=== PATIENT | male | born 1950 | race Caucasian/White ===

== ENCOUNTER → 2018-02-18 | Outpatient (CLI) | payer MEDICARE, OTHER | END | disposition home or self-care (01) | LOC: KCIC MRI 09:49 | DX: S83.242A Other tear of medial meniscus, current injury, left knee, initial encounter (principal); M22.42 Chondromalacia patellae, left knee; X58.XXXA Exposure to other specified factors, initial encounter; Y93.89 Activity, other specified; Y92.89 Other specified places as the place of occurrence of the external cause; Y99.8 Other external cause status | CPT/HCPCS: 73721 ==

== ENCOUNTER → 2018-03-22 | Day surgery (SDC) | payer MEDICARE, OTHER ==
[~2018-03-22] MED LIST: DEXAMETHASONE SOD PHOS 20 MG/5 ML VIAL.; ESMOLOL 100 MG/10 ML VIAL. IV; HYDROcodone/APAP 7.5/325MG 1 TAB TABLET PO; LIDOCAINE 1% PF 2 ML VIAL. ID; LIDOCAINE 1% PF 5 ML VIAL.; MIDAZOLAM HCL/PF 2 MG/2 ML VIAL.; MIDAZOLAM HCL/PF 2 MG/2 ML VIAL. IV; ONDANSETRON PF 4 MG/2 ML VIAL.; PROPOFOL 20 ML IV; SCOPOLAMINE 1.5MG PATCH. TD; SEVOFLURANE 31 TO 60 MINUTES. IH; fentaNYL PF VIAL 100 MCG/2 ML VIAL IV; fentaNYL PF VIAL 250 MCG/5 ML VIAL
[2018-03-22] MEDS: IV RINGERS,LACTATED 1000ML 1,000 ML IV (07:57)
[2018-03-22 08:02] LABS: POC GLUCOSE 145 mg/dL (70-99)
[2018-03-22] MEDS: BUPIVACAINE-EPI 0.25%-1:200000 50 ML VIAL. (09:22)
[2018-03-22 09:56] LABS: POC GLUCOSE 137 mg/dL (70-99)
[2018-03-22] MEDS: fentaNYL PF VIAL 100 MCG/2 ML VIAL IV (10:23)
[2018-03-22] MEDS: HYDROcodone/APAP 7.5/325MG 1 TAB TABLET PO (11:01)
== END | disposition home or self-care (01) ==
LOC: SURG 06:53
DX: S83.242A Other tear of medial meniscus, current injury, left knee, initial encounter (principal); M22.42 Chondromalacia patellae, left knee; I10 Essential (primary) hypertension; E11.9 Type 2 diabetes mellitus without complications; E03.9 Hypothyroidism, unspecified; Z98.890 Other specified postprocedural states; Z87.442 Personal history of urinary calculi; Z81.8 Family history of other mental and behavioral disorders; Z82.3 Family history of stroke; Z83.6 Family history of other diseases of the respiratory system; F17.210 Nicotine dependence, cigarettes, uncomplicated; M19.90 Unspecified osteoarthritis, unspecified site; Z79.84 Long term (current) use of oral hypoglycemic drugs; Z79.899 Other long term (current) drug therapy; W31.89XA Contact with other specified machinery, initial encounter; Y93.89 Activity, other specified; Y92.89 Other specified places as the place of occurrence of the external cause; Y99.8 Other external cause status
CPT/HCPCS: 29881; 82962; A7015; J0690; J1100; J2250; J2405; J2704; J3010; J3490; J7120

== ENCOUNTER → 2018-06-29 | Outpatient (CLI) | payer MEDICARE ==
[2018-03-22 11:01] VITALS: BP 157/68
[~2018-06-29] MED LIST changes: +ASCO100T4 PO; +BENA20TA4 PO; -DEXAMETHASONE SOD PHOS 20 MG/5 ML VIAL.; -ESMOLOL 100 MG/10 ML VIAL. IV; +GLIM2TAB2 PO; +GLUC100018 PO; +HYDR-965 PO; +HYDR12.53 PO; -HYDROcodone/APAP 7.5/325MG 1 TAB TABLET PO; +LEVO100T5 PO; -LIDOCAINE 1% PF 2 ML VIAL. ID; -LIDOCAINE 1% PF 5 ML VIAL.; +MELO15TA23 PO; +METF10003 PO; -MIDAZOLAM HCL/PF 2 MG/2 ML VIAL.; -MIDAZOLAM HCL/PF 2 MG/2 ML VIAL. IV; +MULT1TAB52 PO; -ONDANSETRON PF 4 MG/2 ML VIAL.; -PROPOFOL 20 ML IV; -SCOPOLAMINE 1.5MG PATCH. TD; -SEVOFLURANE 31 TO 60 MINUTES. IH; +TRAM50TA PO; -fentaNYL PF VIAL 100 MCG/2 ML VIAL IV; -fentaNYL PF VIAL 250 MCG/5 ML VIAL
--- NOTE | 2018-06-29 12:03 | KCIC ---
MRI of the lumbar spine without contrast 06/29/2018 CLINICAL HISTORY: Low back pain which radiates down the right leg. TECHNIQUE: Unenhanced T1-weighted and T2-weighted sagittal and axial and inversion recovery sagittal images of the lumbar spine were obtained. FINDINGS: No previous imaging studies are available for comparison. Very mild S-shaped curvature of the thoracolumbar spine is seen. Degenerative signal changes are seen involving all of the disks of the lumbar spine. Degenerative signal changes are seen within the marrow surrounding these discs. An old compression fracture of the L1 vertebral body is seen. This vertebral body has lost approximately 15 percent of its normal height. No retropulsion of bone fragments into the central spinal canal is seen. There is no MRI evidence of an acute compression fracture involving the lumbar vertebrae. The conus medullaris is normal morphology, position, and signal characteristics. A 1.6 cm rounded high signal intensity lesion is seen involving the superior/midpole of the right kidney on the T2-weighted images. A 8 mm rounded high signal intensity lesion is seen involving the lower pole of the right kidney on the T2-weighted images. These likely represent cysts. At the T12-L1 disc space there is a minimal generalized disc bulge. Degenerative changes are seen involving the facet joints bilaterally.These findings do not result in significant central spinal canal or neural foraminal stenosis. At the L1-2 disc space is a mild generalized disc bulge. Degenerative changes are seen involving the facet joints bilaterally. There is mild ligament flavum hypertrophy bilaterally. These findings do not result in significant central spinal canal or neural foraminal stenosis. At the L2-3 disc space there is a mild to moderate generalized disc bulge. Degenerative changes are seen involving the facet joints bilaterally. There is moderate ligamentum flavum hypertrophy bilaterally. These findings when combined result in mild to moderate central spinal canal stenosis. No neural foraminal stenosis is seen. At the L3-4 disc space there is a mild to moderate generalized disc bulge. Degenerative changes are seen involving the facet joints bilaterally. There is mild ligament flavum hypertrophy bilaterally. These findings when combined result in mild central spinal canal stenosis. No neural foraminal stenosis is seen. At the L4-5 disc space there is a moderate generalized disc bulge. Degenerative changes are seen involving the facet joints bilaterally. There is moderate to severe ligamentum flavum hypertrophy bilaterally. These findings when combined result in moderate to severe central spinal canal stenosis. Mild bilateral neural foraminal stenosis is seen. At the L5-S1 disc space there is a mild generalized disc bulge. Superimposed on this disc bulge is a focal central disc protrusion. This measures 2 mm in AP diameter. Degenerative changes are seen involving the facet joints bilaterally. A 4 mm synovial cyst seen projecting laterally from the right facet joint. These findings do not result in significant central spinal canal or neural foraminal stenosis. IMPRESSION: The changes of degenerative disc disease are seen throughout the lumbar spine. These findings result in mild to moderate central spinal canal stenosis at L2-3, mild central spinal canal stenosis at L3-4 and moderate to severe central spinal canal stenosis at L4-5. Mild bilateral neural foraminal stenosis is seen at L4-5. Electronically signed by: Laron Alonso MD (06/29/2018 12:00 PM) [facility]
--- NOTE | 2018-06-29 13:54 | KCIC ---
MR of the right hip Indication: Right hip pain. Low back pain extending into the right hip. Technique: Standard multiplanar sequences are obtained. Findings: Artifact: Mild motion degradation Bones: No acute fracture. No aggressive bone destruction. No definite specific evidence of osteonecrosis. Effusion: Small Cartilage: Primary osteoarthritis with severe chondral loss. Subchondral marrow edema at the left femoral head and neck is likely degenerative. Labrum: Mild degenerative signal. No clear-cut detachment. Gluteus minimus tendon: Intact Gluteus medius tendon: Intact Hamstring tendon: Intact Iliopsoas tendon: Tendinosis. Moderate iliopsoas bursal fluid.. Rectus femoris tendon attachment:Intact Coronal survey STIR sequence demonstrates severe degenerative changes at the left hip with a small effusion. Impression: 1. Severe primary osteoarthritis. 2. Bilateral small effusions. 3. Iliopsoas tendinosis. Moderate iliopsoas bursal fluid accumulation. Electronically signed by: Tony Regalado MD (06/29/2018 1:50 PM) [facility]
== END | disposition home or self-care (01) ==
LOC: KCIC MRI 08:16
PROVIDERS: ATTEND Anesthesiology Pain Medicine
DX: M51.36 Other intervertebral disc degeneration, lumbar region (principal); M48.061 Spinal stenosis, lumbar region without neurogenic claudication; M51.27 Other intervertebral disc displacement, lumbosacral region; M16.11 Unilateral primary osteoarthritis, right hip; M25.452 Effusion, left hip; M25.451 Effusion, right hip; M71.38 Other bursal cyst, other site; I10 Essential (primary) hypertension; E11.9 Type 2 diabetes mellitus without complications; E03.9 Hypothyroidism, unspecified; Z87.891 Personal history of nicotine dependence
CPT/HCPCS: 72148; 73721

== ENCOUNTER → 2018-08-29 | Outpatient (CLI) | payer MEDICARE ==
[2018-03-22 11:01] VITALS: BP 157/68
[~2018-08-29] MED LIST changes: +APIX2.5T PO; +APIX5TAB PO; +CYCL10TA2 PO; +FERR325T72 PO; +INSU100I13 SQ; -METF10003 PO; +METF10007 PO; +NAPR220T70 PO; +SENN-22 PO
[2018-08-29 09:35] LABS: BASO % 0 % (0-3); EOS # 0.1 x10^3/uL (0.0-0.7); EOS % 2 % (0-3); HEMATOCRIT 42.7 % (39.0-53.0); HEMOGLOBIN 14.9 g/dL (13.0-17.5); LYMPH # 1.9 x10^3/uL (1.0-4.8); LYMPH % 29 % (24-48); MEAN CORPUSCULAR HEMOGLOBIN 34 pg (25-35); MEAN CORPUSCULAR HGB CONC 35 g/dL (31-37); MEAN CORPUSCULAR VOLUME 98 fL (79-100); MONO # 0.5 x10^3/uL (0.0-1.1); MONO % 8 % (0-9); NEUT % 61 % (31-73); PLATELET COUNT 216 x10^3/uL (140-400); RED BLOOD COUNT 4.35 x10^6/uL (4.30-5.70); RED CELL DISTRIBUTION WIDTH 13.3 % (11.5-14.5); WHITE BLOOD COUNT 6.5 x10^3/uL (4.0-11.0)
[2018-08-29 09:37] LABS: BILIRUBIN,URINE NEGATIVE (NEG); CLARITY,URINE CLEAR; COLOR,URINE YELLOW; NITRITE,URINE NEGATIVE (NEG); PH,URINE 5.5; PROTEIN,URINE NEGATIVE (NEG-TRACE)
[2018-08-29 09:43] LABS: ALBUMIN 3.6 g/dL (3.4-5.0); CALCIUM 9.4 mg/dL (8.5-10.1); CREATININE 1.3 mg/dL (0.7-1.3); GFR 54.9; POTASSIUM 4.8 mmol/L (3.5-5.1); PROTHROMBIN TIME PATIENT 12.7 SEC (11.7-14.0)
[2018-08-29 09:59] LABS: BACTERIA,URINE 0 /HPF (0-FEW); RBC,URINE 0 /HPF (0-2); SQUAMOUS EPITHELIAL CELL,UR FEW /LPF; WBC,URINE OCC /HPF (0-4)
--- NOTE | 2018-08-29 13:20 | EKG ---
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
--- NOTE | 2018-08-29 14:52 | RAD ---
EXAM: Chest, 2 views. HISTORY: Hip arthroplasty. Pain. COMPARISON: None. FINDINGS: 2 views of the chest are obtained. There is no infiltrate, pleural effusion or pneumothorax. The heart is normal in size. IMPRESSION: No acute pulmonary finding. Electronically signed by: Layal Malik MD (08/29/2018 2:49 PM) [facility]-H[facility]
[2018-08-30 00:10] LABS: HEMOGLOBIN A1C 8.3 % (4.8-5.6)
== END | disposition home or self-care (01) ==
LOC: SURGPAT 13:08
PROVIDERS: ATTEND Orthopaedic Surgery
DX: Z01.818 Encounter for other preprocedural examination (principal); M16.11 Unilateral primary osteoarthritis, right hip; I10 Essential (primary) hypertension; E11.9 Type 2 diabetes mellitus without complications; E03.9 Hypothyroidism, unspecified; F17.200 Nicotine dependence, unspecified, uncomplicated; Z79.899 Other long term (current) drug therapy; Z79.84 Long term (current) use of oral hypoglycemic drugs
CPT/HCPCS: 36415; 71046; 80048; 81001; 82040; 83036; 85025; 85610; 85730; 87641; 93005

== ENCOUNTER 2018-09-06 08:45 | Inpatient (IN) | payer MEDICARE ==
[~2018-09-06] VITALS: Ht 177.8 cm; Wt 80.3 kg
[~2018-09-06 08:45] MED LIST changes: -APIX2.5T PO; -APIX5TAB PO; -CYCL10TA2 PO; -FERR325T72 PO; +HYDROcodone/APAP 7.5/325MG 1 TAB TABLET PO PRN; +HYDROmorphone 2 MG/ML VIAL IV PRN; -INSU100I13 SQ; +IV RINGERS,LACTATED 1000ML 1,000 ML IV SCH; +LIDOCAINE 1% PF 2 ML VIAL. ID PRN; +MORPHINE SULFATE 2 MG/ML VIAL. IV PRN; +MORPHINE SULFATE 5 MG, KETOROLAC 30MG VIAL 30 MG, ROPIVacaine 0.5% PF 60 ML, EPINEPHrin... INT ART ONE; +ONDANSETRON PF 4 MG/2 ML VIAL. IV PRN; +PROCHLORPERAZINE 10 MG/2 ML VIAL. IV PRN; -SENN-22 PO; +TRANEXAMIC ACID 1,000 MG in IV NS 50ML -- 1ST BAG INJ ONE; +TRANEXAMIC ACID 1,000 MG in IV NS 50ML -- 2ND BAG INJ ONE; +fentaNYL PF VIAL 100 MCG/2 ML VIAL IV PRN
[2018-09-06 10:36] LABS: PROTHROMBIN TIME PATIENT 13.5 SEC (11.7-14.0)
[2018-09-06] MEDS ORDERED: DEXAMETHASONE SOD PHOS 20 MG/5 ML VIAL. ONE (13:17)
[2018-09-06] MEDS ORDERED: ROCURONIUM 50 MG/5 ML VIAL. ONE (13:17)
[2018-09-06] MEDS ORDERED: FAMOTIDINE 20 MG/2 ML VIAL ONE (13:17)
[2018-09-06] MEDS ORDERED: LIDOCAINE 2% PF Vial for OR 5 ML VIAL. ONE (13:17)
[2018-09-06] MEDS ORDERED: MIDAZOLAM HCL/PF 2 MG/2 ML VIAL. ONE (13:17)
[2018-09-06] MEDS ORDERED: fentaNYL PF VIAL 100 MCG/2 ML VIAL ONE ×2 (13:17→17:58)
[2018-09-06] MEDS ORDERED: ONDANSETRON PF 4 MG/2 ML VIAL. ONE (13:17)
[2018-09-06] MEDS ORDERED: PROPOFOL 20 ML IV ONE (13:17)
[2018-09-06] MEDS ORDERED: MORPHINE SULFATE INT ART ONE ×5 (14:15)
[2018-09-06] MEDS ORDERED: [UNRECOGNIZED DRUG - OTHER] INT ART ONE ×5 (14:15)
[2018-09-06] MEDS ORDERED: KETOROLAC INT ART ONE ×5 (14:15)
[2018-09-06] MEDS ORDERED: ROPIVACAINE 0.5% INT ART ONE ×5 (14:15)
[2018-09-06] MEDS ORDERED: oxyCODONE/APAP 5/325 1 TAB TABLET PO PRN (15:00)
[2018-09-06] MEDS ORDERED: DEXTROSE 50% 25 GM / 50ML DISP.SYRIN. IV PRN (15:00)
[2018-09-06] MEDS ORDERED: traMADol 50 MG TABLET PO PRN ×2 (15:00)
[2018-09-06] MEDS ORDERED: ACETAMINOPHEN 325 MG TABLET. PO PRN (15:00)
[2018-09-06] MEDS ORDERED: PROCHLORPERAZINE 10 MG/2 ML VIAL. IV PRN (15:00)
[2018-09-06] MEDS ORDERED: 0.9 % SODIUM CHLORIDE 10 ML DISP.SYRIN. IV PRN (15:00)
[2018-09-06] MEDS ORDERED: fentaNYL PF VIAL 100 MCG/2 ML VIAL IV PRN (15:00)
[2018-09-06] MEDS ORDERED: WARFARIN 7.5 MG TABLET. PO ONE (16:00)
--- NOTE | 2018-09-06 16:15 | PREOP HP ---
DATE OF SERVICE: 09/06/2018 CHIEF COMPLAINT: Right hip pain and degenerative joint disease. HISTORY OF PRESENT ILLNESS: The patient is known to me from left knee arthroscopy that continues to do very well. He has been unfortunately developing right hip pain, more severe in onset since May of this year, more tolerable prior to that point, but now very limiting to his activities of daily living. He states that it is radiating down toward the right knee and he has little compensatory pain even in the left knee area. PAST MEDICAL HISTORY: Significant for well controlled diabetes mellitus, hypertension, hypothyroidism. PAST SURGICAL HISTORY: Elbow, finger and abdominal surgery, left knee scope and some facial cosmetic surgery as well as kidney stones. FAMILY HISTORY: Stroke in his mom, emphysema in his dad and dementia in a brother. SOCIAL HISTORY: Smokes cigars. Denies alcohol or drug use. MEDICATIONS: Include metformin, glimepiride, levothyroxine, benazepril, hydrochlorothiazide, Mobic, tramadol. ALLERGIES: He has no known drug allergies. REVIEW OF SYSTEMS: Denies any chest pain, shortness of breath, radiating pain in the extremities, focal weakness, numbness, tingling or other constitutional symptoms. PHYSICAL EXAMINATION: VITAL SIGNS: Per admission sheet. HEENT: Atraumatic, normocephalic. HEART: Regular rate and rhythm. LUNGS: Clear to auscultation bilaterally. ABDOMEN: Benign. EXTREMITIES: Examination of the right hip reveals decreased range of motion in all planes with pain on extremes of range, reproducing his groin pain and radiating down toward, but not be on the right knee, well-healed arthroscopic portals in the left knee. He has normal alignment and stability of bilateral knees and ankles. Normal examination of the contralateral left hip with intact motor function, distal pulses, sensation, reflexes and skin in both lower extremities throughout. IMAGING: X-rays reveal severe degenerative change in the right hip. IMPRESSION: Right hip osteoarthritis. TREATMENT PLAN: I had previously discussed with him the possibility of ongoing nonoperative treatment, use of a cane. He has previously undergone injection and chiropractic treatment, which were ineffective. We talked about operative treatment including hip arthroplasty, possibility of infection, nerve or blood vessel damage, medical or other anesthetic complications, leg length inequality, premature wear loosening, instability, among others. All his questions were answered. He wishes to proceed with total hip arthroplasty, which will include [facility] admission to follow today. HERMINIO RICH MD DR: LILIA/macyol JOB#: [id number] / [id number]
[2018-09-06] MEDS ORDERED: ePHEDrine PF IN SALINE 50 MG/5 ML DISP.SYRIN IV ONE (16:46)
[2018-09-06] MEDS ORDERED: DESFLURANE > 120 MINUTES IH ONE (16:46)
[2018-09-06] MEDS ORDERED: NEOSTIGMINE METHYLSULFATE 5 MG/5 ML SYRINGE. ONE (16:47)
[2018-09-06] MEDS ORDERED: GLYCOPYRROLATE 1 MG/5 ML VIAL. ONE (16:47)
--- NOTE | 2018-09-06 17:42 | PDOC4 ---
Operative Note Operative Note Surgery: 09/06/2018 Preoperative diagnosis: Right hip degenerative joint disease Postoperative diagnosis: Same Operative procedure: Right total hip arthroplasty, anterior approach Surgeon: Shelton Assist: Bess Anesthesia: Gen. Estimated blood loss: 200 mL Complications: None Specimens: Femoral head to pathology Operative indications: Patient is known to me from previous knee arthroscopy on the left which had done well he has had ongoing worsening right hip pain unresponsive to injection activity modification. Details are in my clinic notes and preoperative history and physical. We had gone over risks benefits postoperative course of total hip arthroplasty including the possibility of infection nerve or blood vessel damage leg length inequality instability a mature wear or loosening medical or other anesthetic consultations among others all his questions were answered consent was obtained and he agrees to proceed with operative evaluation and treatment Operative text: Patient was identified procedure verified patient placed in the supine position on the [place] fracture table. After adequate amounts of general anesthesia were administered both feet were placed in traction boots and supported gently all bony prominences well-padded. The right hip was then prepped and draped in standard sterile fashion and after timeout was performed patient procedure identified and verified and incision was made just distal and lateral to the anterior superior iliac spine across the tensor fascia ellis muscle belly. Tensor fascia ellis was taken laterally rectus femoris medially circumflex vessels were coagulated the anterior hip capsule was exposed and split in a T fashion. Femoral cut was made under fluoroscopic guidance a napkin ring of bone was removed along with the femoral head which was sized at a size 48 reaming of the acetabulum carried out through 48 50 52 and 54 finely the rim was touched with a 55 and a size 56 mm coated hemispherical 3-hole shell was placed with a single superiorly directed screw and a 40 mm 0 acetabular liner was likewise placed. Femur was then prepared by bringing it into full external rotation extension and adduction and broaching was carried out lateralizing components as much as possible. Broaching was carried out through a size 4 component area trialing carried out with standard and high offset stem high offset better reproduced the offset of the contralateral side and resulted in excellent stability reproduction of leg length with a +4 mm femoral head trial. Trial components were removed and a size 4 high offset SMF stem was impacted into place with a 40 mm Oxinium femoral head with a +4 taper sleeve. This was tapped into place to engage the Dickson taper and reduced and found to have excellent reproduction of leg length offset and stability. Thorough irrigation carried out normal saline solution. Pain catheter mixture was injected throughout the joint capsule and subcutaneous areas of pain catheter and Hemovac drain were placed fascia was closed with #1 PDS strata fix suture subcutaneous closure with buried Vicryl suture skin closure with 3-0 Monocryl strata fix je drain was placed patient was returned recovery room in stable condition having tolerated procedure well. Bess hernandez was present for the procedure assisted in prepping draping retraction and skin closure HERMINIO RICH MD Sep 06, 2018 17:42
[2018-09-06] MEDS: fentaNYL PF VIAL 100 MCG/2 ML VIAL IV PRN ×5 (18:02→19:52)
[2018-09-06 19:15] VITALS: BP 129/77
[2018-09-06] MEDS: KETOROLAC 30MG VIAL 30 MG, BUPIVACAINE MPF 0.25% 20 ML, EPINEPHrine 0.5 MG in TOTAL VOL... INT ART SCH (19:38)
[2018-09-06] MEDS: IV DEXTROSE 5 %-0.45 % NACL 1,000 ML IV SCH (19:42)
[2018-09-06 19:45] VITALS: BP 135/92
[2018-09-06] MEDS: SENNOSIDES/DOCUSATE 8.6/50MG TABLET. PO SCH (20:01)
[2018-09-06] MEDS: MULTIVITAMIN with MINERAL TABLET. PO SCH (20:02)
[2018-09-06] MEDS: FERROUS SULFATE 325 MG TABLET. PO SCH (20:02)
[2018-09-06 20:15] VITALS: BP 155/89
[2018-09-06 20:45] VITALS: BP 132/89
[2018-09-06] MEDS: CELECOXIB 100 MG CAPSULE. PO SCH (21:16)
[2018-09-06 21:45] VITALS: BP 135/88
[2018-09-06 22:45] VITALS: BP_SYST 126; BP_DIAS 78; BP_DIAS 83
[2018-09-07] MEDS: IV DEXTROSE 5 %-0.45 % NACL 1,000 ML IV SCH ×2 (00:50→10:46)
[2018-09-07] MEDS: HYDROcodone/APAP 7.5/325MG 1 TAB TABLET PO PRN ×3 (02:22→12:44)
[2018-09-07 03:02] VITALS: BP 107/65
[2018-09-07 04:46] LABS: HEMATOCRIT 42.1 % (39.0-53.0); HEMOGLOBIN 14.6 g/dL (13.0-17.5)
[2018-09-07 04:51] LABS: PROTHROMBIN TIME PATIENT 15.6 SEC (11.7-14.0)
[2018-09-07] MEDS: LEVOTHYROXINE 100 MCG TABLET PO SCH (05:52)
[2018-09-07] MEDS ORDERED: MAGNESIUM HYDROXIDE 2,400 MG/30 ML ORAL.SUSP. PO PRN (06:00)
[2018-09-07 06:05] VITALS: BP 123/62
--- NOTE | 2018-09-07 07:14 | PDOC ---
ORTHO PROGRESS NOTES Subjective Patient states no pain this morning. Post-op Day: 1 Procedure Right Total Hip Arthroplasty Anterior Approach. Vitals Vital Signs Date Time Temp Pulse Resp B/P (MAP) Pulse Ox O2 Delivery O2 Flow Rate FiO2 09/07/18 06:05 97.6 88 20 123/62 (82) 94 Room Air 97.6 09/06/18 19:02 2.0 Labs Laboratory Tests Test 09/06/18 09:20 09/06/18 09:33 09/06/18 18:37 09/06/18 20:48 Erythrocyte Sedimentation Rate 4 (0-15) Prothrombin Time 13.5 SEC (11.7-14.0) Prothromb Time International Ratio 1.1 (0.8-1.1) Activated Partial Thromboplast Time 28 SEC (24-38) Glucose (Fingerstick) 143 mg/dL (70-99) 212 mg/dL (70-99) 295 mg/dL (70-99) Test 09/07/18 03:40 09/07/18 06:27 09/07/18 06:28 Hemoglobin 14.6 g/dL (13.0-17.5) Hematocrit 42.1 % (39.0-53.0) Mean Corpuscular Hemoglobin Concent 35 g/dL (31-37) Prothrombin Time 15.6 SEC (11.7-14.0) Prothromb Time International Ratio 1.3 (0.8-1.1) Glucose (Fingerstick) 387 mg/dL (70-99) 398 mg/dL (70-99) Laboratory Tests Test 09/06/18 09:20 09/06/18 09:33 09/06/18 18:37 09/06/18 20:48 Erythrocyte Sedimentation Rate 4 (0-15) Prothrombin Time 13.5 SEC (11.7-14.0) Prothromb Time International Ratio 1.1 (0.8-1.1) Activated Partial Thromboplast Time 28 SEC (24-38) Glucose (Fingerstick) 143 mg/dL (70-99) 212 mg/dL (70-99) 295 mg/dL (70-99) Test 09/07/18 03:40 09/07/18 06:27 09/07/18 06:28 Hemoglobin 14.6 g/dL (13.0-17.5) Hematocrit 42.1 % (39.0-53.0) Mean Corpuscular Hemoglobin Concent 35 g/dL (31-37) Prothrombin Time 15.6 SEC (11.7-14.0) Prothromb Time International Ratio 1.3 (0.8-1.1) Glucose (Fingerstick) 387 mg/dL (70-99) 398 mg/dL (70-99) Assessment and Plan POD#1 PT per protocol dressing dry and intact Drain to b d/cd today. N/V intact distally calf soft and non tender. BENIGNO DALEY APRN Sep 07, 2018 07:14
--- NOTE | 2018-09-07 07:48 | RAD ---
Pelvis, single view, 09/06/2018: HISTORY: Postop evaluation A right total hip prosthesis has been inserted in satisfactory position. There is moderate osteoarthritis at the left hip joint. Heterogeneous radiopacities overlying the right hip are probably related to an overlying artifact such as a pillow. There is an electronic device overlying the right hip laterally. No retained surgical instrument, needle or radiopaque sponge is evident on this single view. Electronically signed by: Santino Stark MD (09/07/2018 7:45 AM) [facility]
[2018-09-07] MEDS ORDERED: INSULIN LISPRO 300 UNITS/3 ML INSULN.PEN. SQ SCH (08:00)
[2018-09-07] MEDS: hydroCHLOROthiazide 12.5 MG CAPSULE PO SCH (08:02)
[2018-09-07] MEDS: MULTIVITAMIN with MINERAL TABLET. PO SCH (08:04)
[2018-09-07] MEDS: CELECOXIB 100 MG CAPSULE. PO SCH ×2 (08:04→20:43)
[2018-09-07] MEDS: GLIMEPIRIDE 2 MG TABLET. PO SCH (08:04)
[2018-09-07] MEDS: metFORMIN 500 MG TABLET PO SCH ×2 (08:06→17:11)
[2018-09-07] MEDS: LISINOPRIL 20 MG TABLET PO SCH (08:06)
[2018-09-07] MEDS: FERROUS SULFATE 325 MG TABLET. PO SCH ×2 (08:06→17:11)
[2018-09-07] MEDS: SENNOSIDES/DOCUSATE 8.6/50MG TABLET. PO SCH (08:07)
[2018-09-07] MEDS: ASCORBIC ACID 500 MG TABLET PO SCH (08:07)
[2018-09-07] MEDS: KETOROLAC 30MG VIAL 30 MG, BUPIVACAINE MPF 0.25% 20 ML, EPINEPHrine 0.5 MG in TOTAL VOL... INT ART SCH (11:59)
[2018-09-07] MEDS ORDERED: DEXTROSE 50% 25 GM / 50ML DISP.SYRIN. IV PRN ×2 (12:00→18:00)
[2018-09-07] MEDS: INSULIN LISPRO 300 UNITS/3 ML INSULN.PEN. SQ SCH ×2 (12:12→17:17)
[2018-09-07] MEDS ORDERED: BISACODYL 10 MG SUPP.RECT. PR PRN (16:00)
[2018-09-07] MEDS ORDERED: WARFARIN 5 MG TABLET. PO ONE (16:00)
[2018-09-07 18:42] VITALS: BP 134/82
--- NOTE | 2018-09-07 18:42 | PDOC2 ---
CONSULT Date of Consult Date of Consult DATE: 09/07/18 TIME: 18:36 Reason for Consult Reason for Consult: DM management Referring Physician Referring Physician: Paul Identification/Chief Complaint Chief Complaint high bS Source Source: Caregiver, Chart review, Patient History of Present Illness Reason for Visit: Very pleasant 68-year-old male who was admitted under orthopedic service for scheduled right hip sx from [facility]. He is a known diabetic for 10 years , no neuropathy or retinopathy or kidney problems from it. Did lose weight from over 260 pounds to 180 and now has further reduced weight. Never on insulin. Hemoglobin A1c December 2017 was 7.4. He did get hydrocortisone and was getting dextrose IVF perioperatively. Called by RN because of a blood sugar 399. Patient is asymptomatic but is concerned about the high blood sugar. His he is taking metformin and glipizide at home. He was told to hold that since nothing by mouth. His blood sugar on admission was 140. 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 I plan on Giving him a low dose long- acting insulin tonight. Okay to continue metformin and glipizide. Unlikely that he will be needing the Levemir when he gets out of the hospital. He's plan for home with home health on Wednesday which is 2 days from now. Past Medical History Cardiovascular: HTN Musculoskeletal: Other ([facility]) Endocrine: Diabetes Past Surgical History Past Surgical History: Total hip replacement Family History Family History: Hypertension Social History No ALCOHOL: none Lives: with Family Domestic Violence: Neg Current Medications Current Medications Current Medications Morphine Sulfate 5 mg/Ketorolac Tromethamine 30 mg/Ropivacaine 60 ml/ Epinephrine HCl 0.5 mg/Sodium Chloride 100 ml @ 100 mls/hr 1X ONCE INT ART ; Start 09/06/18 at 06:00; Stop 09/06/18 at 07:00; Status DC Ondansetron HCl (Zofran) 4 mg PRN Q6HRS PRN IV NAUSEA/VOMITING; Start at 07:00; Stop 09/06/18 at 21:00; Status DC Fentanyl Citrate (Fentanyl 2ml Vial) 25 mcg PRN Q5MIN PRN IV MILD PAIN; Start 09/06/18 at 07:00; Stop 09/06/18 at 21:00; Status DC Fentanyl Citrate (Fentanyl 2ml Vial) 50 mcg PRN Q5MIN PRN IV MODERATE TO SEVERE PAIN Last administered on 09/06/18at 19:02; Start 09/06/18 at 07:00; Stop 09/06/18 at 21:00; Status DC Morphine Sulfate (Morphine Sulfate) 1 mg PRN Q10MIN PRN IV SEVERE PAIN; Start 09/06/18 at 07:00; Stop 09/06/18 at 21:00; Status DC Ringer's Solution 1,000 ml @ 30 mls/hr Q24H IV Last administered on at 09:45; Start 09/06/18 at 07:00; Stop 09/06/18 at 18:59; Status DC Lidocaine HCl (Xylocaine-Mpf 1% 2ml Vial) 2 ml PRN 1X PRN ID PRIOR TO IV START ; Start 09/06/18 at 07:00; Stop 09/06/18 at 21:00; Status DC Hydromorphone HCl (Dilaudid) 0.5 mg PRN Q10MIN PRN IV SEV PAIN, Second choice; Start 09/06/18 at 07:00; Stop 09/06/18 at 21:00; Status DC Prochlorperazine Edisylate (Compazine) 5 mg PACU PRN PRN IV NAUSEA, MRX1; Start 09/06/18 at 07:00; Stop 09/06/18 at 21:00; Status DC Acetaminophen/ Hydrocodone Bitart (Lortab 7.5/325) 2 tab 1X PREOP PRN PO PRIOR TO PROCEDURE Last administered on 09/06/18at 09:48; Start 09/06/18 at 06:00; Stop 09/06/18 at 18:00; Status DC Cefazolin Sodium/ Dextrose 50 ml @ 100 mls/hr 1X PREOP PRN IV PRIOR TO PROCEDURE Last administered on 09/06/18at 14:43; Start 09/06/18 at 06:00; Stop 09/06/18 at 18:00; Status DC Tranexamic Acid 1000 mg/Sodium Chloride 60 ml @ 60 mls/hr 1X PERIOP ONCE INJ Last administered on 09/06/18at 15:00; Start 09/06/18 at 06:00; Stop 09/06/18 at 07:00; Status DC Tranexamic Acid 1000 mg/Sodium Chloride 60 ml @ 60 mls/hr 1X PERIOP ONCE INJ Last administered on 09/06/18at 17:10; Start 09/06/18 at 08:00; Stop 09/06/18 at 08:59; Status DC Propofol 20 ml @ As Directed STK-MED ONCE IV ; Start 09/06/18 at 13:17; Stop 09/06/18 at 13:18; Status DC Dexamethasone Sodium Phosphate (Decadron) 20 mg STK-MED ONCE .ROUTE ; Start at 13:17; Stop 09/06/18 at 13:18; Status DC Famotidine (Pepcid Vial) 20 mg STK-MED ONCE .ROUTE ; Start 09/06/18 at 13:17; Stop 09/06/18 at 13:18; Status DC Lidocaine HCl (Lidocaine Pf 2% Vial) 5 ml STK-MED ONCE .ROUTE ; Start 09/06/18 at 13:17; Stop 09/06/18 at 13:18; Status DC Ondansetron HCl (Zofran) 4 mg STK-MED ONCE .ROUTE ; Start 09/06/18 at 13:17; Stop 09/06/18 at 13:18; Status DC Rocuronium [place] (Zemuron) 50 mg STK-MED ONCE .ROUTE ; Start 09/06/18 at 13: 17; Stop 09/06/18 at 13:18; Status DC Fentanyl Citrate (Fentanyl 2ml Vial) 100 mcg STK-MED ONCE .ROUTE ; Start at 13:17; Stop 09/06/18 at 13:18; Status DC Midazolam HCl (Versed) 2 mg STK-MED ONCE .ROUTE ; Start 09/06/18 at 13:17; Stop 09/06/18 at 13:18; Status DC Morphine Sulfate 5 mg/Ketorolac Tromethamine 30 mg/Ropivacaine 32 ml/ Epinephrine HCl 0.5 mg/Sodium Chloride 100 ml @ 100 mls/hr 1X ONCE INT ART Last administered on 09/06/18at 15:21; Start 09/06/18 at 14:15; Stop 09/06/18 at 15:14; Status DC Acetaminophen/ Hydrocodone Bitart (Lortab 7.5/325) 1 tab PRN Q3HRS PRN PO MODERATE PAIN, 1st CHOICE Last administered on 09/07/18at 12:44; Start at 15:00 Acetaminophen/ Hydrocodone Bitart (Lortab 10/325) 1 tab PRN Q3HRS PRN PO MODERATE PAIN, 2nd CHOICE; Start 09/06/18 at 15:00 Tramadol HCl (Ultram) 50 mg PRN QID PRN PO MODERATE PAIN, 3rd CHOICE; Start at 15:00 Oxycodone/ Acetaminophen (Percocet 5/325) 1 tab PRN Q3HRS PRN PO SEVERE PAIN, 1st CHOICE; Start 09/06/18 at 15:00 Oxycodone/ Acetaminophen (Percocet 7.5/ 325) 1 tab PRN Q3HRS PRN PO SEVERE PAIN , 2nd CHOICE; Start 09/06/18 at 15:00 Tramadol HCl (Ultram) 100 mg PRN Q3HRS PRN PO SEVERE PAIN, 3rd CHOICE; Start 09/06/18 at 15:00 Morphine Sulfate (Morphine Sulfate) 2 mg PRN Q1HR PRN IV PAIN; Start 09/06/18 at 15:00 Fentanyl Citrate (Fentanyl 2ml Vial) 25 mcg PRN Q1HR PRN IV PAIN, 2nd CHOICE; Start 09/06/18 at 15:00 Warfarin Sodium (Coumadin) 7.5 mg 1X ONCE PO Last administered on 09/06/18at 20:01; Start 09/06/18 at 16:00; Stop 09/06/18 at 16:01; Status DC Warfarin Sodium (Coumadin Per Pharmacy) 1 each PRN DAILY PRN MC SEE COMMENTS Last administered on 09/07/18at 14:08; Start 09/06/18 at 15:00 Multivitamins (Thera M Plus) 1 tab DAILY PO Last administered on 09/07/18at 08: 04; Start 09/06/18 at 17:00 Senna/Docusate Sodium (Senna Plus) 1 tab DAILY PO Last administered on at 08:07; Start 09/06/18 at 16:00 Ferrous Sulfate (Feosol) 325 mg BIDWMEALS PO Last administered on 09/07/18at 17 :11; Start 09/06/18 at 17:00 Celecoxib (CeleBREX) 200 mg BID PO Last administered on 09/07/18at 08:04; Start 09/06/18 at 21:00 Dextrose/Sodium Chloride 1,000 ml @ 100 mls/hr Q10H IV Last administered on at 19:42; Start 09/06/18 at 14:50; Stop 09/07/18 at 17:57; Status DC Magnesium Hydroxide (Milk Of Magnesia) 2,400 mg 1X PRN PRN PO CONSTIPATION; Start 09/07/18 at 06:00; Stop 09/08/18 at 05:59 Bisacodyl (Dulcolax Supp) 10 mg 1X PRN PRN NC CONSTIPATION; Start 09/07/18 at 16:00; Stop 09/08/18 at 15:59 Acetaminophen (Tylenol) 650 mg PRN Q4HRS PRN PO MILD PAIN / TEMP; Start at 15:00 Zolpidem Tartrate (Ambien) 5 mg PRN QHS PRN PO INSOMNIA, MAY REPEAT IN 1HR; Start 09/06/18 at 15:00 Calcium Carbonate/ Glycine (Tums) 500 mg PRN QID PRN PO INDIGESTION; Start at 15:00 Morphine Sulfate (Morphine Sulfate) 4 mg PRN Q1HR PRN IV PAIN; Start 09/06/18 at 15:00 Ketorolac Tromethamine 30 mg/Bupivacaine HCl 20 ml/ Epinephrine HCl 0.5 mg/ Miscellaneous 43 ml @ 258 mls/hr Q12H INT ART Last administered on 09/07/18at 11:59; Start 09/06/18 at 20:00; Stop 09/07/18 at 08:09; Status DC Sodium Chloride (Normal Saline Flush) 10 ml QSHIFT PRN IV AFTER MEDS AND BLOOD DRAWS; Start 09/06/18 at 15:00 Fentanyl Citrate (Fentanyl 2ml Vial) 50 mcg PRN Q1HR PRN IV PAIN, 2nd CHOICE Last administered on 09/06/18at 19:52; Start 09/06/18 at 15:00 Prochlorperazine Edisylate (Compazine) 10 mg PRN Q4HRS PRN IV NAUSEA/VOMITING; Start 09/06/18 at 15:00 Dextrose (Dextrose 50%-Water Syringe) 12.5 gm PRN Q15MIN PRN IV SEE COMMENTS; Start 09/06/18 at 15:00 Cefazolin Sodium/ Dextrose 50 ml @ 100 mls/hr Q6H IV Last administered on at 08:17; Start 09/06/18 at 21:00; Stop 09/07/18 at 09:29; Status DC Ephedrine Sulfate (ePHEDrine PF IN SALINE SYRINGE) 50 mg STK-MED ONCE IV ; Start 09/06/18 at 16:46; Stop 09/06/18 at 16:47; Status DC Desflurane (Suprane) 90 ml STK-MED ONCE IH ; Start 09/06/18 at 16:46; Stop at 16:47; Status DC Neostigmine Methylsulfate (Neostigmine Methylsulfate) 5 mg STK-MED ONCE .ROUTE ; Start 09/06/18 at 16:47; Stop 09/06/18 at 16:48; Status DC Glycopyrrolate (Robinul) 1 mg STK-MED ONCE .ROUTE ; Start 09/06/18 at 16:47; Stop 09/06/18 at 16:48; Status DC Fentanyl Citrate (Fentanyl 2ml Vial) 100 mcg STK-MED ONCE .ROUTE ; Start at 17:58; Stop 09/06/18 at 17:59; Status DC Insulin Human Lispro (HumaLOG) 0-5 UNITS TIDWMEALS SQ Last administered on at 08:16; Start 09/07/18 at 08:00; Stop 09/07/18 at 11:52; Status DC Glimepiride (Amaryl) 2 mg DAILY PO Last administered on 09/07/18at 08:04; Start 09/07/18 at 09:00 Levothyroxine Sodium (Synthroid) 100 mcg DAILY06 PO Last administered on at 05:52; Start 09/07/18 at 06:00 Ascorbic Acid (Vitamin C) 1,000 mg DAILY PO Last administered on 09/07/18at 08: 07; Start 09/07/18 at 09:00 Lisinopril (Prinivil) 20 mg DAILY PO Last administered on 09/07/18at 08:06; Start 09/07/18 at 09:00 Hydrochlorothiazide (Microzide) 12.5 mg DAILY PO Last administered on at 08:02; Start 09/07/18 at 09:00 Metformin HCl (Glucophage) 1,000 mg BIDWMEALS PO Last administered on at 17:11; Start 09/07/18 at 08:00 Influenza Virus Vaccine (Afluria Trivalent 8700-6304 Syringe) 0.5 ml ONCE ONCE VAX IM ; Start 09/07/18 at 09:00; Stop 09/07/18 at 09:01; Status DC Insulin Human Lispro (HumaLOG) 0-7 UNITS TIDWMEALS SQ Last administered on at 17:17; Start 09/07/18 at 12:00; Stop 09/07/18 at 17:57; Status DC Dextrose (Dextrose 50%-Water Syringe) 12.5 gm PRN Q15MIN PRN IV SEE COMMENTS; Start 09/07/18 at 12:00; Status UNV Warfarin Sodium (Coumadin) 5 mg 1X WARF ONCE PO Last administered on at 17:11; Start 09/07/18 at 16:00; Stop 09/07/18 at 16:01; Status DC Insulin Human Lispro (HumaLOG) 0-9 UNITS TIDWMEALS SQ ; Start 09/08/18 at 08:00 Dextrose (Dextrose 50%-Water Syringe) 12.5 gm PRN Q15MIN PRN IV SEE COMMENTS; Start 09/07/18 at 18:00 Insulin Glargine (Lantus) 12 units QHS SQ ; Start 09/07/18 at 21:00 Active Scripts Active [place] 7.5-325 Tablet (Acetaminophen/Hydrocodone Bitart) 1 Each Tablet 1 Tab PO PRN Q6HRS PRN Reported Aleve (Naproxen Sodium) 220 Mg Tablet 220 Mg PO BID Tramadol Hcl 50 Mg Tablet 50 Mg PO Q6HRS PRN Glucosamine (Glucosamine Sulfate 2KCL) 1,000 Mg Tablet 1,000 Mg PO DAILY Multivitamins (Multivitamin) 1 Each Tablet 1 Tab PO DAILY Vitamin C (Ascorbic Acid) 100 Mg Tablet 1,000 Mg PO DAILY Hydrochlorothiazide Capsule (Hydrochlorothiazide) 12.5 Mg Capsule 1 Cap PO DAILY Benazepril Hcl 20 Mg Tablet 1 Tab PO DAILY Glimepiride 2 Mg Tablet 1 Tab PO DAILY Metformin Hcl 1,000 Mg Tablet 1,000 Mg PO BID Levothyroxine Sodium 100 Mcg Tablet 1 Tab PO DAILY Allergies Allergies: Coded Allergies: No Known Drug Allergies (Unverified , 09/06/18) ROS Review of System A 14 point ROS was completed with the following noted as positive: Other systems reviewed and negative. \CONSTITUTIONAL: No fever or chills EYES: No recent changes SKIN: No rash or itching CARDIOVASCULAR: No chest pain, syncope, palpitations, or edema RESPIRATORY: No SOB or cough GASTROINTESTINAL: No nausea, vomiting or abdominal pain NEUROLOGICAL: No headaches or weakness ENDOCRINE: No cold or heat intolerance GENITOURINARY: No urgency or frequency of urination MUSCULOSKELETAL: No back pain or joint pain LYMPHATICS: No enlarged lymph nodes PSYCHIATRIC: No anxiety or depression Physical Exam General: Alert, Oriented X3, Cooperative, No acute distress HEENT: Atraumatic, PERRLA, EOMI, Mucous membr. moist/pink Lungs: Clear to auscultation, Normal air movement Heart: Regular rate, Normal S1, Normal S2, No murmurs Abdomen: Normal bowel sounds, Soft, No tenderness, No hepatosplenomegaly, No masses Extremities: No cyanosis, No edema, Normal pulses, Other (right hip dressing, dry) Skin: No rashes, No breakdown Neuro: Normal gait, Normal speech, Normal tone, Sensation intact, Reflexes 2+ Psych/Mental Status: Mental status NL MUSCULOSKELETAL: No joint tenderness, No deformity, No swelling Vitals VITALS Vital Signs Date Time Temp Pulse Resp B/P (MAP) Pulse Ox O2 Delivery O2 Flow Rate FiO2 09/07/18 12:44 Room Air 09/07/18 08:06 85 124/88 09/07/18 06:05 97.6 20 94 97.6 09/06/18 19:02 2.0 Labs Labs Laboratory Tests Test 09/06/18 09:20 09/06/18 09:33 09/06/18 18:37 09/06/18 20:48 Erythrocyte Sedimentation Rate 4 (0-15) Prothrombin Time 13.5 SEC (11.7-14.0) Prothromb Time International Ratio 1.1 (0.8-1.1) Activated Partial Thromboplast Time 28 SEC (24-38) Glucose (Fingerstick) 143 mg/dL (70-99) 212 mg/dL (70-99) 295 mg/dL (70-99) Test 09/07/18 03:40 09/07/18 06:27 09/07/18 06:28 09/07/18 11:46 Hemoglobin 14.6 g/dL (13.0-17.5) Hematocrit 42.1 % (39.0-53.0) Mean Corpuscular Hemoglobin Concent 35 g/dL (31-37) Prothrombin Time 15.6 SEC (11.7-14.0) Prothromb Time International Ratio 1.3 (0.8-1.1) Glucose (Fingerstick) 387 mg/dL (70-99) 398 mg/dL (70-99) 385 mg/dL (70-99) Test 09/07/18 16:25 Glucose (Fingerstick) 399 mg/dL (70-99) Laboratory Tests Test 09/06/18 18:37 09/06/18 20:48 09/07/18 03:40 09/07/18 06:27 Glucose (Fingerstick) 212 mg/dL (70-99) 295 mg/dL (70-99) 387 mg/dL (70-99) Hemoglobin 14.6 g/dL (13.0-17.5) Hematocrit 42.1 % (39.0-53.0) Mean Corpuscular Hemoglobin Concent 35 g/dL (31-37) Prothrombin Time 15.6 SEC (11.7-14.0) Prothromb Time International Ratio 1.3 (0.8-1.1) Test 09/07/18 06:28 09/07/18 11:46 09/07/18 16:25 Glucose (Fingerstick) 398 mg/dL (70-99) 385 mg/dL (70-99) 399 mg/dL (70-99) Assessment/Plan Assessment/Plan Postop day #1 right hip surgery for DJD Diabetes type 2 with hemoglobin A1c 7.4 in December 2017-uncontrolled currently- did receive steroids Intra-Op and also dextrose IV fluid Hypertension controlled Plan: Low-dose Levemir tonight 12 units daily at bedtime Agree with rechecking [id number] (has been over 3 mos now) Switch to sliding scale insulin high-dose Okay to continue metformin twice a day and glimepiride once a day Further recommendations pending course of the blood sugar with the above adjustments Thank you for consulting , we'll follow-up with CRISTOFER Keys MD Sep 07, 2018 18:41
[2018-09-07] MEDS: INSULIN GLARGINE 300 UNITS/3 ML INSULN.PEN. SQ SCH (20:46)
--- NOTE | 2018-09-07 21:34 | PDOC ---
PROGRESS NOTES Subjective Subjective Problems overnight: Less pain in hip with weightbearing but weakness in hip flexion Objective Vital Signs Vital Signs Date Time Temp Pulse Resp B/P (MAP) Pulse Ox O2 Delivery O2 Flow Rate FiO2 09/07/18 19:40 Room Air 09/07/18 18:42 98.3 82 18 134/82 (99) 99 98.3 09/06/18 19:02 2.0 Physical Exam On exam he has some thigh swelling but compartments are soft distal neurovascular status intact leg lengths equal Labs Laboratory Tests Test 09/06/18 09:20 09/06/18 09:33 09/06/18 18:37 09/06/18 20:48 Erythrocyte Sedimentation Rate 4 (0-15) Prothrombin Time 13.5 SEC (11.7-14.0) Prothromb Time International Ratio 1.1 (0.8-1.1) Activated Partial Thromboplast Time 28 SEC (24-38) Glucose (Fingerstick) 143 mg/dL (70-99) 212 mg/dL (70-99) 295 mg/dL (70-99) Test 09/07/18 03:40 09/07/18 06:27 09/07/18 06:28 09/07/18 11:46 Hemoglobin 14.6 g/dL (13.0-17.5) Hematocrit 42.1 % (39.0-53.0) Mean Corpuscular Hemoglobin Concent 35 g/dL (31-37) Prothrombin Time 15.6 SEC (11.7-14.0) Prothromb Time International Ratio 1.3 (0.8-1.1) Glucose (Fingerstick) 387 mg/dL (70-99) 398 mg/dL (70-99) 385 mg/dL (70-99) Test 09/07/18 16:25 09/07/18 20:30 Glucose (Fingerstick) 399 mg/dL (70-99) 316 mg/dL (70-99) Laboratory Tests Test 09/07/18 03:40 09/07/18 06:27 09/07/18 06:28 09/07/18 11:46 Hemoglobin 14.6 g/dL (13.0-17.5) Hematocrit 42.1 % (39.0-53.0) Mean Corpuscular Hemoglobin Concent 35 g/dL (31-37) Prothrombin Time 15.6 SEC (11.7-14.0) Prothromb Time International Ratio 1.3 (0.8-1.1) Glucose (Fingerstick) 387 mg/dL (70-99) 398 mg/dL (70-99) 385 mg/dL (70-99) Test 09/07/18 16:25 09/07/18 20:30 Glucose (Fingerstick) 399 mg/dL (70-99) 316 mg/dL (70-99) Imaging Intraoperative views show excellent placement of a total hip prosthesis maintaining leg length and offset Assessment Assessment POD# [1], S/P [total hip arthroplasty] Plan Plan of Care Continue mobilize with physical therapy weightbearing as tolerated no hip precautions secondary to anterior approach HERMINIO RICH MD Sep 07, 2018 21:34
[2018-09-08] MEDS: CALCIUM CARBONATE 500 MG TAB.CHEW PO PRN ×2 (01:16→14:40)
[2018-09-08 05:05] LABS: HEMOGLOBIN 13.4 g/dL (13.0-17.5)
[2018-09-08 05:14] LABS: PROTHROMBIN TIME PATIENT 24.3 SEC (11.7-14.0)
[2018-09-08] MEDS: LEVOTHYROXINE 100 MCG TABLET PO SCH (06:06)
[2018-09-08 06:07] VITALS: BP 105/65
[2018-09-08] MEDS: CELECOXIB 100 MG CAPSULE. PO SCH ×2 (08:28→20:31)
[2018-09-08] MEDS: GLIMEPIRIDE 2 MG TABLET. PO SCH (08:28)
[2018-09-08] MEDS: SENNOSIDES/DOCUSATE 8.6/50MG TABLET. PO SCH (08:28)
[2018-09-08] MEDS: MULTIVITAMIN with MINERAL TABLET. PO SCH (08:28)
[2018-09-08] MEDS: FERROUS SULFATE 325 MG TABLET. PO SCH ×2 (08:28→17:00)
[2018-09-08] MEDS: metFORMIN 500 MG TABLET PO SCH ×2 (08:29→17:19)
[2018-09-08] MEDS: ASCORBIC ACID 500 MG TABLET PO SCH (08:29)
[2018-09-08] MEDS: INSULIN LISPRO 300 UNITS/3 ML INSULN.PEN. SQ SCH ×3 (08:39→17:27)
[2018-09-08] MEDS: hydroCHLOROthiazide 12.5 MG CAPSULE PO SCH (09:00)
[2018-09-08] MEDS: LISINOPRIL 20 MG TABLET PO SCH (09:00)
--- NOTE | 2018-09-08 11:00 | PDOC ---
PROGRESS NOTES History of Present Illness History of Present Illness Assessment/Plan Postop day #2 right hip surgery for DJD Diabetes type 2 with hemoglobin A1c 7.4 in December 2017-uncontrolled currently- did receive steroids Intra-Op and also dextrose IV fluid Hypertension controlled Plan: Low-dose Levemir 12 units bedtime hgba1c (has been over 3 mos now) sliding scale insulin high-dose continue metformin twice a day and glimepiride once a day Further recommendations pending course of the blood sugar with the above adjustments Thank you for consulting , we'll follow Vitals Vitals Vital Signs Date Time Temp Pulse Resp B/P (MAP) Pulse Ox O2 Delivery O2 Flow Rate FiO2 09/08/18 08:45 Room Air 09/08/18 06:07 97.4 70 16 105/65 (78) 94 97.4 Physical Exam General: Alert, Oriented X3, Cooperative, No acute distress, mild distress Heart: Regular rate, Normal S1, Normal S2, No murmurs Lungs: Clear Abdomen: Normal bowel sounds, Soft, No tenderness, No hepatosplenomegaly, No masses Extremities: No clubbing, No cyanosis, No edema, Normal pulses, Other (right hip dressing, dry) Skin: No rashes, No breakdown Labs LABS Laboratory Tests Test 09/07/18 11:46 09/07/18 16:25 09/07/18 20:30 09/08/18 04:30 Glucose (Fingerstick) 385 mg/dL (70-99) 399 mg/dL (70-99) 316 mg/dL (70-99) Hemoglobin 13.4 g/dL (13.0-17.5) Hematocrit 38.0 % (39.0-53.0) Mean Corpuscular Hemoglobin Concent 35 g/dL (31-37) Prothrombin Time 24.3 SEC (11.7-14.0) Prothromb Time International Ratio 2.3 (0.8-1.1) Test 09/08/18 06:42 Glucose (Fingerstick) 183 mg/dL (70-99) Comment Review of Relevant I have reviewed the following items digna (where applicable) has been applied. Labs Laboratory Tests Test 09/06/18 18:37 09/06/18 20:48 09/07/18 03:40 09/07/18 06:27 Glucose (Fingerstick) 212 mg/dL (70-99) 295 mg/dL (70-99) 387 mg/dL (70-99) Hemoglobin 14.6 g/dL (13.0-17.5) Hematocrit 42.1 % (39.0-53.0) Mean Corpuscular Hemoglobin Concent 35 g/dL (31-37) Prothrombin Time 15.6 SEC (11.7-14.0) Prothromb Time International Ratio 1.3 (0.8-1.1) Test 09/07/18 06:28 09/07/18 11:46 09/07/18 16:25 09/07/18 20:30 Glucose (Fingerstick) 398 mg/dL (70-99) 385 mg/dL (70-99) 399 mg/dL (70-99) 316 mg/dL (70-99) Test 09/08/18 04:30 09/08/18 06:42 Hemoglobin 13.4 g/dL (13.0-17.5) Hematocrit 38.0 % (39.0-53.0) Mean Corpuscular Hemoglobin Concent 35 g/dL (31-37) Prothrombin Time 24.3 SEC (11.7-14.0) Prothromb Time International Ratio 2.3 (0.8-1.1) Glucose (Fingerstick) 183 mg/dL (70-99) Laboratory Tests Test 09/07/18 11:46 09/07/18 16:25 09/07/18 20:30 09/08/18 04:30 Glucose (Fingerstick) 385 mg/dL (70-99) 399 mg/dL (70-99) 316 mg/dL (70-99) Hemoglobin 13.4 g/dL (13.0-17.5) Hematocrit 38.0 % (39.0-53.0) Mean Corpuscular Hemoglobin Concent 35 g/dL (31-37) Prothrombin Time 24.3 SEC (11.7-14.0) Prothromb Time International Ratio 2.3 (0.8-1.1) Test 09/08/18 06:42 Glucose (Fingerstick) 183 mg/dL (70-99) Medications Current Medications Morphine Sulfate 5 mg/Ketorolac Tromethamine 30 mg/Ropivacaine 60 ml/ Epinephrine HCl 0.5 mg/Sodium Chloride 100 ml @ 100 mls/hr 1X ONCE INT ART ; Start 09/06/18 at 06:00; Stop 09/06/18 at 07:00; Status DC Ondansetron HCl (Zofran) 4 mg PRN Q6HRS PRN IV NAUSEA/VOMITING; Start at 07:00; Stop 09/06/18 at 21:00; Status DC Fentanyl Citrate (Fentanyl 2ml Vial) 25 mcg PRN Q5MIN PRN IV MILD PAIN; Start 09/06/18 at 07:00; Stop 09/06/18 at 21:00; Status DC Fentanyl Citrate (Fentanyl 2ml Vial) 50 mcg PRN Q5MIN PRN IV MODERATE TO SEVERE PAIN Last administered on 09/06/18at 19:02; Start 09/06/18 at 07:00; Stop 09/06/18 at 21:00; Status DC Morphine Sulfate (Morphine Sulfate) 1 mg PRN Q10MIN PRN IV SEVERE PAIN; Start 09/06/18 at 07:00; Stop 09/06/18 at 21:00; Status DC Ringer's Solution 1,000 ml @ 30 mls/hr Q24H IV Last administered on at 09:45; Start 09/06/18 at 07:00; Stop 09/06/18 at 18:59; Status DC Lidocaine HCl (Xylocaine-Mpf 1% 2ml Vial) 2 ml PRN 1X PRN ID PRIOR TO IV START ; Start 09/06/18 at 07:00; Stop 09/06/18 at 21:00; Status DC Hydromorphone HCl (Dilaudid) 0.5 mg PRN Q10MIN PRN IV SEV PAIN, Second choice; Start 09/06/18 at 07:00; Stop 09/06/18 at 21:00; Status DC Prochlorperazine Edisylate (Compazine) 5 mg PACU PRN PRN IV NAUSEA, MRX1; Start 09/06/18 at 07:00; Stop 09/06/18 at 21:00; Status DC Acetaminophen/ Hydrocodone Bitart (Lortab 7.5/325) 2 tab 1X PREOP PRN PO PRIOR TO PROCEDURE Last administered on 09/06/18at 09:48; Start 09/06/18 at 06:00; Stop 09/06/18 at 18:00; Status DC Cefazolin Sodium/ Dextrose 50 ml @ 100 mls/hr 1X PREOP PRN IV PRIOR TO PROCEDURE Last administered on 09/06/18at 14:43; Start 09/06/18 at 06:00; Stop 09/06/18 at 18:00; Status DC Tranexamic Acid 1000 mg/Sodium Chloride 60 ml @ 60 mls/hr 1X PERIOP ONCE INJ Last administered on 09/06/18at 15:00; Start 09/06/18 at 06:00; Stop 09/06/18 at 07:00; Status DC Tranexamic Acid 1000 mg/Sodium Chloride 60 ml @ 60 mls/hr 1X PERIOP ONCE INJ Last administered on 09/06/18at 17:10; Start 09/06/18 at 08:00; Stop 09/06/18 at 08:59; Status DC Propofol 20 ml @ As Directed STK-MED ONCE IV ; Start 09/06/18 at 13:17; Stop 09/06/18 at 13:18; Status DC Dexamethasone Sodium Phosphate (Decadron) 20 mg STK-MED ONCE .ROUTE ; Start at 13:17; Stop 09/06/18 at 13:18; Status DC Famotidine (Pepcid Vial) 20 mg STK-MED ONCE .ROUTE ; Start 09/06/18 at 13:17; Stop 09/06/18 at 13:18; Status DC Lidocaine HCl (Lidocaine Pf 2% Vial) 5 ml STK-MED ONCE .ROUTE ; Start 09/06/18 at 13:17; Stop 09/06/18 at 13:18; Status DC Ondansetron HCl (Zofran) 4 mg STK-MED ONCE .ROUTE ; Start 09/06/18 at 13:17; Stop 09/06/18 at 13:18; Status DC Rocuronium [place] (Zemuron) 50 mg STK-MED ONCE .ROUTE ; Start 09/06/18 at 13: 17; Stop 09/06/18 at 13:18; Status DC Fentanyl Citrate (Fentanyl 2ml Vial) 100 mcg STK-MED ONCE .ROUTE ; Start at 13:17; Stop 09/06/18 at 13:18; Status DC Midazolam HCl (Versed) 2 mg STK-MED ONCE .ROUTE ; Start 09/06/18 at 13:17; Stop 09/06/18 at 13:18; Status DC Morphine Sulfate 5 mg/Ketorolac Tromethamine 30 mg/Ropivacaine 32 ml/ Epinephrine HCl 0.5 mg/Sodium Chloride 100 ml @ 100 mls/hr 1X ONCE INT ART Last administered on 09/06/18at 15:21; Start 09/06/18 at 14:15; Stop 09/06/18 at 15:14; Status DC Acetaminophen/ Hydrocodone Bitart (Lortab 7.5/325) 1 tab PRN Q3HRS PRN PO MODERATE PAIN, 1st CHOICE Last administered on 09/07/18at 12:44; Start at 15:00 Acetaminophen/ Hydrocodone Bitart (Lortab 10/325) 1 tab PRN Q3HRS PRN PO MODERATE PAIN, 2nd CHOICE; Start 09/06/18 at 15:00 Tramadol HCl (Ultram) 50 mg PRN QID PRN PO MODERATE PAIN, 3rd CHOICE; Start at 15:00 Oxycodone/ Acetaminophen (Percocet 5/325) 1 tab PRN Q3HRS PRN PO SEVERE PAIN, 1st CHOICE; Start 09/06/18 at 15:00 Oxycodone/ Acetaminophen (Percocet 7.5/ 325) 1 tab PRN Q3HRS PRN PO SEVERE PAIN , 2nd CHOICE; Start 09/06/18 at 15:00 Tramadol HCl (Ultram) 100 mg PRN Q3HRS PRN PO SEVERE PAIN, 3rd CHOICE; Start 09/06/18 at 15:00 Morphine Sulfate (Morphine Sulfate) 2 mg PRN Q1HR PRN IV PAIN; Start 09/06/18 at 15:00 Fentanyl Citrate (Fentanyl 2ml Vial) 25 mcg PRN Q1HR PRN IV PAIN, 2nd CHOICE; Start 09/06/18 at 15:00 Warfarin Sodium (Coumadin) 7.5 mg 1X ONCE PO Last administered on 09/06/18at 20:01; Start 09/06/18 at 16:00; Stop 09/06/18 at 16:01; Status DC Warfarin Sodium (Coumadin Per Pharmacy) 1 each PRN DAILY PRN MC SEE COMMENTS Last administered on 09/07/18at 14:08; Start 09/06/18 at 15:00 Multivitamins (Thera M Plus) 1 tab DAILY PO Last administered on 09/08/18at 08: 28; Start 09/06/18 at 17:00 Senna/Docusate Sodium (Senna Plus) 1 tab DAILY PO Last administered on at 08:28; Start 09/06/18 at 16:00 Ferrous Sulfate (Feosol) 325 mg BIDWMEALS PO Last administered on 09/08/18at 08 :28; Start 09/06/18 at 17:00 Celecoxib (CeleBREX) 200 mg BID PO Last administered on 09/08/18at 08:28; Start 09/06/18 at 21:00 Dextrose/Sodium Chloride 1,000 ml @ 100 mls/hr Q10H IV Last administered on at 19:42; Start 09/06/18 at 14:50; Stop 09/07/18 at 17:57; Status DC Magnesium Hydroxide (Milk Of Magnesia) 2,400 mg 1X PRN PRN PO CONSTIPATION; Start 09/07/18 at 06:00; Stop 09/08/18 at 05:59; Status DC Bisacodyl (Dulcolax Supp) 10 mg 1X PRN PRN MS CONSTIPATION; Start 09/07/18 at 16:00; Stop 09/08/18 at 15:59 Acetaminophen (Tylenol) 650 mg PRN Q4HRS PRN PO MILD PAIN / TEMP; Start at 15:00 Zolpidem Tartrate (Ambien) 5 mg PRN QHS PRN PO INSOMNIA, MAY REPEAT IN 1HR; Start 09/06/18 at 15:00 Calcium Carbonate/ Glycine (Tums) 500 mg PRN QID PRN PO INDIGESTION Last administered on 09/08/18at 01:16; Start 09/06/18 at 15:00 Morphine Sulfate (Morphine Sulfate) 4 mg PRN Q1HR PRN IV PAIN; Start 09/06/18 at 15:00 Ketorolac Tromethamine 30 mg/Bupivacaine HCl 20 ml/ Epinephrine HCl 0.5 mg/ Miscellaneous 43 ml @ 258 mls/hr Q12H INT ART Last administered on 09/07/18at 11:59; Start 09/06/18 at 20:00; Stop 09/07/18 at 08:09; Status DC Sodium Chloride (Normal Saline Flush) 10 ml QSHIFT PRN IV AFTER MEDS AND BLOOD DRAWS; Start 09/06/18 at 15:00 Fentanyl Citrate (Fentanyl 2ml Vial) 50 mcg PRN Q1HR PRN IV PAIN, 2nd CHOICE Last administered on 09/06/18at 19:52; Start 09/06/18 at 15:00 Prochlorperazine Edisylate (Compazine) 10 mg PRN Q4HRS PRN IV NAUSEA/VOMITING; Start 09/06/18 at 15:00 Dextrose (Dextrose 50%-Water Syringe) 12.5 gm PRN Q15MIN PRN IV SEE COMMENTS; Start 09/06/18 at 15:00 Cefazolin Sodium/ Dextrose 50 ml @ 100 mls/hr Q6H IV Last administered on at 08:17; Start 09/06/18 at 21:00; Stop 09/07/18 at 09:29; Status DC Ephedrine Sulfate (ePHEDrine PF IN SALINE SYRINGE) 50 mg STK-MED ONCE IV ; Start 09/06/18 at 16:46; Stop 09/06/18 at 16:47; Status DC Desflurane (Suprane) 90 ml STK-MED ONCE IH ; Start 09/06/18 at 16:46; Stop at 16:47; Status DC Neostigmine Methylsulfate (Neostigmine Methylsulfate) 5 mg STK-MED ONCE .ROUTE ; Start 09/06/18 at 16:47; Stop 09/06/18 at 16:48; Status DC Glycopyrrolate (Robinul) 1 mg STK-MED ONCE .ROUTE ; Start 09/06/18 at 16:47; Stop 09/06/18 at 16:48; Status DC Fentanyl Citrate (Fentanyl 2ml Vial) 100 mcg STK-MED ONCE .ROUTE ; Start at 17:58; Stop 09/06/18 at 17:59; Status DC Insulin Human Lispro (HumaLOG) 0-5 UNITS TIDWMEALS SQ Last administered on at 08:16; Start 09/07/18 at 08:00; Stop 09/07/18 at 11:52; Status DC Glimepiride (Amaryl) 2 mg DAILY PO Last administered on 09/08/18at 08:28; Start 09/07/18 at 09:00 Levothyroxine Sodium (Synthroid) 100 mcg DAILY06 PO Last administered on 06:06; Start 09/07/18 at 06:00 Ascorbic Acid (Vitamin C) 1,000 mg DAILY PO Last administered on 09/08/18at 08: 29; Start 09/07/18 at 09:00 Lisinopril (Prinivil) 20 mg DAILY PO Last administered on 09/07/18at 08:06; Start 09/07/18 at 09:00 Hydrochlorothiazide (Microzide) 12.5 mg DAILY PO Last administered on at 08:02; Start 09/07/18 at 09:00 Metformin HCl (Glucophage) 1,000 mg BIDWMEALS PO Last administered on at 08:29; Start 09/07/18 at 08:00 Influenza Virus Vaccine (Afluria Trivalent [id number] Syringe) 0.5 ml ONCE ONCE VAX IM ; Start 09/07/18 at 09:00; Stop 09/07/18 at 09:01; Status DC Insulin Human Lispro (HumaLOG) 0-7 UNITS TIDWMEALS SQ Last administered on at 17:17; Start 09/07/18 at 12:00; Stop 09/07/18 at 17:57; Status DC Dextrose (Dextrose 50%-Water Syringe) 12.5 gm PRN Q15MIN PRN IV SEE COMMENTS; Start 09/07/18 at 12:00; Status UNV Warfarin Sodium (Coumadin) 5 mg 1X WARF ONCE PO Last administered on at 17:11; Start 09/07/18 at 16:00; Stop 09/07/18 at 16:01; Status DC Insulin Human Lispro (HumaLOG) 0-9 UNITS TIDWMEALS SQ Last administered on at 08:39; Start 09/08/18 at 08:00 Dextrose (Dextrose 50%-Water Syringe) 12.5 gm PRN Q15MIN PRN IV SEE COMMENTS; Start 09/07/18 at 18:00 Insulin Glargine (Lantus) 12 units QHS SQ Last administered on 09/07/18at 20:46 ; Start 09/07/18 at 21:00 Active Scripts Active [place] 7.5-325 Tablet (Acetaminophen/Hydrocodone Bitart) 1 Each Tablet 1 Tab PO PRN Q6HRS PRN Reported Aleve (Naproxen Sodium) 220 Mg Tablet 220 Mg PO BID Tramadol Hcl 50 Mg Tablet 50 Mg PO Q6HRS PRN Glucosamine (Glucosamine Sulfate 2KCL) 1,000 Mg Tablet 1,000 Mg PO DAILY Multivitamins (Multivitamin) 1 Each Tablet 1 Tab PO DAILY Vitamin C (Ascorbic Acid) 100 Mg Tablet 1,000 Mg PO DAILY Hydrochlorothiazide Capsule (Hydrochlorothiazide) 12.5 Mg Capsule 1 Cap PO DAILY Benazepril Hcl 20 Mg Tablet 1 Tab PO DAILY Glimepiride 2 Mg Tablet 1 Tab PO DAILY Metformin Hcl 1,000 Mg Tablet 1,000 Mg PO BID Levothyroxine Sodium 100 Mcg Tablet 1 Tab PO DAILY Vitals/I & O Vital Sign - Last 24 Hours 09/07/18 09/07/18 09/07/18 09/08/18 12:44 18:42 19:40 06:07 Temp 98.3 97.4 98.3 97.4 Pulse 82 70 Resp 18 16 B/P (MAP) 134/82 (99) 105/65 (78) Pulse Ox 99 94 O2 Delivery Room Air Room Air Room Air Room Air 09/08/18 08:45 O2 Delivery Room Air Intake and Output 09/07/18 09/07/18 09/08/18 15:00 23:00 07:00 Intake Total 280 ml 550 ml 400 ml Output Total 150 ml 200 ml Balance 280 ml 400 ml 200 ml JORDI NGUYỄN MD Sep 08, 2018 11:00
[2018-09-08 11:15] VITALS: BP 114/59
--- NOTE | 2018-09-08 11:48 | PDOC ---
PROGRESS NOTES Subjective Subjective Problems overnight: Right leg swelling continues, also weak in hip flexors Objective Vital Signs Vital Signs Date Time Temp Pulse Resp B/P (MAP) Pulse Ox O2 Delivery O2 Flow Rate FiO2 09/08/18 11:15 97.9 76 18 114/59 (77) 97 Room Air 97.9 09/06/18 19:02 2.0 Physical Exam On exam compartments are soft but he does have significant swelling in the thigh to a lesser extent in the calf and foot but he does have calf tenderness. Distal pulses are dopplerable neurovascular status intact Labs Laboratory Tests Test 09/06/18 18:37 09/06/18 20:48 09/07/18 03:40 09/07/18 06:27 Glucose (Fingerstick) 212 mg/dL (70-99) 295 mg/dL (70-99) 387 mg/dL (70-99) Hemoglobin 14.6 g/dL (13.0-17.5) Hematocrit 42.1 % (39.0-53.0) Mean Corpuscular Hemoglobin Concent 35 g/dL (31-37) Prothrombin Time 15.6 SEC (11.7-14.0) Prothromb Time International Ratio 1.3 (0.8-1.1) Test 09/07/18 06:28 09/07/18 11:46 09/07/18 16:25 09/07/18 20:30 Glucose (Fingerstick) 398 mg/dL (70-99) 385 mg/dL (70-99) 399 mg/dL (70-99) 316 mg/dL (70-99) Test 09/08/18 04:30 09/08/18 06:42 Hemoglobin 13.4 g/dL (13.0-17.5) Hematocrit 38.0 % (39.0-53.0) Mean Corpuscular Hemoglobin Concent 35 g/dL (31-37) Prothrombin Time 24.3 SEC (11.7-14.0) Prothromb Time International Ratio 2.3 (0.8-1.1) Glucose (Fingerstick) 183 mg/dL (70-99) Laboratory Tests Test 09/07/18 16:25 09/07/18 20:30 09/08/18 04:30 09/08/18 06:42 Glucose (Fingerstick) 399 mg/dL (70-99) 316 mg/dL (70-99) 183 mg/dL (70-99) Hemoglobin 13.4 g/dL (13.0-17.5) Hematocrit 38.0 % (39.0-53.0) Mean Corpuscular Hemoglobin Concent 35 g/dL (31-37) Prothrombin Time 24.3 SEC (11.7-14.0) Prothromb Time International Ratio 2.3 (0.8-1.1) Assessment Assessment POD# [2], S/P [total hip arthroplasty] Plan Plan of Care Appreciate hospitalist consult for elevated blood sugars, now better Duplex ultrasound to evaluate right lower extremity swelling and calf pain Continue weightbearing as tolerated no hip precautions due to anterior approach HERMINIO RICH MD Sep 08, 2018 11:48
--- NOTE | 2018-09-08 13:58 | RAD ---
Right lower extremity venous duplex study 09/08/2018 Clinical History: Right leg swelling. Recent right hip replacement. Technique: Using a combination of real time ultrasound imaging and color-flow and pulse Doppler imaging techniques along with graded compression and augmentation, duplex evaluation of the deep venous system of the right lower extremity was performed. Multiple images were obtained. Findings: Echogenic thrombus consistent with largely occlusive DVT is extending from the peroneal veins and one of the posterior tibial veins within the right calf to involve the right popliteal, superficial femoral and right common femoral veins. IMPRESSION: Extensive DVT is seen involving the right leg as outlined above. Electronically signed by: Laron Alonso MD (09/08/2018 1:55 PM) [id number]
[2018-09-08] MEDS ORDERED: WARFARIN 2 MG TABLET. PO ONE (16:00)
--- NOTE | 2018-09-08 17:46 | PDOC2 ---
CONSULT Date of Consult Date of Consult DATE: 09/08/18 TIME: 17:43 Past Medical History Cardiovascular: HTN Musculoskeletal: Other (DJD) Endocrine: Diabetes Past Surgical History Past Surgical History: Total hip replacement Family History Family History: Hypertension Social History No ALCOHOL: none Lives: with Family Domestic Violence: Neg Current Medications Current Medications Current Medications Morphine Sulfate 5 mg/Ketorolac Tromethamine 30 mg/Ropivacaine 60 ml/ Epinephrine HCl 0.5 mg/Sodium Chloride 100 ml @ 100 mls/hr 1X ONCE INT ART ; Start 09/06/18 at 06:00; Stop 09/06/18 at 07:00; Status DC Ondansetron HCl (Zofran) 4 mg PRN Q6HRS PRN IV NAUSEA/VOMITING; Start at 07:00; Stop 09/06/18 at 21:00; Status DC Fentanyl Citrate (Fentanyl 2ml Vial) 25 mcg PRN Q5MIN PRN IV MILD PAIN; Start 09/06/18 at 07:00; Stop 09/06/18 at 21:00; Status DC Fentanyl Citrate (Fentanyl 2ml Vial) 50 mcg PRN Q5MIN PRN IV MODERATE TO SEVERE PAIN Last administered on 09/06/18at 19:02; Start 09/06/18 at 07:00; Stop 09/06/18 at 21:00; Status DC Morphine Sulfate (Morphine Sulfate) 1 mg PRN Q10MIN PRN IV SEVERE PAIN; Start 09/06/18 at 07:00; Stop 09/06/18 at 21:00; Status DC Ringer's Solution 1,000 ml @ 30 mls/hr Q24H IV Last administered on at 09:45; Start 09/06/18 at 07:00; Stop 09/06/18 at 18:59; Status DC Lidocaine HCl (Xylocaine-Mpf 1% 2ml Vial) 2 ml PRN 1X PRN ID PRIOR TO IV START ; Start 09/06/18 at 07:00; Stop 09/06/18 at 21:00; Status DC Hydromorphone HCl (Dilaudid) 0.5 mg PRN Q10MIN PRN IV SEV PAIN, Second choice; Start 09/06/18 at 07:00; Stop 09/06/18 at 21:00; Status DC Prochlorperazine Edisylate (Compazine) 5 mg PACU PRN PRN IV NAUSEA, MRX1; Start 09/06/18 at 07:00; Stop 09/06/18 at 21:00; Status DC Acetaminophen/ Hydrocodone Bitart (Lortab 7.5/325) 2 tab 1X PREOP PRN PO PRIOR TO PROCEDURE Last administered on 09/06/18at 09:48; Start 09/06/18 at 06:00; Stop 09/06/18 at 18:00; Status DC Cefazolin Sodium/ Dextrose 50 ml @ 100 mls/hr 1X PREOP PRN IV PRIOR TO PROCEDURE Last administered on 09/06/18at 14:43; Start 09/06/18 at 06:00; Stop 09/06/18 at 18:00; Status DC Tranexamic Acid 1000 mg/Sodium Chloride 60 ml @ 60 mls/hr 1X PERIOP ONCE INJ Last administered on 09/06/18at 15:00; Start 09/06/18 at 06:00; Stop 09/06/18 at 07:00; Status DC Tranexamic Acid 1000 mg/Sodium Chloride 60 ml @ 60 mls/hr 1X PERIOP ONCE INJ Last administered on 09/06/18at 17:10; Start 09/06/18 at 08:00; Stop 09/06/18 at 08:59; Status DC Propofol 20 ml @ As Directed STK-MED ONCE IV ; Start 09/06/18 at 13:17; Stop 09/06/18 at 13:18; Status DC Dexamethasone Sodium Phosphate (Decadron) 20 mg STK-MED ONCE .ROUTE ; Start at 13:17; Stop 09/06/18 at 13:18; Status DC Famotidine (Pepcid Vial) 20 mg STK-MED ONCE .ROUTE ; Start 09/06/18 at 13:17; Stop 09/06/18 at 13:18; Status DC Lidocaine HCl (Lidocaine Pf 2% Vial) 5 ml STK-MED ONCE .ROUTE ; Start 09/06/18 at 13:17; Stop 09/06/18 at 13:18; Status DC Ondansetron HCl (Zofran) 4 mg STK-MED ONCE .ROUTE ; Start 09/06/18 at 13:17; Stop 09/06/18 at 13:18; Status DC Rocuronium [place] (Zemuron) 50 mg STK-MED ONCE .ROUTE ; Start 09/06/18 at 13: 17; Stop 09/06/18 at 13:18; Status DC Fentanyl Citrate (Fentanyl 2ml Vial) 100 mcg STK-MED ONCE .ROUTE ; Start at 13:17; Stop 09/06/18 at 13:18; Status DC Midazolam HCl (Versed) 2 mg STK-MED ONCE .ROUTE ; Start 09/06/18 at 13:17; Stop 09/06/18 at 13:18; Status DC Morphine Sulfate 5 mg/Ketorolac Tromethamine 30 mg/Ropivacaine 32 ml/ Epinephrine HCl 0.5 mg/Sodium Chloride 100 ml @ 100 mls/hr 1X ONCE INT ART Last administered on 09/06/18at 15:21; Start 09/06/18 at 14:15; Stop 09/06/18 at 15:14; Status DC Acetaminophen/ Hydrocodone Bitart (Lortab 7.5/325) 1 tab PRN Q3HRS PRN PO MODERATE PAIN, 1st CHOICE Last administered on 09/07/18at 12:44; Start at 15:00 Acetaminophen/ Hydrocodone Bitart (Lortab 10/325) 1 tab PRN Q3HRS PRN PO MODERATE PAIN, 2nd CHOICE; Start 09/06/18 at 15:00 Tramadol HCl (Ultram) 50 mg PRN QID PRN PO MODERATE PAIN, 3rd CHOICE; Start at 15:00 Oxycodone/ Acetaminophen (Percocet 5/325) 1 tab PRN Q3HRS PRN PO SEVERE PAIN, 1st CHOICE; Start 09/06/18 at 15:00 Oxycodone/ Acetaminophen (Percocet 7.5/ 325) 1 tab PRN Q3HRS PRN PO SEVERE PAIN , 2nd CHOICE; Start 09/06/18 at 15:00 Tramadol HCl (Ultram) 100 mg PRN Q3HRS PRN PO SEVERE PAIN, 3rd CHOICE; Start 09/06/18 at 15:00 Morphine Sulfate (Morphine Sulfate) 2 mg PRN Q1HR PRN IV PAIN; Start 09/06/18 at 15:00 Fentanyl Citrate (Fentanyl 2ml Vial) 25 mcg PRN Q1HR PRN IV PAIN, 2nd CHOICE; Start 09/06/18 at 15:00 Warfarin Sodium (Coumadin) 7.5 mg 1X ONCE PO Last administered on 09/06/18at 20:01; Start 09/06/18 at 16:00; Stop 09/06/18 at 16:01; Status DC Warfarin Sodium (Coumadin Per Pharmacy) 1 each PRN DAILY PRN MC SEE COMMENTS Last administered on 09/08/18at 11:35; Start 09/06/18 at 15:00 Multivitamins (Thera M Plus) 1 tab DAILY PO Last administered on 09/08/18 08: 28; Start 09/06/18 at 17:00 Senna/Docusate Sodium (Senna Plus) 1 tab DAILY PO Last administered on 08:28; Start 09/06/18 at 16:00 Ferrous Sulfate (Feosol) 325 mg BIDWMEALS PO Last administered on 09/08/18 08 :28; Start 09/06/18 at 17:00 Celecoxib (CeleBREX) 200 mg BID PO Last administered on 09/08/18 08:28; Start 09/06/18 at 21:00 Dextrose/Sodium Chloride 1,000 ml @ 100 mls/hr Q10H IV Last administered on at 19:42; Start 09/06/18 at 14:50; Stop 09/07/18 at 17:57; Status DC Magnesium Hydroxide (Milk Of Magnesia) 2,400 mg 1X PRN PRN PO CONSTIPATION; Start 09/07/18 at 06:00; Stop 09/08/18 at 05:59; Status DC Bisacodyl (Dulcolax Supp) 10 mg 1X PRN PRN NM CONSTIPATION; Start 09/07/18 at 16:00; Stop 09/08/18 at 15:59; Status DC Acetaminophen (Tylenol) 650 mg PRN Q4HRS PRN PO MILD PAIN / TEMP; Start at 15:00 Zolpidem Tartrate (Ambien) 5 mg PRN QHS PRN PO INSOMNIA, MAY REPEAT IN 1HR; Start 09/06/18 at 15:00 Calcium Carbonate/ Glycine (Tums) 500 mg PRN QID PRN PO INDIGESTION Last administered on 09/08/18at 14:40; Start 09/06/18 at 15:00 Morphine Sulfate (Morphine Sulfate) 4 mg PRN Q1HR PRN IV PAIN; Start 09/06/18 at 15:00 Ketorolac Tromethamine 30 mg/Bupivacaine HCl 20 ml/ Epinephrine HCl 0.5 mg/ Miscellaneous 43 ml @ 258 mls/hr Q12H INT ART Last administered on 09/07/18at 11:59; Start 09/06/18 at 20:00; Stop 09/07/18 at 08:09; Status DC Sodium Chloride (Normal Saline Flush) 10 ml QSHIFT PRN IV AFTER MEDS AND BLOOD DRAWS; Start 09/06/18 at 15:00 Fentanyl Citrate (Fentanyl 2ml Vial) 50 mcg PRN Q1HR PRN IV PAIN, 2nd CHOICE Last administered on 09/06/18at 19:52; Start 09/06/18 at 15:00 Prochlorperazine Edisylate (Compazine) 10 mg PRN Q4HRS PRN IV NAUSEA/VOMITING; Start 09/06/18 at 15:00 Dextrose (Dextrose 50%-Water Syringe) 12.5 gm PRN Q15MIN PRN IV SEE COMMENTS; Start 09/06/18 at 15:00 Cefazolin Sodium/ Dextrose 50 ml @ 100 mls/hr Q6H IV Last administered on at 08:17; Start 09/06/18 at 21:00; Stop 09/07/18 at 09:29; Status DC Ephedrine Sulfate (ePHEDrine PF IN SALINE SYRINGE) 50 mg STK-MED ONCE IV ; Start 09/06/18 at 16:46; Stop 09/06/18 at 16:47; Status DC Desflurane (Suprane) 90 ml STK-MED ONCE IH ; Start 09/06/18 at 16:46; Stop at 16:47; Status DC Neostigmine Methylsulfate (Neostigmine Methylsulfate) 5 mg STK-MED ONCE .ROUTE ; Start 09/06/18 at 16:47; Stop 09/06/18 at 16:48; Status DC Glycopyrrolate (Robinul) 1 mg STK-MED ONCE .ROUTE ; Start 09/06/18 at 16:47; Stop 09/06/18 at 16:48; Status DC Fentanyl Citrate (Fentanyl 2ml Vial) 100 mcg STK-MED ONCE .ROUTE ; Start at 17:58; Stop 09/06/18 at 17:59; Status DC Insulin Human Lispro (HumaLOG) 0-5 UNITS TIDWMEALS SQ Last administered on at 08:16; Start 09/07/18 at 08:00; Stop 09/07/18 at 11:52; Status DC Glimepiride (Amaryl) 2 mg DAILY PO Last administered on 09/08/18at 08:28; Start 09/07/18 at 09:00 Levothyroxine Sodium (Synthroid) 100 mcg DAILY06 PO Last administered on at 06:06; Start 09/07/18 at 06:00 Ascorbic Acid (Vitamin C) 1,000 mg DAILY PO Last administered on 09/08/18at 08: 29; Start 09/07/18 at 09:00 Lisinopril (Prinivil) 20 mg DAILY PO Last administered on 09/07/18at 08:06; Start 09/07/18 at 09:00 Hydrochlorothiazide (Microzide) 12.5 mg DAILY PO Last administered on at 08:02; Start 09/07/18 at 09:00 Metformin HCl (Glucophage) 1,000 mg BIDWMEALS PO Last administered on 17:19; Start 09/07/18 at 08:00 Influenza Virus Vaccine (Afluria Trivalent [id number] Syringe) 0.5 ml ONCE ONCE VAX IM ; Start 09/07/18 at 09:00; Stop 09/07/18 at 09:01; Status DC Insulin Human Lispro (HumaLOG) 0-7 UNITS TIDWMEALS SQ Last administered on at 17:17; Start 09/07/18 at 12:00; Stop 09/07/18 at 17:57; Status DC Dextrose (Dextrose 50%-Water Syringe) 12.5 gm PRN Q15MIN PRN IV SEE COMMENTS; Start 09/07/18 at 12:00; Status UNV Warfarin Sodium (Coumadin) 5 mg 1X WARF ONCE PO Last administered on at 17:11; Start 09/07/18 at 16:00; Stop 09/07/18 at 16:01; Status DC Insulin Human Lispro (HumaLOG) 0-9 UNITS TIDWMEALS SQ Last administered on at 17:27; Start 09/08/18 at 08:00 Dextrose (Dextrose 50%-Water Syringe) 12.5 gm PRN Q15MIN PRN IV SEE COMMENTS; Start 09/07/18 at 18:00 Insulin Glargine (Lantus) 12 units QHS SQ Last administered on 09/07/18at 20:46 ; Start 09/07/18 at 21:00 Warfarin Sodium (Coumadin) 2 mg 1X WARF ONCE PO Last administered on at 16:00; Start 09/08/18 at 16:00; Stop 09/08/18 at 16:01; Status DC Enoxaparin Sodium (Lovenox 80mg Syringe) 80 mg 1X ONCE SQ Last administered on 09/08/18at 16:01; Start 09/08/18 at 16:00; Stop 09/08/18 at 16:01; Status DC Enoxaparin Sodium (Lovenox 80mg Syringe) 80 mg Q12HR SQ ; Start 09/09/18 at 06: 00 Active Scripts Active [place] 7.5-325 Tablet (Acetaminophen/Hydrocodone Bitart) 1 Each Tablet 1 Tab PO PRN Q6HRS PRN Reported Aleve (Naproxen Sodium) 220 Mg Tablet 220 Mg PO BID Tramadol Hcl 50 Mg Tablet 50 Mg PO Q6HRS PRN Glucosamine (Glucosamine Sulfate 2KCL) 1,000 Mg Tablet 1,000 Mg PO DAILY Multivitamins (Multivitamin) 1 Each Tablet 1 Tab PO DAILY Vitamin C (Ascorbic Acid) 100 Mg Tablet 1,000 Mg PO DAILY Hydrochlorothiazide Capsule (Hydrochlorothiazide) 12.5 Mg Capsule 1 Cap PO DAILY Benazepril Hcl 20 Mg Tablet 1 Tab PO DAILY Glimepiride 2 Mg Tablet 1 Tab PO DAILY Metformin Hcl 1,000 Mg Tablet 1,000 Mg PO BID Levothyroxine Sodium 100 Mcg Tablet 1 Tab PO DAILY Allergies Allergies: Coded Allergies: No Known Drug Allergies (Unverified , 09/06/18) Vitals VITALS Vital Signs Date Time Temp Pulse Resp B/P (MAP) Pulse Ox O2 Delivery O2 Flow Rate FiO2 09/08/18 11:15 97.9 76 18 114/59 (77) 97 Room Air 97.9 Labs Labs Laboratory Tests Test 09/06/18 18:37 09/06/18 20:48 09/07/18 03:40 09/07/18 06:27 Glucose (Fingerstick) 212 mg/dL (70-99) 295 mg/dL (70-99) 387 mg/dL (70-99) Hemoglobin 14.6 g/dL (13.0-17.5) Hematocrit 42.1 % (39.0-53.0) Mean Corpuscular Hemoglobin Concent 35 g/dL (31-37) Prothrombin Time 15.6 SEC (11.7-14.0) Prothromb Time International Ratio 1.3 (0.8-1.1) Test 09/07/18 06:28 09/07/18 11:46 09/07/18 16:25 09/07/18 20:30 Glucose (Fingerstick) 398 mg/dL (70-99) 385 mg/dL (70-99) 399 mg/dL (70-99) 316 mg/dL (70-99) Test 09/08/18 04:30 09/08/18 06:42 09/08/18 11:29 09/08/18 16:52 Hemoglobin 13.4 g/dL (13.0-17.5) Hematocrit 38.0 % (39.0-53.0) Mean Corpuscular Hemoglobin Concent 35 g/dL (31-37) Prothrombin Time 24.3 SEC (11.7-14.0) Prothromb Time International Ratio 2.3 (0.8-1.1) Glucose (Fingerstick) 183 mg/dL (70-99) 222 mg/dL (70-99) 160 mg/dL (70-99) Laboratory Tests Test 09/07/18 20:30 09/08/18 04:30 09/08/18 06:42 09/08/18 11:29 Glucose (Fingerstick) 316 mg/dL (70-99) 183 mg/dL (70-99) 222 mg/dL (70-99) Hemoglobin 13.4 g/dL (13.0-17.5) Hematocrit 38.0 % (39.0-53.0) Mean Corpuscular Hemoglobin Concent 35 g/dL (31-37) Prothrombin Time 24.3 SEC (11.7-14.0) Prothromb Time International Ratio 2.3 (0.8-1.1) Test 09/08/18 16:52 Glucose (Fingerstick) 160 mg/dL (70-99) Assessment/Plan Assessment/Plan Vascular consult dictated Imp: 1. post surgical DVT right lower extremitiy despite prophylaxis with warfarin. No evidence of phlegmasia cerulea dolens. 2. status post right hip surgery Rec: 1. extreme elevation of the extremity, compression stocking 2. add lovenox to anticoagulation regimen, cont. warfarin 3. monitor patient for now 4. defer rehab for now MARIZA ALEJANDRO II, MD Sep 08, 2018 17:45
[2018-09-08 17:58] VITALS: BP 143/62
[2018-09-08] MEDS: INSULIN GLARGINE 300 UNITS/3 ML INSULN.PEN. SQ SCH (20:36)
[2018-09-08] MEDS: ZOLPIDEM 5 MG TABLET. PO PRN (23:47)
[2018-09-09] MEDS: CALCIUM CARBONATE 500 MG TAB.CHEW PO PRN (01:29)
[2018-09-09 04:33] LABS: BASO % 0 % (0-3); EOS # 0.1 x10^3/uL (0.0-0.7); EOS % 1 % (0-3); HEMATOCRIT 37.8 % (39.0-53.0); HEMOGLOBIN 13.4 g/dL (13.0-17.5); LYMPH # 2.2 x10^3/uL (1.0-4.8); LYMPH % 15 % (24-48); MEAN CORPUSCULAR HEMOGLOBIN 34 pg (25-35); MEAN CORPUSCULAR HGB CONC 36 g/dL (31-37); MEAN CORPUSCULAR VOLUME 97 fL (79-100); MONO % 7 % (0-9); NEUT # 11.4 x10^3uL (1.8-7.7); NEUT % 78 % (31-73); PLATELET COUNT 216 x10^3/uL (140-400); RED BLOOD COUNT 3.91 x10^6/uL (4.30-5.70); RED CELL DISTRIBUTION WIDTH 13.4 % (11.5-14.5); WHITE BLOOD COUNT 14.7 x10^3/uL (4.0-11.0)
[2018-09-09 04:56] LABS: PROTHROMBIN TIME PATIENT 22.8 SEC (11.7-14.0)
[2018-09-09 05:02] LABS: ALBUMIN 2.7 g/dL (3.4-5.0); ALBUMIN/GLOBULIN RATIO 0.8 (1.0-1.7); CALCIUM 9.8 mg/dL (8.5-10.1); CREATININE 1.5 mg/dL (0.7-1.3); GFR 46.5; POTASSIUM 4.2 mmol/L (3.5-5.1); TOTAL BILIRUBIN 0.7 mg/dL (0.2-1.0); TOTAL PROTEIN 6.1 g/dL (6.4-8.2)
[2018-09-09 05:21] VITALS: BP 168/74
[2018-09-09] MEDS: LEVOTHYROXINE 100 MCG TABLET PO SCH (06:01)
[2018-09-09] MEDS: INSULIN LISPRO 300 UNITS/3 ML INSULN.PEN. SQ SCH ×3 (08:00→16:56)
[2018-09-09] MEDS: metFORMIN 500 MG TABLET PO SCH ×2 (08:00→16:42)
[2018-09-09] MEDS: FERROUS SULFATE 325 MG TABLET. PO SCH ×2 (08:00→16:42)
[2018-09-09] MEDS: SENNOSIDES/DOCUSATE 8.6/50MG TABLET. PO SCH (09:00)
[2018-09-09] MEDS: LISINOPRIL 20 MG TABLET PO SCH (09:00)
[2018-09-09] MEDS: ASCORBIC ACID 500 MG TABLET PO SCH (09:00)
[2018-09-09] MEDS: GLIMEPIRIDE 2 MG TABLET. PO SCH (09:00)
[2018-09-09] MEDS: MULTIVITAMIN with MINERAL TABLET. PO SCH (09:00)
[2018-09-09] MEDS: CELECOXIB 100 MG CAPSULE. PO SCH ×2 (09:00→21:34)
[2018-09-09] MEDS: hydroCHLOROthiazide 12.5 MG CAPSULE PO SCH (09:00)
--- NOTE | 2018-09-09 10:03 | PDOC ---
PROGRESS NOTES Subjective Subjective Pt with extensive DVT involving right leg s/p total right hip arthroplasty on regardless of coumadin treatement post op. Currently treated with Lovenox in addition to coumadin. His only complaint today is mild dull pain to right upper thigh/hip area. This pain comes and goes. Denies SOB, chest pain. Denies any abdominal/GI complaints. Objective Objective Vital Signs Date Time Temp Pulse Resp B/P (MAP) Pulse Ox O2 Delivery O2 Flow Rate FiO2 09/09/18 09:00 46 129/53 09/09/18 07:50 Room Air 09/09/18 05:21 98.4 18 95 98.4 09/06/18 19:02 2.0 Intake and Output 09/09/18 07:00 Intake Total 600 ml Output Total 1150 ml Balance -550 ml Intake Oral 600 ml Output Urine Total 1150 ml # Voids 1 Physical Exam Abdomen: Soft, No tenderness Heart: Regular rate Extremities: Other (Mild tenderness to right upper thigh, no calf tenderness. Mild swelling to right leg compared to left. Measurements to be done by nursing. Pt with knee high compressions on. Palpable right DP and PT pulses. Good cap refill. Bilateral feet cool to touch. ) General: Alert, Oriented X3, No acute distress HEENT: Atraumatic Lungs: Normal air movement MUSCULOSKELETAL: Other (Good motor function to right foot/toes. ) Neck: Supple Neuro: Normal speech, Normal tone Psych/Mental Status: Mental status NL, Mood NL Skin: Other (Mild erythema to right upper thigh anterolaterally. No evidence of phlegmasia cerulea dolens) Plan Plan of Care Extensive DVT involving right leg s/p total right hip arthroplasty on 09/06/18 - Condition improved since yesterday - Continue Lovenox in addition to coumadin until INR closer to 3. - Pt needs thigh high compression and extensive elevation of right leg at all times, may sit while eating for brief periods of time - Monitor thigh and calf measurements, see nursing notes - If condition fails to improve or worsens pt may need venous thrombectomy - Continue to hold PT, potentially resume tomorrow? depending on improvement Comment Review of Relevant I have reviewed the following items digna (where applicable) has been applied. Labs Laboratory Tests Test 09/07/18 11:46 09/07/18 16:25 09/07/18 20:30 09/08/18 04:30 Glucose (Fingerstick) 385 mg/dL (70-99) 399 mg/dL (70-99) 316 mg/dL (70-99) Hemoglobin 13.4 g/dL (13.0-17.5) Hematocrit 38.0 % (39.0-53.0) Mean Corpuscular Hemoglobin Concent 35 g/dL (31-37) Prothrombin Time 24.3 SEC (11.7-14.0) Prothromb Time International Ratio 2.3 (0.8-1.1) Test 09/08/18 06:42 09/08/18 11:29 09/08/18 16:52 09/08/18 20:31 Glucose (Fingerstick) 183 mg/dL (70-99) 222 mg/dL (70-99) 160 mg/dL (70-99) 197 mg/dL (70-99) Test 09/09/18 03:50 09/09/18 08:02 White Blood Count 14.7 x10^3/uL (4.0-11.0) Red Blood Count 3.91 x10^6/uL (4.30-5.70) Hemoglobin 13.4 g/dL (13.0-17.5) Hematocrit 37.8 % (39.0-53.0) Mean Corpuscular Volume 97 fL (79-100) Mean Corpuscular Hemoglobin 34 pg (25-35) Mean Corpuscular Hemoglobin Concent 36 g/dL (31-37) Red Cell Distribution Width 13.4 % (11.5-14.5) Platelet Count 216 x10^3/uL (140-400) Neutrophils (%) (Auto) 78 % (31-73) Lymphocytes (%) (Auto) 15 % (24-48) Monocytes (%) (Auto) 7 % (0-9) Eosinophils (%) (Auto) 1 % (0-3) Basophils (%) (Auto) 0 % (0-3) Neutrophils # (Auto) 11.4 x10^3uL (1.8-7.7) Lymphocytes # (Auto) 2.2 x10^3/uL (1.0-4.8) Monocytes # (Auto) 1.0 x10^3/uL (0.0-1.1) Eosinophils # (Auto) 0.1 x10^3/uL (0.0-0.7) Basophils # (Auto) 0.0 x10^3/uL (0.0-0.2) Prothrombin Time 22.8 SEC (11.7-14.0) Prothromb Time International Ratio 2.1 (0.8-1.1) Sodium Level 130 mmol/L (136-145) Potassium Level 4.2 mmol/L (3.5-5.1) Chloride Level 94 mmol/L (98-107) Carbon Dioxide Level 24 mmol/L (21-32) Anion Gap 12 (6-14) Blood Urea Nitrogen 53 mg/dL (8-26) Creatinine 1.5 mg/dL (0.7-1.3) Estimated GFR (Cockcroft-Gault) 46.5 BUN/Creatinine Ratio 35 (6-20) Glucose Level 179 mg/dL (70-99) Calcium Level 9.8 mg/dL (8.5-10.1) Total Bilirubin 0.7 mg/dL (0.2-1.0) Aspartate Amino Transf (AST/SGOT) 82 U/L (15-37) Alanine Aminotransferase (ALT/SGPT) 30 U/L (16-63) Alkaline Phosphatase 68 U/L (46-116) Total Protein 6.1 g/dL (6.4-8.2) Albumin 2.7 g/dL (3.4-5.0) Albumin/Globulin Ratio 0.8 (1.0-1.7) Glucose (Fingerstick) 174 mg/dL (70-99) Laboratory Tests Test 09/08/18 11:29 09/08/18 16:52 09/08/18 20:31 09/09/18 03:50 Glucose (Fingerstick) 222 mg/dL (70-99) 160 mg/dL (70-99) 197 mg/dL (70-99) White Blood Count 14.7 x10^3/uL (4.0-11.0) Red Blood Count 3.91 x10^6/uL (4.30-5.70) Hemoglobin 13.4 g/dL (13.0-17.5) Hematocrit 37.8 % (39.0-53.0) Mean Corpuscular Volume 97 fL (79-100) Mean Corpuscular Hemoglobin 34 pg (25-35) Mean Corpuscular Hemoglobin Concent 36 g/dL (31-37) Red Cell Distribution Width 13.4 % (11.5-14.5) Platelet Count 216 x10^3/uL (140-400) Neutrophils (%) (Auto) 78 % (31-73) Lymphocytes (%) (Auto) 15 % (24-48) Monocytes (%) (Auto) 7 % (0-9) Eosinophils (%) (Auto) 1 % (0-3) Basophils (%) (Auto) 0 % (0-3) Neutrophils # (Auto) 11.4 x10^3uL (1.8-7.7) Lymphocytes # (Auto) 2.2 x10^3/uL (1.0-4.8) Monocytes # (Auto) 1.0 x10^3/uL (0.0-1.1) Eosinophils # (Auto) 0.1 x10^3/uL (0.0-0.7) Basophils # (Auto) 0.0 x10^3/uL (0.0-0.2) Prothrombin Time 22.8 SEC (11.7-14.0) Prothromb Time International Ratio 2.1 (0.8-1.1) Sodium Level 130 mmol/L (136-145) Potassium Level 4.2 mmol/L (3.5-5.1) Chloride Level 94 mmol/L (98-107) Carbon Dioxide Level 24 mmol/L (21-32) Anion Gap 12 (6-14) Blood Urea Nitrogen 53 mg/dL (8-26) Creatinine 1.5 mg/dL (0.7-1.3) Estimated GFR (Cockcroft-Gault) 46.5 BUN/Creatinine Ratio 35 (6-20) Glucose Level 179 mg/dL (70-99) Calcium Level 9.8 mg/dL (8.5-10.1) Total Bilirubin 0.7 mg/dL (0.2-1.0) Aspartate Amino Transf (AST/SGOT) 82 U/L (15-37) Alanine Aminotransferase (ALT/SGPT) 30 U/L (16-63) Alkaline Phosphatase 68 U/L (46-116) Total Protein 6.1 g/dL (6.4-8.2) Albumin 2.7 g/dL (3.4-5.0) Albumin/Globulin Ratio 0.8 (1.0-1.7) Test 09/09/18 08:02 Glucose (Fingerstick) 174 mg/dL (70-99) Medications Current Medications Morphine Sulfate 5 mg/Ketorolac Tromethamine 30 mg/Ropivacaine 60 ml/ Epinephrine HCl 0.5 mg/Sodium Chloride 100 ml @ 100 mls/hr 1X ONCE INT ART ; Start 09/06/18 at 06:00; Stop 09/06/18 at 07:00; Status DC Ondansetron HCl (Zofran) 4 mg PRN Q6HRS PRN IV NAUSEA/VOMITING; Start at 07:00; Stop 09/06/18 at 21:00; Status DC Fentanyl Citrate (Fentanyl 2ml Vial) 25 mcg PRN Q5MIN PRN IV MILD PAIN; Start 09/06/18 at 07:00; Stop 09/06/18 at 21:00; Status DC Fentanyl Citrate (Fentanyl 2ml Vial) 50 mcg PRN Q5MIN PRN IV MODERATE TO SEVERE PAIN Last administered on 09/06/18at 19:02; Start 09/06/18 at 07:00; Stop 09/06/18 at 21:00; Status DC Morphine Sulfate (Morphine Sulfate) 1 mg PRN Q10MIN PRN IV SEVERE PAIN; Start 09/06/18 at 07:00; Stop 09/06/18 at 21:00; Status DC Ringer's Solution 1,000 ml @ 30 mls/hr Q24H IV Last administered on at 09:45; Start 09/06/18 at 07:00; Stop 09/06/18 at 18:59; Status DC Lidocaine HCl (Xylocaine-Mpf 1% 2ml Vial) 2 ml PRN 1X PRN ID PRIOR TO IV START ; Start 09/06/18 at 07:00; Stop 09/06/18 at 21:00; Status DC Hydromorphone HCl (Dilaudid) 0.5 mg PRN Q10MIN PRN IV SEV PAIN, Second choice; Start 09/06/18 at 07:00; Stop 09/06/18 at 21:00; Status DC Prochlorperazine Edisylate (Compazine) 5 mg PACU PRN PRN IV NAUSEA, MRX1; Start 09/06/18 at 07:00; Stop 09/06/18 at 21:00; Status DC Acetaminophen/ Hydrocodone Bitart (Lortab 7.5/325) 2 tab 1X PREOP PRN PO PRIOR TO PROCEDURE Last administered on 09/06/18at 09:48; Start 09/06/18 at 06:00; Stop 09/06/18 at 18:00; Status DC Cefazolin Sodium/ Dextrose 50 ml @ 100 mls/hr 1X PREOP PRN IV PRIOR TO PROCEDURE Last administered on 09/06/18at 14:43; Start 09/06/18 at 06:00; Stop 09/06/18 at 18:00; Status DC Tranexamic Acid 1000 mg/Sodium Chloride 60 ml @ 60 mls/hr 1X PERIOP ONCE INJ Last administered on 09/06/18at 15:00; Start 09/06/18 at 06:00; Stop 09/06/18 at 07:00; Status DC Tranexamic Acid 1000 mg/Sodium Chloride 60 ml @ 60 mls/hr 1X PERIOP ONCE INJ Last administered on 09/06/18at 17:10; Start 09/06/18 at 08:00; Stop 09/06/18 at 08:59; Status DC Propofol 20 ml @ As Directed STK-MED ONCE IV ; Start 09/06/18 at 13:17; Stop 09/06/18 at 13:18; Status DC Dexamethasone Sodium Phosphate (Decadron) 20 mg STK-MED ONCE .ROUTE ; Start at 13:17; Stop 09/06/18 at 13:18; Status DC Famotidine (Pepcid Vial) 20 mg STK-MED ONCE .ROUTE ; Start 09/06/18 at 13:17; Stop 09/06/18 at 13:18; Status DC Lidocaine HCl (Lidocaine Pf 2% Vial) 5 ml STK-MED ONCE .ROUTE ; Start 09/06/18 at 13:17; Stop 09/06/18 at 13:18; Status DC Ondansetron HCl (Zofran) 4 mg STK-MED ONCE .ROUTE ; Start 09/06/18 at 13:17; Stop 09/06/18 at 13:18; Status DC Rocuronium [place] (Zemuron) 50 mg STK-MED ONCE .ROUTE ; Start 09/06/18 at 13: 17; Stop 09/06/18 at 13:18; Status DC Fentanyl Citrate (Fentanyl 2ml Vial) 100 mcg STK-MED ONCE .ROUTE ; Start at 13:17; Stop 09/06/18 at 13:18; Status DC Midazolam HCl (Versed) 2 mg STK-MED ONCE .ROUTE ; Start 09/06/18 at 13:17; Stop 09/06/18 at 13:18; Status DC Morphine Sulfate 5 mg/Ketorolac Tromethamine 30 mg/Ropivacaine 32 ml/ Epinephrine HCl 0.5 mg/Sodium Chloride 100 ml @ 100 mls/hr 1X ONCE INT ART Last administered on 09/06/18at 15:21; Start 09/06/18 at 14:15; Stop 09/06/18 at 15:14; Status DC Acetaminophen/ Hydrocodone Bitart (Lortab 7.5/325) 1 tab PRN Q3HRS PRN PO MODERATE PAIN, 1st CHOICE Last administered on 09/07/18at 12:44; Start at 15:00 Acetaminophen/ Hydrocodone Bitart (Lortab 10/325) 1 tab PRN Q3HRS PRN PO MODERATE PAIN, 2nd CHOICE; Start 09/06/18 at 15:00 Tramadol HCl (Ultram) 50 mg PRN QID PRN PO MODERATE PAIN, 3rd CHOICE; Start at 15:00 Oxycodone/ Acetaminophen (Percocet 5/325) 1 tab PRN Q3HRS PRN PO SEVERE PAIN, 1st CHOICE; Start 09/06/18 at 15:00 Oxycodone/ Acetaminophen (Percocet 7.5/ 325) 1 tab PRN Q3HRS PRN PO SEVERE PAIN , 2nd CHOICE; Start 09/06/18 at 15:00 Tramadol HCl (Ultram) 100 mg PRN Q3HRS PRN PO SEVERE PAIN, 3rd CHOICE; Start 09/06/18 at 15:00 Morphine Sulfate (Morphine Sulfate) 2 mg PRN Q1HR PRN IV PAIN; Start 09/06/18 at 15:00 Fentanyl Citrate (Fentanyl 2ml Vial) 25 mcg PRN Q1HR PRN IV PAIN, 2nd CHOICE; Start 09/06/18 at 15:00 Warfarin Sodium (Coumadin) 7.5 mg 1X ONCE PO Last administered on 09/06/18at 20:01; Start 09/06/18 at 16:00; Stop 09/06/18 at 16:01; Status DC Warfarin Sodium (Coumadin Per Pharmacy) 1 each PRN DAILY PRN MC SEE COMMENTS Last administered on 09/08/18at 11:35; Start 09/06/18 at 15:00 Multivitamins (Thera M Plus) 1 tab DAILY PO Last administered on 09/08/18at 08: 28; Start 09/06/18 at 17:00 Senna/Docusate Sodium (Senna Plus) 1 tab DAILY PO Last administered on 08:28; Start 09/06/18 at 16:00 Ferrous Sulfate (Feosol) 325 mg BIDWMEALS PO Last administered on 09/08/18 08 :28; Start 09/06/18 at 17:00 Celecoxib (CeleBREX) 200 mg BID PO Last administered on 09/08/18at 20:31; Start 09/06/18 at 21:00 Dextrose/Sodium Chloride 1,000 ml @ 100 mls/hr Q10H IV Last administered on at 19:42; Start 09/06/18 at 14:50; Stop 09/07/18 at 17:57; Status DC Magnesium Hydroxide (Milk Of Magnesia) 2,400 mg 1X PRN PRN PO CONSTIPATION; Start 09/07/18 at 06:00; Stop 09/08/18 at 05:59; Status DC Bisacodyl (Dulcolax Supp) 10 mg 1X PRN PRN AL CONSTIPATION; Start 09/07/18 at 16:00; Stop 09/08/18 at 15:59; Status DC Acetaminophen (Tylenol) 650 mg PRN Q4HRS PRN PO MILD PAIN / TEMP; Start at 15:00 Zolpidem Tartrate (Ambien) 5 mg PRN QHS PRN PO INSOMNIA, MAY REPEAT IN 1HR Last administered on 09/08/18at 23:47; Start 09/06/18 at 15:00 Calcium Carbonate/ Glycine (Tums) 500 mg PRN QID PRN PO INDIGESTION Last administered on 09/09/18at 01:29; Start 09/06/18 at 15:00 Morphine Sulfate (Morphine Sulfate) 4 mg PRN Q1HR PRN IV PAIN; Start 09/06/18 at 15:00 Ketorolac Tromethamine 30 mg/Bupivacaine HCl 20 ml/ Epinephrine HCl 0.5 mg/ Miscellaneous 43 ml @ 258 mls/hr Q12H INT ART Last administered on 09/07/18at 11:59; Start 09/06/18 at 20:00; Stop 09/07/18 at 08:09; Status DC Sodium Chloride (Normal Saline Flush) 10 ml QSHIFT PRN IV AFTER MEDS AND BLOOD DRAWS; Start 09/06/18 at 15:00 Fentanyl Citrate (Fentanyl 2ml Vial) 50 mcg PRN Q1HR PRN IV PAIN, 2nd CHOICE Last administered on 09/06/18at 19:52; Start 09/06/18 at 15:00 Prochlorperazine Edisylate (Compazine) 10 mg PRN Q4HRS PRN IV NAUSEA/VOMITING Last administered on 09/09/18at 05:19; Start 09/06/18 at 15:00 Dextrose (Dextrose 50%-Water Syringe) 12.5 gm PRN Q15MIN PRN IV SEE COMMENTS; Start 09/06/18 at 15:00 Cefazolin Sodium/ Dextrose 50 ml @ 100 mls/hr Q6H IV Last administered on at 08:17; Start 09/06/18 at 21:00; Stop 09/07/18 at 09:29; Status DC Ephedrine Sulfate (ePHEDrine PF IN SALINE SYRINGE) 50 mg STK-MED ONCE IV ; Start 09/06/18 at 16:46; Stop 09/06/18 at 16:47; Status DC Desflurane (Suprane) 90 ml STK-MED ONCE IH ; Start 09/06/18 at 16:46; Stop at 16:47; Status DC Neostigmine Methylsulfate (Neostigmine Methylsulfate) 5 mg STK-MED ONCE .ROUTE ; Start 09/06/18 at 16:47; Stop 09/06/18 at 16:48; Status DC Glycopyrrolate (Robinul) 1 mg STK-MED ONCE .ROUTE ; Start 09/06/18 at 16:47; Stop 09/06/18 at 16:48; Status DC Fentanyl Citrate (Fentanyl 2ml Vial) 100 mcg STK-MED ONCE .ROUTE ; Start at 17:58; Stop 09/06/18 at 17:59; Status DC Insulin Human Lispro (HumaLOG) 0-5 UNITS TIDWMEALS SQ Last administered on at 08:16; Start 09/07/18 at 08:00; Stop 09/07/18 at 11:52; Status DC Glimepiride (Amaryl) 2 mg DAILY PO Last administered on 09/08/18at 08:28; Start 09/07/18 at 09:00 Levothyroxine Sodium (Synthroid) 100 mcg DAILY06 PO Last administered on at 06:01; Start 09/07/18 at 06:00 Ascorbic Acid (Vitamin C) 1,000 mg DAILY PO Last administered on 09/08/18at 08: 29; Start 09/07/18 at 09:00 Lisinopril (Prinivil) 20 mg DAILY PO Last administered on 09/07/18at 08:06; Start 09/07/18 at 09:00 Hydrochlorothiazide (Microzide) 12.5 mg DAILY PO Last administered on at 08:02; Start 09/07/18 at 09:00 Metformin HCl (Glucophage) 1,000 mg BIDWMEALS PO Last administered on at 17:19; Start 09/07/18 at 08:00 Influenza Virus Vaccine (Afluria Trivalent [id number] Syringe) 0.5 ml ONCE ONCE VAX IM ; Start 09/07/18 at 09:00; Stop 09/07/18 at 09:01; Status DC Insulin Human Lispro (HumaLOG) 0-7 UNITS TIDWMEALS SQ Last administered on at 17:17; Start 09/07/18 at 12:00; Stop 09/07/18 at 17:57; Status DC Dextrose (Dextrose 50%-Water Syringe) 12.5 gm PRN Q15MIN PRN IV SEE COMMENTS; Start 09/07/18 at 12:00; Status UNV Warfarin Sodium (Coumadin) 5 mg 1X WARF ONCE PO Last administered on at 17:11; Start 09/07/18 at 16:00; Stop 09/07/18 at 16:01; Status DC Insulin Human Lispro (HumaLOG) 0-9 UNITS TIDWMEALS SQ Last administered on at 17:27; Start 09/08/18 at 08:00 Dextrose (Dextrose 50%-Water Syringe) 12.5 gm PRN Q15MIN PRN IV SEE COMMENTS; Start 09/07/18 at 18:00 Insulin Glargine (Lantus) 12 units QHS SQ Last administered on 09/08/18at 20:36 ; Start 09/07/18 at 21:00 Warfarin Sodium (Coumadin) 2 mg 1X WARF ONCE PO Last administered on at 16:00; Start 09/08/18 at 16:00; Stop 09/08/18 at 16:01; Status DC Enoxaparin Sodium (Lovenox 80mg Syringe) 80 mg 1X ONCE SQ Last administered on 09/08/18at 16:01; Start 09/08/18 at 16:00; Stop 09/08/18 at 16:01; Status DC Enoxaparin Sodium (Lovenox 80mg Syringe) 80 mg Q12HR SQ Last administered on at 06:01; Start 09/09/18 at 06:00 Active Scripts Active [place] 7.5-325 Tablet (Acetaminophen/Hydrocodone Bitart) 1 Each Tablet 1 Tab PO PRN Q6HRS PRN Reported Aleve (Naproxen Sodium) 220 Mg Tablet 220 Mg PO BID Tramadol Hcl 50 Mg Tablet 50 Mg PO Q6HRS PRN Glucosamine (Glucosamine Sulfate 2KCL) 1,000 Mg Tablet 1,000 Mg PO DAILY Multivitamins (Multivitamin) 1 Each Tablet 1 Tab PO DAILY Vitamin C (Ascorbic Acid) 100 Mg Tablet 1,000 Mg PO DAILY Hydrochlorothiazide Capsule (Hydrochlorothiazide) 12.5 Mg Capsule 1 Cap PO DAILY Benazepril Hcl 20 Mg Tablet 1 Tab PO DAILY Glimepiride 2 Mg Tablet 1 Tab PO DAILY Metformin Hcl 1,000 Mg Tablet 1,000 Mg PO BID Levothyroxine Sodium 100 Mcg Tablet 1 Tab PO DAILY Vitals/I & O Vital Sign - Last 24 Hours 09/08/18 09/08/18 09/08/18 09/09/18 11:15 17:58 20:15 05:21 Temp 97.9 97.6 98.4 97.9 97.6 98.4 Pulse 76 61 61 Resp 18 20 18 B/P (MAP) 114/59 (77) 143/62 (89) 168/74 (105) Pulse Ox 97 95 95 O2 Delivery Room Air Room Air Room Air Room Air 09/09/18 09/09/18 07:50 09:00 Pulse 46 B/P (MAP) 129/53 O2 Delivery Room Air Intake and Output 09/08/18 09/08/18 09/09/18 15:00 23:00 07:00 Intake Total 200 ml 400 ml Output Total 300 ml 600 ml 250 ml Balance -300 ml -400 ml 150 ml ENRICO CHANDRA Sep 09, 2018 10:02
[2018-09-09 10:29] LABS: HEMOGLOBIN A1C 7.9
--- NOTE | 2018-09-09 11:43 | CONS ---
DATE OF CONSULTATION: 09/08/2018 VASCULAR SURGERY CONSULTATION CLINICAL HISTORY: This is a 68-year-old gentleman who had a right hip procedure done 2 days ago. He has developed swelling of the leg, associated with some discomfort. Venous imaging demonstrates occlusive thrombus in the tibial, popliteal and femoral veins, extending up to the common femoral vein. There is no evidence of iliac involvement. He was treated appropriately with warfarin prior to the procedure and his INR now is 2.2. He is not complaining of chest pain, shortness of breath or pleuritic-type pain. No hemoptysis. PAST MEDICAL HISTORY: Significant for well-controlled diabetes, hypertension and hypothyroidism. PAST SURGICAL HISTORY: Includes elbow, finger and abdominal surgery. He has no prior history for deep vein thrombosis. FAMILY HISTORY: Unremarkable. SOCIAL HISTORY: The patient smokes cigars. MEDICATIONS: Reviewed. ALLERGIES: None known. REVIEW OF SYSTEMS: A 12-point review of systems is negative, other than this pain and discomfort in his right lower extremity. PHYSICAL EXAMINATION: VITAL SIGNS: Reviewed. ABDOMEN: Soft. CHEST: Clear. EXTREMITIES: He has asymmetric swelling of the right lower extremity, but no evidence of phlegmasia. He has palpable pedal pulses. Of note, the leg has not been elevated. IMAGING STUDIES: As above. IMPRESSION: Status post surgical procedure right hip with deep vein thrombosis, right leg. This is fairly extensive, but no evidence of phlegmasia. RECOMMENDATIONS: Extreme elevation of the extremity. We will add Lovenox to his anticoagulation regimen and monitor the wound for bleeding problems. He is not a candidate for thrombolysis because of his recent operation. Surgical thrombectomy could be considered if phlegmasia develops. We will continue to follow closely. Thank you for allowing us to evaluate him. MARIZA ALEJANDRO MD DR: WILLOW/maycol JOB#: [id number] / [id number]
--- NOTE | 2018-09-09 13:50 | PDOC ---
PROGRESS NOTES Chief Complaint Chief Complaint he states that his right leg is sitill sore he is trying to elevate it, no fever or chills, no other concerns, no sig chest pain or soa History of Present Illness History of Present Illness Assessment/Plan Postop day #2 right hip surgery for DJD Diabetes type 2 with hemoglobin A1c 7.4 in December 2017-uncontrolled currently- did receive steroids Intra-Op and also dextrose IV fluid Hypertension controlled extensive right leg DVT Plan: lovenox warfarin bridge encourage ambulation as tolerated Low-dose Levemir 12 units bedtime Vitals Vitals Vital Signs Date Time Temp Pulse Resp B/P (MAP) Pulse Ox O2 Delivery O2 Flow Rate FiO2 09/09/18 09:00 46 129/53 09/09/18 07:50 Room Air 09/09/18 05:21 98.4 18 95 98.4 Physical Exam General: Alert, Oriented X3, No acute distress Heart: Regular rate Lungs: Clear Abdomen: Soft, No tenderness Extremities: Other (Mild tenderness to right upper thigh, no calf tenderness. Mild swelling to right leg compared to left. Measurements to be done by nursing. Pt with knee high compressions on. Palpable right DP and PT pulses. Good cap refill. Bilateral feet cool to touch. ) Skin: Other Labs LABS Laboratory Tests Test 09/08/18 16:52 09/08/18 20:31 09/09/18 03:50 09/09/18 08:02 Glucose (Fingerstick) 160 mg/dL (70-99) 197 mg/dL (70-99) 174 mg/dL (70-99) White Blood Count 14.7 x10^3/uL (4.0-11.0) Red Blood Count 3.91 x10^6/uL (4.30-5.70) Hemoglobin 13.4 g/dL (13.0-17.5) Hematocrit 37.8 % (39.0-53.0) Mean Corpuscular Volume 97 fL (79-100) Mean Corpuscular Hemoglobin 34 pg (25-35) Mean Corpuscular Hemoglobin Concent 36 g/dL (31-37) Red Cell Distribution Width 13.4 % (11.5-14.5) Platelet Count 216 x10^3/uL (140-400) Neutrophils (%) (Auto) 78 % (31-73) Lymphocytes (%) (Auto) 15 % (24-48) Monocytes (%) (Auto) 7 % (0-9) Eosinophils (%) (Auto) 1 % (0-3) Basophils (%) (Auto) 0 % (0-3) Neutrophils # (Auto) 11.4 x10^3uL (1.8-7.7) Lymphocytes # (Auto) 2.2 x10^3/uL (1.0-4.8) Monocytes # (Auto) 1.0 x10^3/uL (0.0-1.1) Eosinophils # (Auto) 0.1 x10^3/uL (0.0-0.7) Basophils # (Auto) 0.0 x10^3/uL (0.0-0.2) Prothrombin Time 22.8 SEC (11.7-14.0) Prothromb Time International Ratio 2.1 (0.8-1.1) Sodium Level 130 mmol/L (136-145) Potassium Level 4.2 mmol/L (3.5-5.1) Chloride Level 94 mmol/L (98-107) Carbon Dioxide Level 24 mmol/L (21-32) Anion Gap 12 (6-14) Blood Urea Nitrogen 53 mg/dL (8-26) Creatinine 1.5 mg/dL (0.7-1.3) Estimated GFR (Cockcroft-Gault) 46.5 BUN/Creatinine Ratio 35 (6-20) Glucose Level 179 mg/dL (70-99) Calcium Level 9.8 mg/dL (8.5-10.1) Total Bilirubin 0.7 mg/dL (0.2-1.0) Aspartate Amino Transf (AST/SGOT) 82 U/L (15-37) Alanine Aminotransferase (ALT/SGPT) 30 U/L (16-63) Alkaline Phosphatase 68 U/L (46-116) Total Protein 6.1 g/dL (6.4-8.2) Albumin 2.7 g/dL (3.4-5.0) Albumin/Globulin Ratio 0.8 (1.0-1.7) Test 09/09/18 11:21 Glucose (Fingerstick) 267 mg/dL (70-99) Comment Review of Relevant I have reviewed the following items digna (where applicable) has been applied. Labs Laboratory Tests Test 09/07/18 16:25 10/24/18 20:30 09/08/18 04:30 09/08/18 06:42 Glucose (Fingerstick) 399 mg/dL (70-99) 316 mg/dL (70-99) 183 mg/dL (70-99) Hemoglobin 13.4 g/dL (13.0-17.5) Hematocrit 38.0 % (39.0-53.0) Mean Corpuscular Hemoglobin Concent 35 g/dL (31-37) Prothrombin Time 24.3 SEC (11.7-14.0) Prothromb Time International Ratio 2.3 (0.8-1.1) Test 09/08/18 11:29 09/08/18 16:52 09/08/18 20:31 09/09/18 03:50 Glucose (Fingerstick) 222 mg/dL (70-99) 160 mg/dL (70-99) 197 mg/dL (70-99) White Blood Count 14.7 x10^3/uL (4.0-11.0) Red Blood Count 3.91 x10^6/uL (4.30-5.70) Hemoglobin 13.4 g/dL (13.0-17.5) Hematocrit 37.8 % (39.0-53.0) Mean Corpuscular Volume 97 fL (79-100) Mean Corpuscular Hemoglobin 34 pg (25-35) Mean Corpuscular Hemoglobin Concent 36 g/dL (31-37) Red Cell Distribution Width 13.4 % (11.5-14.5) Platelet Count 216 x10^3/uL (140-400) Neutrophils (%) (Auto) 78 % (31-73) Lymphocytes (%) (Auto) 15 % (24-48) Monocytes (%) (Auto) 7 % (0-9) Eosinophils (%) (Auto) 1 % (0-3) Basophils (%) (Auto) 0 % (0-3) Neutrophils # (Auto) 11.4 x10^3uL (1.8-7.7) Lymphocytes # (Auto) 2.2 x10^3/uL (1.0-4.8) Monocytes # (Auto) 1.0 x10^3/uL (0.0-1.1) Eosinophils # (Auto) 0.1 x10^3/uL (0.0-0.7) Basophils # (Auto) 0.0 x10^3/uL (0.0-0.2) Prothrombin Time 22.8 SEC (11.7-14.0) Prothromb Time International Ratio 2.1 (0.8-1.1) Sodium Level 130 mmol/L (136-145) Potassium Level 4.2 mmol/L (3.5-5.1) Chloride Level 94 mmol/L (98-107) Carbon Dioxide Level 24 mmol/L (21-32) Anion Gap 12 (6-14) Blood Urea Nitrogen 53 mg/dL (8-26) Creatinine 1.5 mg/dL (0.7-1.3) Estimated GFR (Cockcroft-Gault) 46.5 BUN/Creatinine Ratio 35 (6-20) Glucose Level 179 mg/dL (70-99) Calcium Level 9.8 mg/dL (8.5-10.1) Total Bilirubin 0.7 mg/dL (0.2-1.0) Aspartate Amino Transf (AST/SGOT) 82 U/L (15-37) Alanine Aminotransferase (ALT/SGPT) 30 U/L (16-63) Alkaline Phosphatase 68 U/L (46-116) Total Protein 6.1 g/dL (6.4-8.2) Albumin 2.7 g/dL (3.4-5.0) Albumin/Globulin Ratio 0.8 (1.0-1.7) Test 09/09/18 08:02 09/09/18 11:21 Glucose (Fingerstick) 174 mg/dL (70-99) 267 mg/dL (70-99) Laboratory Tests Test 09/08/18 16:52 09/08/18 20:31 09/09/18 03:50 09/09/18 08:02 Glucose (Fingerstick) 160 mg/dL (70-99) 197 mg/dL (70-99) 174 mg/dL (70-99) White Blood Count 14.7 x10^3/uL (4.0-11.0) Red Blood Count 3.91 x10^6/uL (4.30-5.70) Hemoglobin 13.4 g/dL (13.0-17.5) Hematocrit 37.8 % (39.0-53.0) Mean Corpuscular Volume 97 fL (79-100) Mean Corpuscular Hemoglobin 34 pg (25-35) Mean Corpuscular Hemoglobin Concent 36 g/dL (31-37) Red Cell Distribution Width 13.4 % (11.5-14.5) Platelet Count 216 x10^3/uL (140-400) Neutrophils (%) (Auto) 78 % (31-73) Lymphocytes (%) (Auto) 15 % (24-48) Monocytes (%) (Auto) 7 % (0-9) Eosinophils (%) (Auto) 1 % (0-3) Basophils (%) (Auto) 0 % (0-3) Neutrophils # (Auto) 11.4 x10^3uL (1.8-7.7) Lymphocytes # (Auto) 2.2 x10^3/uL (1.0-4.8) Monocytes # (Auto) 1.0 x10^3/uL (0.0-1.1) Eosinophils # (Auto) 0.1 x10^3/uL (0.0-0.7) Basophils # (Auto) 0.0 x10^3/uL (0.0-0.2) Prothrombin Time 22.8 SEC (11.7-14.0) Prothromb Time International Ratio 2.1 (0.8-1.1) Sodium Level 130 mmol/L (136-145) Potassium Level 4.2 mmol/L (3.5-5.1) Chloride Level 94 mmol/L (98-107) Carbon Dioxide Level 24 mmol/L (21-32) Anion Gap 12 (6-14) Blood Urea Nitrogen 53 mg/dL (8-26) Creatinine 1.5 mg/dL (0.7-1.3) Estimated GFR (Cockcroft-Gault) 46.5 BUN/Creatinine Ratio 35 (6-20) Glucose Level 179 mg/dL (70-99) Calcium Level 9.8 mg/dL (8.5-10.1) Total Bilirubin 0.7 mg/dL (0.2-1.0) Aspartate Amino Transf (AST/SGOT) 82 U/L (15-37) Alanine Aminotransferase (ALT/SGPT) 30 U/L (16-63) Alkaline Phosphatase 68 U/L (46-116) Total Protein 6.1 g/dL (6.4-8.2) Albumin 2.7 g/dL (3.4-5.0) Albumin/Globulin Ratio 0.8 (1.0-1.7) Test 09/09/18 11:21 Glucose (Fingerstick) 267 mg/dL (70-99) Medications Current Medications Morphine Sulfate 5 mg/Ketorolac Tromethamine 30 mg/Ropivacaine 60 ml/ Epinephrine HCl 0.5 mg/Sodium Chloride 100 ml @ 100 mls/hr 1X ONCE INT ART ; Start 09/06/18 at 06:00; Stop 09/06/18 at 07:00; Status DC Ondansetron HCl (Zofran) 4 mg PRN Q6HRS PRN IV NAUSEA/VOMITING; Start at 07:00; Stop 09/06/18 at 21:00; Status DC Fentanyl Citrate (Fentanyl 2ml Vial) 25 mcg PRN Q5MIN PRN IV MILD PAIN; Start 09/06/18 at 07:00; Stop 09/06/18 at 21:00; Status DC Fentanyl Citrate (Fentanyl 2ml Vial) 50 mcg PRN Q5MIN PRN IV MODERATE TO SEVERE PAIN Last administered on 09/06/18at 19:02; Start 09/06/18 at 07:00; Stop 09/06/18 at 21:00; Status DC Morphine Sulfate (Morphine Sulfate) 1 mg PRN Q10MIN PRN IV SEVERE PAIN; Start 09/06/18 at 07:00; Stop 09/06/18 at 21:00; Status DC Ringer's Solution 1,000 ml @ 30 mls/hr Q24H IV Last administered on at 09:45; Start 09/06/18 at 07:00; Stop 09/06/18 at 18:59; Status DC Lidocaine HCl (Xylocaine-Mpf 1% 2ml Vial) 2 ml PRN 1X PRN ID PRIOR TO IV START ; Start 09/06/18 at 07:00; Stop 09/06/18 at 21:00; Status DC Hydromorphone HCl (Dilaudid) 0.5 mg PRN Q10MIN PRN IV SEV PAIN, Second choice; Start 09/06/18 at 07:00; Stop 09/06/18 at 21:00; Status DC Prochlorperazine Edisylate (Compazine) 5 mg PACU PRN PRN IV NAUSEA, MRX1; Start 09/06/18 at 07:00; Stop 09/06/18 at 21:00; Status DC Acetaminophen/ Hydrocodone Bitart (Lortab 7.5/325) 2 tab 1X PREOP PRN PO PRIOR TO PROCEDURE Last administered on 09/06/18at 09:48; Start 09/06/18 at 06:00; Stop 09/06/18 at 18:00; Status DC Cefazolin Sodium/ Dextrose 50 ml @ 100 mls/hr 1X PREOP PRN IV PRIOR TO PROCEDURE Last administered on 09/06/18at 14:43; Start 09/06/18 at 06:00; Stop 09/06/18 at 18:00; Status DC Tranexamic Acid 1000 mg/Sodium Chloride 60 ml @ 60 mls/hr 1X PERIOP ONCE INJ Last administered on 09/06/18at 15:00; Start 09/06/18 at 06:00; Stop 09/06/18 at 07:00; Status DC Tranexamic Acid 1000 mg/Sodium Chloride 60 ml @ 60 mls/hr 1X PERIOP ONCE INJ Last administered on 09/06/18at 17:10; Start 09/06/18 at 08:00; Stop 09/06/18 at 08:59; Status DC Propofol 20 ml @ As Directed STK-MED ONCE IV ; Start 09/06/18 at 13:17; Stop 09/06/18 at 13:18; Status DC Dexamethasone Sodium Phosphate (Decadron) 20 mg STK-MED ONCE .ROUTE ; Start at 13:17; Stop 09/06/18 at 13:18; Status DC Famotidine (Pepcid Vial) 20 mg STK-MED ONCE .ROUTE ; Start 09/06/18 at 13:17; Stop 09/06/18 at 13:18; Status DC Lidocaine HCl (Lidocaine Pf 2% Vial) 5 ml STK-MED ONCE .ROUTE ; Start 09/06/18 at 13:17; Stop 09/06/18 at 13:18; Status DC Ondansetron HCl (Zofran) 4 mg STK-MED ONCE .ROUTE ; Start 09/06/18 at 13:17; Stop 09/06/18 at 13:18; Status DC Rocuronium [place] (Zemuron) 50 mg STK-MED ONCE .ROUTE ; Start 09/06/18 at 13: 17; Stop 09/06/18 at 13:18; Status DC Fentanyl Citrate (Fentanyl 2ml Vial) 100 mcg STK-MED ONCE .ROUTE ; Start at 13:17; Stop 09/06/18 at 13:18; Status DC Midazolam HCl (Versed) 2 mg STK-MED ONCE .ROUTE ; Start 09/06/18 at 13:17; Stop 09/06/18 at 13:18; Status DC Morphine Sulfate 5 mg/Ketorolac Tromethamine 30 mg/Ropivacaine 32 ml/ Epinephrine HCl 0.5 mg/Sodium Chloride 100 ml @ 100 mls/hr 1X ONCE INT ART Last administered on 09/06/18at 15:21; Start 09/06/18 at 14:15; Stop 09/06/18 at 15:14; Status DC Acetaminophen/ Hydrocodone Bitart (Lortab 7.5/325) 1 tab PRN Q3HRS PRN PO MODERATE PAIN, 1st CHOICE Last administered on 09/07/18at 12:44; Start at 15:00 Acetaminophen/ Hydrocodone Bitart (Lortab 10/325) 1 tab PRN Q3HRS PRN PO MODERATE PAIN, 2nd CHOICE; Start 09/06/18 at 15:00 Tramadol HCl (Ultram) 50 mg PRN QID PRN PO MODERATE PAIN, 3rd CHOICE; Start at 15:00 Oxycodone/ Acetaminophen (Percocet 5/325) 1 tab PRN Q3HRS PRN PO SEVERE PAIN, 1st CHOICE; Start 09/06/18 at 15:00 Oxycodone/ Acetaminophen (Percocet 7.5/ 325) 1 tab PRN Q3HRS PRN PO SEVERE PAIN , 2nd CHOICE; Start 09/06/18 at 15:00 Tramadol HCl (Ultram) 100 mg PRN Q3HRS PRN PO SEVERE PAIN, 3rd CHOICE; Start 09/06/18 at 15:00 Morphine Sulfate (Morphine Sulfate) 2 mg PRN Q1HR PRN IV PAIN; Start 09/06/18 at 15:00 Fentanyl Citrate (Fentanyl 2ml Vial) 25 mcg PRN Q1HR PRN IV PAIN, 2nd CHOICE; Start 09/06/18 at 15:00 Warfarin Sodium (Coumadin) 7.5 mg 1X ONCE PO Last administered on 09/06/18 20:01; Start 09/06/18 at 16:00; Stop 09/06/18 at 16:01; Status DC Warfarin Sodium (Coumadin Per Pharmacy) 1 each PRN DAILY PRN MC SEE COMMENTS Last administered on 09/09/18at 13:23; Start 09/06/18 at 15:00 Multivitamins (Thera M Plus) 1 tab DAILY PO Last administered on 09/08/18 08: 28; Start 09/06/18 at 17:00 Senna/Docusate Sodium (Senna Plus) 1 tab DAILY PO Last administered on 08:28; Start 09/06/18 at 16:00 Ferrous Sulfate (Feosol) 325 mg BIDWMEALS PO Last administered on 09/08/18 08 :28; Start 09/06/18 at 17:00 Celecoxib (CeleBREX) 200 mg BID PO Last administered on 09/08/18 20:31; Start 09/06/18 at 21:00 Dextrose/Sodium Chloride 1,000 ml @ 100 mls/hr Q10H IV Last administered on at 19:42; Start 09/06/18 at 14:50; Stop 09/07/18 at 17:57; Status DC Magnesium Hydroxide (Milk Of Magnesia) 2,400 mg 1X PRN PRN PO CONSTIPATION; Start 09/07/18 at 06:00; Stop 09/08/18 at 05:59; Status DC Bisacodyl (Dulcolax Supp) 10 mg 1X PRN PRN DC CONSTIPATION; Start 09/07/18 at 16:00; Stop 09/08/18 at 15:59; Status DC Acetaminophen (Tylenol) 650 mg PRN Q4HRS PRN PO MILD PAIN / TEMP; Start at 15:00 Zolpidem Tartrate (Ambien) 5 mg PRN QHS PRN PO INSOMNIA, MAY REPEAT IN 1HR Last administered on 09/08/18at 23:47; Start 09/06/18 at 15:00 Calcium Carbonate/ Glycine (Tums) 500 mg PRN QID PRN PO INDIGESTION Last administered on 09/09/18at 01:29; Start 09/06/18 at 15:00 Morphine Sulfate (Morphine Sulfate) 4 mg PRN Q1HR PRN IV PAIN; Start 09/06/18 at 15:00 Ketorolac Tromethamine 30 mg/Bupivacaine HCl 20 ml/ Epinephrine HCl 0.5 mg/ Miscellaneous 43 ml @ 258 mls/hr Q12H INT ART Last administered on 09/07/18at 11:59; Start 09/06/18 at 20:00; Stop 09/07/18 at 08:09; Status DC Sodium Chloride (Normal Saline Flush) 10 ml QSHIFT PRN IV AFTER MEDS AND BLOOD DRAWS; Start 09/06/18 at 15:00 Fentanyl Citrate (Fentanyl 2ml Vial) 50 mcg PRN Q1HR PRN IV PAIN, 2nd CHOICE Last administered on 09/06/18at 19:52; Start 09/06/18 at 15:00 Prochlorperazine Edisylate (Compazine) 10 mg PRN Q4HRS PRN IV NAUSEA/VOMITING Last administered on 09/09/18at 05:19; Start 09/06/18 at 15:00 Dextrose (Dextrose 50%-Water Syringe) 12.5 gm PRN Q15MIN PRN IV SEE COMMENTS; Start 09/06/18 at 15:00 Cefazolin Sodium/ Dextrose 50 ml @ 100 mls/hr Q6H IV Last administered on at 08:17; Start 09/06/18 at 21:00; Stop 09/07/18 at 09:29; Status DC Ephedrine Sulfate (ePHEDrine PF IN SALINE SYRINGE) 50 mg STK-MED ONCE IV ; Start 09/06/18 at 16:46; Stop 09/06/18 at 16:47; Status DC Desflurane (Suprane) 90 ml STK-MED ONCE IH ; Start 09/06/18 at 16:46; Stop at 16:47; Status DC Neostigmine Methylsulfate (Neostigmine Methylsulfate) 5 mg STK-MED ONCE .ROUTE ; Start 09/06/18 at 16:47; Stop 09/06/18 at 16:48; Status DC Glycopyrrolate (Robinul) 1 mg STK-MED ONCE .ROUTE ; Start 09/06/18 at 16:47; Stop 09/06/18 at 16:48; Status DC Fentanyl Citrate (Fentanyl 2ml Vial) 100 mcg STK-MED ONCE .ROUTE ; Start at 17:58; Stop 09/06/18 at 17:59; Status DC Insulin Human Lispro (HumaLOG) 0-5 UNITS TIDWMEALS SQ Last administered on at 08:16; Start 09/07/18 at 08:00; Stop 09/07/18 at 11:52; Status DC Glimepiride (Amaryl) 2 mg DAILY PO Last administered on 09/08/18at 08:28; Start 09/07/18 at 09:00 Levothyroxine Sodium (Synthroid) 100 mcg DAILY06 PO Last administered on at 06:01; Start 09/07/18 at 06:00 Ascorbic Acid (Vitamin C) 1,000 mg DAILY PO Last administered on 09/08/18at 08: 29; Start 09/07/18 at 09:00 Lisinopril (Prinivil) 20 mg DAILY PO Last administered on 09/07/18at 08:06; Start 09/07/18 at 09:00 Hydrochlorothiazide (Microzide) 12.5 mg DAILY PO Last administered on at 08:02; Start 09/07/18 at 09:00 Metformin HCl (Glucophage) 1,000 mg BIDWMEALS PO Last administered on at 17:19; Start 09/07/18 at 08:00 Influenza Virus Vaccine (Afluria Trivalent [id number] Syringe) 0.5 ml ONCE ONCE VAX IM ; Start 09/07/18 at 09:00; Stop 09/07/18 at 09:01; Status DC Insulin Human Lispro (HumaLOG) 0-7 UNITS TIDWMEALS SQ Last administered on at 17:17; Start 09/07/18 at 12:00; Stop 09/07/18 at 17:57; Status DC Dextrose (Dextrose 50%-Water Syringe) 12.5 gm PRN Q15MIN PRN IV SEE COMMENTS; Start 09/07/18 at 12:00; Status UNV Warfarin Sodium (Coumadin) 5 mg 1X WARF ONCE PO Last administered on at 17:11; Start 09/07/18 at 16:00; Stop 09/07/18 at 16:01; Status DC Insulin Human Lispro (HumaLOG) 0-9 UNITS TIDWMEALS SQ Last administered on at 11:43; Start 09/08/18 at 08:00 Dextrose (Dextrose 50%-Water Syringe) 12.5 gm PRN Q15MIN PRN IV SEE COMMENTS; Start 09/07/18 at 18:00 Insulin Glargine (Lantus) 12 units QHS SQ Last administered on 09/08/18at 20:36 ; Start 09/07/18 at 21:00 Warfarin Sodium (Coumadin) 2 mg 1X WARF ONCE PO Last administered on at 16:00; Start 09/08/18 at 16:00; Stop 09/08/18 at 16:01; Status DC Enoxaparin Sodium (Lovenox 80mg Syringe) 80 mg 1X ONCE SQ Last administered on 09/08/18at 16:01; Start 09/08/18 at 16:00; Stop 09/08/18 at 16:01; Status DC Enoxaparin Sodium (Lovenox 80mg Syringe) 80 mg Q12HR SQ Last administered on at 06:01; Start 09/09/18 at 06:00 Warfarin Sodium (Coumadin) 2 mg 1X WARF ONCE PO ; Start 09/09/18 at 16:00; Stop 09/09/18 at 16:01 Active Scripts Active [place] 7.5-325 Tablet (Acetaminophen/Hydrocodone Bitart) 1 Each Tablet 1 Tab PO PRN Q6HRS PRN Reported Aleve (Naproxen Sodium) 220 Mg Tablet 220 Mg PO BID Tramadol Hcl 50 Mg Tablet 50 Mg PO Q6HRS PRN Glucosamine (Glucosamine Sulfate 2KCL) 1,000 Mg Tablet 1,000 Mg PO DAILY Multivitamins (Multivitamin) 1 Each Tablet 1 Tab PO DAILY Vitamin C (Ascorbic Acid) 100 Mg Tablet 1,000 Mg PO DAILY Hydrochlorothiazide Capsule (Hydrochlorothiazide) 12.5 Mg Capsule 1 Cap PO DAILY Benazepril Hcl 20 Mg Tablet 1 Tab PO DAILY Glimepiride 2 Mg Tablet 1 Tab PO DAILY Metformin Hcl 1,000 Mg Tablet 1,000 Mg PO BID Levothyroxine Sodium 100 Mcg Tablet 1 Tab PO DAILY Vitals/I & O Vital Sign - Last 24 Hours 09/08/18 09/08/18 09/09/1809/09/18 17:58 20:15 05:21 07:50 Temp 97.6 98.4 97.6 98.4 Pulse 61 61 Resp 20 18 B/P (MAP) 143/62 (89) 168/74 (105) Pulse Ox 95 95 O2 Delivery Room Air Room Air Room Air Room Air 09/09/18 09:00 Pulse 46 B/P (MAP) 129/53 Intake and Output 09/08/18 09/08/18 09/09/18 15:00 23:00 07:00 Intake Total 200 ml 400 ml Output Total 300 ml 600 ml 250 ml Balance -300 ml -400 ml 150 ml MICAELA NICHOLSON MD Sep 09, 2018 13:50
--- NOTE | 2018-09-09 14:37 | PDOC ---
PROGRESS NOTES Subjective Subjective Problems overnight: Right leg is a bit less swollen and painful today. He has not been up and around with physical therapy due to restrictions per vascular surgery Objective Vital Signs Vital Signs Date Time Temp Pulse Resp B/P (MAP) Pulse Ox O2 Delivery O2 Flow Rate FiO2 09/09/18 09:00 46 129/53 09/09/18 07:50 Room Air 09/09/18 05:21 98.4 18 95 98.4 09/06/18 19:02 2.0 Physical Exam On examination compartments are soft distal neurovascular status intact his dressing clean dry intact he still has some swelling but not as severe in the right leg Labs Laboratory Tests Test 09/07/18 16:25 09/07/18 20:30 09/08/18 04:30 09/08/18 06:42 Glucose (Fingerstick) 399 mg/dL (70-99) 316 mg/dL (70-99) 183 mg/dL (70-99) Hemoglobin 13.4 g/dL (13.0-17.5) Hematocrit 38.0 % (39.0-53.0) Mean Corpuscular Hemoglobin Concent 35 g/dL (31-37) Prothrombin Time 24.3 SEC (11.7-14.0) Prothromb Time International Ratio 2.3 (0.8-1.1) Test 09/08/18 11:29 09/08/18 16:52 09/08/18 20:31 09/09/18 03:50 Glucose (Fingerstick) 222 mg/dL (70-99) 160 mg/dL (70-99) 197 mg/dL (70-99) White Blood Count 14.7 x10^3/uL (4.0-11.0) Red Blood Count 3.91 x10^6/uL (4.30-5.70) Hemoglobin 13.4 g/dL (13.0-17.5) Hematocrit 37.8 % (39.0-53.0) Mean Corpuscular Volume 97 fL (79-100) Mean Corpuscular Hemoglobin 34 pg (25-35) Mean Corpuscular Hemoglobin Concent 36 g/dL (31-37) Red Cell Distribution Width 13.4 % (11.5-14.5) Platelet Count 216 x10^3/uL (140-400) Neutrophils (%) (Auto) 78 % (31-73) Lymphocytes (%) (Auto) 15 % (24-48) Monocytes (%) (Auto) 7 % (0-9) Eosinophils (%) (Auto) 1 % (0-3) Basophils (%) (Auto) 0 % (0-3) Neutrophils # (Auto) 11.4 x10^3uL (1.8-7.7) Lymphocytes # (Auto) 2.2 x10^3/uL (1.0-4.8) Monocytes # (Auto) 1.0 x10^3/uL (0.0-1.1) Eosinophils # (Auto) 0.1 x10^3/uL (0.0-0.7) Basophils # (Auto) 0.0 x10^3/uL (0.0-0.2) Prothrombin Time 22.8 SEC (11.7-14.0) Prothromb Time International Ratio 2.1 (0.8-1.1) Sodium Level 130 mmol/L (136-145) Potassium Level 4.2 mmol/L (3.5-5.1) Chloride Level 94 mmol/L (98-107) Carbon Dioxide Level 24 mmol/L (21-32) Anion Gap 12 (6-14) Blood Urea Nitrogen 53 mg/dL (8-26) Creatinine 1.5 mg/dL (0.7-1.3) Estimated GFR (Cockcroft-Gault) 46.5 BUN/Creatinine Ratio 35 (6-20) Glucose Level 179 mg/dL (70-99) Calcium Level 9.8 mg/dL (8.5-10.1) Total Bilirubin 0.7 mg/dL (0.2-1.0) Aspartate Amino Transf (AST/SGOT) 82 U/L (15-37) Alanine Aminotransferase (ALT/SGPT) 30 U/L (16-63) Alkaline Phosphatase 68 U/L (46-116) Total Protein 6.1 g/dL (6.4-8.2) Albumin 2.7 g/dL (3.4-5.0) Albumin/Globulin Ratio 0.8 (1.0-1.7) Test 09/09/18 08:02 09/09/18 11:21 Glucose (Fingerstick) 174 mg/dL (70-99) 267 mg/dL (70-99) Laboratory Tests Test 09/08/18 16:52 09/08/18 20:31 09/09/18 03:50 09/09/18 08:02 Glucose (Fingerstick) 160 mg/dL (70-99) 197 mg/dL (70-99) 174 mg/dL (70-99) White Blood Count 14.7 x10^3/uL (4.0-11.0) Red Blood Count 3.91 x10^6/uL (4.30-5.70) Hemoglobin 13.4 g/dL (13.0-17.5) Hematocrit 37.8 % (39.0-53.0) Mean Corpuscular Volume 97 fL (79-100) Mean Corpuscular Hemoglobin 34 pg (25-35) Mean Corpuscular Hemoglobin Concent 36 g/dL (31-37) Red Cell Distribution Width 13.4 % (11.5-14.5) Platelet Count 216 x10^3/uL (140-400) Neutrophils (%) (Auto) 78 % (31-73) Lymphocytes (%) (Auto) 15 % (24-48) Monocytes (%) (Auto) 7 % (0-9) Eosinophils (%) (Auto) 1 % (0-3) Basophils (%) (Auto) 0 % (0-3) Neutrophils # (Auto) 11.4 x10^3uL (1.8-7.7) Lymphocytes # (Auto) 2.2 x10^3/uL (1.0-4.8) Monocytes # (Auto) 1.0 x10^3/uL (0.0-1.1) Eosinophils # (Auto) 0.1 x10^3/uL (0.0-0.7) Basophils # (Auto) 0.0 x10^3/uL (0.0-0.2) Prothrombin Time 22.8 SEC (11.7-14.0) Prothromb Time International Ratio 2.1 (0.8-1.1) Sodium Level 130 mmol/L (136-145) Potassium Level 4.2 mmol/L (3.5-5.1) Chloride Level 94 mmol/L (98-107) Carbon Dioxide Level 24 mmol/L (21-32) Anion Gap 12 (6-14) Blood Urea Nitrogen 53 mg/dL (8-26) Creatinine 1.5 mg/dL (0.7-1.3) Estimated GFR (Cockcroft-Gault) 46.5 BUN/Creatinine Ratio 35 (6-20) Glucose Level 179 mg/dL (70-99) Calcium Level 9.8 mg/dL (8.5-10.1) Total Bilirubin 0.7 mg/dL (0.2-1.0) Aspartate Amino Transf (AST/SGOT) 82 U/L (15-37) Alanine Aminotransferase (ALT/SGPT) 30 U/L (16-63) Alkaline Phosphatase 68 U/L (46-116) Total Protein 6.1 g/dL (6.4-8.2) Albumin 2.7 g/dL (3.4-5.0) Albumin/Globulin Ratio 0.8 (1.0-1.7) Test 09/09/18 11:21 Glucose (Fingerstick) 267 mg/dL (70-99) Assessment Assessment POD# [3], S/P [right total hip arthroplasty] Plan Plan of Care I appreciate the vascular consultation. Plan at this point since he is somewhat improved is probably to defer any action on a thrombectomy. He is going to continue on heparin as well as Coumadin. I have also asked Dr. Morales from hematology to see him in terms of a coagulopathy workup as he developed swelling and apparently the DVT very quickly postoperatively really on first postoperative day. This is quite unusual and I think it may bear on recommendations in terms of his length of anticoagulation or other possible treatments for it. Continue medical supportive care Mobilize as tolerated again restricted due to vascular restrictions due to the large DVT in his right leg HERMINIO RICH MD Sep 09, 2018 14:37
[2018-09-09 15:02] VITALS: BP 128/61
[2018-09-09] MEDS ORDERED: WARFARIN 2 MG TABLET. PO ONE (16:00)
--- NOTE | 2018-09-09 17:08 | PDOC2 ---
CONSULT Date of Consult Date of Consult DATE: 09/09/18 TIME: 16:59 Reason for consultation: DVT Consult: Hematology oncology, Dr. Marci Quan History of present illness: The patient is a 68-year-old male with recent right hip replacement on 06 September, he developed pain from the ankle extending up to the knee, moderate (6/10 now) associated with swelling, no redness, and worsened acutely after surgery, with right lower extremity ultrasound on 08 September showing extensive DVT. Since then his pain and swelling have improved on anticoagulation. He's currently on Lovenox bridge with Coumadin. INR was 2.1 today. He has no history of clotting in the past nor a family history of clotting, though there was a concern with the rapid onset of clot to consider hypercoagulable workup. Past medical history: Kidney stone Osteoarthritis Diabetes mellitus 2 Hypertension Hypothyroidism Past surgical history: Elbow surgery Finger surgery Abdominal surgery Right total hip replacement 06 September Left knee scope Kidney stone surgery Facial cosmetic surgery Allergies: No known drug allergies Medications: See attached list Social history: Smokes cigars since he was 12 years old, currently a couple a day, lives with family, no alcohol Family history: No known cancers or blood clots, there is stroke dementia and emphysema in the family and he has 2 children relatively healthy Review of systems: Trouble sleeping in the hospital, right lower extremity pain and swelling, nausea and vomiting, otherwise 10 point review of systems is negative, to include no pulmonary symptoms Physical exam: Vitals reviewed Gen.: Well-nourished and well-developed in no acute distress HEENT: mucous membranes moist, head normocephalic atraumatic Neck: Supple, no lymphadenopathy Lymph nodes: No palpable lymphadenopathy neck or axilla Lungs: Breathing comfortably, no evidence of respiratory distress Heart: Regular rate and rhythm Abdomen: Soft, nontender, nondistended Extremities: No cyanosis, lower extremity edema right lower extremity, with compression stockings on Skin: No obvious rashes or skin breakdown Neuro: Alert and oriented 3 Psych: Normal mood and affect Lab reviewed: White count 14.7, hemoglobin 13.4, platelets 216 INR 2.1, down from 2.3 Creatinine 1.5 GFR 46 Rads reviewed: Right lower extremity ultrasound 08 September 2018 shows extensive DVT, largely occlusive peroneal veins and one of the posterior tibial veins within the right calf to involve the right popliteal, superficial femoral vein and right common femoral veins Case discussed with: Patient, and his nursing staff, and records reviewed in [facility] included labs and radiology, please see note for summary details. Assessment and Plan: He is a 68-year-old male with right hip replacement and symptoms of right lower extremity DVT noted on postop day 1, improving on anticoagulation. RLE DVT: He has stockings, and anticoagulation, with Lovenox bridge with Coumadin, after 5 days of Coumadin he should be fine to stop Lovenox as long as INR is greater than 2, I believe tomorrow will be his fifth dose of Coumadin, and he can follow up in our Coumadin clinic or with primary care as needed, and also could consider novel anticoagulant such as apixaban but will defer to ortho at this point in time, I would be okay with either, pain is controlled with pain medications as needed, we'll defer hypercoagulable workup till after anticoagulation for approximately 3 months depending on how well he does, as Coumadin and acute thrombosis can interfere with hyper-coag workup and some tests are not available as inpatient. Lisa arthritis: Recovering after right hip replacement, ortho is following Other comorbidities: Deferred to primary for diabetes and others including mild renal insufficiency Disposition: He tells me he will likely be here a few more days, we will be happy to see him Wednesday morning, and if he is discharged prior can arrange follow-up in our clinic Thank you kindly for this consultation, and please do not hesitate to call with any further questions. Past Medical History Cardiovascular: HTN Musculoskeletal: Other (DJD) Endocrine: Diabetes Past Surgical History Past Surgical History: Total hip replacement Family History Family History: Hypertension Social History No ALCOHOL: none Lives: with Family Domestic Violence: Neg Current Medications Current Medications Current Medications Morphine Sulfate 5 mg/Ketorolac Tromethamine 30 mg/Ropivacaine 60 ml/ Epinephrine HCl 0.5 mg/Sodium Chloride 100 ml @ 100 mls/hr 1X ONCE INT ART ; Start 09/06/18 at 06:00; Stop 09/06/18 at 07:00; Status DC Ondansetron HCl (Zofran) 4 mg PRN Q6HRS PRN IV NAUSEA/VOMITING; Start at 07:00; Stop 09/06/18 at 21:00; Status DC Fentanyl Citrate (Fentanyl 2ml Vial) 25 mcg PRN Q5MIN PRN IV MILD PAIN; Start 09/06/18 at 07:00; Stop 09/06/18 at 21:00; Status DC Fentanyl Citrate (Fentanyl 2ml Vial) 50 mcg PRN Q5MIN PRN IV MODERATE TO SEVERE PAIN Last administered on 09/06/18at 19:02; Start 09/06/18 at 07:00; Stop 09/06/18 at 21:00; Status DC Morphine Sulfate (Morphine Sulfate) 1 mg PRN Q10MIN PRN IV SEVERE PAIN; Start 09/06/18 at 07:00; Stop 09/06/18 at 21:00; Status DC Ringer's Solution 1,000 ml @ 30 mls/hr Q24H IV Last administered on at 09:45; Start 09/06/18 at 07:00; Stop 09/06/18 at 18:59; Status DC Lidocaine HCl (Xylocaine-Mpf 1% 2ml Vial) 2 ml PRN 1X PRN ID PRIOR TO IV START ; Start 09/06/18 at 07:00; Stop 09/06/18 at 21:00; Status DC Hydromorphone HCl (Dilaudid) 0.5 mg PRN Q10MIN PRN IV SEV PAIN, Second choice; Start 09/06/18 at 07:00; Stop 09/06/18 at 21:00; Status DC Prochlorperazine Edisylate (Compazine) 5 mg PACU PRN PRN IV NAUSEA, MRX1; Start 09/06/18 at 07:00; Stop 09/06/18 at 21:00; Status DC Acetaminophen/ Hydrocodone Bitart (Lortab 7.5/325) 2 tab 1X PREOP PRN PO PRIOR TO PROCEDURE Last administered on 09/06/18at 09:48; Start 09/06/18 at 06:00; Stop 09/06/18 at 18:00; Status DC Cefazolin Sodium/ Dextrose 50 ml @ 100 mls/hr 1X PREOP PRN IV PRIOR TO PROCEDURE Last administered on 09/06/18at 14:43; Start 09/06/18 at 06:00; Stop 09/06/18 at 18:00; Status DC Tranexamic Acid 1000 mg/Sodium Chloride 60 ml @ 60 mls/hr 1X PERIOP ONCE INJ Last administered on 09/06/18at 15:00; Start 09/06/18 at 06:00; Stop 09/06/18 at 07:00; Status DC Tranexamic Acid 1000 mg/Sodium Chloride 60 ml @ 60 mls/hr 1X PERIOP ONCE INJ Last administered on 09/06/18at 17:10; Start 09/06/18 at 08:00; Stop 09/06/18 at 08:59; Status DC Propofol 20 ml @ As Directed STK-MED ONCE IV ; Start 09/06/18 at 13:17; Stop 09/06/18 at 13:18; Status DC Dexamethasone Sodium Phosphate (Decadron) 20 mg STK-MED ONCE .ROUTE ; Start at 13:17; Stop 09/06/18 at 13:18; Status DC Famotidine (Pepcid Vial) 20 mg STK-MED ONCE .ROUTE ; Start 09/06/18 at 13:17; Stop 09/06/18 at 13:18; Status DC Lidocaine HCl (Lidocaine Pf 2% Vial) 5 ml STK-MED ONCE .ROUTE ; Start 09/06/18 at 13:17; Stop 09/06/18 at 13:18; Status DC Ondansetron HCl (Zofran) 4 mg STK-MED ONCE .ROUTE ; Start 09/06/18 at 13:17; Stop 09/06/18 at 13:18; Status DC Rocuronium [place] (Zemuron) 50 mg STK-MED ONCE .ROUTE ; Start 09/06/18 at 13: 17; Stop 09/06/18 at 13:18; Status DC Fentanyl Citrate (Fentanyl 2ml Vial) 100 mcg STK-MED ONCE .ROUTE ; Start at 13:17; Stop 09/06/18 at 13:18; Status DC Midazolam HCl (Versed) 2 mg STK-MED ONCE .ROUTE ; Start 09/06/18 at 13:17; Stop 09/06/18 at 13:18; Status DC Morphine Sulfate 5 mg/Ketorolac Tromethamine 30 mg/Ropivacaine 32 ml/ Epinephrine HCl 0.5 mg/Sodium Chloride 100 ml @ 100 mls/hr 1X ONCE INT ART Last administered on 09/06/18at 15:21; Start 09/06/18 at 14:15; Stop 09/06/18 at 15:14; Status DC Acetaminophen/ Hydrocodone Bitart (Lortab 7.5/325) 1 tab PRN Q3HRS PRN PO MODERATE PAIN, 1st CHOICE Last administered on 09/07/18at 12:44; Start at 15:00 Acetaminophen/ Hydrocodone Bitart (Lortab 10/325) 1 tab PRN Q3HRS PRN PO MODERATE PAIN, 2nd CHOICE; Start 09/06/18 at 15:00 Tramadol HCl (Ultram) 50 mg PRN QID PRN PO MODERATE PAIN, 3rd CHOICE; Start at 15:00 Oxycodone/ Acetaminophen (Percocet 5/325) 1 tab PRN Q3HRS PRN PO SEVERE PAIN, 1st CHOICE; Start 09/06/18 at 15:00 Oxycodone/ Acetaminophen (Percocet 7.5/ 325) 1 tab PRN Q3HRS PRN PO SEVERE PAIN , 2nd CHOICE; Start 09/06/18 at 15:00 Tramadol HCl (Ultram) 100 mg PRN Q3HRS PRN PO SEVERE PAIN, 3rd CHOICE; Start 09/06/18 at 15:00 Morphine Sulfate (Morphine Sulfate) 2 mg PRN Q1HR PRN IV PAIN; Start 09/06/18 at 15:00 Fentanyl Citrate (Fentanyl 2ml Vial) 25 mcg PRN Q1HR PRN IV PAIN, 2nd CHOICE; Start 09/06/18 at 15:00 Warfarin Sodium (Coumadin) 7.5 mg 1X ONCE PO Last administered on 09/06/18at 20:01; Start 09/06/18 at 16:00; Stop 09/06/18 at 16:01; Status DC Warfarin Sodium (Coumadin Per Pharmacy) 1 each PRN DAILY PRN MC SEE COMMENTS Last administered on 09/09/18at 13:23; Start 09/06/18 at 15:00 Multivitamins (Thera M Plus) 1 tab DAILY PO Last administered on 09/08/18at 08: 28; Start 09/06/18 at 17:00 Senna/Docusate Sodium (Senna Plus) 1 tab DAILY PO Last administered on at 08:28; Start 09/06/18 at 16:00 Ferrous Sulfate (Feosol) 325 mg BIDWMEALS PO Last administered on 09/09/18at 16 :42; Start 09/06/18 at 17:00 Celecoxib (CeleBREX) 200 mg BID PO Last administered on 09/08/18at 20:31; Start 09/06/18 at 21:00 Dextrose/Sodium Chloride 1,000 ml @ 100 mls/hr Q10H IV Last administered on at 19:42; Start 09/06/18 at 14:50; Stop 09/07/18 at 17:57; Status DC Magnesium Hydroxide (Milk Of Magnesia) 2,400 mg 1X PRN PRN PO CONSTIPATION; Start 09/07/18 at 06:00; Stop 09/08/18 at 05:59; Status DC Bisacodyl (Dulcolax Supp) 10 mg 1X PRN PRN DE CONSTIPATION; Start 09/07/18 at 16:00; Stop 09/08/18 at 15:59; Status DC Acetaminophen (Tylenol) 650 mg PRN Q4HRS PRN PO MILD PAIN / TEMP; Start at 15:00 Zolpidem Tartrate (Ambien) 5 mg PRN QHS PRN PO INSOMNIA, MAY REPEAT IN 1HR Last administered on 09/08/18at 23:47; Start 09/06/18 at 15:00 Calcium Carbonate/ Glycine (Tums) 500 mg PRN QID PRN PO INDIGESTION Last administered on 09/09/18at 01:29; Start 09/06/18 at 15:00 Morphine Sulfate (Morphine Sulfate) 4 mg PRN Q1HR PRN IV PAIN; Start 09/06/18 at 15:00 Ketorolac Tromethamine 30 mg/Bupivacaine HCl 20 ml/ Epinephrine HCl 0.5 mg/ Miscellaneous 43 ml @ 258 mls/hr Q12H INT ART Last administered on 09/07/18at 11:59; Start 09/06/18 at 20:00; Stop 09/07/18 at 08:09; Status DC Sodium Chloride (Normal Saline Flush) 10 ml QSHIFT PRN IV AFTER MEDS AND BLOOD DRAWS; Start 09/06/18 at 15:00 Fentanyl Citrate (Fentanyl 2ml Vial) 50 mcg PRN Q1HR PRN IV PAIN, 2nd CHOICE Last administered on 09/06/18at 19:52; Start 09/06/18 at 15:00 Prochlorperazine Edisylate (Compazine) 10 mg PRN Q4HRS PRN IV NAUSEA/VOMITING Last administered on 09/09/18at 05:19; Start 09/06/18 at 15:00 Dextrose (Dextrose 50%-Water Syringe) 12.5 gm PRN Q15MIN PRN IV SEE COMMENTS; Start 09/06/18 at 15:00 Cefazolin Sodium/ Dextrose 50 ml @ 100 mls/hr Q6H IV Last administered on at 08:17; Start 09/06/18 at 21:00; Stop 09/07/18 at 09:29; Status DC Ephedrine Sulfate (ePHEDrine PF IN SALINE SYRINGE) 50 mg STK-MED ONCE IV ; Start 09/06/18 at 16:46; Stop 09/06/18 at 16:47; Status DC Desflurane (Suprane) 90 ml STK-MED ONCE IH ; Start 09/06/18 at 16:46; Stop at 16:47; Status DC Neostigmine Methylsulfate (Neostigmine Methylsulfate) 5 mg STK-MED ONCE .ROUTE ; Start 09/06/18 at 16:47; Stop 09/06/18 at 16:48; Status DC Glycopyrrolate (Robinul) 1 mg STK-MED ONCE .ROUTE ; Start 09/06/18 at 16:47; Stop 09/06/18 at 16:48; Status DC Fentanyl Citrate (Fentanyl 2ml Vial) 100 mcg STK-MED ONCE .ROUTE ; Start at 17:58; Stop 09/06/18 at 17:59; Status DC Insulin Human Lispro (HumaLOG) 0-5 UNITS TIDWMEALS SQ Last administered on at 08:16; Start 09/07/18 at 08:00; Stop 09/07/18 at 11:52; Status DC Glimepiride (Amaryl) 2 mg DAILY PO Last administered on 09/08/18at 08:28; Start 09/07/18 at 09:00 Levothyroxine Sodium (Synthroid) 100 mcg DAILY06 PO Last administered on at 06:01; Start 09/07/18 at 06:00 Ascorbic Acid (Vitamin C) 1,000 mg DAILY PO Last administered on 09/08/18at 08: 29; Start 09/07/18 at 09:00 Lisinopril (Prinivil) 20 mg DAILY PO Last administered on 09/07/18at 08:06; Start 09/07/18 at 09:00 Hydrochlorothiazide (Microzide) 12.5 mg DAILY PO Last administered on at 08:02; Start 09/07/18 at 09:00 Metformin HCl (Glucophage) 1,000 mg BIDWMEALS PO Last administered on at 16:42; Start 09/07/18 at 08:00 Influenza Virus Vaccine (Afluria Trivalent [id number] Syringe) 0.5 ml ONCE ONCE VAX IM ; Start 09/07/18 at 09:00; Stop 09/07/18 at 09:01; Status DC Insulin Human Lispro (HumaLOG) 0-7 UNITS TIDWMEALS SQ Last administered on at 17:17; Start 09/07/18 at 12:00; Stop 09/07/18 at 17:57; Status DC Dextrose (Dextrose 50%-Water Syringe) 12.5 gm PRN Q15MIN PRN IV SEE COMMENTS; Start 09/07/18 at 12:00; Status UNV Warfarin Sodium (Coumadin) 5 mg 1X WARF ONCE PO Last administered on at 17:11; Start 09/07/18 at 16:00; Stop 09/07/18 at 16:01; Status DC Insulin Human Lispro (HumaLOG) 0-9 UNITS TIDWMEALS SQ Last administered on at 16:56; Start 09/08/18 at 08:00 Dextrose (Dextrose 50%-Water Syringe) 12.5 gm PRN Q15MIN PRN IV SEE COMMENTS; Start 09/07/18 at 18:00 Insulin Glargine (Lantus) 12 units QHS SQ Last administered on 09/08/18at 20:36 ; Start 09/07/18 at 21:00 Warfarin Sodium (Coumadin) 2 mg 1X WARF ONCE PO Last administered on at 16:00; Start 09/08/18 at 16:00; Stop 09/08/18 at 16:01; Status DC Enoxaparin Sodium (Lovenox 80mg Syringe) 80 mg 1X ONCE SQ Last administered on 09/08/18at 16:01; Start 09/08/18 at 16:00; Stop 09/08/18 at 16:01; Status DC Enoxaparin Sodium (Lovenox 80mg Syringe) 80 mg Q12HR SQ Last administered on at 06:01; Start 09/09/18 at 06:00 Warfarin Sodium (Coumadin) 2 mg 1X WARF ONCE PO Last administered on at 16:42; Start 09/09/18 at 16:00; Stop 09/09/18 at 16:01; Status DC Ondansetron HCl (Zofran) 4 mg PRN Q6HRS PRN IV NAUSEA/VOMITING; Start at 07:00; Stop 09/12/18 at 18:00 Fentanyl Citrate (Fentanyl 2ml Vial) 25 mcg PRN Q5MIN PRN IV MILD PAIN; Start 09/12/18 at 07:00; Stop 09/12/18 at 18:00 Fentanyl Citrate (Fentanyl 2ml Vial) 50 mcg PRN Q5MIN PRN IV MODERATE TO SEVERE PAIN; Start 09/12/18 at 07:00; Stop 09/12/18 at 18:00 Morphine Sulfate (Morphine Sulfate) 1 mg PRN Q10MIN PRN IV SEVERE PAIN; Start 09/12/18 at 07:00; Stop 09/12/18 at 18:00 Ringer's Solution 1,000 ml @ 30 mls/hr Q24H IV ; Start 09/12/18 at 07:00; Stop 09/12/18 at 18:59 Lidocaine HCl (Xylocaine-Mpf 1% 2ml Vial) 2 ml PRN 1X PRN ID PRIOR TO IV START ; Start 09/12/18 at 07:00; Stop 09/12/18 at 18:00 Hydromorphone HCl (Dilaudid) 0.5 mg PRN Q10MIN PRN IV SEV PAIN, Second choice; Start 09/12/18 at 07:00; Stop 09/12/18 at 18:00 Prochlorperazine Edisylate (Compazine) 5 mg PACU PRN PRN IV NAUSEA, MRX1; Start 09/12/18 at 07:00; Stop 09/12/18 at 18:00 Active Scripts Active [place] 7.5-325 Tablet (Acetaminophen/Hydrocodone Bitart) 1 Each Tablet 1 Tab PO PRN Q6HRS PRN Reported Aleve (Naproxen Sodium) 220 Mg Tablet 220 Mg PO BID Tramadol Hcl 50 Mg Tablet 50 Mg PO Q6HRS PRN Glucosamine (Glucosamine Sulfate 2KCL) 1,000 Mg Tablet 1,000 Mg PO DAILY Multivitamins (Multivitamin) 1 Each Tablet 1 Tab PO DAILY Vitamin C (Ascorbic Acid) 100 Mg Tablet 1,000 Mg PO DAILY Hydrochlorothiazide Capsule (Hydrochlorothiazide) 12.5 Mg Capsule 1 Cap PO DAILY Benazepril Hcl 20 Mg Tablet 1 Tab PO DAILY Glimepiride 2 Mg Tablet 1 Tab PO DAILY Metformin Hcl 1,000 Mg Tablet 1,000 Mg PO BID Levothyroxine Sodium 100 Mcg Tablet 1 Tab PO DAILY Allergies Allergies: Coded Allergies: No Known Drug Allergies (Unverified , 09/06/18) Vitals VITALS Vital Signs Date Time Temp Pulse Resp B/P (MAP) Pulse Ox O2 Delivery O2 Flow Rate FiO2 09/09/18 15:02 98.2 83 18 128/61 (83) 96 Room Air 98.2 Labs Labs Laboratory Tests Test 09/07/18 20:30 09/08/18 04:30 09/08/18 06:42 09/08/18 11:29 Glucose (Fingerstick) 316 mg/dL (70-99) 183 mg/dL (70-99) 222 mg/dL (70-99) Hemoglobin 13.4 g/dL (13.0-17.5) Hematocrit 38.0 % (39.0-53.0) Mean Corpuscular Hemoglobin Concent 35 g/dL (31-37) Prothrombin Time 24.3 SEC (11.7-14.0) Prothromb Time International Ratio 2.3 (0.8-1.1) Test 09/08/18 16:52 09/08/18 20:31 09/09/18 03:50 09/09/18 08:02 Glucose (Fingerstick) 160 mg/dL (70-99) 197 mg/dL (70-99) 174 mg/dL (70-99) White Blood Count 14.7 x10^3/uL (4.0-11.0) Red Blood Count 3.91 x10^6/uL (4.30-5.70) Hemoglobin 13.4 g/dL (13.0-17.5) Hematocrit 37.8 % (39.0-53.0) Mean Corpuscular Volume 97 fL (79-100) Mean Corpuscular Hemoglobin 34 pg (25-35) Mean Corpuscular Hemoglobin Concent 36 g/dL (31-37) Red Cell Distribution Width 13.4 % (11.5-14.5) Platelet Count 216 x10^3/uL (140-400) Neutrophils (%) (Auto) 78 % (31-73) Lymphocytes (%) (Auto) 15 % (24-48) Monocytes (%) (Auto) 7 % (0-9) Eosinophils (%) (Auto) 1 % (0-3) Basophils (%) (Auto) 0 % (0-3) Neutrophils # (Auto) 11.4 x10^3uL (1.8-7.7) Lymphocytes # (Auto) 2.2 x10^3/uL (1.0-4.8) Monocytes # (Auto) 1.0 x10^3/uL (0.0-1.1) Eosinophils # (Auto) 0.1 x10^3/uL (0.0-0.7) Basophils # (Auto) 0.0 x10^3/uL (0.0-0.2) Prothrombin Time 22.8 SEC (11.7-14.0) Prothromb Time International Ratio 2.1 (0.8-1.1) Sodium Level 130 mmol/L (136-145) Potassium Level 4.2 mmol/L (3.5-5.1) Chloride Level 94 mmol/L (98-107) Carbon Dioxide Level 24 mmol/L (21-32) Anion Gap 12 (6-14) Blood Urea Nitrogen 53 mg/dL (8-26) Creatinine 1.5 mg/dL (0.7-1.3) Estimated GFR (Cockcroft-Gault) 46.5 BUN/Creatinine Ratio 35 (6-20) Glucose Level 179 mg/dL (70-99) Calcium Level 9.8 mg/dL (8.5-10.1) Total Bilirubin 0.7 mg/dL (0.2-1.0) Aspartate Amino Transf (AST/SGOT) 82 U/L (15-37) Alanine Aminotransferase (ALT/SGPT) 30 U/L (16-63) Alkaline Phosphatase 68 U/L (46-116) Total Protein 6.1 g/dL (6.4-8.2) Albumin 2.7 g/dL (3.4-5.0) Albumin/Globulin Ratio 0.8 (1.0-1.7) Test 09/09/18 11:21 Glucose (Fingerstick) 267 mg/dL (70-99) Laboratory Tests Test 09/08/18 20:31 09/09/18 03:50 09/09/18 08:02 09/09/18 11:21 Glucose (Fingerstick) 197 mg/dL (70-99) 174 mg/dL (70-99) 267 mg/dL (70-99) White Blood Count 14.7 x10^3/uL (4.0-11.0) Red Blood Count 3.91 x10^6/uL (4.30-5.70) Hemoglobin 13.4 g/dL (13.0-17.5) Hematocrit 37.8 % (39.0-53.0) Mean Corpuscular Volume 97 fL (79-100) Mean Corpuscular Hemoglobin 34 pg (25-35) Mean Corpuscular Hemoglobin Concent 36 g/dL (31-37) Red Cell Distribution Width 13.4 % (11.5-14.5) Platelet Count 216 x10^3/uL (140-400) Neutrophils (%) (Auto) 78 % (31-73) Lymphocytes (%) (Auto) 15 % (24-48) Monocytes (%) (Auto) 7 % (0-9) Eosinophils (%) (Auto) 1 % (0-3) Basophils (%) (Auto) 0 % (0-3) Neutrophils # (Auto) 11.4 x10^3uL (1.8-7.7) Lymphocytes # (Auto) 2.2 x10^3/uL (1.0-4.8) Monocytes # (Auto) 1.0 x10^3/uL (0.0-1.1) Eosinophils # (Auto) 0.1 x10^3/uL (0.0-0.7) Basophils # (Auto) 0.0 x10^3/uL (0.0-0.2) Prothrombin Time 22.8 SEC (11.7-14.0) Prothromb Time International Ratio 2.1 (0.8-1.1) Sodium Level 130 mmol/L (136-145) Potassium Level 4.2 mmol/L (3.5-5.1) Chloride Level 94 mmol/L (98-107) Carbon Dioxide Level 24 mmol/L (21-32) Anion Gap 12 (6-14) Blood Urea Nitrogen 53 mg/dL (8-26) Creatinine 1.5 mg/dL (0.7-1.3) Estimated GFR (Cockcroft-Gault) 46.5 BUN/Creatinine Ratio 35 (6-20) Glucose Level 179 mg/dL (70-99) Calcium Level 9.8 mg/dL (8.5-10.1) Total Bilirubin 0.7 mg/dL (0.2-1.0) Aspartate Amino Transf (AST/SGOT) 82 U/L (15-37) Alanine Aminotransferase (ALT/SGPT) 30 U/L (16-63) Alkaline Phosphatase 68 U/L (46-116) Total Protein 6.1 g/dL (6.4-8.2) Albumin 2.7 g/dL (3.4-5.0) Albumin/Globulin Ratio 0.8 (1.0-1.7) MARCI QUAN MD Sep 09, 2018 17:08
[2018-09-09 19:00] VITALS: BP 134/58
[2018-09-09] MEDS: INSULIN GLARGINE 300 UNITS/3 ML INSULN.PEN. SQ SCH (21:39)
[2018-09-09 23:00] VITALS: BP 126/62
[2018-09-10] MEDS: HYDROcodone/APAP 7.5/325MG 1 TAB TABLET PO PRN (02:40)
[2018-09-10 03:00] VITALS: BP 162/57
[2018-09-10 05:09] LABS: PROTHROMBIN TIME PATIENT 21.1 SEC (11.7-14.0)
[2018-09-10] MEDS: LEVOTHYROXINE 100 MCG TABLET PO SCH (06:10)
[2018-09-10 07:22] VITALS: BP 106/60
[2018-09-10] MEDS: INSULIN LISPRO 300 UNITS/3 ML INSULN.PEN. SQ SCH ×3 (08:00→18:20)
[2018-09-10] MEDS: metFORMIN 500 MG TABLET PO SCH ×2 (08:00→18:12)
[2018-09-10] MEDS: oxyCODONE/APAP 7.5/325 1 TAB TABLET PO PRN ×3 (08:11→21:21)
[2018-09-10] MEDS: ASCORBIC ACID 500 MG TABLET PO SCH (08:12)
[2018-09-10] MEDS: SENNOSIDES/DOCUSATE 8.6/50MG TABLET. PO SCH (08:12)
[2018-09-10] MEDS: hydroCHLOROthiazide 12.5 MG CAPSULE PO SCH (08:13)
[2018-09-10] MEDS: MULTIVITAMIN with MINERAL TABLET. PO SCH (08:13)
[2018-09-10] MEDS: LISINOPRIL 20 MG TABLET PO SCH (08:13)
[2018-09-10] MEDS: FERROUS SULFATE 325 MG TABLET. PO SCH ×2 (08:13→18:13)
[2018-09-10] MEDS: CELECOXIB 100 MG CAPSULE. PO SCH ×2 (08:13→21:11)
[2018-09-10] MEDS: GLIMEPIRIDE 2 MG TABLET. PO SCH (08:15)
[2018-09-10 11:18] VITALS: BP 109/53
--- NOTE | 2018-09-10 12:34 | PDOC ---
PROGRESS NOTES Chief Complaint Chief Complaint Postop day #3 right hip surgery Extensive right leg DVT confirmed 09/08 Leukocytosis likely 2/2 to intra-op steroids Hyponatremia H/o DM H/o HTN H/o hypothyroid History of Present Illness History of Present Illness Pt seen and examined while laying in bed Discussed w/RN Vitals Vitals Vital Signs Date Time Temp Pulse Resp B/P (MAP) Pulse Ox O2 Delivery O2 Flow Rate FiO2 09/10/18 11: 97.7 75 18 109/53 (71) 94 Room Air 97.7 09/09/18 20:30 2.0 Physical Exam Physical Exam Neck: Supple, no JVD General: Alert, Oriented X3, Cooperative, No acute distress Heart: Regular rate, No murmurs Lungs: Clear Abdomen: Normal bowel sounds, Soft, No tenderness Extremities: Other (Pt with knee high compressions on. Dressings clean, dry and intact) Skin: Other Labs LABS Laboratory Tests Test 09/09/18 16:53 09/09/18 21:09 09/10/18 04:40 09/10/18 07:25 Glucose (Fingerstick) 151 mg/dL (70-99) 206 mg/dL (70-99) 108 mg/dL (70-99) Prothrombin Time 21.1 SEC (11.7-14.0) Prothromb Time International Ratio 1.9 (0.8-1.1) Test 09/10/18 11:23 Glucose (Fingerstick) 246 mg/dL (70-99) Review of Systems Review of Systems C/o right leg pain w/movement Denies fever, chest pain, SOB Assessment and Plan Assessmemt and Plan Assessment: Postop day #3 right hip surgery Extensive right leg DVT confirmed 09/08 Leukocytosis likely 2/2 to intra-op steroids Hyponatremia H/o DM H/o HTN H/o hypothyroid Plan: Monitor WBC count, abx if no decline Wound care IVF PT/OT Encourage ambulation PRN pain meds Comment Review of Relevant I have reviewed the following items digna (where applicable) has been applied. Labs Laboratory Tests Test 09/08/18 16:52 09/08/18 20:31 09/09/18 03:50 09/09/18 08:02 Glucose (Fingerstick) 160 mg/dL (70-99) 197 mg/dL (70-99) 174 mg/dL (70-99) White Blood Count 14.7 x10^3/uL (4.0-11.0) Red Blood Count 3.91 x10^6/uL (4.30-5.70) Hemoglobin 13.4 g/dL (13.0-17.5) Hematocrit 37.8 % (39.0-53.0) Mean Corpuscular Volume 97 fL (79-100) Mean Corpuscular Hemoglobin 34 pg (25-35) Mean Corpuscular Hemoglobin Concent 36 g/dL (31-37) Red Cell Distribution Width 13.4 % (11.5-14.5) Platelet Count 216 x10^3/uL (140-400) Neutrophils (%) (Auto) 78 % (31-73) Lymphocytes (%) (Auto) 15 % (24-48) Monocytes (%) (Auto) 7 % (0-9) Eosinophils (%) (Auto) 1 % (0-3) Basophils (%) (Auto) 0 % (0-3) Neutrophils # (Auto) 11.4 x10^3uL (1.8-7.7) Lymphocytes # (Auto) 2.2 x10^3/uL (1.0-4.8) Monocytes # (Auto) 1.0 x10^3/uL (0.0-1.1) Eosinophils # (Auto) 0.1 x10^3/uL (0.0-0.7) Basophils # (Auto) 0.0 x10^3/uL (0.0-0.2) Prothrombin Time 22.8 SEC (11.7-14.0) Prothromb Time International Ratio 2.1 (0.8-1.1) Sodium Level 130 mmol/L (136-145) Potassium Level 4.2 mmol/L (3.5-5.1) Chloride Level 94 mmol/L (98-107) Carbon Dioxide Level 24 mmol/L (21-32) Anion Gap 12 (6-14) Blood Urea Nitrogen 53 mg/dL (8-26) Creatinine 1.5 mg/dL (0.7-1.3) Estimated GFR (Cockcroft-Gault) 46.5 BUN/Creatinine Ratio 35 (6-20) Glucose Level 179 mg/dL (70-99) Calcium Level 9.8 mg/dL (8.5-10.1) Total Bilirubin 0.7 mg/dL (0.2-1.0) Aspartate Amino Transf (AST/SGOT) 82 U/L (15-37) Alanine Aminotransferase (ALT/SGPT) 30 U/L (16-63) Alkaline Phosphatase 68 U/L (46-116) Total Protein 6.1 g/dL (6.4-8.2) Albumin 2.7 g/dL (3.4-5.0) Albumin/Globulin Ratio 0.8 (1.0-1.7) Test 09/09/18 11:21 09/09/18 16:53 09/09/18 21:09 09/10/18 04:40 Glucose (Fingerstick) 267 mg/dL (70-99) 151 mg/dL (70-99) 206 mg/dL (70-99) Prothrombin Time 21.1 SEC (11.7-14.0) Prothromb Time International Ratio 1.9 (0.8-1.1) Test 09/10/18 07:25 09/10/18 11:23 Glucose (Fingerstick) 108 mg/dL (70-99) 246 mg/dL (70-99) Laboratory Tests Test 09/09/18 16:53 09/09/18 21:09 09/10/18 04:40 09/10/18 07:25 Glucose (Fingerstick) 151 mg/dL (70-99) 206 mg/dL (70-99) 108 mg/dL (70-99) Prothrombin Time 21.1 SEC (11.7-14.0) Prothromb Time International Ratio 1.9 (0.8-1.1) Test 09/10/18 11:23 Glucose (Fingerstick) 246 mg/dL (70-99) Medications Current Medications Morphine Sulfate 5 mg/Ketorolac Tromethamine 30 mg/Ropivacaine 60 ml/ Epinephrine HCl 0.5 mg/Sodium Chloride 100 ml @ 100 mls/hr 1X ONCE INT ART ; Start 09/06/18 at 06:00; Stop 09/06/18 at 07:00; Status DC Ondansetron HCl (Zofran) 4 mg PRN Q6HRS PRN IV NAUSEA/VOMITING; Start at 07:00; Stop 09/06/18 at 21:00; Status DC Fentanyl Citrate (Fentanyl 2ml Vial) 25 mcg PRN Q5MIN PRN IV MILD PAIN; Start 09/06/18 at 07:00; Stop 09/06/18 at 21:00; Status DC Fentanyl Citrate (Fentanyl 2ml Vial) 50 mcg PRN Q5MIN PRN IV MODERATE TO SEVERE PAIN Last administered on 09/06/18at 19:02; Start 09/06/18 at 07:00; Stop 09/06/18 at 21:00; Status DC Morphine Sulfate (Morphine Sulfate) 1 mg PRN Q10MIN PRN IV SEVERE PAIN; Start 09/06/18 at 07:00; Stop 09/06/18 at 21:00; Status DC Ringer's Solution 1,000 ml @ 30 mls/hr Q24H IV Last administered on at 09:45; Start 09/06/18 at 07:00; Stop 09/06/18 at 18:59; Status DC Lidocaine HCl (Xylocaine-Mpf 1% 2ml Vial) 2 ml PRN 1X PRN ID PRIOR TO IV START ; Start 09/06/18 at 07:00; Stop 09/06/18 at 21:00; Status DC Hydromorphone HCl (Dilaudid) 0.5 mg PRN Q10MIN PRN IV SEV PAIN, Second choice; Start 09/06/18 at 07:00; Stop 09/06/18 at 21:00; Status DC Prochlorperazine Edisylate (Compazine) 5 mg PACU PRN PRN IV NAUSEA, MRX1; Start 09/06/18 at 07:00; Stop 09/06/18 at 21:00; Status DC Acetaminophen/ Hydrocodone Bitart (Lortab 7.5/325) 2 tab 1X PREOP PRN PO PRIOR TO PROCEDURE Last administered on 09/06/18at 09:48; Start 09/06/18 at 06:00; Stop 09/06/18 at 18:00; Status DC Cefazolin Sodium/ Dextrose 50 ml @ 100 mls/hr 1X PREOP PRN IV PRIOR TO PROCEDURE Last administered on 09/06/18at 14:43; Start 09/06/18 at 06:00; Stop 09/06/18 at 18:00; Status DC Tranexamic Acid 1000 mg/Sodium Chloride 60 ml @ 60 mls/hr 1X PERIOP ONCE INJ Last administered on 09/06/18at 15:00; Start 09/06/18 at 06:00; Stop 09/06/18 at 07:00; Status DC Tranexamic Acid 1000 mg/Sodium Chloride 60 ml @ 60 mls/hr 1X PERIOP ONCE INJ Last administered on 09/06/18at 17:10; Start 09/06/18 at 08:00; Stop 09/06/18 at 08:59; Status DC Propofol 20 ml @ As Directed STK-MED ONCE IV ; Start 09/06/18 at 13:17; Stop 09/06/18 at 13:18; Status DC Dexamethasone Sodium Phosphate (Decadron) 20 mg STK-MED ONCE .ROUTE ; Start at 13:17; Stop 09/06/18 at 13:18; Status DC Famotidine (Pepcid Vial) 20 mg STK-MED ONCE .ROUTE ; Start 09/06/18 at 13:17; Stop 09/06/18 at 13:18; Status DC Lidocaine HCl (Lidocaine Pf 2% Vial) 5 ml STK-MED ONCE .ROUTE ; Start 09/06/18 at 13:17; Stop 09/06/18 at 13:18; Status DC Ondansetron HCl (Zofran) 4 mg STK-MED ONCE .ROUTE ; Start 09/06/18 at 13:17; Stop 09/06/18 at 13:18; Status DC Rocuronium [place] (Zemuron) 50 mg STK-MED ONCE .ROUTE ; Start 09/06/18 at 13: 17; Stop 09/06/18 at 13:18; Status DC Fentanyl Citrate (Fentanyl 2ml Vial) 100 mcg STK-MED ONCE .ROUTE ; Start at 13:17; Stop 09/06/18 at 13:18; Status DC Midazolam HCl (Versed) 2 mg STK-MED ONCE .ROUTE ; Start 09/06/18 at 13:17; Stop 09/06/18 at 13:18; Status DC Morphine Sulfate 5 mg/Ketorolac Tromethamine 30 mg/Ropivacaine 32 ml/ Epinephrine HCl 0.5 mg/Sodium Chloride 100 ml @ 100 mls/hr 1X ONCE INT ART Last administered on 09/06/18at 15:21; Start 09/06/18 at 14:15; Stop 09/06/18 at 15:14; Status DC Acetaminophen/ Hydrocodone Bitart (Lortab 7.5/325) 1 tab PRN Q3HRS PRN PO MODERATE PAIN, 1st CHOICE Last administered on 09/10/18at 02:40; Start at 15:00 Acetaminophen/ Hydrocodone Bitart (Lortab 10/325) 1 tab PRN Q3HRS PRN PO MODERATE PAIN, 2nd CHOICE; Start 09/06/18 at 15:00 Tramadol HCl (Ultram) 50 mg PRN QID PRN PO MODERATE PAIN, 3rd CHOICE; Start at 15:00 Oxycodone/ Acetaminophen (Percocet 5/325) 1 tab PRN Q3HRS PRN PO SEVERE PAIN, 1st CHOICE; Start 09/06/18 at 15:00 Oxycodone/ Acetaminophen (Percocet 7.5/ 325) 1 tab PRN Q3HRS PRN PO SEVERE PAIN , 2nd CHOICE Last administered on 09/10/18at 08:11; Start 09/06/18 at 15:00 Tramadol HCl (Ultram) 100 mg PRN Q3HRS PRN PO SEVERE PAIN, 3rd CHOICE; Start 09/06/18 at 15:00 Morphine Sulfate (Morphine Sulfate) 2 mg PRN Q1HR PRN IV PAIN; Start 09/06/18 at 15:00 Fentanyl Citrate (Fentanyl 2ml Vial) 25 mcg PRN Q1HR PRN IV PAIN, 2nd CHOICE; Start 09/06/18 at 15:00 Warfarin Sodium (Coumadin) 7.5 mg 1X ONCE PO Last administered on 09/06/18at 20:01; Start 09/06/18 at 16:00; Stop 09/06/18 at 16:01; Status DC Warfarin Sodium (Coumadin Per Pharmacy) 1 each PRN DAILY PRN MC SEE COMMENTS Last administered on 09/09/18at 13:23; Start 09/06/18 at 15:00 Multivitamins (Thera M Plus) 1 tab DAILY PO Last administered on 09/10/18at 08: 13; Start 09/06/18 at 17:00 Senna/Docusate Sodium (Senna Plus) 1 tab DAILY PO Last administered on at 08:12; Start 09/06/18 at 16:00 Ferrous Sulfate (Feosol) 325 mg BIDWMEALS PO Last administered on 09/10/18at 08 :13; Start 09/06/18 at 17:00 Celecoxib (CeleBREX) 200 mg BID PO Last administered on 09/10/18at 08:13; Start 09/06/18 at 21:00 Dextrose/Sodium Chloride 1,000 ml @ 100 mls/hr Q10H IV Last administered on at 19:42; Start 09/06/18 at 14:50; Stop 09/07/18 at 17:57; Status DC Magnesium Hydroxide (Milk Of Magnesia) 2,400 mg 1X PRN PRN PO CONSTIPATION; Start 09/07/18 at 06:00; Stop 09/08/18 at 05:59; Status DC Bisacodyl (Dulcolax Supp) 10 mg 1X PRN PRN ME CONSTIPATION; Start 09/07/18 at 16:00; Stop 09/08/18 at 15:59; Status DC Acetaminophen (Tylenol) 650 mg PRN Q4HRS PRN PO MILD PAIN / TEMP; Start at 15:00 Zolpidem Tartrate (Ambien) 5 mg PRN QHS PRN PO INSOMNIA, MAY REPEAT IN 1HR Last administered on 09/08/18at 23:47; Start 09/06/18 at 15:00 Calcium Carbonate/ Glycine (Tums) 500 mg PRN QID PRN PO INDIGESTION Last administered on 09/09/18at 01:29; Start 09/06/18 at 15:00 Morphine Sulfate (Morphine Sulfate) 4 mg PRN Q1HR PRN IV PAIN; Start 09/06/18 at 15:00 Ketorolac Tromethamine 30 mg/Bupivacaine HCl 20 ml/ Epinephrine HCl 0.5 mg/ Miscellaneous 43 ml @ 258 mls/hr Q12H INT ART Last administered on 09/07/18at 11:59; Start 09/06/18 at 20:00; Stop 09/07/18 at 08:09; Status DC Sodium Chloride (Normal Saline Flush) 10 ml QSHIFT PRN IV AFTER MEDS AND BLOOD DRAWS; Start 09/06/18 at 15:00 Fentanyl Citrate (Fentanyl 2ml Vial) 50 mcg PRN Q1HR PRN IV PAIN, 2nd CHOICE Last administered on 09/06/18at 19:52; Start 09/06/18 at 15:00 Prochlorperazine Edisylate (Compazine) 10 mg PRN Q4HRS PRN IV NAUSEA/VOMITING Last administered on 09/09/18at 05:19; Start 09/06/18 at 15:00 Dextrose (Dextrose 50%-Water Syringe) 12.5 gm PRN Q15MIN PRN IV SEE COMMENTS; Start 09/06/18 at 15:00; Stop 09/10/18 at 11:39; Status DC Cefazolin Sodium/ Dextrose 50 ml @ 100 mls/hr Q6H IV Last administered on at 08:17; Start 09/06/18 at 21:00; Stop 09/07/18 at 09:29; Status DC Ephedrine Sulfate (ePHEDrine PF IN SALINE SYRINGE) 50 mg STK-MED ONCE IV ; Start 09/06/18 at 16:46; Stop 09/06/18 at 16:47; Status DC Desflurane (Suprane) 90 ml STK-MED ONCE IH ; Start 09/06/18 at 16:46; Stop at 16:47; Status DC Neostigmine Methylsulfate (Neostigmine Methylsulfate) 5 mg STK-MED ONCE .ROUTE ; Start 09/06/18 at 16:47; Stop 09/06/18 at 16:48; Status DC Glycopyrrolate (Robinul) 1 mg STK-MED ONCE .ROUTE ; Start 09/06/18 at 16:47; Stop 09/06/18 at 16:48; Status DC Fentanyl Citrate (Fentanyl 2ml Vial) 100 mcg STK-MED ONCE .ROUTE ; Start at 17:58; Stop 09/06/18 at 17:59; Status DC Insulin Human Lispro (HumaLOG) 0-5 UNITS TIDWMEALS SQ Last administered on at 08:16; Start 09/07/18 at 08:00; Stop 09/07/18 at 11:52; Status DC Glimepiride (Amaryl) 2 mg DAILY PO Last administered on 09/08/18at 08:28; Start 09/07/18 at 09:00 Levothyroxine Sodium (Synthroid) 100 mcg DAILY06 PO Last administered on at 06:10; Start 09/07/18 at 06:00 Ascorbic Acid (Vitamin C) 1,000 mg DAILY PO Last administered on 09/10/18at 08: 12; Start 09/07/18 at 09:00 Lisinopril (Prinivil) 20 mg DAILY PO Last administered on 09/10/18at 08:13; Start 09/07/18 at 09:00 Hydrochlorothiazide (Microzide) 12.5 mg DAILY PO Last administered on at 08:13; Start 09/07/18 at 09:00 Metformin HCl (Glucophage) 1,000 mg BIDWMEALS PO Last administered on at 16:42; Start 09/07/18 at 08:00 Influenza Virus Vaccine (Afluria Trivalent [id number] Syringe) 0.5 ml ONCE ONCE VAX IM ; Start 09/07/18 at 09:00; Stop 09/07/18 at 09:01; Status DC Insulin Human Lispro (HumaLOG) 0-7 UNITS TIDWMEALS SQ Last administered on at 17:17; Start 09/07/18 at 12:00; Stop 09/07/18 at 17:57; Status DC Dextrose (Dextrose 50%-Water Syringe) 12.5 gm PRN Q15MIN PRN IV SEE COMMENTS; Start 09/07/18 at 12:00; Status UNV Warfarin Sodium (Coumadin) 5 mg 1X WARF ONCE PO Last administered on at 17:11; Start 09/07/18 at 16:00; Stop 09/07/18 at 16:01; Status DC Insulin Human Lispro (HumaLOG) 0-9 UNITS TIDWMEALS SQ Last administered on at 16:56; Start 09/08/18 at 08:00 Dextrose (Dextrose 50%-Water Syringe) 12.5 gm PRN Q15MIN PRN IV SEE COMMENTS; Start 09/07/18 at 18:00 Insulin Glargine (Lantus) 12 units QHS SQ Last administered on 09/09/18at 21:39 ; Start 09/07/18 at 21:00 Warfarin Sodium (Coumadin) 2 mg 1X WARF ONCE PO Last administered on at 16:00; Start 09/08/18 at 16:00; Stop 09/08/18 at 16:01; Status DC Enoxaparin Sodium (Lovenox 80mg Syringe) 80 mg 1X ONCE SQ Last administered on 09/08/18at 16:01; Start 09/08/18 at 16:00; Stop 09/08/18 at 16:01; Status DC Enoxaparin Sodium (Lovenox 80mg Syringe) 80 mg Q12HR SQ Last administered on at 08:14; Start 09/09/18 at 06:00 Warfarin Sodium (Coumadin) 2 mg 1X WARF ONCE PO Last administered on at 16:42; Start 09/09/18 at 16:00; Stop 09/09/18 at 16:01; Status DC Ondansetron HCl (Zofran) 4 mg PRN Q6HRS PRN IV NAUSEA/VOMITING; Start at 07:00; Stop 09/12/18 at 18:00 Fentanyl Citrate (Fentanyl 2ml Vial) 25 mcg PRN Q5MIN PRN IV MILD PAIN; Start 09/12/18 at 07:00; Stop 09/12/18 at 18:00 Fentanyl Citrate (Fentanyl 2ml Vial) 50 mcg PRN Q5MIN PRN IV MODERATE TO SEVERE PAIN; Start 09/12/18 at 07:00; Stop 09/12/18 at 18:00 Morphine Sulfate (Morphine Sulfate) 1 mg PRN Q10MIN PRN IV SEVERE PAIN; Start 09/12/18 at 07:00; Stop 09/12/18 at 18:00 Ringer's Solution 1,000 ml @ 30 mls/hr Q24H IV ; Start 09/12/18 at 07:00; Stop 09/12/18 at 18:59 Lidocaine HCl (Xylocaine-Mpf 1% 2ml Vial) 2 ml PRN 1X PRN ID PRIOR TO IV START ; Start 09/12/18 at 07:00; Stop 09/12/18 at 18:00 Hydromorphone HCl (Dilaudid) 0.5 mg PRN Q10MIN PRN IV SEV PAIN, Second choice; Start 09/12/18 at 07:00; Stop 09/12/18 at 18:00 Prochlorperazine Edisylate (Compazine) 5 mg PACU PRN PRN IV NAUSEA, MRX1; Start 09/12/18 at 07:00; Stop 09/12/18 at 18:00 Warfarin Sodium (Coumadin) 3 mg 1X WARF ONCE PO ; Start 09/10/18 at 16:00; Stop 09/10/18 at 16:01; Status Cancel Active Scripts Active Monarch 7.5-325 Tablet (Acetaminophen/Hydrocodone Bitart) 1 Each Tablet 1 Tab PO PRN Q6HRS PRN Reported Aleve (Naproxen Sodium) 220 Mg Tablet 220 Mg PO BID Tramadol Hcl 50 Mg Tablet 50 Mg PO Q6HRS PRN Glucosamine (Glucosamine Sulfate 2KCL) 1,000 Mg Tablet 1,000 Mg PO DAILY Multivitamins (Multivitamin) 1 Each Tablet 1 Tab PO DAILY Vitamin C (Ascorbic Acid) 100 Mg Tablet 1,000 Mg PO DAILY Hydrochlorothiazide Capsule (Hydrochlorothiazide) 12.5 Mg Capsule 1 Cap PO DAILY Benazepril Hcl 20 Mg Tablet 1 Tab PO DAILY Glimepiride 2 Mg Tablet 1 Tab PO DAILY Metformin Hcl 1,000 Mg Tablet 1,000 Mg PO BID Levothyroxine Sodium 100 Mcg Tablet 1 Tab PO DAILY Vitals/I & O Vital Sign - Last 24 Hours 09/09/18 09/09/18 09/09/18 09/09/18 15:02 19:00 20:30 23:00 Temp 98.2 98.3 98.0 98.2 98.3 98.0 Pulse 83 94 91 Resp 18 18 18 B/P (MAP) 128/61 (83) 134/58 (83) 126/62 (83) Pulse Ox 96 94 96 O2 Delivery Room Air Room Air Room Air Room Air O2 Flow Rate 2.0 09/10/18 09/10/18 09/10/18 09/10/18 02:40 03:00 03:45 07:22 Temp 98.1 98.1 98.1 98.1 Pulse 82 77 Resp 18 18 18 B/P (MAP) 162/57 (92) 106/60 (75) Pulse Ox 96 95 O2 Delivery Room Air Room Air Room Air Room Air 09/10/18 09/10/18 09/10/18 08:11 08:13 11:18 Temp 97.7 97.7 Pulse 82 75 Resp 20 18 B/P (MAP) 162/57 109/53 (71) Pulse Ox 94 O2 Delivery Room Air Room Air Intake and Output 09/09/18 09/09/18 09/10/18 15:00 23:00 07:00 Intake Total 240 ml Output Total 800 ml 950 ml Balance -800 ml -710 ml CHRISTI YODER III DO Sep 10, 2018 12:34
[2018-09-10 14:30] VITALS: BP 102/54
--- NOTE | 2018-09-10 15:58 | PDOC ---
SURGICAL PROGRESS NOTE Subjective He notes improvement in the right leg pain as well as right knee swelling. No chest pain or shortness of breath. Vital Signs Vital Signs Date Time Temp Pulse Resp B/P (MAP) Pulse Ox O2 Delivery O2 Flow Rate FiO2 09/10/18 14:30 97.9 82 18 102/54 (70) 94 Room Air 97.9 09/09/18 20:30 2.0 I&O Intake and Output 09/10/18 07:00 Intake Total 240 ml Output Total 1750 ml Balance -1510 ml Intake Oral 240 ml Output Urine Total 1750 ml # Voids 2 General: Alert, No acute distress Heart: Regular rate Abdomen: Soft, No tenderness Extremities: Other (mild swelling in the right leg, good distal pulses) Assessment/Plan Right leg DVT s/p Right hip replacement Continue with anticoagulation. May advance activity as tolerated per Ortho. Elevate right leg when not doing therapy or eating to minimize swelling. Continue to use compression stockings. Would not recommend any surgical thrombectomy at this time. TRAM ANDREWS MD Sep 10, 2018 15:58
[2018-09-10] MEDS ORDERED: WARFARIN 3 MG TABLET. PO ONE (16:00)
[2018-09-10] MEDS: IV NORMAL SALINE 1000ML BAG 1,000 ML IV SCH (18:15)
--- NOTE | 2018-09-10 18:41 | PDOC ---
PROGRESS NOTES Subjective Subjective Problems overnight: Right leg feels much better. He is looking forward to getting up and around. His only issue currently was some pain from pressure of laying on his pump from the je drain Objective Vital Signs Vital Signs Date Time Temp Pulse Resp B/P (MAP) Pulse Ox O2 Delivery O2 Flow Rate FiO2 09/10/18 18:13 20 Room Air 09/10/18 14:30 97.9 82 102/54 (70) 94 97.9 09/09/18 20:30 2.0 Physical Exam Dressing clean dry intact compartments soft swelling much decreased distal neurovascular status intact Labs Laboratory Tests Test 09/08/18 20:31 09/09/18 03:50 09/09/18 08:02 09/09/18 11:21 Glucose (Fingerstick) 197 mg/dL (70-99) 174 mg/dL (70-99) 267 mg/dL (70-99) White Blood Count 14.7 x10^3/uL (4.0-11.0) Red Blood Count 3.91 x10^6/uL (4.30-5.70) Hemoglobin 13.4 g/dL (13.0-17.5) Hematocrit 37.8 % (39.0-53.0) Mean Corpuscular Volume 97 fL (79-100) Mean Corpuscular Hemoglobin 34 pg (25-35) Mean Corpuscular Hemoglobin Concent 36 g/dL (31-37) Red Cell Distribution Width 13.4 % (11.5-14.5) Platelet Count 216 x10^3/uL (140-400) Neutrophils (%) (Auto) 78 % (31-73) Lymphocytes (%) (Auto) 15 % (24-48) Monocytes (%) (Auto) 7 % (0-9) Eosinophils (%) (Auto) 1 % (0-3) Basophils (%) (Auto) 0 % (0-3) Neutrophils # (Auto) 11.4 x10^3uL (1.8-7.7) Lymphocytes # (Auto) 2.2 x10^3/uL (1.0-4.8) Monocytes # (Auto) 1.0 x10^3/uL (0.0-1.1) Eosinophils # (Auto) 0.1 x10^3/uL (0.0-0.7) Basophils # (Auto) 0.0 x10^3/uL (0.0-0.2) Prothrombin Time 22.8 SEC (11.7-14.0) Prothromb Time International Ratio 2.1 (0.8-1.1) Sodium Level 130 mmol/L (136-145) Potassium Level 4.2 mmol/L (3.5-5.1) Chloride Level 94 mmol/L (98-107) Carbon Dioxide Level 24 mmol/L (21-32) Anion Gap 12 (6-14) Blood Urea Nitrogen 53 mg/dL (8-26) Creatinine 1.5 mg/dL (0.7-1.3) Estimated GFR (Cockcroft-Gault) 46.5 BUN/Creatinine Ratio 35 (6-20) Glucose Level 179 mg/dL (70-99) Calcium Level 9.8 mg/dL (8.5-10.1) Total Bilirubin 0.7 mg/dL (0.2-1.0) Aspartate Amino Transf (AST/SGOT) 82 U/L (15-37) Alanine Aminotransferase (ALT/SGPT) 30 U/L (16-63) Alkaline Phosphatase 68 U/L (46-116) Total Protein 6.1 g/dL (6.4-8.2) Albumin 2.7 g/dL (3.4-5.0) Albumin/Globulin Ratio 0.8 (1.0-1.7) Test 09/09/18 16:53 09/09/18 21:09 09/10/18 04:40 09/10/18 07:25 Glucose (Fingerstick) 151 mg/dL (70-99) 206 mg/dL (70-99) 108 mg/dL (70-99) Prothrombin Time 21.1 SEC (11.7-14.0) Prothromb Time International Ratio 1.9 (0.8-1.1) Test 09/10/18 11:23 09/10/18 16:16 Glucose (Fingerstick) 246 mg/dL (70-99) 166 mg/dL (70-99) Laboratory Tests Test 09/09/18 21:09 09/10/18 04:40 09/10/18 07:25 09/10/18 11:23 Glucose (Fingerstick) 206 mg/dL (70-99) 108 mg/dL (70-99) 246 mg/dL (70-99) Prothrombin Time 21.1 SEC (11.7-14.0) Prothromb Time International Ratio 1.9 (0.8-1.1) Test 09/10/18 16:16 Glucose (Fingerstick) 166 mg/dL (70-99) Assessment Assessment POD# [4], S/P [right total hip arthroplasty] Plan Plan of Care Appreciate vascular input and follow. Agree that he is progressing well with low molecular weight heparin and Coumadin Leukocytosis, no fever or wound problems Agree with mobilization with physical therapy as tolerated, weightbearing as tolerated no hip precautions secondary to anterior approach HERMINIO RICH MD Sep 10, 2018 18:41
[2018-09-10 19:30] VITALS: BP 125/67
[2018-09-10] MEDS: INSULIN GLARGINE 300 UNITS/3 ML INSULN.PEN. SQ SCH (21:19)
[2018-09-10] MEDS: ZOLPIDEM 5 MG TABLET. PO PRN (23:02)
[2018-09-10 23:09] VITALS: BP 117/62
[2018-09-11 02:54] VITALS: BP 122/56
[2018-09-11] MEDS: LEVOTHYROXINE 100 MCG TABLET PO SCH (06:03)
[2018-09-11] MEDS: IV NORMAL SALINE 1000ML BAG 1,000 ML IV SCH ×2 (06:04→19:20)
[2018-09-11 06:14] LABS: BASO % 0 % (0-3); EOS # 0.4 x10^3/uL (0.0-0.7); EOS % 3 % (0-3); HEMOGLOBIN 10.3 g/dL (13.0-17.5); LYMPH # 3.7 x10^3/uL (1.0-4.8); LYMPH % 34 % (24-48); MEAN CORPUSCULAR HEMOGLOBIN 35 pg (25-35); MEAN CORPUSCULAR HGB CONC 36 g/dL (31-37); MEAN CORPUSCULAR VOLUME 98 fL (79-100); MONO # 0.8 x10^3/uL (0.0-1.1); MONO % 7 % (0-9); NEUT % 55 % (31-73); PLATELET COUNT 237 x10^3/uL (140-400); RED BLOOD COUNT 2.97 x10^6/uL (4.30-5.70); RED CELL DISTRIBUTION WIDTH 13.1 % (11.5-14.5); WHITE BLOOD COUNT 10.9 x10^3/uL (4.0-11.0)
[2018-09-11 06:26] LABS: PROTHROMBIN TIME PATIENT 19.2 SEC (11.7-14.0)
[2018-09-11 06:31] LABS: CREATININE 1.3 mg/dL (0.7-1.3); GFR 54.9; POTASSIUM 3.8 mmol/L (3.5-5.1)
[2018-09-11 07:00] VITALS: BP 114/71
[2018-09-11] MEDS: GLIMEPIRIDE 2 MG TABLET. PO SCH (07:34)
[2018-09-11] MEDS: SENNOSIDES/DOCUSATE 8.6/50MG TABLET. PO SCH (07:34)
[2018-09-11] MEDS: CELECOXIB 100 MG CAPSULE. PO SCH ×2 (07:34→22:12)
[2018-09-11] MEDS: metFORMIN 500 MG TABLET PO SCH ×2 (07:34→17:43)
[2018-09-11] MEDS: FERROUS SULFATE 325 MG TABLET. PO SCH ×2 (07:34→17:42)
[2018-09-11] MEDS: MULTIVITAMIN with MINERAL TABLET. PO SCH (07:35)
[2018-09-11] MEDS: oxyCODONE/APAP 7.5/325 1 TAB TABLET PO PRN ×2 (07:35→17:42)
--- NOTE | 2018-09-11 07:47 | PDOC ---
PROGRESS NOTES Subjective Subjective Problems overnight:Up standing last pm, stiff and sore today Objective Vital Signs Vital Signs Date Time Temp Pulse Resp B/P (MAP) Pulse Ox O2 Delivery O2 Flow Rate FiO2 09/11/18 02:54 97.9 52 18 122/56 (78) 95 Room Air 97.9 09/09/18 20:30 2.0 Physical Exam minimal incisional drainage at je, serous drainage from previous hvac location distal neuro and pulses intact, compartments soft Labs Laboratory Tests Test 09/09/18 08:02 09/09/18 11:21 09/09/18 16:53 09/09/18 21:09 Glucose (Fingerstick) 174 mg/dL (70-99) 267 mg/dL (70-99) 151 mg/dL (70-99) 206 mg/dL (70-99) Test 09/10/18 04:40 09/10/18 07:25 09/10/18 11:23 09/10/18 16:16 Prothrombin Time 21.1 SEC (11.7-14.0) Prothromb Time International Ratio 1.9 (0.8-1.1) Glucose (Fingerstick) 108 mg/dL (70-99) 246 mg/dL (70-99) 166 mg/dL (70-99) Test 09/10/18 20:58 09/11/18 05:30 Glucose (Fingerstick) 165 mg/dL (70-99) White Blood Count 10.9 x10^3/uL (4.0-11.0) Red Blood Count 2.97 x10^6/uL (4.30-5.70) Hemoglobin 10.3 g/dL (13.0-17.5) Hematocrit 29.0 % (39.0-53.0) Mean Corpuscular Volume 98 fL (79-100) Mean Corpuscular Hemoglobin 35 pg (25-35) Mean Corpuscular Hemoglobin Concent 36 g/dL (31-37) Red Cell Distribution Width 13.1 % (11.5-14.5) Platelet Count 237 x10^3/uL (140-400) Neutrophils (%) (Auto) 55 % (31-73) Lymphocytes (%) (Auto) 34 % (24-48) Monocytes (%) (Auto) 7 % (0-9) Eosinophils (%) (Auto) 3 % (0-3) Basophils (%) (Auto) 0 % (0-3) Neutrophils # (Auto) 6.0 x10^3uL (1.8-7.7) Lymphocytes # (Auto) 3.7 x10^3/uL (1.0-4.8) Monocytes # (Auto) 0.8 x10^3/uL (0.0-1.1) Eosinophils # (Auto) 0.4 x10^3/uL (0.0-0.7) Basophils # (Auto) 0.0 x10^3/uL (0.0-0.2) Prothrombin Time 19.2 SEC (11.7-14.0) Prothromb Time International Ratio 1.7 (0.8-1.1) Sodium Level 138 mmol/L (136-145) Potassium Level 3.8 mmol/L (3.5-5.1) Chloride Level 102 mmol/L (98-107) Carbon Dioxide Level 29 mmol/L (21-32) Anion Gap 7 (6-14) Blood Urea Nitrogen 39 mg/dL (8-26) Creatinine 1.3 mg/dL (0.7-1.3) Estimated GFR (Cockcroft-Gault) 54.9 Glucose Level 74 mg/dL (70-99) Calcium Level 9.0 mg/dL (8.5-10.1) Laboratory Tests Test 09/10/18 11:23 09/10/18 16:16 09/10/18 20:58 09/11/18 05:30 Glucose (Fingerstick) 246 mg/dL (70-99) 166 mg/dL (70-99) 165 mg/dL (70-99) White Blood Count 10.9 x10^3/uL (4.0-11.0) Red Blood Count 2.97 x10^6/uL (4.30-5.70) Hemoglobin 10.3 g/dL (13.0-17.5) Hematocrit 29.0 % (39.0-53.0) Mean Corpuscular Volume 98 fL (79-100) Mean Corpuscular Hemoglobin 35 pg (25-35) Mean Corpuscular Hemoglobin Concent 36 g/dL (31-37) Red Cell Distribution Width 13.1 % (11.5-14.5) Platelet Count 237 x10^3/uL (140-400) Neutrophils (%) (Auto) 55 % (31-73) Lymphocytes (%) (Auto) 34 % (24-48) Monocytes (%) (Auto) 7 % (0-9) Eosinophils (%) (Auto) 3 % (0-3) Basophils (%) (Auto) 0 % (0-3) Neutrophils # (Auto) 6.0 x10^3uL (1.8-7.7) Lymphocytes # (Auto) 3.7 x10^3/uL (1.0-4.8) Monocytes # (Auto) 0.8 x10^3/uL (0.0-1.1) Eosinophils # (Auto) 0.4 x10^3/uL (0.0-0.7) Basophils # (Auto) 0.0 x10^3/uL (0.0-0.2) Prothrombin Time 19.2 SEC (11.7-14.0) Prothromb Time International Ratio 1.7 (0.8-1.1) Sodium Level 138 mmol/L (136-145) Potassium Level 3.8 mmol/L (3.5-5.1) Chloride Level 102 mmol/L (98-107) Carbon Dioxide Level 29 mmol/L (21-32) Anion Gap 7 (6-14) Blood Urea Nitrogen 39 mg/dL (8-26) Creatinine 1.3 mg/dL (0.7-1.3) Estimated GFR (Cockcroft-Gault) 54.9 Glucose Level 74 mg/dL (70-99) Calcium Level 9.0 mg/dL (8.5-10.1) Assessment Assessment POD# [], S/P [right total hip] Plan Plan of Care cont lovenox, coumadin mobilize today with pt HERMINIO RICH MD Sep 11, 2018 07:47
[2018-09-11] MEDS: LISINOPRIL 20 MG TABLET PO SCH (09:00)
[2018-09-11] MEDS: hydroCHLOROthiazide 12.5 MG CAPSULE PO SCH (09:00)
[2018-09-11] MEDS: ASCORBIC ACID 500 MG TABLET PO SCH (09:00)
[2018-09-11 11:00] VITALS: BP 123/70
[2018-09-11] MEDS: INSULIN LISPRO 300 UNITS/3 ML INSULN.PEN. SQ SCH ×3 (12:00→17:00)
--- NOTE | 2018-09-11 14:22 | PDOC ---
PROGRESS NOTES Chief Complaint Chief Complaint S/p right hip surgery Extensive right leg DVT - confirmed 09/08 Leukocytosis likely 2/2 to intra-op steroids - resolved Hyponatremia - resolved H/o DM H/o HTN H/o hypothyroid History of Present Illness History of Present Illness Pt seen and examined while asleep in bed Discussed w/RN Discussed w/PT Vitals Vitals Vital Signs Date Time Temp Pulse Resp B/P (MAP) Pulse Ox O2 Delivery O2 Flow Rate FiO2 09/11/18 11:00 98.2 91 18 123/70 (87) 96 Room Air 98.2 Physical Exam Physical Exam Neck: Supple, no JVD General: No acute distress, Other (Pt was asleep and appeared to be in NAD) Heart: Regular rate, No murmurs Lungs: Clear Abdomen: Soft, No tenderness Extremities: Other (mild swelling in the right leg, good distal pulses) Skin: No rashes Labs LABS Laboratory Tests Test 09/10/18 16:16 09/10/18 20:58 09/11/18 05:30 09/11/18 08:11 Glucose (Fingerstick) 166 mg/dL (70-99) 165 mg/dL (70-99) 83 mg/dL (70-99) White Blood Count 10.9 x10^3/uL (4.0-11.0) Red Blood Count 2.97 x10^6/uL (4.30-5.70) Hemoglobin 10.3 g/dL (13.0-17.5) Hematocrit 29.0 % (39.0-53.0) Mean Corpuscular Volume 98 fL (79-100) Mean Corpuscular Hemoglobin 35 pg (25-35) Mean Corpuscular Hemoglobin Concent 36 g/dL (31-37) Red Cell Distribution Width 13.1 % (11.5-14.5) Platelet Count 237 x10^3/uL (140-400) Neutrophils (%) (Auto) 55 % (31-73) Lymphocytes (%) (Auto) 34 % (24-48) Monocytes (%) (Auto) 7 % (0-9) Eosinophils (%) (Auto) 3 % (0-3) Basophils (%) (Auto) 0 % (0-3) Neutrophils # (Auto) 6.0 x10^3uL (1.8-7.7) Lymphocytes # (Auto) 3.7 x10^3/uL (1.0-4.8) Monocytes # (Auto) 0.8 x10^3/uL (0.0-1.1) Eosinophils # (Auto) 0.4 x10^3/uL (0.0-0.7) Basophils # (Auto) 0.0 x10^3/uL (0.0-0.2) Prothrombin Time 19.2 SEC (11.7-14.0) Prothromb Time International Ratio 1.7 (0.8-1.1) Sodium Level 138 mmol/L (136-145) Potassium Level 3.8 mmol/L (3.5-5.1) Chloride Level 102 mmol/L (98-107) Carbon Dioxide Level 29 mmol/L (21-32) Anion Gap 7 (6-14) Blood Urea Nitrogen 39 mg/dL (8-26) Creatinine 1.3 mg/dL (0.7-1.3) Estimated GFR (Cockcroft-Gault) 54.9 Glucose Level 74 mg/dL (70-99) Calcium Level 9.0 mg/dL (8.5-10.1) Test 09/11/18 11:52 Glucose (Fingerstick) 188 mg/dL (70-99) Review of Systems Review of Systems Pt was asleep in bed during visit and exam He appeared to be in NAD Assessment and Plan Assessmemt and Plan Assessment: S/p right hip surgery Extensive right leg DVT - confirmed 09/08 Leukocytosis likely 2/2 to intra-op steroids - resolved Hyponatremia - resolved H/o DM H/o HTN H/o hypothyroid Plan: Vascular thrombectomy possibly tomorrow Monitor WBC count - leukocytosis resolved (WBC 10.9 today), no abx needed Cont wound care PT/OT Encourage ambulation PRN pain meds DVT ppx Comment Review of Relevant I have reviewed the following items digna (where applicable) has been applied. Labs Laboratory Tests Test 09/09/18 16:53 09/09/18 21:09 09/10/18 04:40 09/10/18 07:25 Glucose (Fingerstick) 151 mg/dL (70-99) 206 mg/dL (70-99) 108 mg/dL (70-99) Prothrombin Time 21.1 SEC (11.7-14.0) Prothromb Time International Ratio 1.9 (0.8-1.1) Test 09/10/18 11:23 09/10/18 16:16 09/10/18 20:58 09/11/18 05:30 Glucose (Fingerstick) 246 mg/dL (70-99) 166 mg/dL (70-99) 165 mg/dL (70-99) White Blood Count 10.9 x10^3/uL (4.0-11.0) Red Blood Count 2.97 x10^6/uL (4.30-5.70) Hemoglobin 10.3 g/dL (13.0-17.5) Hematocrit 29.0 % (39.0-53.0) Mean Corpuscular Volume 98 fL (79-100) Mean Corpuscular Hemoglobin 35 pg (25-35) Mean Corpuscular Hemoglobin Concent 36 g/dL (31-37) Red Cell Distribution Width 13.1 % (11.5-14.5) Platelet Count 237 x10^3/uL (140-400) Neutrophils (%) (Auto) 55 % (31-73) Lymphocytes (%) (Auto) 34 % (24-48) Monocytes (%) (Auto) 7 % (0-9) Eosinophils (%) (Auto) 3 % (0-3) Basophils (%) (Auto) 0 % (0-3) Neutrophils # (Auto) 6.0 x10^3uL (1.8-7.7) Lymphocytes # (Auto) 3.7 x10^3/uL (1.0-4.8) Monocytes # (Auto) 0.8 x10^3/uL (0.0-1.1) Eosinophils # (Auto) 0.4 x10^3/uL (0.0-0.7) Basophils # (Auto) 0.0 x10^3/uL (0.0-0.2) Prothrombin Time 19.2 SEC (11.7-14.0) Prothromb Time International Ratio 1.7 (0.8-1.1) Sodium Level 138 mmol/L (136-145) Potassium Level 3.8 mmol/L (3.5-5.1) Chloride Level 102 mmol/L (98-107) Carbon Dioxide Level 29 mmol/L (21-32) Anion Gap 7 (6-14) Blood Urea Nitrogen 39 mg/dL (8-26) Creatinine 1.3 mg/dL (0.7-1.3) Estimated GFR (Cockcroft-Gault) 54.9 Glucose Level 74 mg/dL (70-99) Calcium Level 9.0 mg/dL (8.5-10.1) Test 09/11/18 08:11 09/11/18 11:52 Glucose (Fingerstick) 83 mg/dL (70-99) 188 mg/dL (70-99) Laboratory Tests Test 09/10/18 16:16 09/10/18 20:58 09/11/18 05:30 09/11/18 08:11 Glucose (Fingerstick) 166 mg/dL (70-99) 165 mg/dL (70-99) 83 mg/dL (70-99) White Blood Count 10.9 x10^3/uL (4.0-11.0) Red Blood Count 2.97 x10^6/uL (4.30-5.70) Hemoglobin 10.3 g/dL (13.0-17.5) Hematocrit 29.0 % (39.0-53.0) Mean Corpuscular Volume 98 fL (79-100) Mean Corpuscular Hemoglobin 35 pg (25-35) Mean Corpuscular Hemoglobin Concent 36 g/dL (31-37) Red Cell Distribution Width 13.1 % (11.5-14.5) Platelet Count 237 x10^3/uL (140-400) Neutrophils (%) (Auto) 55 % (31-73) Lymphocytes (%) (Auto) 34 % (24-48) Monocytes (%) (Auto) 7 % (0-9) Eosinophils (%) (Auto) 3 % (0-3) Basophils (%) (Auto) 0 % (0-3) Neutrophils # (Auto) 6.0 x10^3uL (1.8-7.7) Lymphocytes # (Auto) 3.7 x10^3/uL (1.0-4.8) Monocytes # (Auto) 0.8 x10^3/uL (0.0-1.1) Eosinophils # (Auto) 0.4 x10^3/uL (0.0-0.7) Basophils # (Auto) 0.0 x10^3/uL (0.0-0.2) Prothrombin Time 19.2 SEC (11.7-14.0) Prothromb Time International Ratio 1.7 (0.8-1.1) Sodium Level 138 mmol/L (136-145) Potassium Level 3.8 mmol/L (3.5-5.1) Chloride Level 102 mmol/L (98-107) Carbon Dioxide Level 29 mmol/L (21-32) Anion Gap 7 (6-14) Blood Urea Nitrogen 39 mg/dL (8-26) Creatinine 1.3 mg/dL (0.7-1.3) Estimated GFR (Cockcroft-Gault) 54.9 Glucose Level 74 mg/dL (70-99) Calcium Level 9.0 mg/dL (8.5-10.1) Test 09/11/18 11:52 Glucose (Fingerstick) 188 mg/dL (70-99) Medications Current Medications Morphine Sulfate 5 mg/Ketorolac Tromethamine 30 mg/Ropivacaine 60 ml/ Epinephrine HCl 0.5 mg/Sodium Chloride 100 ml @ 100 mls/hr 1X ONCE INT ART ; Start 09/06/18 at 06:00; Stop 09/06/18 at 07:00; Status DC Ondansetron HCl (Zofran) 4 mg PRN Q6HRS PRN IV NAUSEA/VOMITING; Start at 07:00; Stop 09/06/18 at 21:00; Status DC Fentanyl Citrate (Fentanyl 2ml Vial) 25 mcg PRN Q5MIN PRN IV MILD PAIN; Start 09/06/18 at 07:00; Stop 09/06/18 at 21:00; Status DC Fentanyl Citrate (Fentanyl 2ml Vial) 50 mcg PRN Q5MIN PRN IV MODERATE TO SEVERE PAIN Last administered on 09/06/18at 19:02; Start 09/06/18 at 07:00; Stop 09/06/18 at 21:00; Status DC Morphine Sulfate (Morphine Sulfate) 1 mg PRN Q10MIN PRN IV SEVERE PAIN; Start 09/06/18 at 07:00; Stop 09/06/18 at 21:00; Status DC Ringer's Solution 1,000 ml @ 30 mls/hr Q24H IV Last administered on at 09:45; Start 09/06/18 at 07:00; Stop 09/06/18 at 18:59; Status DC Lidocaine HCl (Xylocaine-Mpf 1% 2ml Vial) 2 ml PRN 1X PRN ID PRIOR TO IV START ; Start 09/06/18 at 07:00; Stop 09/06/18 at 21:00; Status DC Hydromorphone HCl (Dilaudid) 0.5 mg PRN Q10MIN PRN IV SEV PAIN, Second choice; Start 09/06/18 at 07:00; Stop 09/06/18 at 21:00; Status DC Prochlorperazine Edisylate (Compazine) 5 mg PACU PRN PRN IV NAUSEA, MRX1; Start 09/06/18 at 07:00; Stop 09/06/18 at 21:00; Status DC Acetaminophen/ Hydrocodone Bitart (Lortab 7.5/325) 2 tab 1X PREOP PRN PO PRIOR TO PROCEDURE Last administered on 09/06/18at 09:48; Start 09/06/18 at 06:00; Stop 09/06/18 at 18:00; Status DC Cefazolin Sodium/ Dextrose 50 ml @ 100 mls/hr 1X PREOP PRN IV PRIOR TO PROCEDURE Last administered on 09/06/18at 14:43; Start 09/06/18 at 06:00; Stop 09/06/18 at 18:00; Status DC Tranexamic Acid 1000 mg/Sodium Chloride 60 ml @ 60 mls/hr 1X PERIOP ONCE INJ Last administered on 09/06/18at 15:00; Start 09/06/18 at 06:00; Stop 09/06/18 at 07:00; Status DC Tranexamic Acid 1000 mg/Sodium Chloride 60 ml @ 60 mls/hr 1X PERIOP ONCE INJ Last administered on 09/06/18at 17:10; Start 09/06/18 at 08:00; Stop 09/06/18 at 08:59; Status DC Propofol 20 ml @ As Directed STK-MED ONCE IV ; Start 09/06/18 at 13:17; Stop 09/06/18 at 13:18; Status DC Dexamethasone Sodium Phosphate (Decadron) 20 mg STK-MED ONCE .ROUTE ; Start at 13:17; Stop 09/06/18 at 13:18; Status DC Famotidine (Pepcid Vial) 20 mg STK-MED ONCE .ROUTE ; Start 09/06/18 at 13:17; Stop 09/06/18 at 13:18; Status DC Lidocaine HCl (Lidocaine Pf 2% Vial) 5 ml STK-MED ONCE .ROUTE ; Start 09/06/18 at 13:17; Stop 09/06/18 at 13:18; Status DC Ondansetron HCl (Zofran) 4 mg STK-MED ONCE .ROUTE ; Start 09/06/18 at 13:17; Stop 09/06/18 at 13:18; Status DC Rocuronium [place] (Zemuron) 50 mg STK-MED ONCE .ROUTE ; Start 09/06/18 at 13: 17; Stop 09/06/18 at 13:18; Status DC Fentanyl Citrate (Fentanyl 2ml Vial) 100 mcg STK-MED ONCE .ROUTE ; Start at 13:17; Stop 09/06/18 at 13:18; Status DC Midazolam HCl (Versed) 2 mg STK-MED ONCE .ROUTE ; Start 09/06/18 at 13:17; Stop 09/06/18 at 13:18; Status DC Morphine Sulfate 5 mg/Ketorolac Tromethamine 30 mg/Ropivacaine 32 ml/ Epinephrine HCl 0.5 mg/Sodium Chloride 100 ml @ 100 mls/hr 1X ONCE INT ART Last administered on 09/06/18at 15:21; Start 09/06/18 at 14:15; Stop 09/06/18 at 15:14; Status DC Acetaminophen/ Hydrocodone Bitart (Lortab 7.5/325) 1 tab PRN Q3HRS PRN PO MODERATE PAIN, 1st CHOICE Last administered on 09/10/18at 02:40; Start at 15:00 Acetaminophen/ Hydrocodone Bitart (Lortab 10/325) 1 tab PRN Q3HRS PRN PO MODERATE PAIN, 2nd CHOICE; Start 09/06/18 at 15:00 Tramadol HCl (Ultram) 50 mg PRN QID PRN PO MODERATE PAIN, 3rd CHOICE; Start at 15:00 Oxycodone/ Acetaminophen (Percocet 5/325) 1 tab PRN Q3HRS PRN PO SEVERE PAIN, 1st CHOICE; Start 09/06/18 at 15:00 Oxycodone/ Acetaminophen (Percocet 7.5/ 325) 1 tab PRN Q3HRS PRN PO SEVERE PAIN , 2nd CHOICE Last administered on 09/11/18at 07:35; Start 09/06/18 at 15:00 Tramadol HCl (Ultram) 100 mg PRN Q3HRS PRN PO SEVERE PAIN, 3rd CHOICE; Start 09/06/18 at 15:00 Morphine Sulfate (Morphine Sulfate) 2 mg PRN Q1HR PRN IV PAIN; Start 09/06/18 at 15:00 Fentanyl Citrate (Fentanyl 2ml Vial) 25 mcg PRN Q1HR PRN IV PAIN, 2nd CHOICE; Start 09/06/18 at 15:00 Warfarin Sodium (Coumadin) 7.5 mg 1X ONCE PO Last administered on 09/06/18at 20:01; Start 09/06/18 at 16:00; Stop 09/06/18 at 16:01; Status DC Warfarin Sodium (Coumadin Per Pharmacy) 1 each PRN DAILY PRN MC SEE COMMENTS Last administered on 09/11/18at 11:19; Start 09/06/18 at 15:00 Multivitamins (Thera M Plus) 1 tab DAILY PO Last administered on 09/11/18at 07: 35; Start 09/06/18 at 17:00 Senna/Docusate Sodium (Senna Plus) 1 tab DAILY PO Last administered on at 07:34; Start 09/06/18 at 16:00 Ferrous Sulfate (Feosol) 325 mg BIDWMEALS PO Last administered on 09/11/18at 07 :34; Start 09/06/18 at 17:00 Celecoxib (CeleBREX) 200 mg BID PO Last administered on 09/11/18at 07:34; Start 09/06/18 at 21:00 Dextrose/Sodium Chloride 1,000 ml @ 100 mls/hr Q10H IV Last administered on at 19:42; Start 09/06/18 at 14:50; Stop 09/07/18 at 17:57; Status DC Magnesium Hydroxide (Milk Of Magnesia) 2,400 mg 1X PRN PRN PO CONSTIPATION; Start 09/07/18 at 06:00; Stop 09/08/18 at 05:59; Status DC Bisacodyl (Dulcolax Supp) 10 mg 1X PRN PRN MT CONSTIPATION; Start 09/07/18 at 16:00; Stop 09/08/18 at 15:59; Status DC Acetaminophen (Tylenol) 650 mg PRN Q4HRS PRN PO MILD PAIN / TEMP; Start at 15:00 Zolpidem Tartrate (Ambien) 5 mg PRN QHS PRN PO INSOMNIA, MAY REPEAT IN 1HR Last administered on 09/10/18at 23:02; Start 09/06/18 at 15:00 Calcium Carbonate/ Glycine (Tums) 500 mg PRN QID PRN PO INDIGESTION Last administered on 09/09/18at 01:29; Start 09/06/18 at 15:00 Morphine Sulfate (Morphine Sulfate) 4 mg PRN Q1HR PRN IV PAIN; Start 09/06/18 at 15:00 Ketorolac Tromethamine 30 mg/Bupivacaine HCl 20 ml/ Epinephrine HCl 0.5 mg/ Miscellaneous 43 ml @ 258 mls/hr Q12H INT ART Last administered on 09/07/18at 11:59; Start 09/06/18 at 20:00; Stop 09/07/18 at 08:09; Status DC Sodium Chloride (Normal Saline Flush) 10 ml QSHIFT PRN IV AFTER MEDS AND BLOOD DRAWS; Start 09/06/18 at 15:00 Fentanyl Citrate (Fentanyl 2ml Vial) 50 mcg PRN Q1HR PRN IV PAIN, 2nd CHOICE Last administered on 09/06/18at 19:52; Start 09/06/18 at 15:00 Prochlorperazine Edisylate (Compazine) 10 mg PRN Q4HRS PRN IV NAUSEA/VOMITING Last administered on 09/09/18at 05:19; Start 09/06/18 at 15:00 Dextrose (Dextrose 50%-Water Syringe) 12.5 gm PRN Q15MIN PRN IV SEE COMMENTS; Start 09/06/18 at 15:00; Stop 09/10/18 at 11:39; Status DC Cefazolin Sodium/ Dextrose 50 ml @ 100 mls/hr Q6H IV Last administered on at 08:17; Start 09/06/18 at 21:00; Stop 09/07/18 at 09:29; Status DC Ephedrine Sulfate (ePHEDrine PF IN SALINE SYRINGE) 50 mg STK-MED ONCE IV ; Start 09/06/18 at 16:46; Stop 09/06/18 at 16:47; Status DC Desflurane (Suprane) 90 ml STK-MED ONCE IH ; Start 09/06/18 at 16:46; Stop at 16:47; Status DC Neostigmine Methylsulfate (Neostigmine Methylsulfate) 5 mg STK-MED ONCE .ROUTE ; Start 09/06/18 at 16:47; Stop 09/06/18 at 16:48; Status DC Glycopyrrolate (Robinul) 1 mg STK-MED ONCE .ROUTE ; Start 09/06/18 at 16:47; Stop 09/06/18 at 16:48; Status DC Fentanyl Citrate (Fentanyl 2ml Vial) 100 mcg STK-MED ONCE .ROUTE ; Start at 17:58; Stop 09/06/18 at 17:59; Status DC Insulin Human Lispro (HumaLOG) 0-5 UNITS TIDWMEALS SQ Last administered on at 08:16; Start 09/07/18 at 08:00; Stop 09/07/18 at 11:52; Status DC Glimepiride (Amaryl) 2 mg DAILY PO Last administered on 09/11/18at 07:34; Start 09/07/18 at 09:00 Levothyroxine Sodium (Synthroid) 100 mcg DAILY06 PO Last administered on at 06:03; Start 09/07/18 at 06:00 Ascorbic Acid (Vitamin C) 1,000 mg DAILY PO Last administered on 09/11/18at 09: 00; Start 09/07/18 at 09:00 Lisinopril (Prinivil) 20 mg DAILY PO Last administered on 09/11/18at 09:00; Start 09/07/18 at 09:00 Hydrochlorothiazide (Microzide) 12.5 mg DAILY PO Last administered on at 09:00; Start 09/07/18 at 09:00 Metformin HCl (Glucophage) 1,000 mg BIDWMEALS PO Last administered on at 07:34; Start 09/07/18 at 08:00 Influenza Virus Vaccine (Afluria Trivalent [id number] Syringe) 0.5 ml ONCE ONCE VAX IM ; Start 09/07/18 at 09:00; Stop 09/07/18 at 09:01; Status DC Insulin Human Lispro (HumaLOG) 0-7 UNITS TIDWMEALS SQ Last administered on at 17:17; Start 09/07/18 at 12:00; Stop 09/07/18 at 17:57; Status DC Dextrose (Dextrose 50%-Water Syringe) 12.5 gm PRN Q15MIN PRN IV SEE COMMENTS; Start 09/07/18 at 12:00; Status UNV Warfarin Sodium (Coumadin) 5 mg 1X WARF ONCE PO Last administered on at 17:11; Start 09/07/18 at 16:00; Stop 09/07/18 at 16:01; Status DC Insulin Human Lispro (HumaLOG) 0-9 UNITS TIDWMEALS SQ Last administered on at 12:00; Start 09/08/18 at 08:00 Dextrose (Dextrose 50%-Water Syringe) 12.5 gm PRN Q15MIN PRN IV SEE COMMENTS; Start 09/07/18 at 18:00 Insulin Glargine (Lantus) 12 units QHS SQ Last administered on 09/10/18at 21:19 ; Start 09/07/18 at 21:00 Warfarin Sodium (Coumadin) 2 mg 1X WARF ONCE PO Last administered on at 16:00; Start 09/08/18 at 16:00; Stop 09/08/18 at 16:01; Status DC Enoxaparin Sodium (Lovenox 80mg Syringe) 80 mg 1X ONCE SQ Last administered on 09/08/18at 16:01; Start 09/08/18 at 16:00; Stop 09/08/18 at 16:01; Status DC Enoxaparin Sodium (Lovenox 80mg Syringe) 80 mg Q12HR SQ Last administered on at 07:34; Start 09/09/18 at 06:00 Warfarin Sodium (Coumadin) 2 mg 1X WARF ONCE PO Last administered on at 16:42; Start 09/09/18 at 16:00; Stop 09/09/18 at 16:01; Status DC Ondansetron HCl (Zofran) 4 mg PRN Q6HRS PRN IV NAUSEA/VOMITING; Start at 07:00; Stop 09/12/18 at 07:00; Status DC Fentanyl Citrate (Fentanyl 2ml Vial) 25 mcg PRN Q5MIN PRN IV MILD PAIN; Start 09/12/18 at 07:00; Stop 09/12/18 at 07:00; Status DC Fentanyl Citrate (Fentanyl 2ml Vial) 50 mcg PRN Q5MIN PRN IV MODERATE TO SEVERE PAIN; Start 09/12/18 at 07:00; Stop 09/12/18 at 07:00; Status DC Morphine Sulfate (Morphine Sulfate) 1 mg PRN Q10MIN PRN IV SEVERE PAIN; Start 09/12/18 at 07:00; Stop 09/12/18 at 07:00; Status DC Ringer's Solution 1,000 ml @ 30 mls/hr Q24H IV ; Start 09/12/18 at 07:00; Stop 09/12/18 at 18:59 Lidocaine HCl (Xylocaine-Mpf 1% 2ml Vial) 2 ml PRN 1X PRN ID PRIOR TO IV START ; Start 09/12/18 at 07:00; Stop 09/12/18 at 07:00; Status DC Hydromorphone HCl (Dilaudid) 0.5 mg PRN Q10MIN PRN IV SEV PAIN, Second choice; Start 09/12/18 at 07:00; Stop 09/12/18 at 07:00; Status DC Prochlorperazine Edisylate (Compazine) 5 mg PACU PRN PRN IV NAUSEA, MRX1; Start 09/12/18 at 07:00; Stop 09/12/18 at 07:00; Status DC Warfarin Sodium (Coumadin) 3 mg 1X WARF ONCE PO Last administered on at 18:14; Start 09/10/18 at 16:00; Stop 09/10/18 at 16:01; Status DC Sodium Chloride 1,000 ml @ 75 mls/hr [id number] IV Last administered on at 06:04; Start 09/10/18 at 12:45 Warfarin Sodium (Coumadin) 4 mg 1X WARF ONCE PO ; Start 09/11/18 at 16:00; Stop 09/11/18 at 16:01 Active Scripts Active [place] 7.5-325 Tablet (Acetaminophen/Hydrocodone Bitart) 1 Each Tablet 1 Tab PO PRN Q6HRS PRN Reported Aleve (Naproxen Sodium) 220 Mg Tablet 220 Mg PO BID Tramadol Hcl 50 Mg Tablet 50 Mg PO Q6HRS PRN Glucosamine (Glucosamine Sulfate 2KCL) 1,000 Mg Tablet 1,000 Mg PO DAILY Multivitamins (Multivitamin) 1 Each Tablet 1 Tab PO DAILY Vitamin C (Ascorbic Acid) 100 Mg Tablet 1,000 Mg PO DAILY Hydrochlorothiazide Capsule (Hydrochlorothiazide) 12.5 Mg Capsule 1 Cap PO DAILY Benazepril Hcl 20 Mg Tablet 1 Tab PO DAILY Glimepiride 2 Mg Tablet 1 Tab PO DAILY Metformin Hcl 1,000 Mg Tablet 1,000 Mg PO BID Levothyroxine Sodium 100 Mcg Tablet 1 Tab PO DAILY Vitals/I & O Vital Sign - Last 24 Hours 09/10/18 09/10/18 09/10/18 09/10/18 14:30 18:13 19:30 20:15 Temp 97.9 97.7 97.9 97.7 Pulse 82 77 Resp 18 20 18 B/P (MAP) 102/54 (70) 125/67 (86) Pulse Ox 94 96 O2 Delivery Room Air Room Air Room Air Room Air 09/10/18 09/10/18 09/10/18 09/11/18 21:21 22:25 23:09 02:54 Temp 98.4 97.9 98.4 97.9 Pulse 69 52 Resp 18 18 18 B/P (MAP) 117/62 (80) 122/56 (78) Pulse Ox 96 96 94 95 O2 Delivery Room Air Room Air Room Air 09/11/18 09/11/18 09/11/18 09/11/18 07:00 07:35 08:35 09:00 Temp 97.7 97.7 Pulse 87 52 Resp 18 22 20 B/P (MAP) 114/71 (85) 122/56 Pulse Ox 93 O2 Delivery Room Air Room Air Room Air 09/11/18 11:00 Temp 98.2 98.2 Pulse 91 Resp 18 B/P (MAP) 123/70 (87) Pulse Ox 96 O2 Delivery Room Air Intake and Output 09/10/18 09/10/18 09/11/18 15:00 23:00 07:00 Intake Total 360 ml Output Total 175 ml 650 ml 850 ml Balance -175 ml -650 ml -490 ml CASTLE,NIAL K III DO Sep 11, 2018 14:22
[2018-09-11 15:00] VITALS: BP 126/69
[2018-09-11] MEDS ORDERED: WARFARIN 4 MG TABLET. PO ONE (16:00)
[2018-09-11 19:25] VITALS: BP 108/64
[2018-09-11] MEDS: INSULIN GLARGINE 300 UNITS/3 ML INSULN.PEN. SQ SCH (22:16)
[2018-09-11 23:36] VITALS: BP 136/71
[2018-09-11] MEDS: ZOLPIDEM 5 MG TABLET. PO PRN (23:41)
[2018-09-12] MEDS: oxyCODONE/APAP 7.5/325 1 TAB TABLET PO PRN ×6 (00:17→20:37)
[2018-09-12] MEDS: LEVOTHYROXINE 100 MCG TABLET PO SCH (06:02)
[2018-09-12] MEDS: IV NORMAL SALINE 1000ML BAG 1,000 ML IV SCH (06:02)
[2018-09-12 07:00] VITALS: BP 144/65
[2018-09-12] MEDS ORDERED: MORPHINE SULFATE 2 MG/ML VIAL. IV PRN (07:00)
[2018-09-12] MEDS ORDERED: PROCHLORPERAZINE 10 MG/2 ML VIAL. IV PRN (07:00)
[2018-09-12] MEDS ORDERED: HYDROmorphone 2 MG/ML VIAL IV PRN (07:00)
[2018-09-12] MEDS ORDERED: IV RINGERS,LACTATED 1000ML 1,000 ML IV SCH (07:00)
[2018-09-12] MEDS ORDERED: LIDOCAINE 1% PF 2 ML VIAL. ID PRN (07:00)
[2018-09-12] MEDS ORDERED: ONDANSETRON PF 4 MG/2 ML VIAL. IV PRN (07:00)
[2018-09-12] MEDS ORDERED: fentaNYL PF VIAL 100 MCG/2 ML VIAL IV PRN ×2 (07:00)
[2018-09-12] MEDS: INSULIN LISPRO 300 UNITS/3 ML INSULN.PEN. SQ SCH ×3 (08:00→17:00)
[2018-09-12] MEDS: metFORMIN 500 MG TABLET PO SCH ×2 (09:30→17:44)
[2018-09-12] MEDS: GLIMEPIRIDE 2 MG TABLET. PO SCH (09:30)
[2018-09-12] MEDS: FERROUS SULFATE 325 MG TABLET. PO SCH ×2 (09:30→17:44)
[2018-09-12] MEDS: CELECOXIB 100 MG CAPSULE. PO SCH ×2 (09:30→20:37)
[2018-09-12] MEDS: MULTIVITAMIN with MINERAL TABLET. PO SCH (09:30)
[2018-09-12] MEDS: SENNOSIDES/DOCUSATE 8.6/50MG TABLET. PO SCH (09:30)
[2018-09-12] MEDS: hydroCHLOROthiazide 12.5 MG CAPSULE PO SCH (09:36)
[2018-09-12] MEDS: ASCORBIC ACID 500 MG TABLET PO SCH (09:36)
[2018-09-12] MEDS: LISINOPRIL 20 MG TABLET PO SCH (09:37)
[2018-09-12 09:39] LABS: BASO % 0 % (0-3); EOS # 0.3 x10^3/uL (0.0-0.7); EOS % 3 % (0-3); HEMATOCRIT 23.7 % (39.0-53.0); HEMOGLOBIN 8.4 g/dL (13.0-17.5); LYMPH # 2.6 x10^3/uL (1.0-4.8); LYMPH % 26 % (24-48); MEAN CORPUSCULAR HEMOGLOBIN 35 pg (25-35); MEAN CORPUSCULAR HGB CONC 36 g/dL (31-37); MEAN CORPUSCULAR VOLUME 98 fL (79-100); MONO # 0.7 x10^3/uL (0.0-1.1); MONO % 7 % (0-9); NEUT # 6.4 x10^3uL (1.8-7.7); NEUT % 64 % (31-73); PLATELET COUNT 237 x10^3/uL (140-400); RED BLOOD COUNT 2.42 x10^6/uL (4.30-5.70); RED CELL DISTRIBUTION WIDTH 13.3 % (11.5-14.5)
[2018-09-12 09:48] LABS: CALCIUM 8.4 mg/dL (8.5-10.1); CREATININE 1.2 mg/dL (0.7-1.3); GFR 60.2; POTASSIUM 4.6 mmol/L (3.5-5.1)
[2018-09-12 11:00] VITALS: BP 137/65
[2018-09-12 11:17] LABS: PROTHROMBIN TIME PATIENT 18.8 SEC (11.7-14.0)
--- NOTE | 2018-09-12 14:07 | PATHOLOGY ---
[facility] Accession Number: [id number] . 01 Material submitted: . BONE RIGHT HIP . 01 Clinical history: . Osteoarthritis right hip . 02 Diagnosis: Segments of bone, right anterior total hip arthroplasty: - Advanced degenerative arthritis. (JPM:[facility] 09/12/2018) P/09/12/2018 . 02 Electronically signed: . Jimmy Richard MD, Pathologist NPI- [id number] . 01 Gross description: . The specimen is received in formalin, labeled "Clive Padilla, bone right hip", consist of several segments of juarez-brown bone consisting of recognizable portion of femoral head and femoral neck. The femoral head measures 5.0 x 4.7 x 4.5 cm and the femoral neck 2.5 x 2.0 x 0.8 cm. Eburnation and osteophytes are present. Rec[employer]iting And Selection Consultant tissue is submitted in A1 after decalcification. (SWS; 09/07/2018) SHS/SHS . 02 Pathologist provided ICD-10: M16.11 . 02 CPT . 726094, 577336 Specimen Comment: A courtesy copy of this report has been sent to Specimen Comment: [phone], . Specimen Comment: Report sent to / DR HITCHCOCK Specimen Comment: A duplicate report has been generated due to demographic updates. Performed at: 01 [facility] [address] [facility] [address], [place] [id number] MD Rashawn Alejo MD Phone: [phone] Performed at: 02 [facility] [address] [place], [place] [id number] MD Jimmy Richard MD Phone: [phone]
--- NOTE | 2018-09-12 14:33 | PDOC ---
PROGRESS NOTES Chief Complaint Chief Complaint Rt hip DJD S/p right hip arthroplasty 09/06 Extensive right leg DVT - confirmed 09/08 Leukocytosis likely 2/2 to intra-op steroids - resolved Hyponatremia - resolved H/o DM H/o HTN H/o hypothyroid plan: fu with onco, ortho. vascular not sure if vascular will take him for thrombectomy currently on warfarin and lovenox bid for bridging, INR goal2-3 fu with sw need rehab for dc dc ivf pain control cont home meds for dm2, htn PTOT thanks for asking for consult History of Present Illness History of Present Illness Pt seen and examined Discussed w/RN Discussed w/PT rt thigh swelling slightly better rt thigh has a post op drain pt able to walk a little bit with PTOT, wants rehab Vitals Vitals Vital Signs Date Time Temp Pulse Resp B/P (MAP) Pulse Ox O2 Delivery O2 Flow Rate FiO2 09/12/18 13:57 16 Room Air 09/12/18 11:00 97.9 72 137/65 (89) 98 97.9 Physical Exam Physical Exam Neck: Supple, no JVD General: No acute distress, Other (Pt was asleep and appeared to be in NAD) Heart: Regular rate, No murmurs Lungs: Clear Abdomen: Soft, No tenderness Extremities: Other (rt thigh wound has a small drain, right thigh moderate swelling) Skin: No rashes Labs LABS Laboratory Tests Test 09/11/18 16:51 09/11/18 21:05 09/12/18 07:38 09/12/18 09:05 Glucose (Fingerstick) 81 mg/dL (70-99) 179 mg/dL (70-99) 98 mg/dL (70-99) White Blood Count 10.0 x10^3/uL (4.0-11.0) Red Blood Count 2.42 x10^6/uL (4.30-5.70) Hemoglobin 8.4 g/dL (13.0-17.5) Hematocrit 23.7 % (39.0-53.0) Mean Corpuscular Volume 98 fL (79-100) Mean Corpuscular Hemoglobin 35 pg (25-35) Mean Corpuscular Hemoglobin Concent 36 g/dL (31-37) Red Cell Distribution Width 13.3 % (11.5-14.5) Platelet Count 237 x10^3/uL (140-400) Neutrophils (%) (Auto) 64 % (31-73) Lymphocytes (%) (Auto) 26 % (24-48) Monocytes (%) (Auto) 7 % (0-9) Eosinophils (%) (Auto) 3 % (0-3) Basophils (%) (Auto) 0 % (0-3) Neutrophils # (Auto) 6.4 x10^3uL (1.8-7.7) Lymphocytes # (Auto) 2.6 x10^3/uL (1.0-4.8) Monocytes # (Auto) 0.7 x10^3/uL (0.0-1.1) Eosinophils # (Auto) 0.3 x10^3/uL (0.0-0.7) Basophils # (Auto) 0.0 x10^3/uL (0.0-0.2) Prothrombin Time 18.8 SEC (11.7-14.0) Prothromb Time International Ratio 1.6 (0.8-1.1) Sodium Level 137 mmol/L (136-145) Potassium Level 4.6 mmol/L (3.5-5.1) Chloride Level 103 mmol/L (98-107) Carbon Dioxide Level 28 mmol/L (21-32) Anion Gap 6 (6-14) Blood Urea Nitrogen 34 mg/dL (8-26) Creatinine 1.2 mg/dL (0.7-1.3) Estimated GFR (Cockcroft-Gault) 60.2 Glucose Level 161 mg/dL (70-99) Calcium Level 8.4 mg/dL (8.5-10.1) Test 09/12/18 11:32 Glucose (Fingerstick) 137 mg/dL (70-99) Comment Review of Relevant I have reviewed the following items digna (where applicable) has been applied. Labs Laboratory Tests Test 09/10/18 16:16 09/10/18 20:58 09/11/18 05:30 09/11/18 08:11 Glucose (Fingerstick) 166 mg/dL (70-99) 165 mg/dL (70-99) 83 mg/dL (70-99) White Blood Count 10.9 x10^3/uL (4.0-11.0) Red Blood Count 2.97 x10^6/uL (4.30-5.70) Hemoglobin 10.3 g/dL (13.0-17.5) Hematocrit 29.0 % (39.0-53.0) Mean Corpuscular Volume 98 fL (79-100) Mean Corpuscular Hemoglobin 35 pg (25-35) Mean Corpuscular Hemoglobin Concent 36 g/dL (31-37) Red Cell Distribution Width 13.1 % (11.5-14.5) Platelet Count 237 x10^3/uL (140-400) Neutrophils (%) (Auto) 55 % (31-73) Lymphocytes (%) (Auto) 34 % (24-48) Monocytes (%) (Auto) 7 % (0-9) Eosinophils (%) (Auto) 3 % (0-3) Basophils (%) (Auto) 0 % (0-3) Neutrophils # (Auto) 6.0 x10^3uL (1.8-7.7) Lymphocytes # (Auto) 3.7 x10^3/uL (1.0-4.8) Monocytes # (Auto) 0.8 x10^3/uL (0.0-1.1) Eosinophils # (Auto) 0.4 x10^3/uL (0.0-0.7) Basophils # (Auto) 0.0 x10^3/uL (0.0-0.2) Prothrombin Time 19.2 SEC (11.7-14.0) Prothromb Time International Ratio 1.7 (0.8-1.1) Sodium Level 138 mmol/L (136-145) Potassium Level 3.8 mmol/L (3.5-5.1) Chloride Level 102 mmol/L (98-107) Carbon Dioxide Level 29 mmol/L (21-32) Anion Gap 7 (6-14) Blood Urea Nitrogen 39 mg/dL (8-26) Creatinine 1.3 mg/dL (0.7-1.3) Estimated GFR (Cockcroft-Gault) 54.9 Glucose Level 74 mg/dL (70-99) Calcium Level 9.0 mg/dL (8.5-10.1) Test 09/11/18 11:52 09/11/18 16:51 09/11/18 21:05 09/12/18 07:38 Glucose (Fingerstick) 188 mg/dL (70-99) 81 mg/dL (70-99) 179 mg/dL (70-99) 98 mg/dL (70-99) Test 09/12/18 09:05 09/12/18 11:32 White Blood Count 10.0 x10^3/uL (4.0-11.0) Red Blood Count 2.42 x10^6/uL (4.30-5.70) Hemoglobin 8.4 g/dL (13.0-17.5) Hematocrit 23.7 % (39.0-53.0) Mean Corpuscular Volume 98 fL (79-100) Mean Corpuscular Hemoglobin 35 pg (25-35) Mean Corpuscular Hemoglobin Concent 36 g/dL (31-37) Red Cell Distribution Width 13.3 % (11.5-14.5) Platelet Count 237 x10^3/uL (140-400) Neutrophils (%) (Auto) 64 % (31-73) Lymphocytes (%) (Auto) 26 % (24-48) Monocytes (%) (Auto) 7 % (0-9) Eosinophils (%) (Auto) 3 % (0-3) Basophils (%) (Auto) 0 % (0-3) Neutrophils # (Auto) 6.4 x10^3uL (1.8-7.7) Lymphocytes # (Auto) 2.6 x10^3/uL (1.0-4.8) Monocytes # (Auto) 0.7 x10^3/uL (0.0-1.1) Eosinophils # (Auto) 0.3 x10^3/uL (0.0-0.7) Basophils # (Auto) 0.0 x10^3/uL (0.0-0.2) Prothrombin Time 18.8 SEC (11.7-14.0) Prothromb Time International Ratio 1.6 (0.8-1.1) Sodium Level 137 mmol/L (136-145) Potassium Level 4.6 mmol/L (3.5-5.1) Chloride Level 103 mmol/L (98-107) Carbon Dioxide Level 28 mmol/L (21-32) Anion Gap 6 (6-14) Blood Urea Nitrogen 34 mg/dL (8-26) Creatinine 1.2 mg/dL (0.7-1.3) Estimated GFR (Cockcroft-Gault) 60.2 Glucose Level 161 mg/dL (70-99) Calcium Level 8.4 mg/dL (8.5-10.1) Glucose (Fingerstick) 137 mg/dL (70-99) Laboratory Tests Test 09/11/18 16:51 09/11/18 21:05 09/12/18 07:38 09/12/18 09:05 Glucose (Fingerstick) 81 mg/dL (70-99) 179 mg/dL (70-99) 98 mg/dL (70-99) White Blood Count 10.0 x10^3/uL (4.0-11.0) Red Blood Count 2.42 x10^6/uL (4.30-5.70) Hemoglobin 8.4 g/dL (13.0-17.5) Hematocrit 23.7 % (39.0-53.0) Mean Corpuscular Volume 98 fL (79-100) Mean Corpuscular Hemoglobin 35 pg (25-35) Mean Corpuscular Hemoglobin Concent 36 g/dL (31-37) Red Cell Distribution Width 13.3 % (11.5-14.5) Platelet Count 237 x10^3/uL (140-400) Neutrophils (%) (Auto) 64 % (31-73) Lymphocytes (%) (Auto) 26 % (24-48) Monocytes (%) (Auto) 7 % (0-9) Eosinophils (%) (Auto) 3 % (0-3) Basophils (%) (Auto) 0 % (0-3) Neutrophils # (Auto) 6.4 x10^3uL (1.8-7.7) Lymphocytes # (Auto) 2.6 x10^3/uL (1.0-4.8) Monocytes # (Auto) 0.7 x10^3/uL (0.0-1.1) Eosinophils # (Auto) 0.3 x10^3/uL (0.0-0.7) Basophils # (Auto) 0.0 x10^3/uL (0.0-0.2) Prothrombin Time 18.8 SEC (11.7-14.0) Prothromb Time International Ratio 1.6 (0.8-1.1) Sodium Level 137 mmol/L (136-145) Potassium Level 4.6 mmol/L (3.5-5.1) Chloride Level 103 mmol/L (98-107) Carbon Dioxide Level 28 mmol/L (21-32) Anion Gap 6 (6-14) Blood Urea Nitrogen 34 mg/dL (8-26) Creatinine 1.2 mg/dL (0.7-1.3) Estimated GFR (Cockcroft-Gault) 60.2 Glucose Level 161 mg/dL (70-99) Calcium Level 8.4 mg/dL (8.5-10.1) Test 09/12/18 11:32 Glucose (Fingerstick) 137 mg/dL (70-99) Medications Current Medications Morphine Sulfate 5 mg/Ketorolac Tromethamine 30 mg/Ropivacaine 60 ml/ Epinephrine HCl 0.5 mg/Sodium Chloride 100 ml @ 100 mls/hr 1X ONCE INT ART ; Start 09/06/18 at 06:00; Stop 09/06/18 at 07:00; Status DC Ondansetron HCl (Zofran) 4 mg PRN Q6HRS PRN IV NAUSEA/VOMITING; Start at 07:00; Stop 09/06/18 at 21:00; Status DC Fentanyl Citrate (Fentanyl 2ml Vial) 25 mcg PRN Q5MIN PRN IV MILD PAIN; Start 09/06/18 at 07:00; Stop 09/06/18 at 21:00; Status DC Fentanyl Citrate (Fentanyl 2ml Vial) 50 mcg PRN Q5MIN PRN IV MODERATE TO SEVERE PAIN Last administered on 09/06/18at 19:02; Start 09/06/18 at 07:00; Stop 09/06/18 at 21:00; Status DC Morphine Sulfate (Morphine Sulfate) 1 mg PRN Q10MIN PRN IV SEVERE PAIN; Start 09/06/18 at 07:00; Stop 09/06/18 at 21:00; Status DC Ringer's Solution 1,000 ml @ 30 mls/hr Q24H IV Last administered on at 09:45; Start 09/06/18 at 07:00; Stop 09/06/18 at 18:59; Status DC Lidocaine HCl (Xylocaine-Mpf 1% 2ml Vial) 2 ml PRN 1X PRN ID PRIOR TO IV START ; Start 09/06/18 at 07:00; Stop 09/06/18 at 21:00; Status DC Hydromorphone HCl (Dilaudid) 0.5 mg PRN Q10MIN PRN IV SEV PAIN, Second choice; Start 09/06/18 at 07:00; Stop 09/06/18 at 21:00; Status DC Prochlorperazine Edisylate (Compazine) 5 mg PACU PRN PRN IV NAUSEA, MRX1; Start 09/06/18 at 07:00; Stop 09/06/18 at 21:00; Status DC Acetaminophen/ Hydrocodone Bitart (Lortab 7.5/325) 2 tab 1X PREOP PRN PO PRIOR TO PROCEDURE Last administered on 09/06/18at 09:48; Start 09/06/18 at 06:00; Stop 09/06/18 at 18:00; Status DC Cefazolin Sodium/ Dextrose 50 ml @ 100 mls/hr 1X PREOP PRN IV PRIOR TO PROCEDURE Last administered on 09/06/18at 14:43; Start 09/06/18 at 06:00; Stop 09/06/18 at 18:00; Status DC Tranexamic Acid 1000 mg/Sodium Chloride 60 ml @ 60 mls/hr 1X PERIOP ONCE INJ Last administered on 09/06/18at 15:00; Start 09/06/18 at 06:00; Stop 09/06/18 at 07:00; Status DC Tranexamic Acid 1000 mg/Sodium Chloride 60 ml @ 60 mls/hr 1X PERIOP ONCE INJ Last administered on 09/06/18at 17:10; Start 09/06/18 at 08:00; Stop 09/06/18 at 08:59; Status DC Propofol 20 ml @ As Directed STK-MED ONCE IV ; Start 09/06/18 at 13:17; Stop 09/06/18 at 13:18; Status DC Dexamethasone Sodium Phosphate (Decadron) 20 mg STK-MED ONCE .ROUTE ; Start at 13:17; Stop 09/06/18 at 13:18; Status DC Famotidine (Pepcid Vial) 20 mg STK-MED ONCE .ROUTE ; Start 09/06/18 at 13:17; Stop 09/06/18 at 13:18; Status DC Lidocaine HCl (Lidocaine Pf 2% Vial) 5 ml STK-MED ONCE .ROUTE ; Start 09/06/18 at 13:17; Stop 09/06/18 at 13:18; Status DC Ondansetron HCl (Zofran) 4 mg STK-MED ONCE .ROUTE ; Start 09/06/18 at 13:17; Stop 09/06/18 at 13:18; Status DC Rocuronium [place] (Zemuron) 50 mg STK-MED ONCE .ROUTE ; Start 09/06/18 at 13: 17; Stop 09/06/18 at 13:18; Status DC Fentanyl Citrate (Fentanyl 2ml Vial) 100 mcg STK-MED ONCE .ROUTE ; Start at 13:17; Stop 09/06/18 at 13:18; Status DC Midazolam HCl (Versed) 2 mg STK-MED ONCE .ROUTE ; Start 09/06/18 at 13:17; Stop 09/06/18 at 13:18; Status DC Morphine Sulfate 5 mg/Ketorolac Tromethamine 30 mg/Ropivacaine 32 ml/ Epinephrine HCl 0.5 mg/Sodium Chloride 100 ml @ 100 mls/hr 1X ONCE INT ART Last administered on 09/06/18at 15:21; Start 09/06/18 at 14:15; Stop 09/06/18 at 15:14; Status DC Acetaminophen/ Hydrocodone Bitart (Lortab 7.5/325) 1 tab PRN Q3HRS PRN PO MODERATE PAIN, 1st CHOICE Last administered on 09/10/18at 02:40; Start at 15:00 Acetaminophen/ Hydrocodone Bitart (Lortab 10/325) 1 tab PRN Q3HRS PRN PO MODERATE PAIN, 2nd CHOICE; Start 09/06/18 at 15:00 Tramadol HCl (Ultram) 50 mg PRN QID PRN PO MODERATE PAIN, 3rd CHOICE; Start at 15:00 Oxycodone/ Acetaminophen (Percocet 5/325) 1 tab PRN Q3HRS PRN PO SEVERE PAIN, 1st CHOICE; Start 09/06/18 at 15:00 Oxycodone/ Acetaminophen (Percocet 7.5/ 325) 1 tab PRN Q3HRS PRN PO SEVERE PAIN , 2nd CHOICE Last administered on 09/12/18at 13:57; Start 09/06/18 at 15:00 Tramadol HCl (Ultram) 100 mg PRN Q3HRS PRN PO SEVERE PAIN, 3rd CHOICE; Start 09/06/18 at 15:00 Morphine Sulfate (Morphine Sulfate) 2 mg PRN Q1HR PRN IV PAIN; Start 09/06/18 at 15:00 Fentanyl Citrate (Fentanyl 2ml Vial) 25 mcg PRN Q1HR PRN IV PAIN, 2nd CHOICE; Start 09/06/18 at 15:00 Warfarin Sodium (Coumadin) 7.5 mg 1X ONCE PO Last administered on 09/06/18at 20:01; Start 09/06/18 at 16:00; Stop 09/06/18 at 16:01; Status DC Warfarin Sodium (Coumadin Per Pharmacy) 1 each PRN DAILY PRN MC SEE COMMENTS Last administered on 09/12/18at 11:41; Start 09/06/18 at 15:00 Multivitamins (Thera M Plus) 1 tab DAILY PO Last administered on 09/12/18 09: 30; Start 09/06/18 at 17:00 Senna/Docusate Sodium (Senna Plus) 1 tab DAILY PO Last administered on at 09:30; Start 09/06/18 at 16:00 Ferrous Sulfate (Feosol) 325 mg BIDWMEALS PO Last administered on 09/12/18 09 :30; Start 09/06/18 at 17:00 Celecoxib (CeleBREX) 200 mg BID PO Last administered on 09/12/18 09:30; Start 09/06/18 at 21:00 Dextrose/Sodium Chloride 1,000 ml @ 100 mls/hr Q10H IV Last administered on at 19:42; Start 09/06/18 at 14:50; Stop 09/07/18 at 17:57; Status DC Magnesium Hydroxide (Milk Of Magnesia) 2,400 mg 1X PRN PRN PO CONSTIPATION; Start 09/07/18 at 06:00; Stop 09/08/18 at 05:59; Status DC Bisacodyl (Dulcolax Supp) 10 mg 1X PRN PRN [place] CONSTIPATION; Start 09/07/18 at 16:00; Stop 09/08/18 at 15:59; Status DC Acetaminophen (Tylenol) 650 mg PRN Q4HRS PRN PO MILD PAIN / TEMP; Start at 15:00 Zolpidem Tartrate (Ambien) 5 mg PRN QHS PRN PO INSOMNIA, MAY REPEAT IN 1HR Last administered on 09/11/18at 23:41; Start 09/06/18 at 15:00 Calcium Carbonate/ Glycine (Tums) 500 mg PRN QID PRN PO INDIGESTION Last administered on 09/09/18at 01:29; Start 09/06/18 at 15:00 Morphine Sulfate (Morphine Sulfate) 4 mg PRN Q1HR PRN IV PAIN; Start 09/06/18 at 15:00 Ketorolac Tromethamine 30 mg/Bupivacaine HCl 20 ml/ Epinephrine HCl 0.5 mg/ Miscellaneous 43 ml @ 258 mls/hr Q12H INT ART Last administered on 09/07/18at 11:59; Start 09/06/18 at 20:00; Stop 09/07/18 at 08:09; Status DC Sodium Chloride (Normal Saline Flush) 10 ml QSHIFT PRN IV AFTER MEDS AND BLOOD DRAWS; Start 09/06/18 at 15:00 Fentanyl Citrate (Fentanyl 2ml Vial) 50 mcg PRN Q1HR PRN IV PAIN, 2nd CHOICE Last administered on 09/06/18at 19:52; Start 09/06/18 at 15:00 Prochlorperazine Edisylate (Compazine) 10 mg PRN Q4HRS PRN IV NAUSEA/VOMITING Last administered on 09/09/18at 05:19; Start 09/06/18 at 15:00 Dextrose (Dextrose 50%-Water Syringe) 12.5 gm PRN Q15MIN PRN IV SEE COMMENTS; Start 09/06/18 at 15:00; Stop 09/10/18 at 11:39; Status DC Cefazolin Sodium/ Dextrose 50 ml @ 100 mls/hr Q6H IV Last administered on at 08:17; Start 09/06/18 at 21:00; Stop 09/07/18 at 09:29; Status DC Ephedrine Sulfate (ePHEDrine PF IN SALINE SYRINGE) 50 mg STK-MED ONCE IV ; Start 09/06/18 at 16:46; Stop 09/06/18 at 16:47; Status DC Desflurane (Suprane) 90 ml STK-MED ONCE IH ; Start 09/06/18 at 16:46; Stop at 16:47; Status DC Neostigmine Methylsulfate (Neostigmine Methylsulfate) 5 mg STK-MED ONCE .ROUTE ; Start 09/06/18 at 16:47; Stop 09/06/18 at 16:48; Status DC Glycopyrrolate (Robinul) 1 mg STK-MED ONCE .ROUTE ; Start 09/06/18 at 16:47; Stop 09/06/18 at 16:48; Status DC Fentanyl Citrate (Fentanyl 2ml Vial) 100 mcg STK-MED ONCE .ROUTE ; Start at 17:58; Stop 09/06/18 at 17:59; Status DC Insulin Human Lispro (HumaLOG) 0-5 UNITS TIDWMEALS SQ Last administered on at 08:16; Start 09/07/18 at 08:00; Stop 09/07/18 at 11:52; Status DC Glimepiride (Amaryl) 2 mg DAILY PO Last administered on 09/12/18 09:30; Start 09/07/18 at 09:00 Levothyroxine Sodium (Synthroid) 100 mcg DAILY06 PO Last administered on at 06:02; Start 09/07/18 at 06:00 Ascorbic Acid (Vitamin C) 1,000 mg DAILY PO Last administered on 09/12/18at 09: 36; Start 09/07/18 at 09:00 Lisinopril (Prinivil) 20 mg DAILY PO Last administered on 09/12/18at 09:37; Start 09/07/18 at 09:00 Hydrochlorothiazide (Microzide) 12.5 mg DAILY PO Last administered on 09:36; Start 09/07/18 at 09:00 Metformin HCl (Glucophage) 1,000 mg BIDWMEALS PO Last administered on 09:30; Start 09/07/18 at 08:00 Influenza Virus Vaccine (Afluria Trivalent [id number] Syringe) 0.5 ml ONCE ONCE VAX IM Last administered on 09/12/18at 13:59; Start 09/07/18 at 09:00; Stop 09/07/18 at 09:01; Status DC Insulin Human Lispro (HumaLOG) 0-7 UNITS TIDWMEALS SQ Last administered on at 17:17; Start 09/07/18 at 12:00; Stop 09/07/18 at 17:57; Status DC Dextrose (Dextrose 50%-Water Syringe) 12.5 gm PRN Q15MIN PRN IV SEE COMMENTS; Start 09/07/18 at 12:00; Status UNV Warfarin Sodium (Coumadin) 5 mg 1X WARF ONCE PO Last administered on at 17:11; Start 09/07/18 at 16:00; Stop 09/07/18 at 16:01; Status DC Insulin Human Lispro (HumaLOG) 0-9 UNITS TIDWMEALS SQ Last administered on at 12:00; Start 09/08/18 at 08:00 Dextrose (Dextrose 50%-Water Syringe) 12.5 gm PRN Q15MIN PRN IV SEE COMMENTS; Start 09/07/18 at 18:00 Insulin Glargine (Lantus) 12 units QHS SQ Last administered on 09/11/18at 22:16 ; Start 09/07/18 at 21:00 Warfarin Sodium (Coumadin) 2 mg 1X WARF ONCE PO Last administered on at 16:00; Start 09/08/18 at 16:00; Stop 09/08/18 at 16:01; Status DC Enoxaparin Sodium (Lovenox 80mg Syringe) 80 mg 1X ONCE SQ Last administered on 09/08/18at 16:01; Start 09/08/18 at 16:00; Stop 09/08/18 at 16:01; Status DC Enoxaparin Sodium (Lovenox 80mg Syringe) 80 mg Q12HR SQ Last administered on at 09:42; Start 09/09/18 at 06:00 Warfarin Sodium (Coumadin) 2 mg 1X WARF ONCE PO Last administered on at 16:42; Start 09/09/18 at 16:00; Stop 09/09/18 at 16:01; Status DC Ondansetron HCl (Zofran) 4 mg PRN Q6HRS PRN IV NAUSEA/VOMITING; Start at 07:00; Stop 09/12/18 at 07:00; Status DC Fentanyl Citrate (Fentanyl 2ml Vial) 25 mcg PRN Q5MIN PRN IV MILD PAIN; Start 09/12/18 at 07:00; Stop 09/12/18 at 07:00; Status DC Fentanyl Citrate (Fentanyl 2ml Vial) 50 mcg PRN Q5MIN PRN IV MODERATE TO SEVERE PAIN; Start 09/12/18 at 07:00; Stop 09/12/18 at 07:00; Status DC Morphine Sulfate (Morphine Sulfate) 1 mg PRN Q10MIN PRN IV SEVERE PAIN; Start 09/12/18 at 07:00; Stop 09/12/18 at 07:00; Status DC Ringer's Solution 1,000 ml @ 30 mls/hr Q24H IV ; Start 09/12/18 at 07:00; Stop 09/12/18 at 18:59 Lidocaine HCl (Xylocaine-Mpf 1% 2ml Vial) 2 ml PRN 1X PRN ID PRIOR TO IV START ; Start 09/12/18 at 07:00; Stop 09/12/18 at 07:00; Status DC Hydromorphone HCl (Dilaudid) 0.5 mg PRN Q10MIN PRN IV SEV PAIN, Second choice; Start 09/12/18 at 07:00; Stop 09/12/18 at 07:00; Status DC Prochlorperazine Edisylate (Compazine) 5 mg PACU PRN PRN IV NAUSEA, MRX1; Start 09/12/18 at 07:00; Stop 09/12/18 at 07:00; Status DC Warfarin Sodium (Coumadin) 3 mg 1X WARF ONCE PO Last administered on at 18:14; Start 09/10/18 at 16:00; Stop 09/10/18 at 16:01; Status DC Sodium Chloride 1,000 ml @ 75 mls/hr [id number] IV Last administered on at 06:02; Start 09/10/18 at 12:45; Stop 09/12/18 at 09:54; Status DC Warfarin Sodium (Coumadin) 4 mg 1X WARF ONCE PO Last administered on at 17:43; Start 09/11/18 at 16:00; Stop 09/11/18 at 16:01; Status DC Info (Anti-Coagulation Monitoring By Pharmacy) 1 each PRN DAILY PRN MC SEE COMMENTS; Start 09/12/18 at 11:00 Warfarin Sodium (Coumadin) 5 mg 1X WARF ONCE PO ; Start 09/12/18 at 16:00; Stop 09/12/18 at 16:01 Active Scripts Active [place] 7.5-325 Tablet (Acetaminophen/Hydrocodone Bitart) 1 Each Tablet 1 Tab PO PRN Q6HRS PRN Reported Aleve (Naproxen Sodium) 220 Mg Tablet 220 Mg PO BID Tramadol Hcl 50 Mg Tablet 50 Mg PO Q6HRS PRN Glucosamine (Glucosamine Sulfate 2KCL) 1,000 Mg Tablet 1,000 Mg PO DAILY Multivitamins (Multivitamin) 1 Each Tablet 1 Tab PO DAILY Vitamin C (Ascorbic Acid) 100 Mg Tablet 1,000 Mg PO DAILY Hydrochlorothiazide Capsule (Hydrochlorothiazide) 12.5 Mg Capsule 1 Cap PO DAILY Benazepril Hcl 20 Mg Tablet 1 Tab PO DAILY Glimepiride 2 Mg Tablet 1 Tab PO DAILY Metformin Hcl 1,000 Mg Tablet 1,000 Mg PO BID Levothyroxine Sodium 100 Mcg Tablet 1 Tab PO DAILY Vitals/I & O Vital Sign - Last 24 Hours 09/11/18 09/11/18 09/11/18 09/11/18 15:00 17:42 19:25 19:50 Temp 97.5 98.9 97.5 98.9 Pulse 76 92 Resp 18 3 18 B/P (MAP) 126/69 (88) 108/64 (79) Pulse Ox 96 96 O2 Delivery Room Air Room Air Room Air Room Air 09/11/18 09/12/18 09/12/18 09/12/18 23:36 00:17 01:20 06:02 Temp 97.7 97.7 Pulse 70 Resp 18 18 B/P (MAP) 136/71 (92) Pulse Ox 96 96 96 96 O2 Delivery Room Air Room Air Room Air 09/12/18 09/12/18 09/12/18 09/12/18 07:00 07:00 09:31 09:37 Temp 95.9 95.9 Pulse 67 67 Resp 16 18 16 B/P (MAP) 144/65 (91) 144/65 Pulse Ox 96 O2 Delivery Room Air Room Air Room Air 09/12/18 09/12/18 11:00 13:57 Temp 97.9 97.9 Pulse 72 Resp 18 16 B/P (MAP) 137/65 (89) Pulse Ox 98 O2 Delivery Room Air Room Air Intake and Output 09/11/18 09/11/18 09/12/18 15:00 23:00 07:00 Intake Total 1300 ml 1441 ml Output Total 650 ml Balance 1300 ml 791 ml FANY HERMOSILLO MD Sep 12, 2018 14:33
[2018-09-12 15:00] VITALS: BP 136/62
[2018-09-12] MEDS ORDERED: WARFARIN 5 MG TABLET. PO ONE (16:00)
--- NOTE | 2018-09-12 19:23 | PDOC ---
PROGRESS NOTES Subjective Subjective Problems overnight: Right leg more sore and stiff today, swelling continues to decrease and he is elevating it near constantly Objective Vital Signs Vital Signs Date Time Temp Pulse Resp B/P (MAP) Pulse Ox O2 Delivery O2 Flow Rate FiO2 09/12/18 17:45 Room Air 09/12/18 15:00 97.5 77 18 136/62 (86) 99 97.5 09/09/18 20:30 2.0 Physical Exam Aris dressing clean dry intact minimal bloody drainage no surrounding redness compartments are soft swelling continues to decrease both in the thigh and the calf distal neurovascular status intact Labs Laboratory Tests Test 09/10/18 20:58 09/11/18 05:30 09/11/18 08:11 09/11/18 11:52 Glucose (Fingerstick) 165 mg/dL (70-99) 83 mg/dL (70-99) 188 mg/dL (70-99) White Blood Count 10.9 x10^3/uL (4.0-11.0) Red Blood Count 2.97 x10^6/uL (4.30-5.70) Hemoglobin 10.3 g/dL (13.0-17.5) Hematocrit 29.0 % (39.0-53.0) Mean Corpuscular Volume 98 fL (79-100) Mean Corpuscular Hemoglobin 35 pg (25-35) Mean Corpuscular Hemoglobin Concent 36 g/dL (31-37) Red Cell Distribution Width 13.1 % (11.5-14.5) Platelet Count 237 x10^3/uL (140-400) Neutrophils (%) (Auto) 55 % (31-73) Lymphocytes (%) (Auto) 34 % (24-48) Monocytes (%) (Auto) 7 % (0-9) Eosinophils (%) (Auto) 3 % (0-3) Basophils (%) (Auto) 0 % (0-3) Neutrophils # (Auto) 6.0 x10^3uL (1.8-7.7) Lymphocytes # (Auto) 3.7 x10^3/uL (1.0-4.8) Monocytes # (Auto) 0.8 x10^3/uL (0.0-1.1) Eosinophils # (Auto) 0.4 x10^3/uL (0.0-0.7) Basophils # (Auto) 0.0 x10^3/uL (0.0-0.2) Prothrombin Time 19.2 SEC (11.7-14.0) Prothromb Time International Ratio 1.7 (0.8-1.1) Sodium Level 138 mmol/L (136-145) Potassium Level 3.8 mmol/L (3.5-5.1) Chloride Level 102 mmol/L (98-107) Carbon Dioxide Level 29 mmol/L (21-32) Anion Gap 7 (6-14) Blood Urea Nitrogen 39 mg/dL (8-26) Creatinine 1.3 mg/dL (0.7-1.3) Estimated GFR (Cockcroft-Gault) 54.9 Glucose Level 74 mg/dL (70-99) Calcium Level 9.0 mg/dL (8.5-10.1) Test 09/11/18 16:51 09/11/18 21:05 09/12/18 07:38 09/12/18 09:05 Glucose (Fingerstick) 81 mg/dL (70-99) 179 mg/dL (70-99) 98 mg/dL (70-99) White Blood Count 10.0 x10^3/uL (4.0-11.0) Red Blood Count 2.42 x10^6/uL (4.30-5.70) Hemoglobin 8.4 g/dL (13.0-17.5) Hematocrit 23.7 % (39.0-53.0) Mean Corpuscular Volume 98 fL (79-100) Mean Corpuscular Hemoglobin 35 pg (25-35) Mean Corpuscular Hemoglobin Concent 36 g/dL (31-37) Red Cell Distribution Width 13.3 % (11.5-14.5) Platelet Count 237 x10^3/uL (140-400) Neutrophils (%) (Auto) 64 % (31-73) Lymphocytes (%) (Auto) 26 % (24-48) Monocytes (%) (Auto) 7 % (0-9) Eosinophils (%) (Auto) 3 % (0-3) Basophils (%) (Auto) 0 % (0-3) Neutrophils # (Auto) 6.4 x10^3uL (1.8-7.7) Lymphocytes # (Auto) 2.6 x10^3/uL (1.0-4.8) Monocytes # (Auto) 0.7 x10^3/uL (0.0-1.1) Eosinophils # (Auto) 0.3 x10^3/uL (0.0-0.7) Basophils # (Auto) 0.0 x10^3/uL (0.0-0.2) Prothrombin Time 18.8 SEC (11.7-14.0) Prothromb Time International Ratio 1.6 (0.8-1.1) Sodium Level 137 mmol/L (136-145) Potassium Level 4.6 mmol/L (3.5-5.1) Chloride Level 103 mmol/L (98-107) Carbon Dioxide Level 28 mmol/L (21-32) Anion Gap 6 (6-14) Blood Urea Nitrogen 34 mg/dL (8-26) Creatinine 1.2 mg/dL (0.7-1.3) Estimated GFR (Cockcroft-Gault) 60.2 Glucose Level 161 mg/dL (70-99) Calcium Level 8.4 mg/dL (8.5-10.1) Test 09/12/18 11:32 09/12/18 16:47 Glucose (Fingerstick) 137 mg/dL (70-99) 132 mg/dL (70-99) Laboratory Tests Test 09/11/18 21:05 09/12/18 07:38 09/12/18 09:05 09/12/18 11:32 Glucose (Fingerstick) 179 mg/dL (70-99) 98 mg/dL (70-99) 137 mg/dL (70-99) White Blood Count 10.0 x10^3/uL (4.0-11.0) Red Blood Count 2.42 x10^6/uL (4.30-5.70) Hemoglobin 8.4 g/dL (13.0-17.5) Hematocrit 23.7 % (39.0-53.0) Mean Corpuscular Volume 98 fL (79-100) Mean Corpuscular Hemoglobin 35 pg (25-35) Mean Corpuscular Hemoglobin Concent 36 g/dL (31-37) Red Cell Distribution Width 13.3 % (11.5-14.5) Platelet Count 237 x10^3/uL (140-400) Neutrophils (%) (Auto) 64 % (31-73) Lymphocytes (%) (Auto) 26 % (24-48) Monocytes (%) (Auto) 7 % (0-9) Eosinophils (%) (Auto) 3 % (0-3) Basophils (%) (Auto) 0 % (0-3) Neutrophils # (Auto) 6.4 x10^3uL (1.8-7.7) Lymphocytes # (Auto) 2.6 x10^3/uL (1.0-4.8) Monocytes # (Auto) 0.7 x10^3/uL (0.0-1.1) Eosinophils # (Auto) 0.3 x10^3/uL (0.0-0.7) Basophils # (Auto) 0.0 x10^3/uL (0.0-0.2) Prothrombin Time 18.8 SEC (11.7-14.0) Prothromb Time International Ratio 1.6 (0.8-1.1) Sodium Level 137 mmol/L (136-145) Potassium Level 4.6 mmol/L (3.5-5.1) Chloride Level 103 mmol/L (98-107) Carbon Dioxide Level 28 mmol/L (21-32) Anion Gap 6 (6-14) Blood Urea Nitrogen 34 mg/dL (8-26) Creatinine 1.2 mg/dL (0.7-1.3) Estimated GFR (Cockcroft-Gault) 60.2 Glucose Level 161 mg/dL (70-99) Calcium Level 8.4 mg/dL (8.5-10.1) Test 09/12/18 16:47 Glucose (Fingerstick) 132 mg/dL (70-99) Assessment Assessment POD# [], S/P [right total hip arthroplasty] Plan Plan of Care Unfortunately he is not therapeutic on Coumadin due to the INR creeping down over time. He continues on Lovenox at present Continue mobilize with physical therapy elevation when not mobilizing, expected hip flexor weakness Plan on rehabilitation when INR is therapeutic and medically stable HERMINIO RICH MD Sep 12, 2018 19:23
[2018-09-12 19:30] VITALS: BP 121/60
[2018-09-12] MEDS: ZOLPIDEM 5 MG TABLET. PO PRN (20:36)
[2018-09-12] MEDS: INSULIN GLARGINE 300 UNITS/3 ML INSULN.PEN. SQ SCH (20:42)
[2018-09-12 23:35] VITALS: BP 151/76
[2018-09-13] MEDS: oxyCODONE/APAP 7.5/325 1 TAB TABLET PO PRN ×2 (01:12→04:12)
[2018-09-13] MEDS: MORPHINE SULFATE 4 MG/ML VIAL. IV PRN ×4 (02:20→22:59)
[2018-09-13 03:30] VITALS: BP 177/66
[2018-09-13 05:09] LABS: BASO % 0 % (0-3); EOS # 0.2 x10^3/uL (0.0-0.7); EOS % 1 % (0-3); HEMATOCRIT 24.9 % (39.0-53.0); HEMOGLOBIN 8.9 g/dL (13.0-17.5); LYMPH # 2.5 x10^3/uL (1.0-4.8); LYMPH % 16 % (24-48); MEAN CORPUSCULAR HEMOGLOBIN 35 pg (25-35); MEAN CORPUSCULAR HGB CONC 36 g/dL (31-37); MEAN CORPUSCULAR VOLUME 98 fL (79-100); MONO # 0.9 x10^3/uL (0.0-1.1); MONO % 6 % (0-9); NEUT # 11.6 x10^3uL (1.8-7.7); NEUT % 76 % (31-73); PLATELET COUNT 316 x10^3/uL (140-400); RED BLOOD COUNT 2.56 x10^6/uL (4.30-5.70); RED CELL DISTRIBUTION WIDTH 13.3 % (11.5-14.5); WHITE BLOOD COUNT 15.2 x10^3/uL (4.0-11.0)
[2018-09-13] MEDS: CALCIUM CARBONATE 500 MG TAB.CHEW PO PRN ×3 (05:15→13:40)
[2018-09-13 05:17] LABS: PROTHROMBIN TIME PATIENT 19.5 SEC (11.7-14.0)
[2018-09-13 05:59] LABS: CALCIUM 8.9 mg/dL (8.5-10.1); CREATININE 0.9 mg/dL (0.7-1.3); GFR 83.9; POTASSIUM 4.1 mmol/L (3.5-5.1)
[2018-09-13] MEDS: LEVOTHYROXINE 100 MCG TABLET PO SCH (06:14)
[2018-09-13 07:00] VITALS: BP 170/79
[2018-09-13] MEDS: FERROUS SULFATE 325 MG TABLET. PO SCH ×2 (07:55→16:21)
[2018-09-13] MEDS: SENNOSIDES/DOCUSATE 8.6/50MG TABLET. PO SCH (07:56)
[2018-09-13] MEDS: CELECOXIB 100 MG CAPSULE. PO SCH ×2 (07:56→21:20)
[2018-09-13] MEDS: MULTIVITAMIN with MINERAL TABLET. PO SCH (07:56)
[2018-09-13] MEDS: GLIMEPIRIDE 2 MG TABLET. PO SCH (07:56)
[2018-09-13] MEDS: INSULIN LISPRO 300 UNITS/3 ML INSULN.PEN. SQ SCH ×4 (08:00→17:00)
[2018-09-13] MEDS: metFORMIN 500 MG TABLET PO SCH ×2 (08:20→16:21)
[2018-09-13] MEDS: ASCORBIC ACID 500 MG TABLET PO SCH (08:20)
[2018-09-13] MEDS: LISINOPRIL 20 MG TABLET PO SCH (08:20)
[2018-09-13] MEDS: hydroCHLOROthiazide 12.5 MG CAPSULE PO SCH (08:20)
[2018-09-13 11:00] VITALS: BP 138/70
[2018-09-13] MEDS: ANTI-COAG MONITOR BY PHARMACY. MC PRN (11:08)
--- NOTE | 2018-09-13 11:09 | PDOC ---
PROGRESS NOTES Subjective Subjective "This is the worst experience I have ever had. I hurt so bad they had to give me Morphine." Objective Objective Vascular Surgery Follow Up: O: Lying in bed and has taken off clothing. Shirt is wadded up in bed and moist from sweat. Complaining of pain to right hip area. RLE: Thigh high compression stocking on. Mild swelling to right knee but improved via patient's comments. Remains elevated on pillows. + palpable DP pulse. Foot warm and pink. Assessment/Plan: 1. 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 - Continue Lovenox in addition to coumadin until INR closer to 3. INR drifted down again today 1.7. - Pt needs to wear thigh high compression and extensive elevation of right leg at all times, may sit while eating for brief periods of time, then back to elevation. - No surgical intervention planned at this time as patient appears to be responding and improving. - Pain control per Ortho/Hospitalist. - Activity progression as per Ortho. Vital Signs Date Time Temp Pulse Resp B/P (MAP) Pulse Ox O2 Delivery O2 Flow Rate FiO2 09/13/18 08:20 82 177/66 09/13/18 08:00 Room Air 09/13/18 07:00 97.8 18 100 97.8 09/09/18 20:30 2.0 Intake and Output 09/13/18 07:00 Intake Total 1200 ml Output Total 400 ml Balance 800 ml Intake Oral 1200 ml Output Urine Total 400 ml Comment Review of Relevant I have reviewed the following items digna (where applicable) has been applied. Labs Laboratory Tests Test 09/11/18 11:52 09/11/18 16:51 09/11/18 21:05 09/12/18 07:38 Glucose (Fingerstick) 188 mg/dL (70-99) 81 mg/dL (70-99) 179 mg/dL (70-99) 98 mg/dL (70-99) Test 09/12/18 09:05 09/12/18 11:32 09/12/18 16:47 09/12/18 20:27 White Blood Count 10.0 x10^3/uL (4.0-11.0) Red Blood Count 2.42 x10^6/uL (4.30-5.70) Hemoglobin 8.4 g/dL (13.0-17.5) Hematocrit 23.7 % (39.0-53.0) Mean Corpuscular Volume 98 fL (79-100) Mean Corpuscular Hemoglobin 35 pg (25-35) Mean Corpuscular Hemoglobin Concent 36 g/dL (31-37) Red Cell Distribution Width 13.3 % (11.5-14.5) Platelet Count 237 x10^3/uL (140-400) Neutrophils (%) (Auto) 64 % (31-73) Lymphocytes (%) (Auto) 26 % (24-48) Monocytes (%) (Auto) 7 % (0-9) Eosinophils (%) (Auto) 3 % (0-3) Basophils (%) (Auto) 0 % (0-3) Neutrophils # (Auto) 6.4 x10^3uL (1.8-7.7) Lymphocytes # (Auto) 2.6 x10^3/uL (1.0-4.8) Monocytes # (Auto) 0.7 x10^3/uL (0.0-1.1) Eosinophils # (Auto) 0.3 x10^3/uL (0.0-0.7) Basophils # (Auto) 0.0 x10^3/uL (0.0-0.2) Prothrombin Time 18.8 SEC (11.7-14.0) Prothromb Time International Ratio 1.6 (0.8-1.1) Sodium Level 137 mmol/L (136-145) Potassium Level 4.6 mmol/L (3.5-5.1) Chloride Level 103 mmol/L (98-107) Carbon Dioxide Level 28 mmol/L (21-32) Anion Gap 6 (6-14) Blood Urea Nitrogen 34 mg/dL (8-26) Creatinine 1.2 mg/dL (0.7-1.3) Estimated GFR (Cockcroft-Gault) 60.2 Glucose Level 161 mg/dL (70-99) Calcium Level 8.4 mg/dL (8.5-10.1) Glucose (Fingerstick) 137 mg/dL (70-99) 132 mg/dL (70-99) 188 mg/dL (70-99) Test 09/13/18 04:15 09/13/18 08:08 White Blood Count 15.2 x10^3/uL (4.0-11.0) Red Blood Count 2.56 x10^6/uL (4.30-5.70) Hemoglobin 8.9 g/dL (13.0-17.5) Hematocrit 24.9 % (39.0-53.0) Mean Corpuscular Volume 98 fL (79-100) Mean Corpuscular Hemoglobin 35 pg (25-35) Mean Corpuscular Hemoglobin Concent 36 g/dL (31-37) Red Cell Distribution Width 13.3 % (11.5-14.5) Platelet Count 316 x10^3/uL (140-400) Neutrophils (%) (Auto) 76 % (31-73) Lymphocytes (%) (Auto) 16 % (24-48) Monocytes (%) (Auto) 6 % (0-9) Eosinophils (%) (Auto) 1 % (0-3) Basophils (%) (Auto) 0 % (0-3) Neutrophils # (Auto) 11.6 x10^3uL (1.8-7.7) Lymphocytes # (Auto) 2.5 x10^3/uL (1.0-4.8) Monocytes # (Auto) 0.9 x10^3/uL (0.0-1.1) Eosinophils # (Auto) 0.2 x10^3/uL (0.0-0.7) Basophils # (Auto) 0.0 x10^3/uL (0.0-0.2) Prothrombin Time 19.5 SEC (11.7-14.0) Prothromb Time International Ratio 1.7 (0.8-1.1) Sodium Level 133 mmol/L (136-145) Potassium Level 4.1 mmol/L (3.5-5.1) Chloride Level 98 mmol/L (98-107) Carbon Dioxide Level 27 mmol/L (21-32) Anion Gap 8 (6-14) Blood Urea Nitrogen 28 mg/dL (8-26) Creatinine 0.9 mg/dL (0.7-1.3) Estimated GFR (Cockcroft-Gault) 83.9 Glucose Level 161 mg/dL (70-99) Calcium Level 8.9 mg/dL (8.5-10.1) Glucose (Fingerstick) 208 mg/dL (70-99) Laboratory Tests Test 09/12/18 11:32 09/12/18 16:47 09/12/18 20:27 09/13/18 04:15 Glucose (Fingerstick) 137 mg/dL (70-99) 132 mg/dL (70-99) 188 mg/dL (70-99) White Blood Count 15.2 x10^3/uL (4.0-11.0) Red Blood Count 2.56 x10^6/uL (4.30-5.70) Hemoglobin 8.9 g/dL (13.0-17.5) Hematocrit 24.9 % (39.0-53.0) Mean Corpuscular Volume 98 fL (79-100) Mean Corpuscular Hemoglobin 35 pg (25-35) Mean Corpuscular Hemoglobin Concent 36 g/dL (31-37) Red Cell Distribution Width 13.3 % (11.5-14.5) Platelet Count 316 x10^3/uL (140-400) Neutrophils (%) (Auto) 76 % (31-73) Lymphocytes (%) (Auto) 16 % (24-48) Monocytes (%) (Auto) 6 % (0-9) Eosinophils (%) (Auto) 1 % (0-3) Basophils (%) (Auto) 0 % (0-3) Neutrophils # (Auto) 11.6 x10^3uL (1.8-7.7) Lymphocytes # (Auto) 2.5 x10^3/uL (1.0-4.8) Monocytes # (Auto) 0.9 x10^3/uL (0.0-1.1) Eosinophils # (Auto) 0.2 x10^3/uL (0.0-0.7) Basophils # (Auto) 0.0 x10^3/uL (0.0-0.2) Prothrombin Time 19.5 SEC (11.7-14.0) Prothromb Time International Ratio 1.7 (0.8-1.1) Sodium Level 133 mmol/L (136-145) Potassium Level 4.1 mmol/L (3.5-5.1) Chloride Level 98 mmol/L (98-107) Carbon Dioxide Level 27 mmol/L (21-32) Anion Gap 8 (6-14) Blood Urea Nitrogen 28 mg/dL (8-26) Creatinine 0.9 mg/dL (0.7-1.3) Estimated GFR (Cockcroft-Gault) 83.9 Glucose Level 161 mg/dL (70-99) Calcium Level 8.9 mg/dL (8.5-10.1) Test 09/13/18 08:08 Glucose (Fingerstick) 208 mg/dL (70-99) Medications Current Medications Morphine Sulfate 5 mg/Ketorolac Tromethamine 30 mg/Ropivacaine 60 ml/ Epinephrine HCl 0.5 mg/Sodium Chloride 100 ml @ 100 mls/hr 1X ONCE INT ART ; Start 09/06/18 at 06:00; Stop 09/06/18 at 07:00; Status DC Ondansetron HCl (Zofran) 4 mg PRN Q6HRS PRN IV NAUSEA/VOMITING; Start at 07:00; Stop 09/06/18 at 21:00; Status DC Fentanyl Citrate (Fentanyl 2ml Vial) 25 mcg PRN Q5MIN PRN IV MILD PAIN; Start 09/06/18 at 07:00; Stop 09/06/18 at 21:00; Status DC Fentanyl Citrate (Fentanyl 2ml Vial) 50 mcg PRN Q5MIN PRN IV MODERATE TO SEVERE PAIN Last administered on 09/06/18at 19:02; Start 09/06/18 at 07:00; Stop 09/06/18 at 21:00; Status DC Morphine Sulfate (Morphine Sulfate) 1 mg PRN Q10MIN PRN IV SEVERE PAIN; Start 09/06/18 at 07:00; Stop 09/06/18 at 21:00; Status DC Ringer's Solution 1,000 ml @ 30 mls/hr Q24H IV Last administered on at 09:45; Start 09/06/18 at 07:00; Stop 09/06/18 at 18:59; Status DC Lidocaine HCl (Xylocaine-Mpf 1% 2ml Vial) 2 ml PRN 1X PRN ID PRIOR TO IV START ; Start 09/06/18 at 07:00; Stop 09/06/18 at 21:00; Status DC Hydromorphone HCl (Dilaudid) 0.5 mg PRN Q10MIN PRN IV SEV PAIN, Second choice; Start 09/06/18 at 07:00; Stop 09/06/18 at 21:00; Status DC Prochlorperazine Edisylate (Compazine) 5 mg PACU PRN PRN IV NAUSEA, MRX1; Start 09/06/18 at 07:00; Stop 09/06/18 at 21:00; Status DC Acetaminophen/ Hydrocodone Bitart (Lortab 7.5/325) 2 tab 1X PREOP PRN PO PRIOR TO PROCEDURE Last administered on 09/06/18at 09:48; Start 09/06/18 at 06:00; Stop 09/06/18 at 18:00; Status DC Cefazolin Sodium/ Dextrose 50 ml @ 100 mls/hr 1X PREOP PRN IV PRIOR TO PROCEDURE Last administered on 09/06/18at 14:43; Start 09/06/18 at 06:00; Stop 09/06/18 at 18:00; Status DC Tranexamic Acid 1000 mg/Sodium Chloride 60 ml @ 60 mls/hr 1X PERIOP ONCE INJ Last administered on 09/06/18at 15:00; Start 09/06/18 at 06:00; Stop 09/06/18 at 07:00; Status DC Tranexamic Acid 1000 mg/Sodium Chloride 60 ml @ 60 mls/hr 1X PERIOP ONCE INJ Last administered on 09/06/18at 17:10; Start 09/06/18 at 08:00; Stop 09/06/18 at 08:59; Status DC Propofol 20 ml @ As Directed STK-MED ONCE IV ; Start 09/06/18 at 13:17; Stop 09/06/18 at 13:18; Status DC Dexamethasone Sodium Phosphate (Decadron) 20 mg STK-MED ONCE .ROUTE ; Start at 13:17; Stop 09/06/18 at 13:18; Status DC Famotidine (Pepcid Vial) 20 mg STK-MED ONCE .ROUTE ; Start 09/06/18 at 13:17; Stop 09/06/18 at 13:18; Status DC Lidocaine HCl (Lidocaine Pf 2% Vial) 5 ml STK-MED ONCE .ROUTE ; Start 09/06/18 at 13:17; Stop 09/06/18 at 13:18; Status DC Ondansetron HCl (Zofran) 4 mg STK-MED ONCE .ROUTE ; Start 09/06/18 at 13:17; Stop 09/06/18 at 13:18; Status DC Rocuronium [place] (Zemuron) 50 mg STK-MED ONCE .ROUTE ; Start 09/06/18 at 13: 17; Stop 09/06/18 at 13:18; Status DC Fentanyl Citrate (Fentanyl 2ml Vial) 100 mcg STK-MED ONCE .ROUTE ; Start at 13:17; Stop 09/06/18 at 13:18; Status DC Midazolam HCl (Versed) 2 mg STK-MED ONCE .ROUTE ; Start 09/06/18 at 13:17; Stop 09/06/18 at 13:18; Status DC Morphine Sulfate 5 mg/Ketorolac Tromethamine 30 mg/Ropivacaine 32 ml/ Epinephrine HCl 0.5 mg/Sodium Chloride 100 ml @ 100 mls/hr 1X ONCE INT ART Last administered on 09/06/18at 15:21; Start 09/06/18 at 14:15; Stop 09/06/18 at 15:14; Status DC Acetaminophen/ Hydrocodone Bitart (Lortab 7.5/325) 1 tab PRN Q3HRS PRN PO MODERATE PAIN, 1st CHOICE Last administered on 09/10/18at 02:40; Start at 15:00 Acetaminophen/ Hydrocodone Bitart (Lortab 10/325) 1 tab PRN Q3HRS PRN PO MODERATE PAIN, 2nd CHOICE; Start 09/06/18 at 15:00 Tramadol HCl (Ultram) 50 mg PRN QID PRN PO MODERATE PAIN, 3rd CHOICE; Start at 15:00 Oxycodone/ Acetaminophen (Percocet 5/325) 1 tab PRN Q3HRS PRN PO SEVERE PAIN, 1st CHOICE; Start 09/06/18 at 15:00 Oxycodone/ Acetaminophen (Percocet 7.5/ 325) 1 tab PRN Q3HRS PRN PO SEVERE PAIN , 2nd CHOICE Last administered on 09/13/18at 04:12; Start 09/06/18 at 15:00 Tramadol HCl (Ultram) 100 mg PRN Q3HRS PRN PO SEVERE PAIN, 3rd CHOICE; Start 09/06/18 at 15:00 Morphine Sulfate (Morphine Sulfate) 2 mg PRN Q1HR PRN IV PAIN; Start 09/06/18 at 15:00 Fentanyl Citrate (Fentanyl 2ml Vial) 25 mcg PRN Q1HR PRN IV PAIN, 2nd CHOICE; Start 09/06/18 at 15:00 Warfarin Sodium (Coumadin) 7.5 mg 1X ONCE PO Last administered on 09/06/18at 20:01; Start 09/06/18 at 16:00; Stop 09/06/18 at 16:01; Status DC Warfarin Sodium (Coumadin Per Pharmacy) 1 each PRN DAILY PRN MC SEE COMMENTS Last administered on 09/12/18at 11:41; Start 09/06/18 at 15:00 Multivitamins (Thera M Plus) 1 tab DAILY PO Last administered on 09/13/18 07: 56; Start 09/06/18 at 17:00 Senna/Docusate Sodium (Senna Plus) 1 tab DAILY PO Last administered on 07:56; Start 09/06/18 at 16:00 Ferrous Sulfate (Feosol) 325 mg BIDWMEALS PO Last administered on 09/13/18 07 :55; Start 09/06/18 at 17:00 Celecoxib (CeleBREX) 200 mg BID PO Last administered on 09/13/18 07:56; Start 09/06/18 at 21:00 Dextrose/Sodium Chloride 1,000 ml @ 100 mls/hr Q10H IV Last administered on at 19:42; Start 09/06/18 at 14:50; Stop 09/07/18 at 17:57; Status DC Magnesium Hydroxide (Milk Of Magnesia) 2,400 mg 1X PRN PRN PO CONSTIPATION; Start 09/07/18 at 06:00; Stop 09/08/18 at 05:59; Status DC Bisacodyl (Dulcolax Supp) 10 mg 1X PRN PRN [place] CONSTIPATION; Start 09/07/18 at 16:00; Stop 09/08/18 at 15:59; Status DC Acetaminophen (Tylenol) 650 mg PRN Q4HRS PRN PO MILD PAIN / TEMP; Start at 15:00 Zolpidem Tartrate (Ambien) 5 mg PRN QHS PRN PO INSOMNIA, MAY REPEAT IN 1HR Last administered on 09/12/18at 20:36; Start 09/06/18 at 15:00 Calcium Carbonate/ Glycine (Tums) 500 mg PRN QID PRN PO INDIGESTION Last administered on 09/13/18at 10:52; Start 09/06/18 at 15:00 Morphine Sulfate (Morphine Sulfate) 4 mg PRN Q1HR PRN IV PAIN Last administered on 09/13/18at 10:53; Start 09/06/18 at 15:00 Ketorolac Tromethamine 30 mg/Bupivacaine HCl 20 ml/ Epinephrine HCl 0.5 mg/ Miscellaneous 43 ml @ 258 mls/hr Q12H INT ART Last administered on 09/07/18at 11:59; Start 09/06/18 at 20:00; Stop 09/07/18 at 08:09; Status DC Sodium Chloride (Normal Saline Flush) 10 ml QSHIFT PRN IV AFTER MEDS AND BLOOD DRAWS; Start 09/06/18 at 15:00 Fentanyl Citrate (Fentanyl 2ml Vial) 50 mcg PRN Q1HR PRN IV PAIN, 2nd CHOICE Last administered on 09/06/18at 19:52; Start 09/06/18 at 15:00 Prochlorperazine Edisylate (Compazine) 10 mg PRN Q4HRS PRN IV NAUSEA/VOMITING Last administered on 09/09/18at 05:19; Start 09/06/18 at 15:00 Dextrose (Dextrose 50%-Water Syringe) 12.5 gm PRN Q15MIN PRN IV SEE COMMENTS; Start 09/06/18 at 15:00; Stop 09/10/18 at 11:39; Status DC Cefazolin Sodium/ Dextrose 50 ml @ 100 mls/hr Q6H IV Last administered on at 08:17; Start 09/06/18 at 21:00; Stop 09/07/18 at 09:29; Status DC Ephedrine Sulfate (ePHEDrine PF IN SALINE SYRINGE) 50 mg STK-MED ONCE IV ; Start 09/06/18 at 16:46; Stop 09/06/18 at 16:47; Status DC Desflurane (Suprane) 90 ml STK-MED ONCE IH ; Start 09/06/18 at 16:46; Stop at 16:47; Status DC Neostigmine Methylsulfate (Neostigmine Methylsulfate) 5 mg STK-MED ONCE .ROUTE ; Start 09/06/18 at 16:47; Stop 09/06/18 at 16:48; Status DC Glycopyrrolate (Robinul) 1 mg STK-MED ONCE .ROUTE ; Start 09/06/18 at 16:47; Stop 09/06/18 at 16:48; Status DC Fentanyl Citrate (Fentanyl 2ml Vial) 100 mcg STK-MED ONCE .ROUTE ; Start at 17:58; Stop 09/06/18 at 17:59; Status DC Insulin Human Lispro (HumaLOG) 0-5 UNITS TIDWMEALS SQ Last administered on at 08:16; Start 09/07/18 at 08:00; Stop 09/07/18 at 11:52; Status DC Glimepiride (Amaryl) 2 mg DAILY PO Last administered on 09/13/18at 07:56; Start 09/07/18 at 09:00 Levothyroxine Sodium (Synthroid) 100 mcg DAILY06 PO Last administered on at 06:14; Start 09/07/18 at 06:00 Ascorbic Acid (Vitamin C) 1,000 mg DAILY PO Last administered on 09/13/18at 08: 20; Start 09/07/18 at 09:00 Lisinopril (Prinivil) 20 mg DAILY PO Last administered on 09/13/18at 08:20; Start 09/07/18 at 09:00 Hydrochlorothiazide (Microzide) 12.5 mg DAILY PO Last administered on 08:20; Start 09/07/18 at 09:00 Metformin HCl (Glucophage) 1,000 mg BIDWMEALS PO Last administered on at 08:20; Start 09/07/18 at 08:00 Influenza Virus Vaccine (Afluria Trivalent [id number] Syringe) 0.5 ml ONCE ONCE VAX IM Last administered on 09/12/18at 13:59; Start 09/07/18 at 09:00; Stop 09/07/18 at 09:01; Status DC Insulin Human Lispro (HumaLOG) 0-7 UNITS TIDWMEALS SQ Last administered on at 17:17; Start 09/07/18 at 12:00; Stop 09/07/18 at 17:57; Status DC Dextrose (Dextrose 50%-Water Syringe) 12.5 gm PRN Q15MIN PRN IV SEE COMMENTS; Start 09/07/18 at 12:00; Status UNV Warfarin Sodium (Coumadin) 5 mg 1X WARF ONCE PO Last administered on at 17:11; Start 09/07/18 at 16:00; Stop 09/07/18 at 16:01; Status DC Insulin Human Lispro (HumaLOG) 0-9 UNITS TIDWMEALS SQ Last administered on at 12:00; Start 09/08/18 at 08:00 Dextrose (Dextrose 50%-Water Syringe) 12.5 gm PRN Q15MIN PRN IV SEE COMMENTS; Start 09/07/18 at 18:00 Insulin Glargine (Lantus) 12 units QHS SQ Last administered on 09/12/18at 20:42 ; Start 09/07/18 at 21:00 Warfarin Sodium (Coumadin) 2 mg 1X WARF ONCE PO Last administered on at 16:00; Start 09/08/18 at 16:00; Stop 09/08/18 at 16:01; Status DC Enoxaparin Sodium (Lovenox 80mg Syringe) 80 mg 1X ONCE SQ Last administered on 09/08/18at 16:01; Start 09/08/18 at 16:00; Stop 09/08/18 at 16:01; Status DC Enoxaparin Sodium (Lovenox 80mg Syringe) 80 mg Q12HR SQ Last administered on at 07:56; Start 09/09/18 at 06:00 Warfarin Sodium (Coumadin) 2 mg 1X WARF ONCE PO Last administered on at 16:42; Start 09/09/18 at 16:00; Stop 09/09/18 at 16:01; Status DC Ondansetron HCl (Zofran) 4 mg PRN Q6HRS PRN IV NAUSEA/VOMITING; Start at 07:00; Stop 09/12/18 at 07:00; Status DC Fentanyl Citrate (Fentanyl 2ml Vial) 25 mcg PRN Q5MIN PRN IV MILD PAIN; Start 09/12/18 at 07:00; Stop 09/12/18 at 07:00; Status DC Fentanyl Citrate (Fentanyl 2ml Vial) 50 mcg PRN Q5MIN PRN IV MODERATE TO SEVERE PAIN; Start 09/12/18 at 07:00; Stop 09/12/18 at 07:00; Status DC Morphine Sulfate (Morphine Sulfate) 1 mg PRN Q10MIN PRN IV SEVERE PAIN; Start 09/12/18 at 07:00; Stop 09/12/18 at 07:00; Status DC Ringer's Solution 1,000 ml @ 30 mls/hr Q24H IV ; Start 09/12/18 at 07:00; Stop 09/12/18 at 18:59; Status DC Lidocaine HCl (Xylocaine-Mpf 1% 2ml Vial) 2 ml PRN 1X PRN ID PRIOR TO IV START ; Start 09/12/18 at 07:00; Stop 09/12/18 at 07:00; Status DC Hydromorphone HCl (Dilaudid) 0.5 mg PRN Q10MIN PRN IV SEV PAIN, Second choice; Start 09/12/18 at 07:00; Stop 09/12/18 at 07:00; Status DC Prochlorperazine Edisylate (Compazine) 5 mg PACU PRN PRN IV NAUSEA, MRX1; Start 09/12/18 at 07:00; Stop 09/12/18 at 07:00; Status DC Warfarin Sodium (Coumadin) 3 mg 1X WARF ONCE PO Last administered on at 18:14; Start 09/10/18 at 16:00; Stop 09/10/18 at 16:01; Status DC Sodium Chloride 1,000 ml @ 75 mls/hr [id number] IV Last administered on at 06:02; Start 09/10/18 at 12:45; Stop 09/12/18 at 09:54; Status DC Warfarin Sodium (Coumadin) 4 mg 1X WARF ONCE PO Last administered on at 17:43; Start 09/11/18 at 16:00; Stop 09/11/18 at 16:01; Status DC Info (Anti-Coagulation Monitoring By Pharmacy) 1 each PRN DAILY PRN MC SEE COMMENTS; Start 09/12/18 at 11:00 Warfarin Sodium (Coumadin) 5 mg 1X WARF ONCE PO Last administered on at 16:02; Start 09/12/18 at 16:00; Stop 09/12/18 at 16:01; Status DC Active Scripts Active Simpson 7.5-325 Tablet (Acetaminophen/Hydrocodone Bitart) 1 Each Tablet 1 Tab PO PRN Q6HRS PRN Reported Aleve (Naproxen Sodium) 220 Mg Tablet 220 Mg PO BID Tramadol Hcl 50 Mg Tablet 50 Mg PO Q6HRS PRN Glucosamine (Glucosamine Sulfate 2KCL) 1,000 Mg Tablet 1,000 Mg PO DAILY Multivitamins (Multivitamin) 1 Each Tablet 1 Tab PO DAILY Vitamin C (Ascorbic Acid) 100 Mg Tablet 1,000 Mg PO DAILY Hydrochlorothiazide Capsule (Hydrochlorothiazide) 12.5 Mg Capsule 1 Cap PO DAILY Benazepril Hcl 20 Mg Tablet 1 Tab PO DAILY Glimepiride 2 Mg Tablet 1 Tab PO DAILY Metformin Hcl 1,000 Mg Tablet 1,000 Mg PO BID Levothyroxine Sodium 100 Mcg Tablet 1 Tab PO DAILY Vitals/I & O Vital Sign - Last 24 Hours 09/12/18 09/12/18 09/12/18 09/12/18 13:57 15:00 17:45 19:30 Temp 97.5 98.0 97.5 98.0 Pulse 77 85 Resp 16 18 17 B/P (MAP) 136/62 (86) 121/60 (80) Pulse Ox 99 97 O2 Delivery Room Air Room Air Room Air Room Air 09/12/18 09/12/18 09/12/18 09/13/18 20:00 20:37 23:35 01:12 Temp 97.8 97.8 Pulse 87 Resp 18 19 18 B/P (MAP) 151/76 (101) Pulse Ox 97 O2 Delivery Room Air Room Air Room Air Room Air 09/13/18 09/13/18 09/13/18 09/13/18 02:20 03:15 03:30 04:12 Temp 96.6 96.6 Pulse 82 Resp 20 18 18 18 B/P (MAP) 177/66 (103) Pulse Ox 99 O2 Delivery Room Air Room Air Room Air Room Air 09/13/18 09/13/18 09/13/18 09/13/18 05:15 07:00 08:00 08:20 Temp 97.8 97.8 Pulse 92 82 Resp 18 18 B/P (MAP) 170/79 (109) 177/66 Pulse Ox 100 O2 Delivery Room Air Room Air Room Air Intake and Output 09/12/18 09/12/18 09/13/18 15:00 23:00 07:00 Intake Total 200 ml 1000 ml Output Total 400 ml Balance 200 ml 600 ml CORTNEY BOJORQUEZ APRN Sep 13, 2018 11:09
[2018-09-13 13:17] LABS: % EOS 1 % (0-5); % LYMPHS 12 % (24-48); % MONOS 6 % (0-10); % SEGS 81 % (35-66); PLT ESTIMATE ADEQUATE (ADEQUATE)
[2018-09-13 13:18] LABS: HYPOCHROMIA SLIGHT
--- NOTE | 2018-09-13 13:18 | PDOC ---
PROGRESS NOTES Chief Complaint Chief Complaint Rt hip DJD S/p right hip arthroplasty 09/06 Extensive right leg DVT - confirmed 09/08 Leukocytosis likely 2/2 to intra-op steroids - resolved Hyponatremia - resolved H/o DM H/o HTN H/o hypothyroid plan: fu with onco, ortho. vascular no vascular sx plan for now currently on warfarin and lovenox bid for bridging, INR goal2-3 fu with need rehab for dc pain control cont home meds for dm2, htn PTOT thanks for asking for consult History of Present Illness History of Present Illness Pt seen and examined Discussed w/RN Discussed w/PT rt thigh swelling slightly better rt thigh has a post op drain pt able to walk a little bit with PTOT, wants rehab c/p pain with wedge trey under the legs INR 1.7 Vitals Vitals Vital Signs Date Time Temp Pulse Resp B/P (MAP) Pulse Ox O2 Delivery O2 Flow Rate FiO2 09/13/18 11:00 97.6 91 18 138/70 (92) 99 Room Air 97.6 Physical Exam Physical Exam Neck: Supple, no JVD General: No acute distress, Other (Pt was asleep and appeared to be in NAD) Heart: Regular rate, No murmurs Lungs: Clear Abdomen: Soft, No tenderness Extremities: Other (rt thigh wound has a small drain, right thigh moderate swelling) Skin: No rashes Labs LABS Laboratory Tests Test 09/12/18 16:47 09/12/18 20:27 09/13/18 04:15 09/13/18 08:08 Glucose (Fingerstick) 132 mg/dL (70-99) 188 mg/dL (70-99) 208 mg/dL (70-99) White Blood Count 15.2 x10^3/uL (4.0-11.0) Red Blood Count 2.56 x10^6/uL (4.30-5.70) Hemoglobin 8.9 g/dL (13.0-17.5) Hematocrit 24.9 % (39.0-53.0) Mean Corpuscular Volume 98 fL (79-100) Mean Corpuscular Hemoglobin 35 pg (25-35) Mean Corpuscular Hemoglobin Concent 36 g/dL (31-37) Red Cell Distribution Width 13.3 % (11.5-14.5) Platelet Count 316 x10^3/uL (140-400) Neutrophils (%) (Auto) 76 % (31-73) Lymphocytes (%) (Auto) 16 % (24-48) Monocytes (%) (Auto) 6 % (0-9) Eosinophils (%) (Auto) 1 % (0-3) Basophils (%) (Auto) 0 % (0-3) Neutrophils # (Auto) 11.6 x10^3uL (1.8-7.7) Lymphocytes # (Auto) 2.5 x10^3/uL (1.0-4.8) Monocytes # (Auto) 0.9 x10^3/uL (0.0-1.1) Eosinophils # (Auto) 0.2 x10^3/uL (0.0-0.7) Basophils # (Auto) 0.0 x10^3/uL (0.0-0.2) Prothrombin Time 19.5 SEC (11.7-14.0) Prothromb Time International Ratio 1.7 (0.8-1.1) Sodium Level 133 mmol/L (136-145) Potassium Level 4.1 mmol/L (3.5-5.1) Chloride Level 98 mmol/L (98-107) Carbon Dioxide Level 27 mmol/L (21-32) Anion Gap 8 (6-14) Blood Urea Nitrogen 28 mg/dL (8-26) Creatinine 0.9 mg/dL (0.7-1.3) Estimated GFR (Cockcroft-Gault) 83.9 Glucose Level 161 mg/dL (70-99) Calcium Level 8.9 mg/dL (8.5-10.1) Test 09/13/18 12:06 Glucose (Fingerstick) 178 mg/dL (70-99) Comment Review of Relevant I have reviewed the following items digna (where applicable) has been applied. Labs Laboratory Tests Test 09/11/18 16:51 09/11/18 21:05 09/12/18 07:38 09/12/18 09:05 Glucose (Fingerstick) 81 mg/dL (70-99) 179 mg/dL (70-99) 98 mg/dL (70-99) White Blood Count 10.0 x10^3/uL (4.0-11.0) Red Blood Count 2.42 x10^6/uL (4.30-5.70) Hemoglobin 8.4 g/dL (13.0-17.5) Hematocrit 23.7 % (39.0-53.0) Mean Corpuscular Volume 98 fL (79-100) Mean Corpuscular Hemoglobin 35 pg (25-35) Mean Corpuscular Hemoglobin Concent 36 g/dL (31-37) Red Cell Distribution Width 13.3 % (11.5-14.5) Platelet Count 237 x10^3/uL (140-400) Neutrophils (%) (Auto) 64 % (31-73) Lymphocytes (%) (Auto) 26 % (24-48) Monocytes (%) (Auto) 7 % (0-9) Eosinophils (%) (Auto) 3 % (0-3) Basophils (%) (Auto) 0 % (0-3) Neutrophils # (Auto) 6.4 x10^3uL (1.8-7.7) Lymphocytes # (Auto) 2.6 x10^3/uL (1.0-4.8) Monocytes # (Auto) 0.7 x10^3/uL (0.0-1.1) Eosinophils # (Auto) 0.3 x10^3/uL (0.0-0.7) Basophils # (Auto) 0.0 x10^3/uL (0.0-0.2) Prothrombin Time 18.8 SEC (11.7-14.0) Prothromb Time International Ratio 1.6 (0.8-1.1) Sodium Level 137 mmol/L (136-145) Potassium Level 4.6 mmol/L (3.5-5.1) Chloride Level 103 mmol/L (98-107) Carbon Dioxide Level 28 mmol/L (21-32) Anion Gap 6 (6-14) Blood Urea Nitrogen 34 mg/dL (8-26) Creatinine 1.2 mg/dL (0.7-1.3) Estimated GFR (Cockcroft-Gault) 60.2 Glucose Level 161 mg/dL (70-99) Calcium Level 8.4 mg/dL (8.5-10.1) Test 09/12/18 11:32 09/12/18 16:47 09/12/18 20:27 09/13/18 04:15 Glucose (Fingerstick) 137 mg/dL (70-99) 132 mg/dL (70-99) 188 mg/dL (70-99) White Blood Count 15.2 x10^3/uL (4.0-11.0) Red Blood Count 2.56 x10^6/uL (4.30-5.70) Hemoglobin 8.9 g/dL (13.0-17.5) Hematocrit 24.9 % (39.0-53.0) Mean Corpuscular Volume 98 fL (79-100) Mean Corpuscular Hemoglobin 35 pg (25-35) Mean Corpuscular Hemoglobin Concent 36 g/dL (31-37) Red Cell Distribution Width 13.3 % (11.5-14.5) Platelet Count 316 x10^3/uL (140-400) Neutrophils (%) (Auto) 76 % (31-73) Lymphocytes (%) (Auto) 16 % (24-48) Monocytes (%) (Auto) 6 % (0-9) Eosinophils (%) (Auto) 1 % (0-3) Basophils (%) (Auto) 0 % (0-3) Neutrophils # (Auto) 11.6 x10^3uL (1.8-7.7) Lymphocytes # (Auto) 2.5 x10^3/uL (1.0-4.8) Monocytes # (Auto) 0.9 x10^3/uL (0.0-1.1) Eosinophils # (Auto) 0.2 x10^3/uL (0.0-0.7) Basophils # (Auto) 0.0 x10^3/uL (0.0-0.2) Prothrombin Time 19.5 SEC (11.7-14.0) Prothromb Time International Ratio 1.7 (0.8-1.1) Sodium Level 133 mmol/L (136-145) Potassium Level 4.1 mmol/L (3.5-5.1) Chloride Level 98 mmol/L (98-107) Carbon Dioxide Level 27 mmol/L (21-32) Anion Gap 8 (6-14) Blood Urea Nitrogen 28 mg/dL (8-26) Creatinine 0.9 mg/dL (0.7-1.3) Estimated GFR (Cockcroft-Gault) 83.9 Glucose Level 161 mg/dL (70-99) Calcium Level 8.9 mg/dL (8.5-10.1) Test 09/13/18 08:08 09/13/18 12:06 Glucose (Fingerstick) 208 mg/dL (70-99) 178 mg/dL (70-99) Laboratory Tests Test 09/12/18 16:47 09/12/18 20:27 09/13/18 04:15 09/13/18 08:08 Glucose (Fingerstick) 132 mg/dL (70-99) 188 mg/dL (70-99) 208 mg/dL (70-99) White Blood Count 15.2 x10^3/uL (4.0-11.0) Red Blood Count 2.56 x10^6/uL (4.30-5.70) Hemoglobin 8.9 g/dL (13.0-17.5) Hematocrit 24.9 % (39.0-53.0) Mean Corpuscular Volume 98 fL (79-100) Mean Corpuscular Hemoglobin 35 pg (25-35) Mean Corpuscular Hemoglobin Concent 36 g/dL (31-37) Red Cell Distribution Width 13.3 % (11.5-14.5) Platelet Count 316 x10^3/uL (140-400) Neutrophils (%) (Auto) 76 % (31-73) Lymphocytes (%) (Auto) 16 % (24-48) Monocytes (%) (Auto) 6 % (0-9) Eosinophils (%) (Auto) 1 % (0-3) Basophils (%) (Auto) 0 % (0-3) Neutrophils # (Auto) 11.6 x10^3uL (1.8-7.7) Lymphocytes # (Auto) 2.5 x10^3/uL (1.0-4.8) Monocytes # (Auto) 0.9 x10^3/uL (0.0-1.1) Eosinophils # (Auto) 0.2 x10^3/uL (0.0-0.7) Basophils # (Auto) 0.0 x10^3/uL (0.0-0.2) Prothrombin Time 19.5 SEC (11.7-14.0) Prothromb Time International Ratio 1.7 (0.8-1.1) Sodium Level 133 mmol/L (136-145) Potassium Level 4.1 mmol/L (3.5-5.1) Chloride Level 98 mmol/L (98-107) Carbon Dioxide Level 27 mmol/L (21-32) Anion Gap 8 (6-14) Blood Urea Nitrogen 28 mg/dL (8-26) Creatinine 0.9 mg/dL (0.7-1.3) Estimated GFR (Cockcroft-Gault) 83.9 Glucose Level 161 mg/dL (70-99) Calcium Level 8.9 mg/dL (8.5-10.1) Test 09/13/18 12:06 Glucose (Fingerstick) 178 mg/dL (70-99) Medications Current Medications Morphine Sulfate 5 mg/Ketorolac Tromethamine 30 mg/Ropivacaine 60 ml/ Epinephrine HCl 0.5 mg/Sodium Chloride 100 ml @ 100 mls/hr 1X ONCE INT ART ; Start 09/06/18 at 06:00; Stop 09/06/18 at 07:00; Status DC Ondansetron HCl (Zofran) 4 mg PRN Q6HRS PRN IV NAUSEA/VOMITING; Start at 07:00; Stop 09/06/18 at 21:00; Status DC Fentanyl Citrate (Fentanyl 2ml Vial) 25 mcg PRN Q5MIN PRN IV MILD PAIN; Start 09/06/18 at 07:00; Stop 09/06/18 at 21:00; Status DC Fentanyl Citrate (Fentanyl 2ml Vial) 50 mcg PRN Q5MIN PRN IV MODERATE TO SEVERE PAIN Last administered on 09/06/18at 19:02; Start 09/06/18 at 07:00; Stop 09/06/18 at 21:00; Status DC Morphine Sulfate (Morphine Sulfate) 1 mg PRN Q10MIN PRN IV SEVERE PAIN; Start 09/06/18 at 07:00; Stop 09/06/18 at 21:00; Status DC Ringer's Solution 1,000 ml @ 30 mls/hr Q24H IV Last administered on at 09:45; Start 09/06/18 at 07:00; Stop 09/06/18 at 18:59; Status DC Lidocaine HCl (Xylocaine-Mpf 1% 2ml Vial) 2 ml PRN 1X PRN ID PRIOR TO IV START ; Start 09/06/18 at 07:00; Stop 09/06/18 at 21:00; Status DC Hydromorphone HCl (Dilaudid) 0.5 mg PRN Q10MIN PRN IV SEV PAIN, Second choice; Start 09/06/18 at 07:00; Stop 09/06/18 at 21:00; Status DC Prochlorperazine Edisylate (Compazine) 5 mg PACU PRN PRN IV NAUSEA, MRX1; Start 09/06/18 at 07:00; Stop 09/06/18 at 21:00; Status DC Acetaminophen/ Hydrocodone Bitart (Lortab 7.5/325) 2 tab 1X PREOP PRN PO PRIOR TO PROCEDURE Last administered on 09/06/18at 09:48; Start 09/06/18 at 06:00; Stop 09/06/18 at 18:00; Status DC Cefazolin Sodium/ Dextrose 50 ml @ 100 mls/hr 1X PREOP PRN IV PRIOR TO PROCEDURE Last administered on 09/06/18at 14:43; Start 09/06/18 at 06:00; Stop 09/06/18 at 18:00; Status DC Tranexamic Acid 1000 mg/Sodium Chloride 60 ml @ 60 mls/hr 1X PERIOP ONCE INJ Last administered on 09/06/18at 15:00; Start 09/06/18 at 06:00; Stop 09/06/18 at 07:00; Status DC Tranexamic Acid 1000 mg/Sodium Chloride 60 ml @ 60 mls/hr 1X PERIOP ONCE INJ Last administered on 09/06/18at 17:10; Start 09/06/18 at 08:00; Stop 09/06/18 at 08:59; Status DC Propofol 20 ml @ As Directed STK-MED ONCE IV ; Start 09/06/18 at 13:17; Stop 09/06/18 at 13:18; Status DC Dexamethasone Sodium Phosphate (Decadron) 20 mg STK-MED ONCE .ROUTE ; Start at 13:17; Stop 09/06/18 at 13:18; Status DC Famotidine (Pepcid Vial) 20 mg STK-MED ONCE .ROUTE ; Start 09/06/18 at 13:17; Stop 09/06/18 at 13:18; Status DC Lidocaine HCl (Lidocaine Pf 2% Vial) 5 ml STK-MED ONCE .ROUTE ; Start 09/06/18 at 13:17; Stop 09/06/18 at 13:18; Status DC Ondansetron HCl (Zofran) 4 mg STK-MED ONCE .ROUTE ; Start 09/06/18 at 13:17; Stop 09/06/18 at 13:18; Status DC Rocuronium [employer] (Zemuron) 50 mg STK-MED ONCE .ROUTE ; Start 09/06/18 at 13: 17; Stop 09/06/18 at 13:18; Status DC Fentanyl Citrate (Fentanyl 2ml Vial) 100 mcg STK-MED ONCE .ROUTE ; Start at 13:17; Stop 09/06/18 at 13:18; Status DC Midazolam HCl (Versed) 2 mg STK-MED ONCE .ROUTE ; Start 09/06/18 at 13:17; Stop 09/06/18 at 13:18; Status DC Morphine Sulfate 5 mg/Ketorolac Tromethamine 30 mg/Ropivacaine 32 ml/ Epinephrine HCl 0.5 mg/Sodium Chloride 100 ml @ 100 mls/hr 1X ONCE INT ART Last administered on 09/06/18at 15:21; Start 09/06/18 at 14:15; Stop 09/06/18 at 15:14; Status DC Acetaminophen/ Hydrocodone Bitart (Lortab 7.5/325) 1 tab PRN Q3HRS PRN PO MODERATE PAIN, 1st CHOICE Last administered on 09/10/18at 02:40; Start at 15:00 Acetaminophen/ Hydrocodone Bitart (Lortab 10/325) 1 tab PRN Q3HRS PRN PO MODERATE PAIN, 2nd CHOICE; Start 09/06/18 at 15:00 Tramadol HCl (Ultram) 50 mg PRN QID PRN PO MODERATE PAIN, 3rd CHOICE; Start at 15:00 Oxycodone/ Acetaminophen (Percocet 5/325) 1 tab PRN Q3HRS PRN PO SEVERE PAIN, 1st CHOICE; Start 09/06/18 at 15:00 Oxycodone/ Acetaminophen (Percocet 7.5/ 325) 1 tab PRN Q3HRS PRN PO SEVERE PAIN , 2nd CHOICE Last administered on 09/13/18at 04:12; Start 09/06/18 at 15:00 Tramadol HCl (Ultram) 100 mg PRN Q3HRS PRN PO SEVERE PAIN, 3rd CHOICE; Start 09/06/18 at 15:00 Morphine Sulfate (Morphine Sulfate) 2 mg PRN Q1HR PRN IV PAIN; Start 09/06/18 at 15:00 Fentanyl Citrate (Fentanyl 2ml Vial) 25 mcg PRN Q1HR PRN IV PAIN, 2nd CHOICE; Start 09/06/18 at 15:00 Warfarin Sodium (Coumadin) 7.5 mg 1X ONCE PO Last administered on 09/06/18at 20:01; Start 09/06/18 at 16:00; Stop 09/06/18 at 16:01; Status DC Warfarin Sodium (Coumadin Per Pharmacy) 1 each PRN DAILY PRN MC SEE COMMENTS Last administered on 09/13/18at 11:05; Start 09/06/18 at 15:00 Multivitamins (Thera M Plus) 1 tab DAILY PO Last administered on 09/13/18at 07: 56; Start 09/06/18 at 17:00 Senna/Docusate Sodium (Senna Plus) 1 tab DAILY PO Last administered on at 07:56; Start 09/06/18 at 16:00 Ferrous Sulfate (Feosol) 325 mg BIDWMEALS PO Last administered on 09/13/18at 07 :55; Start 09/06/18 at 17:00 Celecoxib (CeleBREX) 200 mg BID PO Last administered on 09/13/18at 07:56; Start 09/06/18 at 21:00 Dextrose/Sodium Chloride 1,000 ml @ 100 mls/hr Q10H IV Last administered on at 19:42; Start 09/06/18 at 14:50; Stop 09/07/18 at 17:57; Status DC Magnesium Hydroxide (Milk Of Magnesia) 2,400 mg 1X PRN PRN PO CONSTIPATION; Start 09/07/18 at 06:00; Stop 09/08/18 at 05:59; Status DC Bisacodyl (Dulcolax Supp) 10 mg 1X PRN PRN AR CONSTIPATION; Start 09/07/18 at 16:00; Stop 09/08/18 at 15:59; Status DC Acetaminophen (Tylenol) 650 mg PRN Q4HRS PRN PO MILD PAIN / TEMP; Start at 15:00 Zolpidem Tartrate (Ambien) 5 mg PRN QHS PRN PO INSOMNIA, MAY REPEAT IN 1HR Last administered on 09/12/18at 20:36; Start 09/06/18 at 15:00 Calcium Carbonate/ Glycine (Tums) 500 mg PRN QID PRN PO INDIGESTION Last administered on 09/13/18at 10:52; Start 09/06/18 at 15:00 Morphine Sulfate (Morphine Sulfate) 4 mg PRN Q1HR PRN IV PAIN Last administered on 09/13/18at 10:53; Start 09/06/18 at 15:00 Ketorolac Tromethamine 30 mg/Bupivacaine HCl 20 ml/ Epinephrine HCl 0.5 mg/ Miscellaneous 43 ml @ 258 mls/hr Q12H INT ART Last administered on 09/07/18at 11:59; Start 09/06/18 at 20:00; Stop 09/07/18 at 08:09; Status DC Sodium Chloride (Normal Saline Flush) 10 ml QSHIFT PRN IV AFTER MEDS AND BLOOD DRAWS; Start 09/06/18 at 15:00 Fentanyl Citrate (Fentanyl 2ml Vial) 50 mcg PRN Q1HR PRN IV PAIN, 2nd CHOICE Last administered on 09/06/18at 19:52; Start 09/06/18 at 15:00 Prochlorperazine Edisylate (Compazine) 10 mg PRN Q4HRS PRN IV NAUSEA/VOMITING Last administered on 09/09/18at 05:19; Start 09/06/18 at 15:00 Dextrose (Dextrose 50%-Water Syringe) 12.5 gm PRN Q15MIN PRN IV SEE COMMENTS; Start 09/06/18 at 15:00; Stop 09/10/18 at 11:39; Status DC Cefazolin Sodium/ Dextrose 50 ml @ 100 mls/hr Q6H IV Last administered on at 08:17; Start 09/06/18 at 21:00; Stop 09/07/18 at 09:29; Status DC Ephedrine Sulfate (ePHEDrine PF IN SALINE SYRINGE) 50 mg STK-MED ONCE IV ; Start 09/06/18 at 16:46; Stop 09/06/18 at 16:47; Status DC Desflurane (Suprane) 90 ml STK-MED ONCE IH ; Start 09/06/18 at 16:46; Stop at 16:47; Status DC Neostigmine Methylsulfate (Neostigmine Methylsulfate) 5 mg STK-MED ONCE .ROUTE ; Start 09/06/18 at 16:47; Stop 09/06/18 at 16:48; Status DC Glycopyrrolate (Robinul) 1 mg STK-MED ONCE .ROUTE ; Start 09/06/18 at 16:47; Stop 09/06/18 at 16:48; Status DC Fentanyl Citrate (Fentanyl 2ml Vial) 100 mcg STK-MED ONCE .ROUTE ; Start at 17:58; Stop 09/06/18 at 17:59; Status DC Insulin Human Lispro (HumaLOG) 0-5 UNITS TIDWMEALS SQ Last administered on at 08:16; Start 09/07/18 at 08:00; Stop 09/07/18 at 11:52; Status DC Glimepiride (Amaryl) 2 mg DAILY PO Last administered on 09/13/18at 07:56; Start 09/07/18 at 09:00 Levothyroxine Sodium (Synthroid) 100 mcg DAILY06 PO Last administered on at 06:14; Start 09/07/18 at 06:00 Ascorbic Acid (Vitamin C) 1,000 mg DAILY PO Last administered on 09/13/18at 08: 20; Start 09/07/18 at 09:00 Lisinopril (Prinivil) 20 mg DAILY PO Last administered on 09/13/18at 08:20; Start 09/07/18 at 09:00 Hydrochlorothiazide (Microzide) 12.5 mg DAILY PO Last administered on at 08:20; Start 09/07/18 at 09:00 Metformin HCl (Glucophage) 1,000 mg BIDWMEALS PO Last administered on at 08:20; Start 09/07/18 at 08:00 Influenza Virus Vaccine (Afluria Trivalent [id number] Syringe) 0.5 ml ONCE ONCE VAX IM Last administered on 09/12/18at 13:59; Start 09/07/18 at 09:00; Stop 09/07/18 at 09:01; Status DC Insulin Human Lispro (HumaLOG) 0-7 UNITS TIDWMEALS SQ Last administered on at 17:17; Start 09/07/18 at 12:00; Stop 09/07/18 at 17:57; Status DC Dextrose (Dextrose 50%-Water Syringe) 12.5 gm PRN Q15MIN PRN IV SEE COMMENTS; Start 09/07/18 at 12:00; Status UNV Warfarin Sodium (Coumadin) 5 mg 1X WARF ONCE PO Last administered on at 17:11; Start 09/07/18 at 16:00; Stop 09/07/18 at 16:01; Status DC Insulin Human Lispro (HumaLOG) 0-9 UNITS TIDWMEALS SQ Last administered on at 12:00; Start 09/08/18 at 08:00 Dextrose (Dextrose 50%-Water Syringe) 12.5 gm PRN Q15MIN PRN IV SEE COMMENTS; Start 09/07/18 at 18:00 Insulin Glargine (Lantus) 12 units QHS SQ Last administered on 09/12/18at 20:42 ; Start 09/07/18 at 21:00 Warfarin Sodium (Coumadin) 2 mg 1X WARF ONCE PO Last administered on at 16:00; Start 09/08/18 at 16:00; Stop 09/08/18 at 16:01; Status DC Enoxaparin Sodium (Lovenox 80mg Syringe) 80 mg 1X ONCE SQ Last administered on 09/08/18at 16:01; Start 09/08/18 at 16:00; Stop 09/08/18 at 16:01; Status DC Enoxaparin Sodium (Lovenox 80mg Syringe) 80 mg Q12HR SQ Last administered on at 07:56; Start 09/09/18 at 06:00 Warfarin Sodium (Coumadin) 2 mg 1X WARF ONCE PO Last administered on at 16:42; Start 09/09/18 at 16:00; Stop 09/09/18 at 16:01; Status DC Ondansetron HCl (Zofran) 4 mg PRN Q6HRS PRN IV NAUSEA/VOMITING; Start at 07:00; Stop 09/12/18 at 07:00; Status DC Fentanyl Citrate (Fentanyl 2ml Vial) 25 mcg PRN Q5MIN PRN IV MILD PAIN; Start 09/12/18 at 07:00; Stop 09/12/18 at 07:00; Status DC Fentanyl Citrate (Fentanyl 2ml Vial) 50 mcg PRN Q5MIN PRN IV MODERATE TO SEVERE PAIN; Start 09/12/18 at 07:00; Stop 09/12/18 at 07:00; Status DC Morphine Sulfate (Morphine Sulfate) 1 mg PRN Q10MIN PRN IV SEVERE PAIN; Start 09/12/18 at 07:00; Stop 09/12/18 at 07:00; Status DC Ringer's Solution 1,000 ml @ 30 mls/hr Q24H IV ; Start 09/12/18 at 07:00; Stop 09/12/18 at 18:59; Status DC Lidocaine HCl (Xylocaine-Mpf 1% 2ml Vial) 2 ml PRN 1X PRN ID PRIOR TO IV START ; Start 09/12/18 at 07:00; Stop 09/12/18 at 07:00; Status DC Hydromorphone HCl (Dilaudid) 0.5 mg PRN Q10MIN PRN IV SEV PAIN, Second choice; Start 09/12/18 at 07:00; Stop 09/12/18 at 07:00; Status DC Prochlorperazine Edisylate (Compazine) 5 mg PACU PRN PRN IV NAUSEA, MRX1; Start 09/12/18 at 07:00; Stop 09/12/18 at 07:00; Status DC Warfarin Sodium (Coumadin) 3 mg 1X WARF ONCE PO Last administered on at 18:14; Start 09/10/18 at 16:00; Stop 09/10/18 at 16:01; Status DC Sodium Chloride 1,000 ml @ 75 mls/hr [id number] IV Last administered on at 06:02; Start 09/10/18 at 12:45; Stop 09/12/18 at 09:54; Status DC Warfarin Sodium (Coumadin) 4 mg 1X WARF ONCE PO Last administered on at 17:43; Start 09/11/18 at 16:00; Stop 09/11/18 at 16:01; Status DC Info (Anti-Coagulation Monitoring By Pharmacy) 1 each PRN DAILY PRN MC SEE COMMENTS Last administered on 09/13/18at 11:08; Start 09/12/18 at 11:00 Warfarin Sodium (Coumadin) 5 mg 1X WARF ONCE PO Last administered on at 16:02; Start 09/12/18 at 16:00; Stop 09/12/18 at 16:01; Status DC Warfarin Sodium (Coumadin) 5 mg 1X WARF ONCE PO ; Start 09/13/18 at 16:00; Stop 09/13/18 at 16:01 Active Scripts Active [place] 7.5-325 Tablet (Acetaminophen/Hydrocodone Bitart) 1 Each Tablet 1 Tab PO PRN Q6HRS PRN Reported Aleve (Naproxen Sodium) 220 Mg Tablet 220 Mg PO BID Tramadol Hcl 50 Mg Tablet 50 Mg PO Q6HRS PRN Glucosamine (Glucosamine Sulfate 2KCL) 1,000 Mg Tablet 1,000 Mg PO DAILY Multivitamins (Multivitamin) 1 Each Tablet 1 Tab PO DAILY Vitamin C (Ascorbic Acid) 100 Mg Tablet 1,000 Mg PO DAILY Hydrochlorothiazide Capsule (Hydrochlorothiazide) 12.5 Mg Capsule 1 Cap PO DAILY Benazepril Hcl 20 Mg Tablet 1 Tab PO DAILY Glimepiride 2 Mg Tablet 1 Tab PO DAILY Metformin Hcl 1,000 Mg Tablet 1,000 Mg PO BID Levothyroxine Sodium 100 Mcg Tablet 1 Tab PO DAILY Vitals/I & O Vital Sign - Last 24 Hours 09/12/18 09/12/18 09/12/18 09/12/18 13:57 15:00 17:45 19:30 Temp 97.5 98.0 97.5 98.0 Pulse 77 85 Resp 16 18 17 B/P (MAP) 136/62 (86) 121/60 (80) Pulse Ox 99 97 O2 Delivery Room Air Room Air Room Air Room Air 09/12/18 09/12/18 09/12/18 09/13/18 20:00 20:37 23:35 01:12 Temp 97.8 97.8 Pulse 87 Resp 18 19 18 B/P (MAP) 151/76 (101) Pulse Ox 97 O2 Delivery Room Air Room Air Room Air Room Air 09/13/18 09/13/18 09/13/18 09/13/18 02:20 03:15 03:30 04:12 Temp 96.6 96.6 Pulse 82 Resp 20 18 18 18 B/P (MAP) 177/66 (103) Pulse Ox 99 O2 Delivery Room Air Room Air Room Air Room Air 09/13/18 09/13/18 09/13/18 09/13/18 05:15 07:00 08:00 08:20 Temp 97.8 97.8 Pulse 92 82 Resp 18 18 B/P (MAP) 170/79 (109) 177/66 Pulse Ox 100 O2 Delivery Room Air Room Air Room Air 09/13/18 11:00 Temp 97.6 97.6 Pulse 91 Resp 18 B/P (MAP) 138/70 (92) Pulse Ox 99 O2 Delivery Room Air Intake and Output 09/12/18 09/12/18 09/13/18 15:00 23:00 07:00 Intake Total 200 ml 1000 ml Output Total 400 ml Balance 200 ml 600 ml FANY HERMOSILLO MD Sep 13, 2018 13:18
[2018-09-13] MEDS: HYDROcodone/APAP 10/325 1 TAB TABLET PO PRN ×3 (13:40→22:15)
[2018-09-13 15:00] VITALS: BP 152/80
--- NOTE | 2018-09-13 15:15 | PDOC ---
PROGRESS NOTES Subjective Subjective Problems overnight: Still painful, able to get up and around some but right hip is stiff and sore Objective Vital Signs Vital Signs Date Time Temp Pulse Resp B/P (MAP) Pulse Ox O2 Delivery O2 Flow Rate FiO2 09/13/18 11:00 97.6 91 18 138/70 (92) 99 Room Air 97.6 09/09/18 20:30 2.0 Physical Exam Aris dressing intact some slight serous drainage from Hemovac puncture site leg lengths intact distal neurovascular status intact compartments soft swelling decreased in both thigh and calf Labs Laboratory Tests Test 09/11/18 16:51 09/11/18 21:05 09/12/18 07:38 09/12/18 09:05 Glucose (Fingerstick) 81 mg/dL (70-99) 179 mg/dL (70-99) 98 mg/dL (70-99) White Blood Count 10.0 x10^3/uL (4.0-11.0) Red Blood Count 2.42 x10^6/uL (4.30-5.70) Hemoglobin 8.4 g/dL (13.0-17.5) Hematocrit 23.7 % (39.0-53.0) Mean Corpuscular Volume 98 fL (79-100) Mean Corpuscular Hemoglobin 35 pg (25-35) Mean Corpuscular Hemoglobin Concent 36 g/dL (31-37) Red Cell Distribution Width 13.3 % (11.5-14.5) Platelet Count 237 x10^3/uL (140-400) Neutrophils (%) (Auto) 64 % (31-73) Lymphocytes (%) (Auto) 26 % (24-48) Monocytes (%) (Auto) 7 % (0-9) Eosinophils (%) (Auto) 3 % (0-3) Basophils (%) (Auto) 0 % (0-3) Neutrophils # (Auto) 6.4 x10^3uL (1.8-7.7) Lymphocytes # (Auto) 2.6 x10^3/uL (1.0-4.8) Monocytes # (Auto) 0.7 x10^3/uL (0.0-1.1) Eosinophils # (Auto) 0.3 x10^3/uL (0.0-0.7) Basophils # (Auto) 0.0 x10^3/uL (0.0-0.2) Prothrombin Time 18.8 SEC (11.7-14.0) Prothromb Time International Ratio 1.6 (0.8-1.1) Sodium Level 137 mmol/L (136-145) Potassium Level 4.6 mmol/L (3.5-5.1) Chloride Level 103 mmol/L (98-107) Carbon Dioxide Level 28 mmol/L (21-32) Anion Gap 6 (6-14) Blood Urea Nitrogen 34 mg/dL (8-26) Creatinine 1.2 mg/dL (0.7-1.3) Estimated GFR (Cockcroft-Gault) 60.2 Glucose Level 161 mg/dL (70-99) Calcium Level 8.4 mg/dL (8.5-10.1) Test 09/12/18 11:32 09/12/18 16:47 09/12/18 20:27 09/13/18 04:15 Glucose (Fingerstick) 137 mg/dL (70-99) 132 mg/dL (70-99) 188 mg/dL (70-99) White Blood Count 15.2 x10^3/uL (4.0-11.0) Red Blood Count 2.56 x10^6/uL (4.30-5.70) Hemoglobin 8.9 g/dL (13.0-17.5) Hematocrit 24.9 % (39.0-53.0) Mean Corpuscular Volume 98 fL (79-100) Mean Corpuscular Hemoglobin 35 pg (25-35) Mean Corpuscular Hemoglobin Concent 36 g/dL (31-37) Red Cell Distribution Width 13.3 % (11.5-14.5) Platelet Count 316 x10^3/uL (140-400) Neutrophils (%) (Auto) 76 % (31-73) Lymphocytes (%) (Auto) 16 % (24-48) Monocytes (%) (Auto) 6 % (0-9) Eosinophils (%) (Auto) 1 % (0-3) Basophils (%) (Auto) 0 % (0-3) Neutrophils # (Auto) 11.6 x10^3uL (1.8-7.7) Lymphocytes # (Auto) 2.5 x10^3/uL (1.0-4.8) Monocytes # (Auto) 0.9 x10^3/uL (0.0-1.1) Eosinophils # (Auto) 0.2 x10^3/uL (0.0-0.7) Basophils # (Auto) 0.0 x10^3/uL (0.0-0.2) Segmented Neutrophils % 81 % (35-66) Lymphocytes % 12 % (24-48) Monocytes % 6 % (0-10) Eosinophils % 1 % (0-5) Platelet Estimate Adequate (ADEQUATE) Hypochromasia Slight Prothrombin Time 19.5 SEC (11.7-14.0) Prothromb Time International Ratio 1.7 (0.8-1.1) Sodium Level 133 mmol/L (136-145) Potassium Level 4.1 mmol/L (3.5-5.1) Chloride Level 98 mmol/L (98-107) Carbon Dioxide Level 27 mmol/L (21-32) Anion Gap 8 (6-14) Blood Urea Nitrogen 28 mg/dL (8-26) Creatinine 0.9 mg/dL (0.7-1.3) Estimated GFR (Cockcroft-Gault) 83.9 Glucose Level 161 mg/dL (70-99) Calcium Level 8.9 mg/dL (8.5-10.1) Test 09/13/18 08:08 09/13/18 12:06 Glucose (Fingerstick) 208 mg/dL (70-99) 178 mg/dL (70-99) Laboratory Tests Test 09/12/18 16:47 09/12/18 20:27 09/13/18 04:15 09/13/18 08:08 Glucose (Fingerstick) 132 mg/dL (70-99) 188 mg/dL (70-99) 208 mg/dL (70-99) White Blood Count 15.2 x10^3/uL (4.0-11.0) Red Blood Count 2.56 x10^6/uL (4.30-5.70) Hemoglobin 8.9 g/dL (13.0-17.5) Hematocrit 24.9 % (39.0-53.0) Mean Corpuscular Volume 98 fL (79-100) Mean Corpuscular Hemoglobin 35 pg (25-35) Mean Corpuscular Hemoglobin Concent 36 g/dL (31-37) Red Cell Distribution Width 13.3 % (11.5-14.5) Platelet Count 316 x10^3/uL (140-400) Neutrophils (%) (Auto) 76 % (31-73) Lymphocytes (%) (Auto) 16 % (24-48) Monocytes (%) (Auto) 6 % (0-9) Eosinophils (%) (Auto) 1 % (0-3) Basophils (%) (Auto) 0 % (0-3) Neutrophils # (Auto) 11.6 x10^3uL (1.8-7.7) Lymphocytes # (Auto) 2.5 x10^3/uL (1.0-4.8) Monocytes # (Auto) 0.9 x10^3/uL (0.0-1.1) Eosinophils # (Auto) 0.2 x10^3/uL (0.0-0.7) Basophils # (Auto) 0.0 x10^3/uL (0.0-0.2) Segmented Neutrophils % 81 % (35-66) Lymphocytes % 12 % (24-48) Monocytes % 6 % (0-10) Eosinophils % 1 % (0-5) Platelet Estimate Adequate (ADEQUATE) Hypochromasia Slight Prothrombin Time 19.5 SEC (11.7-14.0) Prothromb Time International Ratio 1.7 (0.8-1.1) Sodium Level 133 mmol/L (136-145) Potassium Level 4.1 mmol/L (3.5-5.1) Chloride Level 98 mmol/L (98-107) Carbon Dioxide Level 27 mmol/L (21-32) Anion Gap 8 (6-14) Blood Urea Nitrogen 28 mg/dL (8-26) Creatinine 0.9 mg/dL (0.7-1.3) Estimated GFR (Cockcroft-Gault) 83.9 Glucose Level 161 mg/dL (70-99) Calcium Level 8.9 mg/dL (8.5-10.1) Test 09/13/18 12:06 Glucose (Fingerstick) 178 mg/dL (70-99) Assessment Assessment POD# [], S/P [right total hip arthroplasty] Plan Plan of Care Still not therapeutic on Coumadin, INR 1.7 today; continue Lovenox Mobilize with physical therapy, pain control as needed Hold on discharge until INR's stabilized and therapeutic HERMINIO RICH MD Sep 13, 2018 15:15
[2018-09-13] MEDS ORDERED: WARFARIN 7.5 MG TABLET. PO ONE (16:00)
[2018-09-13] MEDS: fentaNYL PF VIAL 100 MCG/2 ML VIAL IV PRN (17:30)
--- NOTE | 2018-09-13 18:05 | PDOC ---
PROGRESS NOTES Subjective Subjective Problems overnight: Complains of severe right leg pain and numbness right outer thigh Objective Vital Signs Vital Signs Date Time Temp Pulse Resp B/P (MAP) Pulse Ox O2 Delivery O2 Flow Rate FiO2 09/13/18 11:00 97.6 91 18 138/70 (92) 99 Room Air 97.6 09/09/18 20:30 2.0 Physical Exam On examination he appears to be having significant muscle spasm about the hip as it comes on him without moving. His je dressing was taken down and replaced with an aqua cell dressing no redness or erythema he does have some increased swelling in the thigh at present definitely increased from yesterday and even a bit earlier today. Distal sensation motor function and pulses are all intact he can plantar and dorsiflex the foot without problems sensation is intact in the lower leg completely. Incision looks excellent with minimal bloody drainage she does have some serous drainage out of the previous Hemovac puncture site Labs Laboratory Tests Test 09/11/18 21:05 09/12/18 07:38 09/12/18 09:05 09/12/18 11:32 Glucose (Fingerstick) 179 mg/dL (70-99) 98 mg/dL (70-99) 137 mg/dL (70-99) White Blood Count 10.0 x10^3/uL (4.0-11.0) Red Blood Count 2.42 x10^6/uL (4.30-5.70) Hemoglobin 8.4 g/dL (13.0-17.5) Hematocrit 23.7 % (39.0-53.0) Mean Corpuscular Volume 98 fL (79-100) Mean Corpuscular Hemoglobin 35 pg (25-35) Mean Corpuscular Hemoglobin Concent 36 g/dL (31-37) Red Cell Distribution Width 13.3 % (11.5-14.5) Platelet Count 237 x10^3/uL (140-400) Neutrophils (%) (Auto) 64 % (31-73) Lymphocytes (%) (Auto) 26 % (24-48) Monocytes (%) (Auto) 7 % (0-9) Eosinophils (%) (Auto) 3 % (0-3) Basophils (%) (Auto) 0 % (0-3) Neutrophils # (Auto) 6.4 x10^3uL (1.8-7.7) Lymphocytes # (Auto) 2.6 x10^3/uL (1.0-4.8) Monocytes # (Auto) 0.7 x10^3/uL (0.0-1.1) Eosinophils # (Auto) 0.3 x10^3/uL (0.0-0.7) Basophils # (Auto) 0.0 x10^3/uL (0.0-0.2) Prothrombin Time 18.8 SEC (11.7-14.0) Prothromb Time International Ratio 1.6 (0.8-1.1) Sodium Level 137 mmol/L (136-145) Potassium Level 4.6 mmol/L (3.5-5.1) Chloride Level 103 mmol/L (98-107) Carbon Dioxide Level 28 mmol/L (21-32) Anion Gap 6 (6-14) Blood Urea Nitrogen 34 mg/dL (8-26) Creatinine 1.2 mg/dL (0.7-1.3) Estimated GFR (Cockcroft-Gault) 60.2 Glucose Level 161 mg/dL (70-99) Calcium Level 8.4 mg/dL (8.5-10.1) Test 09/12/18 16:47 09/12/18 20:27 09/13/18 04:15 09/13/18 08:08 Glucose (Fingerstick) 132 mg/dL (70-99) 188 mg/dL (70-99) 208 mg/dL (70-99) White Blood Count 15.2 x10^3/uL (4.0-11.0) Red Blood Count 2.56 x10^6/uL (4.30-5.70) Hemoglobin 8.9 g/dL (13.0-17.5) Hematocrit 24.9 % (39.0-53.0) Mean Corpuscular Volume 98 fL (79-100) Mean Corpuscular Hemoglobin 35 pg (25-35) Mean Corpuscular Hemoglobin Concent 36 g/dL (31-37) Red Cell Distribution Width 13.3 % (11.5-14.5) Platelet Count 316 x10^3/uL (140-400) Neutrophils (%) (Auto) 76 % (31-73) Lymphocytes (%) (Auto) 16 % (24-48) Monocytes (%) (Auto) 6 % (0-9) Eosinophils (%) (Auto) 1 % (0-3) Basophils (%) (Auto) 0 % (0-3) Neutrophils # (Auto) 11.6 x10^3uL (1.8-7.7) Lymphocytes # (Auto) 2.5 x10^3/uL (1.0-4.8) Monocytes # (Auto) 0.9 x10^3/uL (0.0-1.1) Eosinophils # (Auto) 0.2 x10^3/uL (0.0-0.7) Basophils # (Auto) 0.0 x10^3/uL (0.0-0.2) Segmented Neutrophils % 81 % (35-66) Lymphocytes % 12 % (24-48) Monocytes % 6 % (0-10) Eosinophils % 1 % (0-5) Platelet Estimate Adequate (ADEQUATE) Hypochromasia Slight Prothrombin Time 19.5 SEC (11.7-14.0) Prothromb Time International Ratio 1.7 (0.8-1.1) Sodium Level 133 mmol/L (136-145) Potassium Level 4.1 mmol/L (3.5-5.1) Chloride Level 98 mmol/L (98-107) Carbon Dioxide Level 27 mmol/L (21-32) Anion Gap 8 (6-14) Blood Urea Nitrogen 28 mg/dL (8-26) Creatinine 0.9 mg/dL (0.7-1.3) Estimated GFR (Cockcroft-Gault) 83.9 Glucose Level 161 mg/dL (70-99) Calcium Level 8.9 mg/dL (8.5-10.1) Test 09/13/18 12:06 09/13/18 17:30 Glucose (Fingerstick) 178 mg/dL (70-99) 217 mg/dL (70-99) Laboratory Tests Test 09/12/18 20:27 09/13/18 04:15 09/13/18 08:08 09/13/18 12:06 Glucose (Fingerstick) 188 mg/dL (70-99) 208 mg/dL (70-99) 178 mg/dL (70-99) White Blood Count 15.2 x10^3/uL (4.0-11.0) Red Blood Count 2.56 x10^6/uL (4.30-5.70) Hemoglobin 8.9 g/dL (13.0-17.5) Hematocrit 24.9 % (39.0-53.0) Mean Corpuscular Volume 98 fL (79-100) Mean Corpuscular Hemoglobin 35 pg (25-35) Mean Corpuscular Hemoglobin Concent 36 g/dL (31-37) Red Cell Distribution Width 13.3 % (11.5-14.5) Platelet Count 316 x10^3/uL (140-400) Neutrophils (%) (Auto) 76 % (31-73) Lymphocytes (%) (Auto) 16 % (24-48) Monocytes (%) (Auto) 6 % (0-9) Eosinophils (%) (Auto) 1 % (0-3) Basophils (%) (Auto) 0 % (0-3) Neutrophils # (Auto) 11.6 x10^3uL (1.8-7.7) Lymphocytes # (Auto) 2.5 x10^3/uL (1.0-4.8) Monocytes # (Auto) 0.9 x10^3/uL (0.0-1.1) Eosinophils # (Auto) 0.2 x10^3/uL (0.0-0.7) Basophils # (Auto) 0.0 x10^3/uL (0.0-0.2) Segmented Neutrophils % 81 % (35-66) Lymphocytes % 12 % (24-48) Monocytes % 6 % (0-10) Eosinophils % 1 % (0-5) Platelet Estimate Adequate (ADEQUATE) Hypochromasia Slight Prothrombin Time 19.5 SEC (11.7-14.0) Prothromb Time International Ratio 1.7 (0.8-1.1) Sodium Level 133 mmol/L (136-145) Potassium Level 4.1 mmol/L (3.5-5.1) Chloride Level 98 mmol/L (98-107) Carbon Dioxide Level 27 mmol/L (21-32) Anion Gap 8 (6-14) Blood Urea Nitrogen 28 mg/dL (8-26) Creatinine 0.9 mg/dL (0.7-1.3) Estimated GFR (Cockcroft-Gault) 83.9 Glucose Level 161 mg/dL (70-99) Calcium Level 8.9 mg/dL (8.5-10.1) Test 09/13/18 17:30 Glucose (Fingerstick) 217 mg/dL (70-99) Assessment Assessment POD# [], S/P [right total hip arthroplasty] Plan Plan of Care I explained to him and his family that the numbness in the lateral thigh is normal from the irritation or interruption of small skin nerves with the anterior approach from the hip. I'm going to start some muscle relaxer on him for the apparent muscle spasm He is also allowed to reposition to his comfort adding a grab handle to the top of his bed to help him reposition on his own somewhat as well as positioning him up on his side which seemed to relieve some of his muscular pain at present Also going to order a repeat duplex ultrasound to reevaluate the blood clot given his increased swelling currently HERMINIO RICH MD Sep 13, 2018 18:05
[2018-09-13] MEDS: CYCLOBENZAPRINE 10 MG TABLET. PO PRN (18:55)
[2018-09-13 19:35] VITALS: BP 131/67
--- NOTE | 2018-09-13 21:18 | RAD ---
Examination: VENOUS LOWER EXTREMITY RIGHT History: increasing pain f/u known clot rt leg s/p hip replacement Comparison/Correlation: 09/08/2018 right lower extremity venous duplex ultrasound exam Findings: Duplex venous ultrasound examination of the right lower extremity was performed. Color Doppler, spectral Doppler, and grayscale imaging was performed. Occlusive thrombus is identified involving the right common femoral vein and superficial femoral vein. Partially occlusive thrombus involving the popliteal vein and posterior tibial as well as peroneal veins. Partially occlusive thrombus of the greater saphenous vein. Complex fluid is present involving the right thigh laterally. Overlying bandages are present at the site. Patient reportedly has undergone right hip joint replacement. Impression: Extensive deep venous thrombus is again identified involving the right lower extremity venous system. There is improvement in flow involving the right popliteal and calf veins compared to the prior exam with partial thrombosis seen. Electronically signed by: Khadar Amador MD (09/13/2018 9:15 PM) [facility]
[2018-09-13] MEDS: INSULIN GLARGINE 300 UNITS/3 ML INSULN.PEN. SQ SCH (21:24)
[2018-09-13] MEDS: ZOLPIDEM 5 MG TABLET. PO PRN (22:57)
[2018-09-13 23:36] VITALS: BP 114/64
[2018-09-14] VITALS (17 sets, daily range): BP systolic 84–122; BP diastolic 39–59
[2018-09-14 05:46] LABS: CALCIUM 9.1 mg/dL (8.5-10.1); CREATININE 1.2 mg/dL (0.7-1.3); GFR 60.2
[2018-09-14 05:49] LABS: POTASSIUM 5.3 mmol/L (3.5-5.1)
[2018-09-14] MEDS: LEVOTHYROXINE 100 MCG TABLET PO SCH (06:31)
[2018-09-14] MEDS: CYCLOBENZAPRINE 10 MG TABLET. PO PRN (06:32)
[2018-09-14] MEDS: HYDROcodone/APAP 10/325 1 TAB TABLET PO PRN (06:32)
[2018-09-14] MEDS: INSULIN LISPRO 300 UNITS/3 ML INSULN.PEN. SQ SCH ×3 (08:00→17:00)
[2018-09-14] MEDS: hydroCHLOROthiazide 12.5 MG CAPSULE PO SCH (08:37)
[2018-09-14] MEDS: LISINOPRIL 20 MG TABLET PO SCH (08:37)
[2018-09-14] MEDS: GLIMEPIRIDE 2 MG TABLET. PO SCH (08:49)
[2018-09-14] MEDS: CELECOXIB 100 MG CAPSULE. PO SCH ×2 (08:49→20:08)
[2018-09-14] MEDS: SENNOSIDES/DOCUSATE 8.6/50MG TABLET. PO SCH (08:49)
[2018-09-14] MEDS: metFORMIN 500 MG TABLET PO SCH (08:49)
[2018-09-14] MEDS: MULTIVITAMIN with MINERAL TABLET. PO SCH (08:49)
[2018-09-14] MEDS: ASCORBIC ACID 500 MG TABLET PO SCH (08:49)
[2018-09-14] MEDS: FERROUS SULFATE 325 MG TABLET. PO SCH ×2 (08:49→16:52)
[2018-09-14 09:32] LABS: BASO % 0 % (0-3); EOS # 0.3 x10^3/uL (0.0-0.7); EOS % 1 % (0-3); LYMPH # 5.6 x10^3/uL (1.0-4.8); LYMPH % 25 % (24-48); MEAN CORPUSCULAR HEMOGLOBIN 35 pg (25-35); MEAN CORPUSCULAR HGB CONC 36 g/dL (31-37); MEAN CORPUSCULAR VOLUME 99 fL (79-100); MONO # 1.5 x10^3/uL (0.0-1.1); MONO % 7 % (0-9); NEUT # 15.2 x10^3uL (1.8-7.7); NEUT % 67 % (31-73); PLATELET COUNT 368 x10^3/uL (140-400); RED BLOOD COUNT 1.84 x10^6/uL (4.30-5.70); RED CELL DISTRIBUTION WIDTH 13.9 % (11.5-14.5); WHITE BLOOD COUNT 22.6 x10^3/uL (4.0-11.0)
[2018-09-14 09:52] LABS: PROTHROMBIN TIME PATIENT 22.5 SEC (11.7-14.0)
[2018-09-14 10:00] LABS: HEMATOCRIT 18.2 % (39.0-53.0); HEMOGLOBIN 6.5 g/dL (13.0-17.5)
[2018-09-14] MEDS ORDERED: SODIUM POLYSTYRENE SULFONATE 15 GM/60 ML ORAL.SUSP. PO ONE (10:00)
[2018-09-14] MEDS ORDERED: CONTRAST GIVEN. MC PRN (11:00)
[2018-09-14] MEDS ORDERED: IOHEXOL 300 MG/ML 100ML VIAL. IV ONE (11:00)
--- NOTE | 2018-09-14 13:20 | PDOC ---
PROGRESS NOTES Chief Complaint Chief Complaint Rt hip DJD S/p right hip arthroplasty 09/06 Extensive right leg DVT - confirmed 09/08 Leukocytosis likely 2/2 to intra-op steroids - resolved Hyponatremia - resolved H/o DM H/o HTN, hypotension H/o hypothyroid ACute anemia, post op hyperkalemia plan: fu with ortho, vascular no vascular sx plan for now currently on warfarin and lovenox bid for bridging, INR goal2-3. dc lovenox since INR 2.1 today fu with sw need rehab for dc pain control, flexeril added with ortho cont home meds for dm2 PTOT dc htn meds given low bp. will check abd/pelvic CT, rt hip ct given high wbc , low hb concern hematoma 1u PRBC transfusino. check LA. talked to nurse. kayexalate x1. repeat cbc later today and tmr. thanks for asking for consult History of Present Illness History of Present Illness Pt seen and examined Discussed w/RN Discussed w/PT rt thigh swelling slightly better rt thigh has a post op drain pt able to walk a little bit with PTOT, wants rehab 09/14: c/o more pain last night. not complain to me today. however, hb 6.5 from 8.5, high wbc to 22, BP lower to 80s , INR 2.1. k 5.3 Vitals Vitals Vital Signs Date Time Temp Pulse Resp B/P (MAP) Pulse Ox O2 Delivery O2 Flow Rate FiO2 09/14/18 11:00 98.8 84 18 93/50 (64) 95 Room Air 98.8 Physical Exam Physical Exam Neck: Supple, no JVD General: No acute distress, Other (Pt was asleep and appeared to be in NAD) Heart: Regular rate, No murmurs Lungs: Clear Abdomen: Soft, No tenderness Extremities: Other (rt thigh wound has a small drain, right thigh moderate swelling) Skin: No rashes Labs LABS Laboratory Tests Test 09/13/18 17:30 09/13/18 21:14 09/14/18 04:30 09/14/18 07:57 Glucose (Fingerstick) 217 mg/dL (70-99) 214 mg/dL (70-99) 136 mg/dL (70-99) Sodium Level 132 mmol/L (136-145) Potassium Level 5.3 mmol/L (3.5-5.1) Chloride Level 97 mmol/L (98-107) Carbon Dioxide Level 29 mmol/L (21-32) Anion Gap 6 (6-14) Blood Urea Nitrogen 40 mg/dL (8-26) Creatinine 1.2 mg/dL (0.7-1.3) Estimated GFR (Cockcroft-Gault) 60.2 Glucose Level 184 mg/dL (70-99) Calcium Level 9.1 mg/dL (8.5-10.1) Test 09/14/18 09:10 09/14/18 11:46 White Blood Count 22.6 x10^3/uL (4.0-11.0) Red Blood Count 1.84 x10^6/uL (4.30-5.70) Hemoglobin 6.5 g/dL (13.0-17.5) Hematocrit 18.2 % (39.0-53.0) Mean Corpuscular Volume 99 fL (79-100) Mean Corpuscular Hemoglobin 35 pg (25-35) Mean Corpuscular Hemoglobin Concent 36 g/dL (31-37) Red Cell Distribution Width 13.9 % (11.5-14.5) Platelet Count 368 x10^3/uL (140-400) Neutrophils (%) (Auto) 67 % (31-73) Lymphocytes (%) (Auto) 25 % (24-48) Monocytes (%) (Auto) 7 % (0-9) Eosinophils (%) (Auto) 1 % (0-3) Basophils (%) (Auto) 0 % (0-3) Neutrophils # (Auto) 15.2 x10^3uL (1.8-7.7) Lymphocytes # (Auto) 5.6 x10^3/uL (1.0-4.8) Monocytes # (Auto) 1.5 x10^3/uL (0.0-1.1) Eosinophils # (Auto) 0.3 x10^3/uL (0.0-0.7) Basophils # (Auto) 0.0 x10^3/uL (0.0-0.2) Prothrombin Time 22.5 SEC (11.7-14.0) Prothromb Time International Ratio 2.1 (0.8-1.1) Glucose (Fingerstick) 155 mg/dL (70-99) Comment Review of Relevant I have reviewed the following items digna (where applicable) has been applied. Labs Laboratory Tests Test 09/12/18 16:47 09/12/18 20:27 09/13/18 04:15 09/13/18 08:08 Glucose (Fingerstick) 132 mg/dL (70-99) 188 mg/dL (70-99) 208 mg/dL (70-99) White Blood Count 15.2 x10^3/uL (4.0-11.0) Red Blood Count 2.56 x10^6/uL (4.30-5.70) Hemoglobin 8.9 g/dL (13.0-17.5) Hematocrit 24.9 % (39.0-53.0) Mean Corpuscular Volume 98 fL (79-100) Mean Corpuscular Hemoglobin 35 pg (25-35) Mean Corpuscular Hemoglobin Concent 36 g/dL (31-37) Red Cell Distribution Width 13.3 % (11.5-14.5) Platelet Count 316 x10^3/uL (140-400) Neutrophils (%) (Auto) 76 % (31-73) Lymphocytes (%) (Auto) 16 % (24-48) Monocytes (%) (Auto) 6 % (0-9) Eosinophils (%) (Auto) 1 % (0-3) Basophils (%) (Auto) 0 % (0-3) Neutrophils # (Auto) 11.6 x10^3uL (1.8-7.7) Lymphocytes # (Auto) 2.5 x10^3/uL (1.0-4.8) Monocytes # (Auto) 0.9 x10^3/uL (0.0-1.1) Eosinophils # (Auto) 0.2 x10^3/uL (0.0-0.7) Basophils # (Auto) 0.0 x10^3/uL (0.0-0.2) Segmented Neutrophils % 81 % (35-66) Lymphocytes % 12 % (24-48) Monocytes % 6 % (0-10) Eosinophils % 1 % (0-5) Platelet Estimate Adequate (ADEQUATE) Hypochromasia Slight Prothrombin Time 19.5 SEC (11.7-14.0) Prothromb Time International Ratio 1.7 (0.8-1.1) Sodium Level 133 mmol/L (136-145) Potassium Level 4.1 mmol/L (3.5-5.1) Chloride Level 98 mmol/L (98-107) Carbon Dioxide Level 27 mmol/L (21-32) Anion Gap 8 (6-14) Blood Urea Nitrogen 28 mg/dL (8-26) Creatinine 0.9 mg/dL (0.7-1.3) Estimated GFR (Cockcroft-Gault) 83.9 Glucose Level 161 mg/dL (70-99) Calcium Level 8.9 mg/dL (8.5-10.1) Test 09/13/18 12:06 09/13/18 17:30 09/13/18 21:14 09/14/18 04:30 Glucose (Fingerstick) 178 mg/dL (70-99) 217 mg/dL (70-99) 214 mg/dL (70-99) Sodium Level 132 mmol/L (136-145) Potassium Level 5.3 mmol/L (3.5-5.1) Chloride Level 97 mmol/L (98-107) Carbon Dioxide Level 29 mmol/L (21-32) Anion Gap 6 (6-14) Blood Urea Nitrogen 40 mg/dL (8-26) Creatinine 1.2 mg/dL (0.7-1.3) Estimated GFR (Cockcroft-Gault) 60.2 Glucose Level 184 mg/dL (70-99) Calcium Level 9.1 mg/dL (8.5-10.1) Test 09/14/18 07:57 09/14/18 09:10 09/14/18 11:46 Glucose (Fingerstick) 136 mg/dL (70-99) 155 mg/dL (70-99) White Blood Count 22.6 x10^3/uL (4.0-11.0) Red Blood Count 1.84 x10^6/uL (4.30-5.70) Hemoglobin 6.5 g/dL (13.0-17.5) Hematocrit 18.2 % (39.0-53.0) Mean Corpuscular Volume 99 fL (79-100) Mean Corpuscular Hemoglobin 35 pg (25-35) Mean Corpuscular Hemoglobin Concent 36 g/dL (31-37) Red Cell Distribution Width 13.9 % (11.5-14.5) Platelet Count 368 x10^3/uL (140-400) Neutrophils (%) (Auto) 67 % (31-73) Lymphocytes (%) (Auto) 25 % (24-48) Monocytes (%) (Auto) 7 % (0-9) Eosinophils (%) (Auto) 1 % (0-3) Basophils (%) (Auto) 0 % (0-3) Neutrophils # (Auto) 15.2 x10^3uL (1.8-7.7) Lymphocytes # (Auto) 5.6 x10^3/uL (1.0-4.8) Monocytes # (Auto) 1.5 x10^3/uL (0.0-1.1) Eosinophils # (Auto) 0.3 x10^3/uL (0.0-0.7) Basophils # (Auto) 0.0 x10^3/uL (0.0-0.2) Prothrombin Time 22.5 SEC (11.7-14.0) Prothromb Time International Ratio 2.1 (0.8-1.1) Laboratory Tests Test 09/13/18 17:30 09/13/18 21:14 09/14/18 04:30 09/14/18 07:57 Glucose (Fingerstick) 217 mg/dL (70-99) 214 mg/dL (70-99) 136 mg/dL (70-99) Sodium Level 132 mmol/L (136-145) Potassium Level 5.3 mmol/L (3.5-5.1) Chloride Level 97 mmol/L (98-107) Carbon Dioxide Level 29 mmol/L (21-32) Anion Gap 6 (6-14) Blood Urea Nitrogen 40 mg/dL (8-26) Creatinine 1.2 mg/dL (0.7-1.3) Estimated GFR (Cockcroft-Gault) 60.2 Glucose Level 184 mg/dL (70-99) Calcium Level 9.1 mg/dL (8.5-10.1) Test 09/14/18 09:10 09/14/18 11:46 White Blood Count 22.6 x10^3/uL (4.0-11.0) Red Blood Count 1.84 x10^6/uL (4.30-5.70) Hemoglobin 6.5 g/dL (13.0-17.5) Hematocrit 18.2 % (39.0-53.0) Mean Corpuscular Volume 99 fL (79-100) Mean Corpuscular Hemoglobin 35 pg (25-35) Mean Corpuscular Hemoglobin Concent 36 g/dL (31-37) Red Cell Distribution Width 13.9 % (11.5-14.5) Platelet Count 368 x10^3/uL (140-400) Neutrophils (%) (Auto) 67 % (31-73) Lymphocytes (%) (Auto) 25 % (24-48) Monocytes (%) (Auto) 7 % (0-9) Eosinophils (%) (Auto) 1 % (0-3) Basophils (%) (Auto) 0 % (0-3) Neutrophils # (Auto) 15.2 x10^3uL (1.8-7.7) Lymphocytes # (Auto) 5.6 x10^3/uL (1.0-4.8) Monocytes # (Auto) 1.5 x10^3/uL (0.0-1.1) Eosinophils # (Auto) 0.3 x10^3/uL (0.0-0.7) Basophils # (Auto) 0.0 x10^3/uL (0.0-0.2) Prothrombin Time 22.5 SEC (11.7-14.0) Prothromb Time International Ratio 2.1 (0.8-1.1) Glucose (Fingerstick) 155 mg/dL (70-99) Medications Current Medications Morphine Sulfate 5 mg/Ketorolac Tromethamine 30 mg/Ropivacaine 60 ml/ Epinephrine HCl 0.5 mg/Sodium Chloride 100 ml @ 100 mls/hr 1X ONCE INT ART ; Start 09/06/18 at 06:00; Stop 09/06/18 at 07:00; Status DC Ondansetron HCl (Zofran) 4 mg PRN Q6HRS PRN IV NAUSEA/VOMITING; Start at 07:00; Stop 09/06/18 at 21:00; Status DC Fentanyl Citrate (Fentanyl 2ml Vial) 25 mcg PRN Q5MIN PRN IV MILD PAIN; Start 09/06/18 at 07:00; Stop 09/06/18 at 21:00; Status DC Fentanyl Citrate (Fentanyl 2ml Vial) 50 mcg PRN Q5MIN PRN IV MODERATE TO SEVERE PAIN Last administered on 09/06/18at 19:02; Start 09/06/18 at 07:00; Stop 09/06/18 at 21:00; Status DC Morphine Sulfate (Morphine Sulfate) 1 mg PRN Q10MIN PRN IV SEVERE PAIN; Start 09/06/18 at 07:00; Stop 09/06/18 at 21:00; Status DC Ringer's Solution 1,000 ml @ 30 mls/hr Q24H IV Last administered on at 09:45; Start 09/06/18 at 07:00; Stop 09/06/18 at 18:59; Status DC Lidocaine HCl (Xylocaine-Mpf 1% 2ml Vial) 2 ml PRN 1X PRN ID PRIOR TO IV START ; Start 09/06/18 at 07:00; Stop 09/06/18 at 21:00; Status DC Hydromorphone HCl (Dilaudid) 0.5 mg PRN Q10MIN PRN IV SEV PAIN, Second choice; Start 09/06/18 at 07:00; Stop 09/06/18 at 21:00; Status DC Prochlorperazine Edisylate (Compazine) 5 mg PACU PRN PRN IV NAUSEA, MRX1; Start 09/06/18 at 07:00; Stop 09/06/18 at 21:00; Status DC Acetaminophen/ Hydrocodone Bitart (Lortab 7.5/325) 2 tab 1X PREOP PRN PO PRIOR TO PROCEDURE Last administered on 09/06/18at 09:48; Start 09/06/18 at 06:00; Stop 09/06/18 at 18:00; Status DC Cefazolin Sodium/ Dextrose 50 ml @ 100 mls/hr 1X PREOP PRN IV PRIOR TO PROCEDURE Last administered on 09/06/18at 14:43; Start 09/06/18 at 06:00; Stop 09/06/18 at 18:00; Status DC Tranexamic Acid 1000 mg/Sodium Chloride 60 ml @ 60 mls/hr 1X PERIOP ONCE INJ Last administered on 09/06/18at 15:00; Start 09/06/18 at 06:00; Stop 09/06/18 at 07:00; Status DC Tranexamic Acid 1000 mg/Sodium Chloride 60 ml @ 60 mls/hr 1X PERIOP ONCE INJ Last administered on 09/06/18at 17:10; Start 09/06/18 at 08:00; Stop 09/06/18 at 08:59; Status DC Propofol 20 ml @ As Directed STK-MED ONCE IV ; Start 09/06/18 at 13:17; Stop 09/06/18 at 13:18; Status DC Dexamethasone Sodium Phosphate (Decadron) 20 mg STK-MED ONCE .ROUTE ; Start at 13:17; Stop 09/06/18 at 13:18; Status DC Famotidine (Pepcid Vial) 20 mg STK-MED ONCE .ROUTE ; Start 09/06/18 at 13:17; Stop 09/06/18 at 13:18; Status DC Lidocaine HCl (Lidocaine Pf 2% Vial) 5 ml STK-MED ONCE .ROUTE ; Start 09/06/18 at 13:17; Stop 09/06/18 at 13:18; Status DC Ondansetron HCl (Zofran) 4 mg STK-MED ONCE .ROUTE ; Start 09/06/18 at 13:17; Stop 09/06/18 at 13:18; Status DC Rocuronium [place] (Zemuron) 50 mg STK-MED ONCE .ROUTE ; Start 09/06/18 at 13: 17; Stop 09/06/18 at 13:18; Status DC Fentanyl Citrate (Fentanyl 2ml Vial) 100 mcg STK-MED ONCE .ROUTE ; Start at 13:17; Stop 09/06/18 at 13:18; Status DC Midazolam HCl (Versed) 2 mg STK-MED ONCE .ROUTE ; Start 09/06/18 at 13:17; Stop 09/06/18 at 13:18; Status DC Morphine Sulfate 5 mg/Ketorolac Tromethamine 30 mg/Ropivacaine 32 ml/ Epinephrine HCl 0.5 mg/Sodium Chloride 100 ml @ 100 mls/hr 1X ONCE INT ART Last administered on 09/06/18at 15:21; Start 09/06/18 at 14:15; Stop 09/06/18 at 15:14; Status DC Acetaminophen/ Hydrocodone Bitart (Lortab 7.5/325) 1 tab PRN Q3HRS PRN PO MODERATE PAIN, 1st CHOICE Last administered on 09/10/18at 02:40; Start at 15:00 Acetaminophen/ Hydrocodone Bitart (Lortab 10/325) 1 tab PRN Q3HRS PRN PO MODERATE PAIN, 2nd CHOICE Last administered on 09/14/18at 06:32; Start at 15:00 Tramadol HCl (Ultram) 50 mg PRN QID PRN PO MODERATE PAIN, 3rd CHOICE; Start at 15:00 Oxycodone/ Acetaminophen (Percocet 5/325) 1 tab PRN Q3HRS PRN PO SEVERE PAIN, 1st CHOICE; Start 09/06/18 at 15:00 Oxycodone/ Acetaminophen (Percocet 7.5/ 325) 1 tab PRN Q3HRS PRN PO SEVERE PAIN , 2nd CHOICE Last administered on 09/13/18at 04:12; Start 09/06/18 at 15:00 Tramadol HCl (Ultram) 100 mg PRN Q3HRS PRN PO SEVERE PAIN, 3rd CHOICE Last administered on 09/13/18at 16:21; Start 09/06/18 at 15:00 Morphine Sulfate (Morphine Sulfate) 2 mg PRN Q1HR PRN IV PAIN; Start 09/06/18 at 15:00 Fentanyl Citrate (Fentanyl 2ml Vial) 25 mcg PRN Q1HR PRN IV PAIN, 2nd CHOICE; Start 09/06/18 at 15:00 Warfarin Sodium (Coumadin) 7.5 mg 1X ONCE PO Last administered on 09/06/18at 20:01; Start 09/06/18 at 16:00; Stop 09/06/18 at 16:01; Status DC Warfarin Sodium (Coumadin Per Pharmacy) 1 each PRN DAILY PRN MC SEE COMMENTS Last administered on 09/13/18at 16:34; Start 09/06/18 at 15:00 Multivitamins (Thera M Plus) 1 tab DAILY PO Last administered on 09/14/18at 08: 49; Start 09/06/18 at 17:00 Senna/Docusate Sodium (Senna Plus) 1 tab DAILY PO Last administered on at 08:49; Start 09/06/18 at 16:00 Ferrous Sulfate (Feosol) 325 mg BIDWMEALS PO Last administered on 09/14/18at 08 :49; Start 09/06/18 at 17:00 Celecoxib (CeleBREX) 200 mg BID PO Last administered on 09/14/18at 08:49; Start 09/06/18 at 21:00 Dextrose/Sodium Chloride 1,000 ml @ 100 mls/hr Q10H IV Last administered on at 19:42; Start 09/06/18 at 14:50; Stop 09/07/18 at 17:57; Status DC Magnesium Hydroxide (Milk Of Magnesia) 2,400 mg 1X PRN PRN PO CONSTIPATION; Start 09/07/18 at 06:00; Stop 09/08/18 at 05:59; Status DC Bisacodyl (Dulcolax Supp) 10 mg 1X PRN PRN [place] CONSTIPATION; Start 09/07/18 at 16:00; Stop 09/08/18 at 15:59; Status DC Acetaminophen (Tylenol) 650 mg PRN Q4HRS PRN PO MILD PAIN / TEMP Last administered on 09/13/18at 16:21; Start 09/06/18 at 15:00 Zolpidem Tartrate (Ambien) 5 mg PRN QHS PRN PO INSOMNIA, MAY REPEAT IN 1HR Last administered on 09/13/18at 22:57; Start 09/06/18 at 15:00 Calcium Carbonate/ Glycine (Tums) 500 mg PRN QID PRN PO INDIGESTION Last administered on 09/13/18at 13:40; Start 09/06/18 at 15:00 Morphine Sulfate (Morphine Sulfate) 4 mg PRN Q1HR PRN IV PAIN Last administered on 09/13/18at 22:59; Start 09/06/18 at 15:00 Ketorolac Tromethamine 30 mg/Bupivacaine HCl 20 ml/ Epinephrine HCl 0.5 mg/ Miscellaneous 43 ml @ 258 mls/hr Q12H INT ART Last administered on 09/07/18at 11:59; Start 09/06/18 at 20:00; Stop 09/07/18 at 08:09; Status DC Sodium Chloride (Normal Saline Flush) 10 ml QSHIFT PRN IV AFTER MEDS AND BLOOD DRAWS; Start 09/06/18 at 15:00 Fentanyl Citrate (Fentanyl 2ml Vial) 50 mcg PRN Q1HR PRN IV PAIN, 2nd CHOICE Last administered on 09/13/18at 17:30; Start 09/06/18 at 15:00 Prochlorperazine Edisylate (Compazine) 10 mg PRN Q4HRS PRN IV NAUSEA/VOMITING Last administered on 09/09/18at 05:19; Start 09/06/18 at 15:00 Dextrose (Dextrose 50%-Water Syringe) 12.5 gm PRN Q15MIN PRN IV SEE COMMENTS; Start 09/06/18 at 15:00; Stop 09/10/18 at 11:39; Status DC Cefazolin Sodium/ Dextrose 50 ml @ 100 mls/hr Q6H IV Last administered on at 08:17; Start 09/06/18 at 21:00; Stop 09/07/18 at 09:29; Status DC Ephedrine Sulfate (ePHEDrine PF IN SALINE SYRINGE) 50 mg STK-MED ONCE IV ; Start 09/06/18 at 16:46; Stop 09/06/18 at 16:47; Status DC Desflurane (Suprane) 90 ml STK-MED ONCE IH ; Start 09/06/18 at 16:46; Stop at 16:47; Status DC Neostigmine Methylsulfate (Neostigmine Methylsulfate) 5 mg STK-MED ONCE .ROUTE ; Start 09/06/18 at 16:47; Stop 09/06/18 at 16:48; Status DC Glycopyrrolate (Robinul) 1 mg STK-MED ONCE .ROUTE ; Start 09/06/18 at 16:47; Stop 09/06/18 at 16:48; Status DC Fentanyl Citrate (Fentanyl 2ml Vial) 100 mcg STK-MED ONCE .ROUTE ; Start at 17:58; Stop 09/06/18 at 17:59; Status DC Insulin Human Lispro (HumaLOG) 0-5 UNITS TIDWMEALS SQ Last administered on at 08:16; Start 09/07/18 at 08:00; Stop 09/07/18 at 11:52; Status DC Glimepiride (Amaryl) 2 mg DAILY PO Last administered on 09/14/18at 08:49; Start 09/07/18 at 09:00 Levothyroxine Sodium (Synthroid) 100 mcg DAILY06 PO Last administered on at 06:31; Start 09/07/18 at 06:00 Ascorbic Acid (Vitamin C) 1,000 mg DAILY PO Last administered on 09/14/18at 08: 49; Start 09/07/18 at 09:00 Lisinopril (Prinivil) 20 mg DAILY PO Last administered on 09/13/18at 08:20; Start 09/07/18 at 09:00 Hydrochlorothiazide (Microzide) 12.5 mg DAILY PO Last administered on at 08:20; Start 09/07/18 at 09:00; Stop 09/14/18 at 09:23; Status DC Metformin HCl (Glucophage) 1,000 mg BIDWMEALS PO Last administered on at 08:49; Start 09/07/18 at 08:00; Stop 09/14/18 at 10:57; Status DC Influenza Virus Vaccine (Afluria Trivalent [id number] Syringe) 0.5 ml ONCE ONCE VAX IM Last administered on 09/12/18at 13:59; Start 09/07/18 at 09:00; Stop 09/07/18 at 09:01; Status DC Insulin Human Lispro (HumaLOG) 0-7 UNITS TIDWMEALS SQ Last administered on at 17:17; Start 09/07/18 at 12:00; Stop 09/07/18 at 17:57; Status DC Dextrose (Dextrose 50%-Water Syringe) 12.5 gm PRN Q15MIN PRN IV SEE COMMENTS; Start 09/07/18 at 12:00; Status UNV Warfarin Sodium (Coumadin) 5 mg 1X WARF ONCE PO Last administered on at 17:11; Start 09/07/18 at 16:00; Stop 09/07/18 at 16:01; Status DC Insulin Human Lispro (HumaLOG) 0-9 UNITS TIDWMEALS SQ Last administered on at 13:44; Start 09/08/18 at 08:00 Dextrose (Dextrose 50%-Water Syringe) 12.5 gm PRN Q15MIN PRN IV SEE COMMENTS; Start 09/07/18 at 18:00 Insulin Glargine (Lantus) 12 units QHS SQ Last administered on 09/13/18at 21:24 ; Start 09/07/18 at 21:00 Warfarin Sodium (Coumadin) 2 mg 1X WARF ONCE PO Last administered on at 16:00; Start 09/08/18 at 16:00; Stop 09/08/18 at 16:01; Status DC Enoxaparin Sodium (Lovenox 80mg Syringe) 80 mg 1X ONCE SQ Last administered on 09/08/18at 16:01; Start 09/08/18 at 16:00; Stop 09/08/18 at 16:01; Status DC Enoxaparin Sodium (Lovenox 80mg Syringe) 80 mg Q12HR SQ Last administered on at 08:51; Start 09/09/18 at 06:00 Warfarin Sodium (Coumadin) 2 mg 1X WARF ONCE PO Last administered on at 16:42; Start 09/09/18 at 16:00; Stop 09/09/18 at 16:01; Status DC Ondansetron HCl (Zofran) 4 mg PRN Q6HRS PRN IV NAUSEA/VOMITING; Start at 07:00; Stop 09/12/18 at 07:00; Status DC Fentanyl Citrate (Fentanyl 2ml Vial) 25 mcg PRN Q5MIN PRN IV MILD PAIN; Start 09/12/18 at 07:00; Stop 09/12/18 at 07:00; Status DC Fentanyl Citrate (Fentanyl 2ml Vial) 50 mcg PRN Q5MIN PRN IV MODERATE TO SEVERE PAIN; Start 09/12/18 at 07:00; Stop 09/12/18 at 07:00; Status DC Morphine Sulfate (Morphine Sulfate) 1 mg PRN Q10MIN PRN IV SEVERE PAIN; Start 09/12/18 at 07:00; Stop 09/12/18 at 07:00; Status DC Ringer's Solution 1,000 ml @ 30 mls/hr Q24H IV ; Start 09/12/18 at 07:00; Stop 09/12/18 at 18:59; Status DC Lidocaine HCl (Xylocaine-Mpf 1% 2ml Vial) 2 ml PRN 1X PRN ID PRIOR TO IV START ; Start 09/12/18 at 07:00; Stop 09/12/18 at 07:00; Status DC Hydromorphone HCl (Dilaudid) 0.5 mg PRN Q10MIN PRN IV SEV PAIN, Second choice; Start 09/12/18 at 07:00; Stop 09/12/18 at 07:00; Status DC Prochlorperazine Edisylate (Compazine) 5 mg PACU PRN PRN IV NAUSEA, MRX1; Start 09/12/18 at 07:00; Stop 09/12/18 at 07:00; Status DC Warfarin Sodium (Coumadin) 3 mg 1X WARF ONCE PO Last administered on at 18:14; Start 09/10/18 at 16:00; Stop 09/10/18 at 16:01; Status DC Sodium Chloride 1,000 ml @ 75 mls/hr [id number] IV Last administered on at 06:02; Start 09/10/18 at 12:45; Stop 09/12/18 at 09:54; Status DC Warfarin Sodium (Coumadin) 4 mg 1X WARF ONCE PO Last administered on at 17:43; Start 09/11/18 at 16:00; Stop 09/11/18 at 16:01; Status DC Info (Anti-Coagulation Monitoring By Pharmacy) 1 each PRN DAILY PRN MC SEE COMMENTS Last administered on 09/13/18at 11:08; Start 09/12/18 at 11:00 Warfarin Sodium (Coumadin) 5 mg 1X WARF ONCE PO Last administered on at 16:02; Start 09/12/18 at 16:00; Stop 09/12/18 at 16:01; Status DC Warfarin Sodium (Coumadin) 7.5 mg 1X WARF ONCE PO Last administered on at 16:00; Start 09/13/18 at 16:00; Stop 09/13/18 at 16:01; Status DC Cyclobenzaprine HCl (Flexeril) 10 mg PRN Q6HRS PRN PO MUSCLE SPASMS Last administered on 09/14/18at 06:32; Start 09/13/18 at 18:15 Sodium Polystyrene Sulfonate (Kayexalate) 15 gm 1X ONCE PO Last administered on 09/14/18at 10:29; Start 09/14/18 at 10:00; Stop 09/14/18 at 10:01; Status DC Iohexol (Omnipaque 300 Mg/ml) 75 ml 1X ONCE IV ; Start 09/14/18 at 11:00; Stop 09/14/18 at 11:01; Status DC Info (CONTRAST GIVEN -- Rx MONITORING) 1 each PRN DAILY PRN MC SEE COMMENTS; Start 09/14/18 at 11:00; Stop 09/16/18 at 10:59 Metformin HCl (Glucophage) 1,000 mg BIDWMEALS PO ; Start 09/16/18 at 17:00 Active Scripts Active [place] 7.5-325 Tablet (Acetaminophen/Hydrocodone Bitart) 1 Each Tablet 1 Tab PO PRN Q6HRS PRN Reported Aleve (Naproxen Sodium) 220 Mg Tablet 220 Mg PO BID Tramadol Hcl 50 Mg Tablet 50 Mg PO Q6HRS PRN Glucosamine (Glucosamine Sulfate 2KCL) 1,000 Mg Tablet 1,000 Mg PO DAILY Multivitamins (Multivitamin) 1 Each Tablet 1 Tab PO DAILY Vitamin C (Ascorbic Acid) 100 Mg Tablet 1,000 Mg PO DAILY Hydrochlorothiazide Capsule (Hydrochlorothiazide) 12.5 Mg Capsule 1 Cap PO DAILY Benazepril Hcl 20 Mg Tablet 1 Tab PO DAILY Glimepiride 2 Mg Tablet 1 Tab PO DAILY Metformin Hcl 1,000 Mg Tablet 1,000 Mg PO BID Levothyroxine Sodium 100 Mcg Tablet 1 Tab PO DAILY Vitals/I & O Vital Sign - Last 24 Hours 09/13/18 09/13/18 09/13/18 09/13/18 15:00 19:35 20:30 22:15 Temp 98.0 98.1 98.0 98.1 Pulse 98 89 Resp 24 18 B/P (MAP) 152/80 (104) 131/67 (88) Pulse Ox 97 97 O2 Delivery Room Air Room Air Room Air Room Air 09/13/18 09/13/18 09/13/18 09/14/18 22:59 23:36 23:45 03:25 Temp 97.6 97.5 97.6 97.5 Pulse 93 82 Resp 18 18 B/P (MAP) 114/64 (81) 113/59 (77) Pulse Ox 94 95 O2 Delivery Room Air Room Air Room Air Room Air 09/14/18 09/14/18 09/14/18 09/14/18 06:32 07:00 07:31 07:36 Pulse 80 Resp 18 B/P (MAP) 88/49 (62) Pulse Ox 93 O2 Delivery Room Air Room Air Room Air Room Air 09/14/18 09/14/18 08:37 11:00 Temp 98.8 98.8 Pulse 80 84 Resp 18 B/P (MAP) 88/49 93/50 (64) Pulse Ox 95 O2 Delivery Room Air Intake and Output 09/13/18 09/13/18 09/14/18 15:00 23:00 07:00 Intake Total 480 ml Output Total 150 ml 450 ml 450 ml Balance -150 ml -450 ml 30 ml FANY HERMOSILLO MD Sep 14, 2018 13:20
--- NOTE | 2018-09-14 15:15 | PDOC ---
PROGRESS NOTES Subjective Subjective Problems overnight: Much more comfortable today with muscle relaxer resting comfortably Objective Vital Signs Vital Signs Date Time Temp Pulse Resp B/P (MAP) Pulse Ox O2 Delivery O2 Flow Rate FiO2 09/14/18 13:44 96.7 85 20 111/39 96.7 09/14/18 11:00 95 Room Air 09/09/18 20:30 2.0 Physical Exam Mild thigh swelling leg remains without significant swelling all compartments soft distal neurovascular status intact aside from lateral femoral cutaneous nerve sensory deficit Labs Laboratory Tests Test 09/12/18 16:47 09/12/18 20:27 09/13/18 04:15 09/13/18 08:08 Glucose (Fingerstick) 132 mg/dL (70-99) 188 mg/dL (70-99) 208 mg/dL (70-99) White Blood Count 15.2 x10^3/uL (4.0-11.0) Red Blood Count 2.56 x10^6/uL (4.30-5.70) Hemoglobin 8.9 g/dL (13.0-17.5) Hematocrit 24.9 % (39.0-53.0) Mean Corpuscular Volume 98 fL (79-100) Mean Corpuscular Hemoglobin 35 pg (25-35) Mean Corpuscular Hemoglobin Concent 36 g/dL (31-37) Red Cell Distribution Width 13.3 % (11.5-14.5) Platelet Count 316 x10^3/uL (140-400) Neutrophils (%) (Auto) 76 % (31-73) Lymphocytes (%) (Auto) 16 % (24-48) Monocytes (%) (Auto) 6 % (0-9) Eosinophils (%) (Auto) 1 % (0-3) Basophils (%) (Auto) 0 % (0-3) Neutrophils # (Auto) 11.6 x10^3uL (1.8-7.7) Lymphocytes # (Auto) 2.5 x10^3/uL (1.0-4.8) Monocytes # (Auto) 0.9 x10^3/uL (0.0-1.1) Eosinophils # (Auto) 0.2 x10^3/uL (0.0-0.7) Basophils # (Auto) 0.0 x10^3/uL (0.0-0.2) Segmented Neutrophils % 81 % (35-66) Lymphocytes % 12 % (24-48) Monocytes % 6 % (0-10) Eosinophils % 1 % (0-5) Platelet Estimate Adequate (ADEQUATE) Hypochromasia Slight Prothrombin Time 19.5 SEC (11.7-14.0) Prothromb Time International Ratio 1.7 (0.8-1.1) Sodium Level 133 mmol/L (136-145) Potassium Level 4.1 mmol/L (3.5-5.1) Chloride Level 98 mmol/L (98-107) Carbon Dioxide Level 27 mmol/L (21-32) Anion Gap 8 (6-14) Blood Urea Nitrogen 28 mg/dL (8-26) Creatinine 0.9 mg/dL (0.7-1.3) Estimated GFR (Cockcroft-Gault) 83.9 Glucose Level 161 mg/dL (70-99) Calcium Level 8.9 mg/dL (8.5-10.1) Test 09/13/18 12:06 09/13/18 17:30 09/13/18 21:14 09/14/18 04:30 Glucose (Fingerstick) 178 mg/dL (70-99) 217 mg/dL (70-99) 214 mg/dL (70-99) Sodium Level 132 mmol/L (136-145) Potassium Level 5.3 mmol/L (3.5-5.1) Chloride Level 97 mmol/L (98-107) Carbon Dioxide Level 29 mmol/L (21-32) Anion Gap 6 (6-14) Blood Urea Nitrogen 40 mg/dL (8-26) Creatinine 1.2 mg/dL (0.7-1.3) Estimated GFR (Cockcroft-Gault) 60.2 Glucose Level 184 mg/dL (70-99) Calcium Level 9.1 mg/dL (8.5-10.1) Test 09/14/18 07:57 09/14/18 09:10 09/14/18 11:46 Glucose (Fingerstick) 136 mg/dL (70-99) 155 mg/dL (70-99) White Blood Count 22.6 x10^3/uL (4.0-11.0) Red Blood Count 1.84 x10^6/uL (4.30-5.70) Hemoglobin 6.5 g/dL (13.0-17.5) Hematocrit 18.2 % (39.0-53.0) Mean Corpuscular Volume 99 fL (79-100) Mean Corpuscular Hemoglobin 35 pg (25-35) Mean Corpuscular Hemoglobin Concent 36 g/dL (31-37) Red Cell Distribution Width 13.9 % (11.5-14.5) Platelet Count 368 x10^3/uL (140-400) Neutrophils (%) (Auto) 67 % (31-73) Lymphocytes (%) (Auto) 25 % (24-48) Monocytes (%) (Auto) 7 % (0-9) Eosinophils (%) (Auto) 1 % (0-3) Basophils (%) (Auto) 0 % (0-3) Neutrophils # (Auto) 15.2 x10^3uL (1.8-7.7) Lymphocytes # (Auto) 5.6 x10^3/uL (1.0-4.8) Monocytes # (Auto) 1.5 x10^3/uL (0.0-1.1) Eosinophils # (Auto) 0.3 x10^3/uL (0.0-0.7) Basophils # (Auto) 0.0 x10^3/uL (0.0-0.2) Prothrombin Time 22.5 SEC (11.7-14.0) Prothromb Time International Ratio 2.1 (0.8-1.1) Laboratory Tests Test 09/13/18 17:30 09/13/18 21:14 09/14/18 04:30 09/14/18 07:57 Glucose (Fingerstick) 217 mg/dL (70-99) 214 mg/dL (70-99) 136 mg/dL (70-99) Sodium Level 132 mmol/L (136-145) Potassium Level 5.3 mmol/L (3.5-5.1) Chloride Level 97 mmol/L (98-107) Carbon Dioxide Level 29 mmol/L (21-32) Anion Gap 6 (6-14) Blood Urea Nitrogen 40 mg/dL (8-26) Creatinine 1.2 mg/dL (0.7-1.3) Estimated GFR (Cockcroft-Gault) 60.2 Glucose Level 184 mg/dL (70-99) Calcium Level 9.1 mg/dL (8.5-10.1) Test 09/14/18 09:10 09/14/18 11:46 White Blood Count 22.6 x10^3/uL (4.0-11.0) Red Blood Count 1.84 x10^6/uL (4.30-5.70) Hemoglobin 6.5 g/dL (13.0-17.5) Hematocrit 18.2 % (39.0-53.0) Mean Corpuscular Volume 99 fL (79-100) Mean Corpuscular Hemoglobin 35 pg (25-35) Mean Corpuscular Hemoglobin Concent 36 g/dL (31-37) Red Cell Distribution Width 13.9 % (11.5-14.5) Platelet Count 368 x10^3/uL (140-400) Neutrophils (%) (Auto) 67 % (31-73) Lymphocytes (%) (Auto) 25 % (24-48) Monocytes (%) (Auto) 7 % (0-9) Eosinophils (%) (Auto) 1 % (0-3) Basophils (%) (Auto) 0 % (0-3) Neutrophils # (Auto) 15.2 x10^3uL (1.8-7.7) Lymphocytes # (Auto) 5.6 x10^3/uL (1.0-4.8) Monocytes # (Auto) 1.5 x10^3/uL (0.0-1.1) Eosinophils # (Auto) 0.3 x10^3/uL (0.0-0.7) Basophils # (Auto) 0.0 x10^3/uL (0.0-0.2) Prothrombin Time 22.5 SEC (11.7-14.0) Prothromb Time International Ratio 2.1 (0.8-1.1) Glucose (Fingerstick) 155 mg/dL (70-99) Imaging Duplex ultrasound showed no growth of the blood clot in fact a bit better flow since the previous ultrasound was performed Assessment Assessment POD# [], S/P [total hip arthroplasty] Plan Plan of Care Extensive DVT, INR now 2.1 Lovenox discontinued per hospitalist Hemoglobin dropped to 6.5, transfusing 1 unit today, hemoglobin in a.m. Continue advance activity as tolerated mobilizing with physical therapy weightbearing as tolerated no hip precautions We will need rehabilitation on discharge HERMINIO RICH MD Sep 14, 2018 15:15
[2018-09-14] MEDS ORDERED: WARFARIN 6 MG TABLET. PO ONE (16:00)
--- NOTE | 2018-09-14 16:33 | PDOC ---
Provider Note Provider Note Reviewed CT scan with Dr Morrow. Large psoas hematoma and surgical site hematoma. Iliac veins not markedly dilated. No evidence of major vessel disruption. Recommend placement of IVC filter and discontinuation of anticoagulation until bleeding subsides. Will need 6 months of anticoagulation once stable. Will ask IR to place IVC filter and schedule the removal of the filter in 4-6 weeks. MELISSA ELLIS DO Sep 14, 2018 16:33
--- NOTE | 2018-09-14 17:45 | PDOC ---
PROGRESS NOTES Subjective Subjective Problems overnight: Objective Vital Signs Vital Signs Date Time Temp Pulse Resp B/P (MAP) Pulse Ox O2 Delivery O2 Flow Rate FiO2 09/14/18 16:45 79 20 104/53 09/14/18 15:45 97.5 97.5 09/14/18 15:00 94 Room Air 09/09/18 20:30 2.0 Labs Laboratory Tests Test 09/12/18 20:27 09/13/18 04:15 09/13/18 08:08 09/13/18 12:06 Glucose (Fingerstick) 188 mg/dL (70-99) 208 mg/dL (70-99) 178 mg/dL (70-99) White Blood Count 15.2 x10^3/uL (4.0-11.0) Red Blood Count 2.56 x10^6/uL (4.30-5.70) Hemoglobin 8.9 g/dL (13.0-17.5) Hematocrit 24.9 % (39.0-53.0) Mean Corpuscular Volume 98 fL (79-100) Mean Corpuscular Hemoglobin 35 pg (25-35) Mean Corpuscular Hemoglobin Concent 36 g/dL (31-37) Red Cell Distribution Width 13.3 % (11.5-14.5) Platelet Count 316 x10^3/uL (140-400) Neutrophils (%) (Auto) 76 % (31-73) Lymphocytes (%) (Auto) 16 % (24-48) Monocytes (%) (Auto) 6 % (0-9) Eosinophils (%) (Auto) 1 % (0-3) Basophils (%) (Auto) 0 % (0-3) Neutrophils # (Auto) 11.6 x10^3uL (1.8-7.7) Lymphocytes # (Auto) 2.5 x10^3/uL (1.0-4.8) Monocytes # (Auto) 0.9 x10^3/uL (0.0-1.1) Eosinophils # (Auto) 0.2 x10^3/uL (0.0-0.7) Basophils # (Auto) 0.0 x10^3/uL (0.0-0.2) Segmented Neutrophils % 81 % (35-66) Lymphocytes % 12 % (24-48) Monocytes % 6 % (0-10) Eosinophils % 1 % (0-5) Platelet Estimate Adequate (ADEQUATE) Hypochromasia Slight Prothrombin Time 19.5 SEC (11.7-14.0) Prothromb Time International Ratio 1.7 (0.8-1.1) Sodium Level 133 mmol/L (136-145) Potassium Level 4.1 mmol/L (3.5-5.1) Chloride Level 98 mmol/L (98-107) Carbon Dioxide Level 27 mmol/L (21-32) Anion Gap 8 (6-14) Blood Urea Nitrogen 28 mg/dL (8-26) Creatinine 0.9 mg/dL (0.7-1.3) Estimated GFR (Cockcroft-Gault) 83.9 Glucose Level 161 mg/dL (70-99) Calcium Level 8.9 mg/dL (8.5-10.1) Test 09/13/18 17:30 09/13/18 21:14 09/14/18 04:30 09/14/18 07:57 Glucose (Fingerstick) 217 mg/dL (70-99) 214 mg/dL (70-99) 136 mg/dL (70-99) Sodium Level 132 mmol/L (136-145) Potassium Level 5.3 mmol/L (3.5-5.1) Chloride Level 97 mmol/L (98-107) Carbon Dioxide Level 29 mmol/L (21-32) Anion Gap 6 (6-14) Blood Urea Nitrogen 40 mg/dL (8-26) Creatinine 1.2 mg/dL (0.7-1.3) Estimated GFR (Cockcroft-Gault) 60.2 Glucose Level 184 mg/dL (70-99) Calcium Level 9.1 mg/dL (8.5-10.1) Test 09/14/18 09:10 09/14/18 11:46 09/14/18 17:06 White Blood Count 22.6 x10^3/uL (4.0-11.0) Red Blood Count 1.84 x10^6/uL (4.30-5.70) Hemoglobin 6.5 g/dL (13.0-17.5) Hematocrit 18.2 % (39.0-53.0) Mean Corpuscular Volume 99 fL (79-100) Mean Corpuscular Hemoglobin 35 pg (25-35) Mean Corpuscular Hemoglobin Concent 36 g/dL (31-37) Red Cell Distribution Width 13.9 % (11.5-14.5) Platelet Count 368 x10^3/uL (140-400) Neutrophils (%) (Auto) 67 % (31-73) Lymphocytes (%) (Auto) 25 % (24-48) Monocytes (%) (Auto) 7 % (0-9) Eosinophils (%) (Auto) 1 % (0-3) Basophils (%) (Auto) 0 % (0-3) Neutrophils # (Auto) 15.2 x10^3uL (1.8-7.7) Lymphocytes # (Auto) 5.6 x10^3/uL (1.0-4.8) Monocytes # (Auto) 1.5 x10^3/uL (0.0-1.1) Eosinophils # (Auto) 0.3 x10^3/uL (0.0-0.7) Basophils # (Auto) 0.0 x10^3/uL (0.0-0.2) Prothrombin Time 22.5 SEC (11.7-14.0) Prothromb Time International Ratio 2.1 (0.8-1.1) Glucose (Fingerstick) 155 mg/dL (70-99) 149 mg/dL (70-99) Laboratory Tests Test 09/13/18 21:14 09/14/18 04:30 09/14/18 07:57 09/14/18 09:10 Glucose (Fingerstick) 214 mg/dL (70-99) 136 mg/dL (70-99) Sodium Level 132 mmol/L (136-145) Potassium Level 5.3 mmol/L (3.5-5.1) Chloride Level 97 mmol/L (98-107) Carbon Dioxide Level 29 mmol/L (21-32) Anion Gap 6 (6-14) Blood Urea Nitrogen 40 mg/dL (8-26) Creatinine 1.2 mg/dL (0.7-1.3) Estimated GFR (Cockcroft-Gault) 60.2 Glucose Level 184 mg/dL (70-99) Calcium Level 9.1 mg/dL (8.5-10.1) White Blood Count 22.6 x10^3/uL (4.0-11.0) Red Blood Count 1.84 x10^6/uL (4.30-5.70) Hemoglobin 6.5 g/dL (13.0-17.5) Hematocrit 18.2 % (39.0-53.0) Mean Corpuscular Volume 99 fL (79-100) Mean Corpuscular Hemoglobin 35 pg (25-35) Mean Corpuscular Hemoglobin Concent 36 g/dL (31-37) Red Cell Distribution Width 13.9 % (11.5-14.5) Platelet Count 368 x10^3/uL (140-400) Neutrophils (%) (Auto) 67 % (31-73) Lymphocytes (%) (Auto) 25 % (24-48) Monocytes (%) (Auto) 7 % (0-9) Eosinophils (%) (Auto) 1 % (0-3) Basophils (%) (Auto) 0 % (0-3) Neutrophils # (Auto) 15.2 x10^3uL (1.8-7.7) Lymphocytes # (Auto) 5.6 x10^3/uL (1.0-4.8) Monocytes # (Auto) 1.5 x10^3/uL (0.0-1.1) Eosinophils # (Auto) 0.3 x10^3/uL (0.0-0.7) Basophils # (Auto) 0.0 x10^3/uL (0.0-0.2) Prothrombin Time 22.5 SEC (11.7-14.0) Prothromb Time International Ratio 2.1 (0.8-1.1) Test 09/14/18 11:46 09/14/18 17:06 Glucose (Fingerstick) 155 mg/dL (70-99) 149 mg/dL (70-99) Assessment Assessment POD# [], S/P [] Plan Plan of Care Reviewed results of the CT scan initially with the radiologist then with Dr. Ivey of vascular surgery. He and Dr. Pete did not see any disruption of the internal iliac vein as initially reported by radiology. Appreciate their recommendations. Note plans for placement of an IVC filter I ordered 2 units of FFP this evening to reverse anticoagulation as they had recommended HERMINIO RICH MD Sep 14, 2018 17:45
[2018-09-14 18:26] LABS: BASO % 0 % (0-3); EOS # 0.3 x10^3/uL (0.0-0.7); EOS % 1 % (0-3); HEMATOCRIT 21.2 % (39.0-53.0); HEMOGLOBIN 7.5 g/dL (13.0-17.5); LYMPH # 4.3 x10^3/uL (1.0-4.8); LYMPH % 20 % (24-48); MEAN CORPUSCULAR HEMOGLOBIN 33 pg (25-35); MEAN CORPUSCULAR HGB CONC 35 g/dL (31-37); MEAN CORPUSCULAR VOLUME 95 fL (79-100); MONO # 1.3 x10^3/uL (0.0-1.1); MONO % 6 % (0-9); NEUT # 16.2 x10^3uL (1.8-7.7); NEUT % 73 % (31-73); PLATELET COUNT 302 x10^3/uL (140-400); RED BLOOD COUNT 2.23 x10^6/uL (4.30-5.70); RED CELL DISTRIBUTION WIDTH 15.4 % (11.5-14.5); WHITE BLOOD COUNT 22.1 x10^3/uL (4.0-11.0)
[2018-09-14] MEDS: INSULIN GLARGINE 300 UNITS/3 ML INSULN.PEN. SQ SCH (21:00)
[2018-09-14] MEDS: ZOLPIDEM 5 MG TABLET. PO PRN (22:29)
[2018-09-15] VITALS (20 sets, daily range): BP systolic 91–122; BP diastolic 49–65
[2018-09-15] MEDS: MORPHINE SULFATE 2 MG/ML VIAL. IV PRN ×3 (03:11→09:05)
[2018-09-15] MEDS: LEVOTHYROXINE 100 MCG TABLET PO SCH (06:00)
--- NOTE | 2018-09-15 07:55 | PDOC ---
PROGRESS NOTES Chief Complaint Chief Complaint Rt hip DJD S/p right hip arthroplasty 09/06 Extensive right leg DVT - confirmed 09/08 Leukocytosis likely 2/2 to intra-op steroids - resolved Hyponatremia - resolved H/o DM H/o HTN, hypotension H/o hypothyroid ACute anemia, post op hyperkalemia History of Present Illness History of Present Illness Pt seen and examined Discussed w/RN Discussed w/PT rt thigh swelling slightly worse today, now with scrotal edema as well rt thigh has a post op drain pt able to walk a little bit with PTOT, wants rehab, states he can do well 1 day and poorly for 2 days after. 09/14: c/o more pain last night. not complain to me today. however, hb 6.5 from 8.5, high wbc to 22, BP lower to 80s , INR 2.1. Transfused with Hb back to 7.1 from 6.5 Rt hip DJD S/p right hip arthroplasty 09/06 Extensive right leg DVT - confirmed 09/08 Leukocytosis likely 2/2 to intra-op steroids - resolved Hyponatremia - resolved H/o DM H/o HTN, hypotension H/o hypothyroid ACute anemia, post op hyperkalemia plan: fu with ortho, vascular no vascular sx plan for now currently on warfarin and lovenox bid for bridging, INR goal2-3. dc lovenox since INR 2.5 today fu with sw need rehab for dc pain control, flexeril added with ortho cont home meds for dm2 PTOT 1u PRBC transfusion thanks for asking for consult Vitals Vitals Vital Signs Date Time Temp Pulse Resp B/P (MAP) Pulse Ox O2 Delivery O2 Flow Rate FiO2 09/15/18 07:00 Room Air 09/15/18 05:57 20 98 09/15/18 02:55 98.1 67 108/53 (71) 98.1 Physical Exam Physical Exam Neck: Supple, no JVD General: No acute distress, Other (Pt was asleep and appeared to be in NAD) Heart: Regular rate, No murmurs Lungs: Clear Abdomen: Soft, No tenderness Extremities: Other (rt thigh wound has a small drain, right thigh moderate swelling) Skin: No rashes Labs LABS Laboratory Tests Test 09/14/18 07:57 09/14/18 09:10 09/14/18 11:46 09/14/18 17:06 Glucose (Fingerstick) 136 mg/dL (70-99) 155 mg/dL (70-99) 149 mg/dL (70-99) White Blood Count 22.6 x10^3/uL (4.0-11.0) Red Blood Count 1.84 x10^6/uL (4.30-5.70) Hemoglobin 6.5 g/dL (13.0-17.5) Hematocrit 18.2 % (39.0-53.0) Mean Corpuscular Volume 99 fL (79-100) Mean Corpuscular Hemoglobin 35 pg (25-35) Mean Corpuscular Hemoglobin Concent 36 g/dL (31-37) Red Cell Distribution Width 13.9 % (11.5-14.5) Platelet Count 368 x10^3/uL (140-400) Neutrophils (%) (Auto) 67 % (31-73) Lymphocytes (%) (Auto) 25 % (24-48) Monocytes (%) (Auto) 7 % (0-9) Eosinophils (%) (Auto) 1 % (0-3) Basophils (%) (Auto) 0 % (0-3) Neutrophils # (Auto) 15.2 x10^3uL (1.8-7.7) Lymphocytes # (Auto) 5.6 x10^3/uL (1.0-4.8) Monocytes # (Auto) 1.5 x10^3/uL (0.0-1.1) Eosinophils # (Auto) 0.3 x10^3/uL (0.0-0.7) Basophils # (Auto) 0.0 x10^3/uL (0.0-0.2) Prothrombin Time 22.5 SEC (11.7-14.0) Prothromb Time International Ratio 2.1 (0.8-1.1) Test 09/14/18 18:15 09/14/18 20:19 White Blood Count 22.1 x10^3/uL (4.0-11.0) Red Blood Count 2.23 x10^6/uL (4.30-5.70) Hemoglobin 7.5 g/dL (13.0-17.5) Hematocrit 21.2 % (39.0-53.0) Mean Corpuscular Volume 95 fL (79-100) Mean Corpuscular Hemoglobin 33 pg (25-35) Mean Corpuscular Hemoglobin Concent 35 g/dL (31-37) Red Cell Distribution Width 15.4 % (11.5-14.5) Platelet Count 302 x10^3/uL (140-400) Neutrophils (%) (Auto) 73 % (31-73) Lymphocytes (%) (Auto) 20 % (24-48) Monocytes (%) (Auto) 6 % (0-9) Eosinophils (%) (Auto) 1 % (0-3) Basophils (%) (Auto) 0 % (0-3) Neutrophils # (Auto) 16.2 x10^3uL (1.8-7.7) Lymphocytes # (Auto) 4.3 x10^3/uL (1.0-4.8) Monocytes # (Auto) 1.3 x10^3/uL (0.0-1.1) Eosinophils # (Auto) 0.3 x10^3/uL (0.0-0.7) Basophils # (Auto) 0.0 x10^3/uL (0.0-0.2) Lactic Acid Level 1.4 mmol/L (0.4-2.0) Glucose (Fingerstick) 148 mg/dL (70-99) Comment Review of Relevant I have reviewed the following items digna (where applicable) has been applied. Labs Laboratory Tests Test 09/13/18 08:08 09/13/18 12:06 09/13/18 17:30 09/13/18 21:14 Glucose (Fingerstick) 208 mg/dL (70-99) 178 mg/dL (70-99) 217 mg/dL (70-99) 214 mg/dL (70-99) Test 09/14/18 04:30 09/14/18 07:57 09/14/18 09:10 09/14/18 11:46 Sodium Level 132 mmol/L (136-145) Potassium Level 5.3 mmol/L (3.5-5.1) Chloride Level 97 mmol/L (98-107) Carbon Dioxide Level 29 mmol/L (21-32) Anion Gap 6 (6-14) Blood Urea Nitrogen 40 mg/dL (8-26) Creatinine 1.2 mg/dL (0.7-1.3) Estimated GFR (Cockcroft-Gault) 60.2 Glucose Level 184 mg/dL (70-99) Calcium Level 9.1 mg/dL (8.5-10.1) Glucose (Fingerstick) 136 mg/dL (70-99) 155 mg/dL (70-99) White Blood Count 22.6 x10^3/uL (4.0-11.0) Red Blood Count 1.84 x10^6/uL (4.30-5.70) Hemoglobin 6.5 g/dL (13.0-17.5) Hematocrit 18.2 % (39.0-53.0) Mean Corpuscular Volume 99 fL (79-100) Mean Corpuscular Hemoglobin 35 pg (25-35) Mean Corpuscular Hemoglobin Concent 36 g/dL (31-37) Red Cell Distribution Width 13.9 % (11.5-14.5) Platelet Count 368 x10^3/uL (140-400) Neutrophils (%) (Auto) 67 % (31-73) Lymphocytes (%) (Auto) 25 % (24-48) Monocytes (%) (Auto) 7 % (0-9) Eosinophils (%) (Auto) 1 % (0-3) Basophils (%) (Auto) 0 % (0-3) Neutrophils # (Auto) 15.2 x10^3uL (1.8-7.7) Lymphocytes # (Auto) 5.6 x10^3/uL (1.0-4.8) Monocytes # (Auto) 1.5 x10^3/uL (0.0-1.1) Eosinophils # (Auto) 0.3 x10^3/uL (0.0-0.7) Basophils # (Auto) 0.0 x10^3/uL (0.0-0.2) Prothrombin Time 22.5 SEC (11.7-14.0) Prothromb Time International Ratio 2.1 (0.8-1.1) Test 09/14/18 17:06 09/14/18 18:15 09/14/18 20:19 Glucose (Fingerstick) 149 mg/dL (70-99) 148 mg/dL (70-99) White Blood Count 22.1 x10^3/uL (4.0-11.0) Red Blood Count 2.23 x10^6/uL (4.30-5.70) Hemoglobin 7.5 g/dL (13.0-17.5) Hematocrit 21.2 % (39.0-53.0) Mean Corpuscular Volume 95 fL (79-100) Mean Corpuscular Hemoglobin 33 pg (25-35) Mean Corpuscular Hemoglobin Concent 35 g/dL (31-37) Red Cell Distribution Width 15.4 % (11.5-14.5) Platelet Count 302 x10^3/uL (140-400) Neutrophils (%) (Auto) 73 % (31-73) Lymphocytes (%) (Auto) 20 % (24-48) Monocytes (%) (Auto) 6 % (0-9) Eosinophils (%) (Auto) 1 % (0-3) Basophils (%) (Auto) 0 % (0-3) Neutrophils # (Auto) 16.2 x10^3uL (1.8-7.7) Lymphocytes # (Auto) 4.3 x10^3/uL (1.0-4.8) Monocytes # (Auto) 1.3 x10^3/uL (0.0-1.1) Eosinophils # (Auto) 0.3 x10^3/uL (0.0-0.7) Basophils # (Auto) 0.0 x10^3/uL (0.0-0.2) Lactic Acid Level 1.4 mmol/L (0.4-2.0) Laboratory Tests Test 09/14/18 07:57 09/14/18 09:10 09/14/18 11:46 09/14/18 17:06 Glucose (Fingerstick) 136 mg/dL (70-99) 155 mg/dL (70-99) 149 mg/dL (70-99) White Blood Count 22.6 x10^3/uL (4.0-11.0) Red Blood Count 1.84 x10^6/uL (4.30-5.70) Hemoglobin 6.5 g/dL (13.0-17.5) Hematocrit 18.2 % (39.0-53.0) Mean Corpuscular Volume 99 fL (79-100) Mean Corpuscular Hemoglobin 35 pg (25-35) Mean Corpuscular Hemoglobin Concent 36 g/dL (31-37) Red Cell Distribution Width 13.9 % (11.5-14.5) Platelet Count 368 x10^3/uL (140-400) Neutrophils (%) (Auto) 67 % (31-73) Lymphocytes (%) (Auto) 25 % (24-48) Monocytes (%) (Auto) 7 % (0-9) Eosinophils (%) (Auto) 1 % (0-3) Basophils (%) (Auto) 0 % (0-3) Neutrophils # (Auto) 15.2 x10^3uL (1.8-7.7) Lymphocytes # (Auto) 5.6 x10^3/uL (1.0-4.8) Monocytes # (Auto) 1.5 x10^3/uL (0.0-1.1) Eosinophils # (Auto) 0.3 x10^3/uL (0.0-0.7) Basophils # (Auto) 0.0 x10^3/uL (0.0-0.2) Prothrombin Time 22.5 SEC (11.7-14.0) Prothromb Time International Ratio 2.1 (0.8-1.1) Test 09/14/18 18:15 09/14/18 20:19 White Blood Count 22.1 x10^3/uL (4.0-11.0) Red Blood Count 2.23 x10^6/uL (4.30-5.70) Hemoglobin 7.5 g/dL (13.0-17.5) Hematocrit 21.2 % (39.0-53.0) Mean Corpuscular Volume 95 fL (79-100) Mean Corpuscular Hemoglobin 33 pg (25-35) Mean Corpuscular Hemoglobin Concent 35 g/dL (31-37) Red Cell Distribution Width 15.4 % (11.5-14.5) Platelet Count 302 x10^3/uL (140-400) Neutrophils (%) (Auto) 73 % (31-73) Lymphocytes (%) (Auto) 20 % (24-48) Monocytes (%) (Auto) 6 % (0-9) Eosinophils (%) (Auto) 1 % (0-3) Basophils (%) (Auto) 0 % (0-3) Neutrophils # (Auto) 16.2 x10^3uL (1.8-7.7) Lymphocytes # (Auto) 4.3 x10^3/uL (1.0-4.8) Monocytes # (Auto) 1.3 x10^3/uL (0.0-1.1) Eosinophils # (Auto) 0.3 x10^3/uL (0.0-0.7) Basophils # (Auto) 0.0 x10^3/uL (0.0-0.2) Lactic Acid Level 1.4 mmol/L (0.4-2.0) Glucose (Fingerstick) 148 mg/dL (70-99) Medications Current Medications Morphine Sulfate 5 mg/Ketorolac Tromethamine 30 mg/Ropivacaine 60 ml/ Epinephrine HCl 0.5 mg/Sodium Chloride 100 ml @ 100 mls/hr 1X ONCE INT ART ; Start 09/06/18 at 06:00; Stop 09/06/18 at 07:00; Status DC Ondansetron HCl (Zofran) 4 mg PRN Q6HRS PRN IV NAUSEA/VOMITING; Start at 07:00; Stop 09/06/18 at 21:00; Status DC Fentanyl Citrate (Fentanyl 2ml Vial) 25 mcg PRN Q5MIN PRN IV MILD PAIN; Start 09/06/18 at 07:00; Stop 09/06/18 at 21:00; Status DC Fentanyl Citrate (Fentanyl 2ml Vial) 50 mcg PRN Q5MIN PRN IV MODERATE TO SEVERE PAIN Last administered on 09/06/18at 19:02; Start 09/06/18 at 07:00; Stop 09/06/18 at 21:00; Status DC Morphine Sulfate (Morphine Sulfate) 1 mg PRN Q10MIN PRN IV SEVERE PAIN; Start 09/06/18 at 07:00; Stop 09/06/18 at 21:00; Status DC Ringer's Solution 1,000 ml @ 30 mls/hr Q24H IV Last administered on at 09:45; Start 09/06/18 at 07:00; Stop 09/06/18 at 18:59; Status DC Lidocaine HCl (Xylocaine-Mpf 1% 2ml Vial) 2 ml PRN 1X PRN ID PRIOR TO IV START ; Start 09/06/18 at 07:00; Stop 09/06/18 at 21:00; Status DC Hydromorphone HCl (Dilaudid) 0.5 mg PRN Q10MIN PRN IV SEV PAIN, Second choice; Start 09/06/18 at 07:00; Stop 09/06/18 at 21:00; Status DC Prochlorperazine Edisylate (Compazine) 5 mg PACU PRN PRN IV NAUSEA, MRX1; Start 09/06/18 at 07:00; Stop 09/06/18 at 21:00; Status DC Acetaminophen/ Hydrocodone Bitart (Lortab 7.5/325) 2 tab 1X PREOP PRN PO PRIOR TO PROCEDURE Last administered on 09/06/18at 09:48; Start 09/06/18 at 06:00; Stop 09/06/18 at 18:00; Status DC Cefazolin Sodium/ Dextrose 50 ml @ 100 mls/hr 1X PREOP PRN IV PRIOR TO PROCEDURE Last administered on 09/06/18at 14:43; Start 09/06/18 at 06:00; Stop 09/06/18 at 18:00; Status DC Tranexamic Acid 1000 mg/Sodium Chloride 60 ml @ 60 mls/hr 1X PERIOP ONCE INJ Last administered on 09/06/18at 15:00; Start 09/06/18 at 06:00; Stop 09/06/18 at 07:00; Status DC Tranexamic Acid 1000 mg/Sodium Chloride 60 ml @ 60 mls/hr 1X PERIOP ONCE INJ Last administered on 09/06/18at 17:10; Start 09/06/18 at 08:00; Stop 09/06/18 at 08:59; Status DC Propofol 20 ml @ As Directed STK-MED ONCE IV ; Start 09/06/18 at 13:17; Stop 09/06/18 at 13:18; Status DC Dexamethasone Sodium Phosphate (Decadron) 20 mg STK-MED ONCE .ROUTE ; Start at 13:17; Stop 09/06/18 at 13:18; Status DC Famotidine (Pepcid Vial) 20 mg STK-MED ONCE .ROUTE ; Start 09/06/18 at 13:17; Stop 09/06/18 at 13:18; Status DC Lidocaine HCl (Lidocaine Pf 2% Vial) 5 ml STK-MED ONCE .ROUTE ; Start 09/06/18 at 13:17; Stop 09/06/18 at 13:18; Status DC Ondansetron HCl (Zofran) 4 mg STK-MED ONCE .ROUTE ; Start 09/06/18 at 13:17; Stop 09/06/18 at 13:18; Status DC Rocuronium [place] (Zemuron) 50 mg STK-MED ONCE .ROUTE ; Start 09/06/18 at 13: 17; Stop 09/06/18 at 13:18; Status DC Fentanyl Citrate (Fentanyl 2ml Vial) 100 mcg STK-MED ONCE .ROUTE ; Start at 13:17; Stop 09/06/18 at 13:18; Status DC Midazolam HCl (Versed) 2 mg STK-MED ONCE .ROUTE ; Start 09/06/18 at 13:17; Stop 09/06/18 at 13:18; Status DC Morphine Sulfate 5 mg/Ketorolac Tromethamine 30 mg/Ropivacaine 32 ml/ Epinephrine HCl 0.5 mg/Sodium Chloride 100 ml @ 100 mls/hr 1X ONCE INT ART Last administered on 09/06/18at 15:21; Start 09/06/18 at 14:15; Stop 09/06/18 at 15:14; Status DC Acetaminophen/ Hydrocodone Bitart (Lortab 7.5/325) 1 tab PRN Q3HRS PRN PO MODERATE PAIN, 1st CHOICE Last administered on 09/10/18at 02:40; Start at 15:00; Stop 09/14/18 at 13:18; Status DC Acetaminophen/ Hydrocodone Bitart (Lortab 10/325) 1 tab PRN Q3HRS PRN PO MODERATE PAIN, 2nd CHOICE Last administered on 09/14/18at 06:32; Start at 15:00; Stop 09/14/18 at 13:18; Status DC Tramadol HCl (Ultram) 50 mg PRN QID PRN PO MODERATE PAIN, 3rd CHOICE; Start at 15:00 Oxycodone/ Acetaminophen (Percocet 5/325) 1 tab PRN Q3HRS PRN PO SEVERE PAIN, 1st CHOICE Last administered on 09/14/18at 20:15; Start 09/06/18 at 15:00 Oxycodone/ Acetaminophen (Percocet 7.5/ 325) 1 tab PRN Q3HRS PRN PO SEVERE PAIN , 2nd CHOICE Last administered on 09/13/18 04:12; Start 09/06/18 at 15:00 Tramadol HCl (Ultram) 100 mg PRN Q3HRS PRN PO SEVERE PAIN, 3rd CHOICE Last administered on 09/13/18at 16:21; Start 09/06/18 at 15:00 Morphine Sulfate (Morphine Sulfate) 2 mg PRN Q1HR PRN IV PAIN Last administered on 09/15/18at 05:57; Start 09/06/18 at 15:00 Fentanyl Citrate (Fentanyl 2ml Vial) 25 mcg PRN Q1HR PRN IV PAIN, 2nd CHOICE; Start 09/06/18 at 15:00 Warfarin Sodium (Coumadin) 7.5 mg 1X ONCE PO Last administered on 09/06/18 20:01; Start 09/06/18 at 16:00; Stop 09/06/18 at 16:01; Status DC Warfarin Sodium (Coumadin Per Pharmacy) 1 each PRN DAILY PRN MC SEE COMMENTS Last administered on 09/14/18 14:32; Start 09/06/18 at 15:00 Multivitamins (Thera M Plus) 1 tab DAILY PO Last administered on 09/14/18 08: 49; Start 09/06/18 at 17:00 Senna/Docusate Sodium (Senna Plus) 1 tab DAILY PO Last administered on 08:49; Start 09/06/18 at 16:00 Ferrous Sulfate (Feosol) 325 mg BIDWMEALS PO Last administered on 09/14/18 16 :52; Start 09/06/18 at 17:00 Celecoxib (CeleBREX) 200 mg BID PO Last administered on 09/14/18 20:08; Start 09/06/18 at 21:00 Dextrose/Sodium Chloride 1,000 ml @ 100 mls/hr Q10H IV Last administered on 19:42; Start 09/06/18 at 14:50; Stop 09/07/18 at 17:57; Status DC Magnesium Hydroxide (Milk Of Magnesia) 2,400 mg 1X PRN PRN PO CONSTIPATION; Start 09/07/18 at 06:00; Stop 09/08/18 at 05:59; Status DC Bisacodyl (Dulcolax Supp) 10 mg 1X PRN PRN NM CONSTIPATION; Start 09/07/18 at 16:00; Stop 09/08/18 at 15:59; Status DC Acetaminophen (Tylenol) 650 mg PRN Q4HRS PRN PO MILD PAIN / TEMP Last administered on 09/13/18 16:21; Start 09/06/18 at 15:00 Zolpidem Tartrate (Ambien) 5 mg PRN QHS PRN PO INSOMNIA, MAY REPEAT IN 1HR Last administered on 09/14/18at 22:29; Start 09/06/18 at 15:00 Calcium Carbonate/ Glycine (Tums) 500 mg PRN QID PRN PO INDIGESTION Last administered on 09/13/18 13:40; Start 09/06/18 at 15:00 Morphine Sulfate (Morphine Sulfate) 4 mg PRN Q1HR PRN IV PAIN Last administered on 09/13/18at 22:59; Start 09/06/18 at 15:00 Ketorolac Tromethamine 30 mg/Bupivacaine HCl 20 ml/ Epinephrine HCl 0.5 mg/ Miscellaneous 43 ml @ 258 mls/hr Q12H INT ART Last administered on 09/07/18at 11:59; Start 09/06/18 at 20:00; Stop 09/07/18 at 08:09; Status DC Sodium Chloride (Normal Saline Flush) 10 ml QSHIFT PRN IV AFTER MEDS AND BLOOD DRAWS; Start 09/06/18 at 15:00 Fentanyl Citrate (Fentanyl 2ml Vial) 50 mcg PRN Q1HR PRN IV PAIN, 2nd CHOICE Last administered on 09/13/18at 17:30; Start 09/06/18 at 15:00 Prochlorperazine Edisylate (Compazine) 10 mg PRN Q4HRS PRN IV NAUSEA/VOMITING Last administered on 09/09/18at 05:19; Start 09/06/18 at 15:00 Dextrose (Dextrose 50%-Water Syringe) 12.5 gm PRN Q15MIN PRN IV SEE COMMENTS; Start 09/06/18 at 15:00; Stop 09/10/18 at 11:39; Status DC Cefazolin Sodium/ Dextrose 50 ml @ 100 mls/hr Q6H IV Last administered on at 08:17; Start 09/06/18 at 21:00; Stop 09/07/18 at 09:29; Status DC Ephedrine Sulfate (ePHEDrine PF IN SALINE SYRINGE) 50 mg STK-MED ONCE IV ; Start 09/06/18 at 16:46; Stop 09/06/18 at 16:47; Status DC Desflurane (Suprane) 90 ml STK-MED ONCE IH ; Start 09/06/18 at 16:46; Stop at 16:47; Status DC Neostigmine Methylsulfate (Neostigmine Methylsulfate) 5 mg STK-MED ONCE .ROUTE ; Start 09/06/18 at 16:47; Stop 09/06/18 at 16:48; Status DC Glycopyrrolate (Robinul) 1 mg STK-MED ONCE .ROUTE ; Start 09/06/18 at 16:47; Stop 09/06/18 at 16:48; Status DC Fentanyl Citrate (Fentanyl 2ml Vial) 100 mcg STK-MED ONCE .ROUTE ; Start at 17:58; Stop 09/06/18 at 17:59; Status DC Insulin Human Lispro (HumaLOG) 0-5 UNITS TIDWMEALS SQ Last administered on at 08:16; Start 09/07/18 at 08:00; Stop 09/07/18 at 11:52; Status DC Glimepiride (Amaryl) 2 mg DAILY PO Last administered on 09/14/18at 08:49; Start 09/07/18 at 09:00 Levothyroxine Sodium (Synthroid) 100 mcg DAILY06 PO Last administered on at 06:31; Start 09/07/18 at 06:00 Ascorbic Acid (Vitamin C) 1,000 mg DAILY PO Last administered on 09/14/18at 08: 49; Start 09/07/18 at 09:00 Lisinopril (Prinivil) 20 mg DAILY PO Last administered on 09/13/18at 08:20; Start 09/07/18 at 09:00; Stop 09/14/18 at 13:18; Status DC Hydrochlorothiazide (Microzide) 12.5 mg DAILY PO Last administered on at 08:20; Start 09/07/18 at 09:00; Stop 09/14/18 at 09:23; Status DC Metformin HCl (Glucophage) 1,000 mg BIDWMEALS PO Last administered on at 08:49; Start 09/07/18 at 08:00; Stop 09/14/18 at 10:57; Status DC Influenza Virus Vaccine (Afluria Trivalent [id number] Syringe) 0.5 ml ONCE ONCE VAX IM Last administered on 09/12/18at 13:59; Start 09/07/18 at 09:00; Stop 09/07/18 at 09:01; Status DC Insulin Human Lispro (HumaLOG) 0-7 UNITS TIDWMEALS SQ Last administered on at 17:17; Start 09/07/18 at 12:00; Stop 09/07/18 at 17:57; Status DC Dextrose (Dextrose 50%-Water Syringe) 12.5 gm PRN Q15MIN PRN IV SEE COMMENTS; Start 09/07/18 at 12:00; Status UNV Warfarin Sodium (Coumadin) 5 mg 1X WARF ONCE PO Last administered on at 17:11; Start 09/07/18 at 16:00; Stop 09/07/18 at 16:01; Status DC Insulin Human Lispro (HumaLOG) 0-9 UNITS TIDWMEALS SQ Last administered on at 13:44; Start 09/08/18 at 08:00 Dextrose (Dextrose 50%-Water Syringe) 12.5 gm PRN Q15MIN PRN IV SEE COMMENTS; Start 09/07/18 at 18:00 Insulin Glargine (Lantus) 12 units QHS SQ Last administered on 09/13/18at 21:24 ; Start 09/07/18 at 21:00 Warfarin Sodium (Coumadin) 2 mg 1X WARF ONCE PO Last administered on at 16:00; Start 09/08/18 at 16:00; Stop 09/08/18 at 16:01; Status DC Enoxaparin Sodium (Lovenox 80mg Syringe) 80 mg 1X ONCE SQ Last administered on 09/08/18at 16:01; Start 09/08/18 at 16:00; Stop 09/08/18 at 16:01; Status DC Enoxaparin Sodium (Lovenox 80mg Syringe) 80 mg Q12HR SQ Last administered on at 08:51; Start 09/09/18 at 06:00; Stop 09/14/18 at 13:18; Status DC Warfarin Sodium (Coumadin) 2 mg 1X WARF ONCE PO Last administered on at 16:42; Start 09/09/18 at 16:00; Stop 09/09/18 at 16:01; Status DC Ondansetron HCl (Zofran) 4 mg PRN Q6HRS PRN IV NAUSEA/VOMITING; Start at 07:00; Stop 09/12/18 at 07:00; Status DC Fentanyl Citrate (Fentanyl 2ml Vial) 25 mcg PRN Q5MIN PRN IV MILD PAIN; Start 09/12/18 at 07:00; Stop 09/12/18 at 07:00; Status DC Fentanyl Citrate (Fentanyl 2ml Vial) 50 mcg PRN Q5MIN PRN IV MODERATE TO SEVERE PAIN; Start 09/12/18 at 07:00; Stop 09/12/18 at 07:00; Status DC Morphine Sulfate (Morphine Sulfate) 1 mg PRN Q10MIN PRN IV SEVERE PAIN; Start 09/12/18 at 07:00; Stop 09/12/18 at 07:00; Status DC Ringer's Solution 1,000 ml @ 30 mls/hr Q24H IV ; Start 09/12/18 at 07:00; Stop 09/12/18 at 18:59; Status DC Lidocaine HCl (Xylocaine-Mpf 1% 2ml Vial) 2 ml PRN 1X PRN ID PRIOR TO IV START ; Start 09/12/18 at 07:00; Stop 09/12/18 at 07:00; Status DC Hydromorphone HCl (Dilaudid) 0.5 mg PRN Q10MIN PRN IV SEV PAIN, Second choice; Start 09/12/18 at 07:00; Stop 09/12/18 at 07:00; Status DC Prochlorperazine Edisylate (Compazine) 5 mg PACU PRN PRN IV NAUSEA, MRX1; Start 09/12/18 at 07:00; Stop 09/12/18 at 07:00; Status DC Warfarin Sodium (Coumadin) 3 mg 1X WARF ONCE PO Last administered on at 18:14; Start 09/10/18 at 16:00; Stop 09/10/18 at 16:01; Status DC Sodium Chloride 1,000 ml @ 75 mls/hr [id number] IV Last administered on at 06:02; Start 09/10/18 at 12:45; Stop 09/12/18 at 09:54; Status DC Warfarin Sodium (Coumadin) 4 mg 1X WARF ONCE PO Last administered on at 17:43; Start 09/11/18 at 16:00; Stop 09/11/18 at 16:01; Status DC Info (Anti-Coagulation Monitoring By Pharmacy) 1 each PRN DAILY PRN MC SEE COMMENTS Last administered on 09/13/18at 11:08; Start 09/12/18 at 11:00 Warfarin Sodium (Coumadin) 5 mg 1X WARF ONCE PO Last administered on at 16:02; Start 09/12/18 at 16:00; Stop 09/12/18 at 16:01; Status DC Warfarin Sodium (Coumadin) 7.5 mg 1X WARF ONCE PO Last administered on at 16:00; Start 09/13/18 at 16:00; Stop 09/13/18 at 16:01; Status DC Cyclobenzaprine HCl (Flexeril) 10 mg PRN Q6HRS PRN PO MUSCLE SPASMS Last administered on 09/14/18at 06:32; Start 09/13/18 at 18:15 Sodium Polystyrene Sulfonate (Kayexalate) 15 gm 1X ONCE PO Last administered on 09/14/18at 10:29; Start 09/14/18 at 10:00; Stop 09/14/18 at 10:01; Status DC Iohexol (Omnipaque 300 Mg/ml) 75 ml 1X ONCE IV Last administered on at 11:00; Start 09/14/18 at 11:00; Stop 09/14/18 at 11:01; Status DC Info (CONTRAST GIVEN -- Rx MONITORING) 1 each PRN DAILY PRN MC SEE COMMENTS; Start 09/14/18 at 11:00; Stop 09/16/18 at 10:59 Metformin HCl (Glucophage) 1,000 mg BIDWMEALS PO ; Start 09/16/18 at 17:00 Warfarin Sodium (Coumadin) 6 mg 1X WARF ONCE PO Last administered on at 16:52; Start 09/14/18 at 16:00; Stop 09/14/18 at 16:01; Status DC Active Scripts Active [place] 7.5-325 Tablet (Acetaminophen/Hydrocodone Bitart) 1 Each Tablet 1 Tab PO PRN Q6HRS PRN Reported Aleve (Naproxen Sodium) 220 Mg Tablet 220 Mg PO BID Tramadol Hcl 50 Mg Tablet 50 Mg PO Q6HRS PRN Glucosamine (Glucosamine Sulfate 2KCL) 1,000 Mg Tablet 1,000 Mg PO DAILY Multivitamins (Multivitamin) 1 Each Tablet 1 Tab PO DAILY Vitamin C (Ascorbic Acid) 100 Mg Tablet 1,000 Mg PO DAILY Hydrochlorothiazide Capsule (Hydrochlorothiazide) 12.5 Mg Capsule 1 Cap PO DAILY Benazepril Hcl 20 Mg Tablet 1 Tab PO DAILY Glimepiride 2 Mg Tablet 1 Tab PO DAILY Metformin Hcl 1,000 Mg Tablet 1,000 Mg PO BID Levothyroxine Sodium 100 Mcg Tablet 1 Tab PO DAILY Vitals/I & O Vital Sign - Last 24 Hours 09/14/18 09/14/18 09/14/18 09/14/18 08:37 11:00 13:24 13:44 Temp 98.8 96.8 96.7 98.8 96.8 96.7 Pulse 80 84 83 85 Resp 18 12 20 B/P (MAP) 88/49 93/50 (64) 95/44 111/39 Pulse Ox 95 O2 Delivery Room Air 09/14/18 09/14/18 09/14/18 09/14/18 14:45 15:00 15:45 16:45 Temp 98.6 98.6 97.5 98.6 98.6 97.5 Pulse 80 94 82 79 Resp 18 18 20 20 B/P (MAP) 96/55 96/55 (69) 98/50 104/53 Pulse Ox 94 O2 Delivery Room Air 09/14/18 09/14/18 09/14/18 09/14/18 17:56 19:00 19:11 19:30 Temp 98.5 97.9 97.9 98.0 98.5 97.9 97.9 98.0 Pulse 87 86 86 84 Resp 20 18 18 18 B/P (MAP) 98/44 84/52 (63) 84/52 105/50 Pulse Ox 95 O2 Delivery Room Air 09/14/18 09/14/18 09/14/18 10/31/18 20:00 20:15 20:34 20:46 Temp 98.0 98.0 98.0 98.0 Pulse 78 76 Resp 18 B/P (MAP) 104/50 108/48 Pulse Ox 95 O2 Delivery Room Air Room Air 09/14/18 09/14/18 09/14/18 09/15/18 21:15 21:40 23:02 02:55 Temp 98.0 97.9 98.1 98.0 97.9 98.1 Pulse 72 75 67 Resp 20 18 B/P (MAP) 122/58 108/50 (69) 108/53 (71) Pulse Ox 96 96 98 O2 Delivery Room Air Room Air Room Air 09/15/18 09/15/18 09/15/18 09/15/18 03:11 03:41 05:57 07:00 Resp 20 20 20 Pulse Ox 98 98 98 O2 Delivery Room Air Room Air Room Air Intake and Output 09/14/18 09/14/18 09/15/18 15:00 23:00 07:00 Intake Total 350 ml 250 ml 0 ml Output Total 450 ml Balance 350 ml -200 ml 0 ml KERLINE [email or web address] MD Sep 15, 2018 07:55
[2018-09-15] MEDS: INSULIN LISPRO 300 UNITS/3 ML INSULN.PEN. SQ SCH ×3 (08:00→17:37)
[2018-09-15] MEDS: FERROUS SULFATE 325 MG TABLET. PO SCH ×2 (08:00→17:34)
--- NOTE | 2018-09-15 08:11 | RAD ---
CT of the abdomen and pelvis with contrast, 09/14/2018: HISTORY: Recent hip replacement, patient on Coumadin Multidetector CT imaging was performed following an IV bolus injection of iodinated contrast material. There is a tiny amount of right-sided pleural fluid. The lung bases are clear. Coronary artery calcifications are present. No hepatic abnormality is seen. There is a rim-like area of medium density within the gallbladder which parallels the gallbladder mcdaniels. The appearance may be due to chronic gallbladder wall thickening or a large cholesterol tract calculus. This was also evident on an old study from 08/22/2012. The pancreas is unremarkable. The spleen is of normal size. There is a small cyst in the right kidney. A subcentimeter low-density lesion in the left kidney is too small to definitively characterize but is probably a cyst. There is heterogeneous enlargement of the right psoas muscle with displacement of the kidney anteriorly. The appearance suggests a hematoma. This hematoma measures 7-8 mm in greatest diameter on the axial scans and at least 13 cm in craniocaudad extent. The right iliacus muscle is also enlarged. This process extends to the right hip. Artifacts arising from the right hip prosthesis degrade image quality at that level, however, there is soft tissue thickening along the anterolateral aspect of the right hip, also compatible with a hematoma. Multiple small air bubbles related to the hematoma are likely postsurgical. Infection cannot be excluded. There is moderate subcutaneous edema laterally at the hip extending superiorly into the flank region. There is a small abnormal presacral density compatible with additional hemorrhage. There is a tiny amount of free fluid in the pelvis. Aortoiliac calcific plaquing is present. The bowel loops are not dilated. No free air is evident in the abdomen or pelvis. There are scattered degenerative changes in the spine. There is mild loss of height anteriorly of the L1 vertebral body of indeterminate age. IMPRESSION: 1. Postoperative hematoma at the right hip with moderate superior extension within the right iliopsoas muscle. 2. Small presacral hematoma. 3. Small amount of free fluid in the pelvis. 4. Tiny right pleural effusion. 5. Miscellaneous chronic findings as described above. CT of the right hip and femur with contrast, 09/14/2018: Imaging was performed in conjunction with the CT abdomen/pelvis exam. A right total hip prosthesis is in place. It appears to be in satisfactory position. There is a screw related to the acetabular component which extends medially into the region of the right external iliac vein. There is thickening of the quadriceps musculature laterally with a small superficial fluid collection extending inferiorly to the distal thigh level. This presumably represents additional hemorrhage. There is diffuse subcutaneous edema within the right thigh which is most prominent laterally. A small right knee joint effusion is present. Lack of opacification of the femoral vein and the majority of the popliteal vein is presumably secondary to the patient's known extensive DVT. The fact that the scanning was performed during an arterial bolus may also be contributing to this appearance. IMPRESSION: 1. Moderate hematoma anterolaterally at the right hip with mild inferior extension in the thigh. 2. The tip -- of a screw related to the acetabular component of the hip prosthesis extends into the right external iliac vein region. 3. Moderate diffuse subcutaneous edema in the thigh.. 4. Small right knee joint effusion PQRS Compliance Statement: One or more of the following individualized dose reduction techniques were utilized for this examination: 1. Automated exposure control 2. Adjustment of the mA and/or kV according to patient size 3. Use of iterative reconstruction technique Electronically signed by: Santino Huang MD (09/14/2018 3:16 PM) [facility] DICTATED and SIGNED BY: SANTINO HUANG MD DATE: 09/14/18 1444 MTDD
[2018-09-15 08:36] LABS: BASO % 0 % (0-3); EOS # 0.4 x10^3/uL (0.0-0.7); EOS % 3 % (0-3); HEMOGLOBIN 7.1 g/dL (13.0-17.5); LYMPH % 12 % (24-48); MEAN CORPUSCULAR HEMOGLOBIN 34 pg (25-35); MEAN CORPUSCULAR HGB CONC 36 g/dL (31-37); MEAN CORPUSCULAR VOLUME 95 fL (79-100); MONO # 0.9 x10^3/uL (0.0-1.1); MONO % 5 % (0-9); NEUT # 13.2 x10^3uL (1.8-7.7); NEUT % 80 % (31-73); PLATELET COUNT 306 x10^3/uL (140-400); RED BLOOD COUNT 2.07 x10^6/uL (4.30-5.70); WHITE BLOOD COUNT 16.6 x10^3/uL (4.0-11.0)
[2018-09-15 08:37] LABS: CALCIUM 8.8 mg/dL (8.5-10.1); CREATININE 1.1 mg/dL (0.7-1.3); GFR 66.6; POTASSIUM 4.2 mmol/L (3.5-5.1)
[2018-09-15 08:41] LABS: HEMATOCRIT 19.5 % (39.0-53.0)
[2018-09-15 08:48] LABS: PROTHROMBIN TIME PATIENT 26.1 SEC (11.7-14.0)
[2018-09-15] MEDS: GLIMEPIRIDE 2 MG TABLET. PO SCH (09:00)
[2018-09-15] MEDS: CELECOXIB 100 MG CAPSULE. PO SCH ×2 (09:00→20:11)
[2018-09-15] MEDS: MULTIVITAMIN with MINERAL TABLET. PO SCH (09:00)
[2018-09-15] MEDS: ASCORBIC ACID 500 MG TABLET PO SCH (09:00)
[2018-09-15] MEDS: SENNOSIDES/DOCUSATE 8.6/50MG TABLET. PO SCH (09:00)
--- NOTE | 2018-09-15 10:15 | PDOC ---
Provider Note Provider Note S: pt complains of pain right hip and thigh O: vss, afebrile right thigh and calf soft INR 2.5 today, Hgb 7.5 CT reviewed. Large retroperitoneal hematoma due to coagulopathy; the iliac veins do not appear distended (no contrast) Imp: 1. DVT right femoral and popliteal veins, iliac vein does not appear involved. 2. right retroperitoneal hematoma 3. coagulopathy Rec: 1. pt should have received 2 units FFP yesterday and one unit prbc. 2. plan 2 more units FFP, 2 units prbc, 3. hold warfarin and d/c lovenox (should have been done already) 4. IVC filter placement when INR<1.6 per interventional radiology. Discussed the plan with the patient. He understands the issues and wishes to proceed. MARIZA ALEJANDRO II, MD Sep 15, 2018 10:15
[2018-09-15] MEDS: CYCLOBENZAPRINE 10 MG TABLET. PO PRN ×3 (10:58→23:14)
[2018-09-15] MEDS: oxyCODONE/APAP 7.5/325 1 TAB TABLET PO PRN ×3 (10:58→23:15)
[2018-09-15] MEDS: MORPHINE SULFATE 4 MG/ML VIAL. IV PRN (14:31)
[2018-09-15] MEDS: ANTI-COAG MONITOR BY PHARMACY. MC PRN ×2 (15:29→15:32)
[2018-09-15] MEDS ORDERED: WARFARIN 5 MG TABLET. PO ONE (16:00)
[2018-09-15] MEDS: INSULIN GLARGINE 300 UNITS/3 ML INSULN.PEN. SQ SCH (20:40)
[2018-09-16] VITALS (9 sets, daily range): BP systolic 114–145; BP diastolic 62–85
[2018-09-16 04:20] LABS: BASO # 0.1 x10^3/uL (0.0-0.2); BASO % 1 % (0-3); EOS # 0.3 x10^3/uL (0.0-0.7); EOS % 2 % (0-3); HEMATOCRIT 24.3 % (39.0-53.0); HEMOGLOBIN 8.7 g/dL (13.0-17.5); LYMPH # 2.1 x10^3/uL (1.0-4.8); LYMPH % 16 % (24-48); MEAN CORPUSCULAR HEMOGLOBIN 33 pg (25-35); MEAN CORPUSCULAR HGB CONC 36 g/dL (31-37); MEAN CORPUSCULAR VOLUME 92 fL (79-100); MONO # 0.8 x10^3/uL (0.0-1.1); MONO % 6 % (0-9); NEUT # 9.6 x10^3uL (1.8-7.7); NEUT % 75 % (31-73); PLATELET COUNT 275 x10^3/uL (140-400); RED BLOOD COUNT 2.66 x10^6/uL (4.30-5.70); RED CELL DISTRIBUTION WIDTH 17.1 % (11.5-14.5); WHITE BLOOD COUNT 12.7 x10^3/uL (4.0-11.0)
[2018-09-16 04:32] LABS: CALCIUM 8.9 mg/dL (8.5-10.1); CREATININE 1.2 mg/dL (0.7-1.3); GFR 60.2; POTASSIUM 4.3 mmol/L (3.5-5.1)
[2018-09-16 04:38] LABS: PROTHROMBIN TIME PATIENT 19.7 SEC (11.7-14.0)
[2018-09-16] MEDS: CYCLOBENZAPRINE 10 MG TABLET. PO PRN ×3 (06:17→22:41)
[2018-09-16] MEDS: LEVOTHYROXINE 100 MCG TABLET PO SCH (06:17)
[2018-09-16] MEDS: MORPHINE SULFATE 2 MG/ML VIAL. IV PRN (07:57)
--- NOTE | 2018-09-16 07:57 | PDOC ---
PROGRESS NOTES Chief Complaint Chief Complaint Rt hip DJD S/p right hip arthroplasty 09/06 Extensive right leg DVT - confirmed 09/08 Leukocytosis likely 2/2 to intra-op steroids - resolved Hyponatremia - resolved H/o DM H/o HTN, hypotension H/o hypothyroid ACute anemia, post op hyperkalemia History of Present Illness History of Present Illness Pt seen and examined 09/14: c/o more pain last night. not complain to me today. however, hb 6.5 from 8.5, high wbc to 22, BP lower to 80s , INR 2.1. Transfused with Hb back to 7.1 from 6.5 Discussed w/RN Discussed w/PT rt thigh swelling slightly better today, now with scrotal edema as well rt thigh has a post op drain pt able to walk a little bit with PTOT, wants rehab, states he can do well 1 day and poorly for 2 days after. INR was >2 yesterday despite FFP, given 2u PRBC and FFP with INR to 1.7 today. Going for IVF filter Rt hip DJD S/p right hip arthroplasty 09/06 Extensive right leg DVT - confirmed 09/08 Leukocytosis likely 2/2 to intra-op steroids - resolved Hyponatremia - resolved H/o DM H/o HTN, hypotension H/o hypothyroid ACute anemia, post op hyperkalemia plan: fu with ortho, vascular no vascular sx plan for now currently on warfarin and lovenox bid for bridging, INR goal2-3. dc lovenox, will restart warfarin, insert IVF filter today fu with need rehab for dc pain control, flexeril added with ortho cont home meds for dm2 PTOT thanks for asking for consult Vitals Vitals Vital Signs Date Time Temp Pulse Resp B/P (MAP) Pulse Ox O2 Delivery O2 Flow Rate FiO2 09/16/18 03:00 98.0 90 16 140/74 (96) 93 Room Air 98.0 09/15/18 08:00 2.0 Physical Exam Physical Exam Neck: Supple, no JVD General: No acute distress, Other (Pt was asleep and appeared to be in NAD) Heart: Regular rate, No murmurs Lungs: Clear Abdomen: Soft, No tenderness Extremities: Other (rt thigh wound has a small drain, right thigh moderate swelling) Skin: No rashes Labs LABS Laboratory Tests Test 09/15/18 08:00 09/15/18 10:21 09/15/18 11:50 09/15/18 16:53 White Blood Count 16.6 x10^3/uL (4.0-11.0) Red Blood Count 2.07 x10^6/uL (4.30-5.70) Hemoglobin 7.1 g/dL (13.0-17.5) Hematocrit 19.5 % (39.0-53.0) Mean Corpuscular Volume 95 fL (79-100) Mean Corpuscular Hemoglobin 34 pg (25-35) Mean Corpuscular Hemoglobin Concent 36 g/dL (31-37) Red Cell Distribution Width 16.0 % (11.5-14.5) Platelet Count 306 x10^3/uL (140-400) Neutrophils (%) (Auto) 80 % (31-73) Lymphocytes (%) (Auto) 12 % (24-48) Monocytes (%) (Auto) 5 % (0-9) Eosinophils (%) (Auto) 3 % (0-3) Basophils (%) (Auto) 0 % (0-3) Neutrophils # (Auto) 13.2 x10^3uL (1.8-7.7) Lymphocytes # (Auto) 2.0 x10^3/uL (1.0-4.8) Monocytes # (Auto) 0.9 x10^3/uL (0.0-1.1) Eosinophils # (Auto) 0.4 x10^3/uL (0.0-0.7) Basophils # (Auto) 0.0 x10^3/uL (0.0-0.2) Prothrombin Time 26.1 SEC (11.7-14.0) Prothromb Time International Ratio 2.5 (0.8-1.1) Sodium Level 136 mmol/L (136-145) Potassium Level 4.2 mmol/L (3.5-5.1) Chloride Level 99 mmol/L (98-107) Carbon Dioxide Level 28 mmol/L (21-32) Anion Gap 9 (6-14) Blood Urea Nitrogen 35 mg/dL (8-26) Creatinine 1.1 mg/dL (0.7-1.3) Estimated GFR (Cockcroft-Gault) 66.6 Glucose Level 78 mg/dL (70-99) Calcium Level 8.8 mg/dL (8.5-10.1) Glucose (Fingerstick) 66 mg/dL (70-99) 102 mg/dL (70-99) 155 mg/dL (70-99) Test 09/15/18 20:36 09/16/18 04:07 Glucose (Fingerstick) 185 mg/dL (70-99) White Blood Count 12.7 x10^3/uL (4.0-11.0) Red Blood Count 2.66 x10^6/uL (4.30-5.70) Hemoglobin 8.7 g/dL (13.0-17.5) Hematocrit 24.3 % (39.0-53.0) Mean Corpuscular Volume 92 fL (79-100) Mean Corpuscular Hemoglobin 33 pg (25-35) Mean Corpuscular Hemoglobin Concent 36 g/dL (31-37) Red Cell Distribution Width 17.1 % (11.5-14.5) Platelet Count 275 x10^3/uL (140-400) Neutrophils (%) (Auto) 75 % (31-73) Lymphocytes (%) (Auto) 16 % (24-48) Monocytes (%) (Auto) 6 % (0-9) Eosinophils (%) (Auto) 2 % (0-3) Basophils (%) (Auto) 1 % (0-3) Neutrophils # (Auto) 9.6 x10^3uL (1.8-7.7) Lymphocytes # (Auto) 2.1 x10^3/uL (1.0-4.8) Monocytes # (Auto) 0.8 x10^3/uL (0.0-1.1) Eosinophils # (Auto) 0.3 x10^3/uL (0.0-0.7) Basophils # (Auto) 0.1 x10^3/uL (0.0-0.2) Prothrombin Time 19.7 SEC (11.7-14.0) Prothromb Time International Ratio 1.7 (0.8-1.1) Sodium Level 136 mmol/L (136-145) Potassium Level 4.3 mmol/L (3.5-5.1) Chloride Level 100 mmol/L (98-107) Carbon Dioxide Level 30 mmol/L (21-32) Anion Gap 6 (6-14) Blood Urea Nitrogen 27 mg/dL (8-26) Creatinine 1.2 mg/dL (0.7-1.3) Estimated GFR (Cockcroft-Gault) 60.2 Glucose Level 190 mg/dL (70-99) Calcium Level 8.9 mg/dL (8.5-10.1) Comment Review of Relevant I have reviewed the following items digna (where applicable) has been applied. Labs Laboratory Tests Test 09/14/18 07:57 09/14/18 09:10 09/14/18 11:46 09/14/18 17:06 Glucose (Fingerstick) 136 mg/dL (70-99) 155 mg/dL (70-99) 149 mg/dL (70-99) White Blood Count 22.6 x10^3/uL (4.0-11.0) Red Blood Count 1.84 x10^6/uL (4.30-5.70) Hemoglobin 6.5 g/dL (13.0-17.5) Hematocrit 18.2 % (39.0-53.0) Mean Corpuscular Volume 99 fL (79-100) Mean Corpuscular Hemoglobin 35 pg (25-35) Mean Corpuscular Hemoglobin Concent 36 g/dL (31-37) Red Cell Distribution Width 13.9 % (11.5-14.5) Platelet Count 368 x10^3/uL (140-400) Neutrophils (%) (Auto) 67 % (31-73) Lymphocytes (%) (Auto) 25 % (24-48) Monocytes (%) (Auto) 7 % (0-9) Eosinophils (%) (Auto) 1 % (0-3) Basophils (%) (Auto) 0 % (0-3) Neutrophils # (Auto) 15.2 x10^3uL (1.8-7.7) Lymphocytes # (Auto) 5.6 x10^3/uL (1.0-4.8) Monocytes # (Auto) 1.5 x10^3/uL (0.0-1.1) Eosinophils # (Auto) 0.3 x10^3/uL (0.0-0.7) Basophils # (Auto) 0.0 x10^3/uL (0.0-0.2) Prothrombin Time 22.5 SEC (11.7-14.0) Prothromb Time International Ratio 2.1 (0.8-1.1) Test 09/14/18 18:15 09/14/18 20:19 09/15/18 07:53 09/15/18 08:00 White Blood Count 22.1 x10^3/uL (4.0-11.0) 16.6 x10^3/uL (4.0-11.0) Red Blood Count 2.23 x10^6/uL (4.30-5.70) 2.07 x10^6/uL (4.30-5.70) Hemoglobin 7.5 g/dL (13.0-17.5) 7.1 g/dL (13.0-17.5) Hematocrit 21.2 % (39.0-53.0) 19.5 % (39.0-53.0) Mean Corpuscular Volume 95 fL (79-100) 95 fL (79-100) Mean Corpuscular Hemoglobin 33 pg (25-35) 34 pg (25-35) Mean Corpuscular Hemoglobin Concent 35 g/dL (31-37) 36 g/dL (31-37) Red Cell Distribution Width 15.4 % (11.5-14.5) 16.0 % (11.5-14.5) Platelet Count 302 x10^3/uL (140-400) 306 x10^3/uL (140-400) Neutrophils (%) (Auto) 73 % (31-73) 80 % (31-73) Lymphocytes (%) (Auto) 20 % (24-48) 12 % (24-48) Monocytes (%) (Auto) 6 % (0-9) 5 % (0-9) Eosinophils (%) (Auto) 1 % (0-3) 3 % (0-3) Basophils (%) (Auto) 0 % (0-3) 0 % (0-3) Neutrophils # (Auto) 16.2 x10^3uL (1.8-7.7) 13.2 x10^3uL (1.8-7.7) Lymphocytes # (Auto) 4.3 x10^3/uL (1.0-4.8) 2.0 x10^3/uL (1.0-4.8) Monocytes # (Auto) 1.3 x10^3/uL (0.0-1.1) 0.9 x10^3/uL (0.0-1.1) Eosinophils # (Auto) 0.3 x10^3/uL (0.0-0.7) 0.4 x10^3/uL (0.0-0.7) Basophils # (Auto) 0.0 x10^3/uL (0.0-0.2) 0.0 x10^3/uL (0.0-0.2) Lactic Acid Level 1.4 mmol/L (0.4-2.0) Glucose (Fingerstick) 148 mg/dL (70-99) 75 mg/dL (70-99) Prothrombin Time 26.1 SEC (11.7-14.0) Prothromb Time International Ratio 2.5 (0.8-1.1) Sodium Level 136 mmol/L (136-145) Potassium Level 4.2 mmol/L (3.5-5.1) Chloride Level 99 mmol/L (98-107) Carbon Dioxide Level 28 mmol/L (21-32) Anion Gap 9 (6-14) Blood Urea Nitrogen 35 mg/dL (8-26) Creatinine 1.1 mg/dL (0.7-1.3) Estimated GFR (Cockcroft-Gault) 66.6 Glucose Level 78 mg/dL (70-99) Calcium Level 8.8 mg/dL (8.5-10.1) Test 09/15/18 10:21 09/15/18 11:50 09/15/18 16:53 09/15/18 20:36 Glucose (Fingerstick) 66 mg/dL (70-99) 102 mg/dL (70-99) 155 mg/dL (70-99) 185 mg/dL (70-99) Test 09/16/18 04:07 White Blood Count 12.7 x10^3/uL (4.0-11.0) Red Blood Count 2.66 x10^6/uL (4.30-5.70) Hemoglobin 8.7 g/dL (13.0-17.5) Hematocrit 24.3 % (39.0-53.0) Mean Corpuscular Volume 92 fL (79-100) Mean Corpuscular Hemoglobin 33 pg (25-35) Mean Corpuscular Hemoglobin Concent 36 g/dL (31-37) Red Cell Distribution Width 17.1 % (11.5-14.5) Platelet Count 275 x10^3/uL (140-400) Neutrophils (%) (Auto) 75 % (31-73) Lymphocytes (%) (Auto) 16 % (24-48) Monocytes (%) (Auto) 6 % (0-9) Eosinophils (%) (Auto) 2 % (0-3) Basophils (%) (Auto) 1 % (0-3) Neutrophils # (Auto) 9.6 x10^3uL (1.8-7.7) Lymphocytes # (Auto) 2.1 x10^3/uL (1.0-4.8) Monocytes # (Auto) 0.8 x10^3/uL (0.0-1.1) Eosinophils # (Auto) 0.3 x10^3/uL (0.0-0.7) Basophils # (Auto) 0.1 x10^3/uL (0.0-0.2) Prothrombin Time 19.7 SEC (11.7-14.0) Prothromb Time International Ratio 1.7 (0.8-1.1) Sodium Level 136 mmol/L (136-145) Potassium Level 4.3 mmol/L (3.5-5.1) Chloride Level 100 mmol/L (98-107) Carbon Dioxide Level 30 mmol/L (21-32) Anion Gap 6 (6-14) Blood Urea Nitrogen 27 mg/dL (8-26) Creatinine 1.2 mg/dL (0.7-1.3) Estimated GFR (Cockcroft-Gault) 60.2 Glucose Level 190 mg/dL (70-99) Calcium Level 8.9 mg/dL (8.5-10.1) Laboratory Tests Test 09/15/18 08:00 09/15/18 10:21 09/15/18 11:50 09/15/18 16:53 White Blood Count 16.6 x10^3/uL (4.0-11.0) Red Blood Count 2.07 x10^6/uL (4.30-5.70) Hemoglobin 7.1 g/dL (13.0-17.5) Hematocrit 19.5 % (39.0-53.0) Mean Corpuscular Volume 95 fL (79-100) Mean Corpuscular Hemoglobin 34 pg (25-35) Mean Corpuscular Hemoglobin Concent 36 g/dL (31-37) Red Cell Distribution Width 16.0 % (11.5-14.5) Platelet Count 306 x10^3/uL (140-400) Neutrophils (%) (Auto) 80 % (31-73) Lymphocytes (%) (Auto) 12 % (24-48) Monocytes (%) (Auto) 5 % (0-9) Eosinophils (%) (Auto) 3 % (0-3) Basophils (%) (Auto) 0 % (0-3) Neutrophils # (Auto) 13.2 x10^3uL (1.8-7.7) Lymphocytes # (Auto) 2.0 x10^3/uL (1.0-4.8) Monocytes # (Auto) 0.9 x10^3/uL (0.0-1.1) Eosinophils # (Auto) 0.4 x10^3/uL (0.0-0.7) Basophils # (Auto) 0.0 x10^3/uL (0.0-0.2) Prothrombin Time 26.1 SEC (11.7-14.0) Prothromb Time International Ratio 2.5 (0.8-1.1) Sodium Level 136 mmol/L (136-145) Potassium Level 4.2 mmol/L (3.5-5.1) Chloride Level 99 mmol/L (98-107) Carbon Dioxide Level 28 mmol/L (21-32) Anion Gap 9 (6-14) Blood Urea Nitrogen 35 mg/dL (8-26) Creatinine 1.1 mg/dL (0.7-1.3) Estimated GFR (Cockcroft-Gault) 66.6 Glucose Level 78 mg/dL (70-99) Calcium Level 8.8 mg/dL (8.5-10.1) Glucose (Fingerstick) 66 mg/dL (70-99) 102 mg/dL (70-99) 155 mg/dL (70-99) Test 09/15/18 20:36 09/16/18 04:07 Glucose (Fingerstick) 185 mg/dL (70-99) White Blood Count 12.7 x10^3/uL (4.0-11.0) Red Blood Count 2.66 x10^6/uL (4.30-5.70) Hemoglobin 8.7 g/dL (13.0-17.5) Hematocrit 24.3 % (39.0-53.0) Mean Corpuscular Volume 92 fL (79-100) Mean Corpuscular Hemoglobin 33 pg (25-35) Mean Corpuscular Hemoglobin Concent 36 g/dL (31-37) Red Cell Distribution Width 17.1 % (11.5-14.5) Platelet Count 275 x10^3/uL (140-400) Neutrophils (%) (Auto) 75 % (31-73) Lymphocytes (%) (Auto) 16 % (24-48) Monocytes (%) (Auto) 6 % (0-9) Eosinophils (%) (Auto) 2 % (0-3) Basophils (%) (Auto) 1 % (0-3) Neutrophils # (Auto) 9.6 x10^3uL (1.8-7.7) Lymphocytes # (Auto) 2.1 x10^3/uL (1.0-4.8) Monocytes # (Auto) 0.8 x10^3/uL (0.0-1.1) Eosinophils # (Auto) 0.3 x10^3/uL (0.0-0.7) Basophils # (Auto) 0.1 x10^3/uL (0.0-0.2) Prothrombin Time 19.7 SEC (11.7-14.0) Prothromb Time International Ratio 1.7 (0.8-1.1) Sodium Level 136 mmol/L (136-145) Potassium Level 4.3 mmol/L (3.5-5.1) Chloride Level 100 mmol/L (98-107) Carbon Dioxide Level 30 mmol/L (21-32) Anion Gap 6 (6-14) Blood Urea Nitrogen 27 mg/dL (8-26) Creatinine 1.2 mg/dL (0.7-1.3) Estimated GFR (Cockcroft-Gault) 60.2 Glucose Level 190 mg/dL (70-99) Calcium Level 8.9 mg/dL (8.5-10.1) Medications Current Medications Morphine Sulfate 5 mg/Ketorolac Tromethamine 30 mg/Ropivacaine 60 ml/ Epinephrine HCl 0.5 mg/Sodium Chloride 100 ml @ 100 mls/hr 1X ONCE INT ART ; Start 09/06/18 at 06:00; Stop 09/06/18 at 07:00; Status DC Ondansetron HCl (Zofran) 4 mg PRN Q6HRS PRN IV NAUSEA/VOMITING; Start at 07:00; Stop 09/06/18 at 21:00; Status DC Fentanyl Citrate (Fentanyl 2ml Vial) 25 mcg PRN Q5MIN PRN IV MILD PAIN; Start 09/06/18 at 07:00; Stop 09/06/18 at 21:00; Status DC Fentanyl Citrate (Fentanyl 2ml Vial) 50 mcg PRN Q5MIN PRN IV MODERATE TO SEVERE PAIN Last administered on 09/06/18at 19:02; Start 09/06/18 at 07:00; Stop 09/06/18 at 21:00; Status DC Morphine Sulfate (Morphine Sulfate) 1 mg PRN Q10MIN PRN IV SEVERE PAIN; Start 09/06/18 at 07:00; Stop 09/06/18 at 21:00; Status DC Ringer's Solution 1,000 ml @ 30 mls/hr Q24H IV Last administered on at 09:45; Start 09/06/18 at 07:00; Stop 09/06/18 at 18:59; Status DC Lidocaine HCl (Xylocaine-Mpf 1% 2ml Vial) 2 ml PRN 1X PRN ID PRIOR TO IV START ; Start 09/06/18 at 07:00; Stop 09/06/18 at 21:00; Status DC Hydromorphone HCl (Dilaudid) 0.5 mg PRN Q10MIN PRN IV SEV PAIN, Second choice; Start 09/06/18 at 07:00; Stop 09/06/18 at 21:00; Status DC Prochlorperazine Edisylate (Compazine) 5 mg PACU PRN PRN IV NAUSEA, MRX1; Start 09/06/18 at 07:00; Stop 09/06/18 at 21:00; Status DC Acetaminophen/ Hydrocodone Bitart (Lortab 7.5/325) 2 tab 1X PREOP PRN PO PRIOR TO PROCEDURE Last administered on 09/06/18at 09:48; Start 09/06/18 at 06:00; Stop 09/06/18 at 18:00; Status DC Cefazolin Sodium/ Dextrose 50 ml @ 100 mls/hr 1X PREOP PRN IV PRIOR TO PROCEDURE Last administered on 09/06/18at 14:43; Start 09/06/18 at 06:00; Stop 09/06/18 at 18:00; Status DC Tranexamic Acid 1000 mg/Sodium Chloride 60 ml @ 60 mls/hr 1X PERIOP ONCE INJ Last administered on 09/06/18at 15:00; Start 09/06/18 at 06:00; Stop 09/06/18 at 07:00; Status DC Tranexamic Acid 1000 mg/Sodium Chloride 60 ml @ 60 mls/hr 1X PERIOP ONCE INJ Last administered on 09/06/18at 17:10; Start 09/06/18 at 08:00; Stop 09/06/18 at 08:59; Status DC Propofol 20 ml @ As Directed STK-MED ONCE IV ; Start 09/06/18 at 13:17; Stop 09/06/18 at 13:18; Status DC Dexamethasone Sodium Phosphate (Decadron) 20 mg STK-MED ONCE .ROUTE ; Start at 13:17; Stop 09/06/18 at 13:18; Status DC Famotidine (Pepcid Vial) 20 mg STK-MED ONCE .ROUTE ; Start 09/06/18 at 13:17; Stop 09/06/18 at 13:18; Status DC Lidocaine HCl (Lidocaine Pf 2% Vial) 5 ml STK-MED ONCE .ROUTE ; Start 09/06/18 at 13:17; Stop 09/06/18 at 13:18; Status DC Ondansetron HCl (Zofran) 4 mg STK-MED ONCE .ROUTE ; Start 09/06/18 at 13:17; Stop 09/06/18 at 13:18; Status DC Rocuronium Vestal (Zemuron) 50 mg STK-MED ONCE .ROUTE ; Start 09/06/18 at 13: 17; Stop 09/06/18 at 13:18; Status DC Fentanyl Citrate (Fentanyl 2ml Vial) 100 mcg STK-MED ONCE .ROUTE ; Start at 13:17; Stop 09/06/18 at 13:18; Status DC Midazolam HCl (Versed) 2 mg STK-MED ONCE .ROUTE ; Start 09/06/18 at 13:17; Stop 09/06/18 at 13:18; Status DC Morphine Sulfate 5 mg/Ketorolac Tromethamine 30 mg/Ropivacaine 32 ml/ Epinephrine HCl 0.5 mg/Sodium Chloride 100 ml @ 100 mls/hr 1X ONCE INT ART Last administered on 09/06/18at 15:21; Start 09/06/18 at 14:15; Stop 09/06/18 at 15:14; Status DC Acetaminophen/ Hydrocodone Bitart (Lortab 7.5/325) 1 tab PRN Q3HRS PRN PO MODERATE PAIN, 1st CHOICE Last administered on 09/10/18at 02:40; Start at 15:00; Stop 09/14/18 at 13:18; Status DC Acetaminophen/ Hydrocodone Bitart (Lortab 10/325) 1 tab PRN Q3HRS PRN PO MODERATE PAIN, 2nd CHOICE Last administered on 09/14/18at 06:32; Start at 15:00; Stop 09/14/18 at 13:18; Status DC Tramadol HCl (Ultram) 50 mg PRN QID PRN PO MODERATE PAIN, 3rd CHOICE; Start at 15:00 Oxycodone/ Acetaminophen (Percocet 5/325) 1 tab PRN Q3HRS PRN PO SEVERE PAIN, 1st CHOICE Last administered on 09/14/18at 20:15; Start 09/06/18 at 15:00 Oxycodone/ Acetaminophen (Percocet 7.5/ 325) 1 tab PRN Q3HRS PRN PO SEVERE PAIN , 2nd CHOICE Last administered on 09/15/18at 23:15; Start 09/06/18 at 15:00 Tramadol HCl (Ultram) 100 mg PRN Q3HRS PRN PO SEVERE PAIN, 3rd CHOICE Last administered on 09/13/18at 16:21; Start 09/06/18 at 15:00 Morphine Sulfate (Morphine Sulfate) 2 mg PRN Q1HR PRN IV PAIN Last administered on 09/15/18at 09:05; Start 09/06/18 at 15:00 Fentanyl Citrate (Fentanyl 2ml Vial) 25 mcg PRN Q1HR PRN IV PAIN, 2nd CHOICE; Start 09/06/18 at 15:00 Warfarin Sodium (Coumadin) 7.5 mg 1X ONCE PO Last administered on 09/06/18at 20:01; Start 09/06/18 at 16:00; Stop 09/06/18 at 16:01; Status DC Warfarin Sodium (Coumadin Per Pharmacy) 1 each PRN DAILY PRN MC SEE COMMENTS Last administered on 09/15/18at 15:34; Start 09/06/18 at 15:00 Multivitamins (Thera M Plus) 1 tab DAILY PO Last administered on 09/14/18at 08: 49; Start 09/06/18 at 17:00 Senna/Docusate Sodium (Senna Plus) 1 tab DAILY PO Last administered on 08:49; Start 09/06/18 at 16:00 Ferrous Sulfate (Feosol) 325 mg BIDWMEALS PO Last administered on 09/15/18 17: 34; Start 09/06/18 at 17:00 Celecoxib (CeleBREX) 200 mg BID PO Last administered on 09/15/18at 20:11; Start 09/06/18 at 21:00 Dextrose/Sodium Chloride 1,000 ml @ 100 mls/hr Q10H IV Last administered on at 19:42; Start 09/06/18 at 14:50; Stop 09/07/18 at 17:57; Status DC Magnesium Hydroxide (Milk Of Magnesia) 2,400 mg 1X PRN PRN PO CONSTIPATION; Start 09/07/18 at 06:00; Stop 09/08/18 at 05:59; Status DC Bisacodyl (Dulcolax Supp) 10 mg 1X PRN PRN MT CONSTIPATION; Start 09/07/18 at 16:00; Stop 09/08/18 at 15:59; Status DC Acetaminophen (Tylenol) 650 mg PRN Q4HRS PRN PO MILD PAIN / TEMP Last administered on 09/13/18at 16:21; Start 09/06/18 at 15:00 Zolpidem Tartrate (Ambien) 5 mg PRN QHS PRN PO INSOMNIA, MAY REPEAT IN 1HR Last administered on 09/14/18at 22:29; Start 09/06/18 at 15:00 Calcium Carbonate/ Glycine (Tums) 500 mg PRN QID PRN PO INDIGESTION Last administered on 09/13/18at 13:40; Start 09/06/18 at 15:00 Morphine Sulfate (Morphine Sulfate) 4 mg PRN Q1HR PRN IV PAIN Last administered on 09/15/18at 14:31; Start 09/06/18 at 15:00 Ketorolac Tromethamine 30 mg/Bupivacaine HCl 20 ml/ Epinephrine HCl 0.5 mg/ Miscellaneous 43 ml @ 258 mls/hr Q12H INT ART Last administered on 09/07/18at 11:59; Start 09/06/18 at 20:00; Stop 09/07/18 at 08:09; Status DC Sodium Chloride (Normal Saline Flush) 10 ml QSHIFT PRN IV AFTER MEDS AND BLOOD DRAWS; Start 09/06/18 at 15:00 Fentanyl Citrate (Fentanyl 2ml Vial) 50 mcg PRN Q1HR PRN IV PAIN, 2nd CHOICE Last administered on 09/13/18at 17:30; Start 09/06/18 at 15:00 Prochlorperazine Edisylate (Compazine) 10 mg PRN Q4HRS PRN IV NAUSEA/VOMITING Last administered on 09/09/18at 05:19; Start 09/06/18 at 15:00 Dextrose (Dextrose 50%-Water Syringe) 12.5 gm PRN Q15MIN PRN IV SEE COMMENTS; Start 09/06/18 at 15:00; Stop 09/10/18 at 11:39; Status DC Cefazolin Sodium/ Dextrose 50 ml @ 100 mls/hr Q6H IV Last administered on at 08:17; Start 09/06/18 at 21:00; Stop 09/07/18 at 09:29; Status DC Ephedrine Sulfate (ePHEDrine PF IN SALINE SYRINGE) 50 mg STK-MED ONCE IV ; Start 09/06/18 at 16:46; Stop 09/06/18 at 16:47; Status DC Desflurane (Suprane) 90 ml STK-MED ONCE IH ; Start 09/06/18 at 16:46; Stop at 16:47; Status DC Neostigmine Methylsulfate (Neostigmine Methylsulfate) 5 mg STK-MED ONCE .ROUTE ; Start 09/06/18 at 16:47; Stop 09/06/18 at 16:48; Status DC Glycopyrrolate (Robinul) 1 mg STK-MED ONCE .ROUTE ; Start 09/06/18 at 16:47; Stop 09/06/18 at 16:48; Status DC Fentanyl Citrate (Fentanyl 2ml Vial) 100 mcg STK-MED ONCE .ROUTE ; Start at 17:58; Stop 09/06/18 at 17:59; Status DC Insulin Human Lispro (HumaLOG) 0-5 UNITS TIDWMEALS SQ Last administered on at 08:16; Start 09/07/18 at 08:00; Stop 09/07/18 at 11:52; Status DC Glimepiride (Amaryl) 2 mg DAILY PO Last administered on 09/14/18at 08:49; Start 09/07/18 at 09:00 Levothyroxine Sodium (Synthroid) 100 mcg DAILY06 PO Last administered on at 06:17; Start 09/07/18 at 06:00 Ascorbic Acid (Vitamin C) 1,000 mg DAILY PO Last administered on 09/14/18at 08: 49; Start 09/07/18 at 09:00 Lisinopril (Prinivil) 20 mg DAILY PO Last administered on 09/13/18at 08:20; Start 09/07/18 at 09:00; Stop 09/14/18 at 13:18; Status DC Hydrochlorothiazide (Microzide) 12.5 mg DAILY PO Last administered on at 08:20; Start 09/07/18 at 09:00; Stop 09/14/18 at 09:23; Status DC Metformin HCl (Glucophage) 1,000 mg BIDWMEALS PO Last administered on at 08:49; Start 09/07/18 at 08:00; Stop 09/14/18 at 10:57; Status DC Influenza Virus Vaccine (Afluria Trivalent [id number] Syringe) 0.5 ml ONCE ONCE VAX IM Last administered on 09/12/18at 13:59; Start 09/07/18 at 09:00; Stop 09/07/18 at 09:01; Status DC Insulin Human Lispro (HumaLOG) 0-7 UNITS TIDWMEALS SQ Last administered on at 17:17; Start 09/07/18 at 12:00; Stop 09/07/18 at 17:57; Status DC Dextrose (Dextrose 50%-Water Syringe) 12.5 gm PRN Q15MIN PRN IV SEE COMMENTS; Start 09/07/18 at 12:00; Status UNV Warfarin Sodium (Coumadin) 5 mg 1X WARF ONCE PO Last administered on at 17:11; Start 09/07/18 at 16:00; Stop 09/07/18 at 16:01; Status DC Insulin Human Lispro (HumaLOG) 0-9 UNITS TIDWMEALS SQ Last administered on 09/15at 17:37; Start 09/08/18 at 08:00 Dextrose (Dextrose 50%-Water Syringe) 12.5 gm PRN Q15MIN PRN IV SEE COMMENTS; Start 09/07/18 at 18:00 Insulin Glargine (Lantus) 12 units QHS SQ Last administered on 09/13/18at 21:24 ; Start 09/07/18 at 21:00 Warfarin Sodium (Coumadin) 2 mg 1X WARF ONCE PO Last administered on at 16:00; Start 09/08/18 at 16:00; Stop 09/08/18 at 16:01; Status DC Enoxaparin Sodium (Lovenox 80mg Syringe) 80 mg 1X ONCE SQ Last administered on 09/08/18at 16:01; Start 09/08/18 at 16:00; Stop 09/08/18 at 16:01; Status DC Enoxaparin Sodium (Lovenox 80mg Syringe) 80 mg Q12HR SQ Last administered on at 08:51; Start 09/09/18 at 06:00; Stop 09/14/18 at 13:18; Status DC Warfarin Sodium (Coumadin) 2 mg 1X WARF ONCE PO Last administered on at 16:42; Start 09/09/18 at 16:00; Stop 09/09/18 at 16:01; Status DC Ondansetron HCl (Zofran) 4 mg PRN Q6HRS PRN IV NAUSEA/VOMITING; Start at 07:00; Stop 09/12/18 at 07:00; Status DC Fentanyl Citrate (Fentanyl 2ml Vial) 25 mcg PRN Q5MIN PRN IV MILD PAIN; Start 09/12/18 at 07:00; Stop 09/12/18 at 07:00; Status DC Fentanyl Citrate (Fentanyl 2ml Vial) 50 mcg PRN Q5MIN PRN IV MODERATE TO SEVERE PAIN; Start 09/12/18 at 07:00; Stop 09/12/18 at 07:00; Status DC Morphine Sulfate (Morphine Sulfate) 1 mg PRN Q10MIN PRN IV SEVERE PAIN; Start 09/12/18 at 07:00; Stop 09/12/18 at 07:00; Status DC Ringer's Solution 1,000 ml @ 30 mls/hr Q24H IV ; Start 09/12/18 at 07:00; Stop 09/12/18 at 18:59; Status DC Lidocaine HCl (Xylocaine-Mpf 1% 2ml Vial) 2 ml PRN 1X PRN ID PRIOR TO IV START ; Start 09/12/18 at 07:00; Stop 09/12/18 at 07:00; Status DC Hydromorphone HCl (Dilaudid) 0.5 mg PRN Q10MIN PRN IV SEV PAIN, Second choice; Start 09/12/18 at 07:00; Stop 09/12/18 at 07:00; Status DC Prochlorperazine Edisylate (Compazine) 5 mg PACU PRN PRN IV NAUSEA, MRX1; Start 09/12/18 at 07:00; Stop 09/12/18 at 07:00; Status DC Warfarin Sodium (Coumadin) 3 mg 1X WARF ONCE PO Last administered on at 18:14; Start 09/10/18 at 16:00; Stop 09/10/18 at 16:01; Status DC Sodium Chloride 1,000 ml @ 75 mls/hr [id number] IV Last administered on at 06:02; Start 09/10/18 at 12:45; Stop 09/12/18 at 09:54; Status DC Warfarin Sodium (Coumadin) 4 mg 1X WARF ONCE PO Last administered on at 17:43; Start 09/11/18 at 16:00; Stop 09/11/18 at 16:01; Status DC Info (Anti-Coagulation Monitoring By Pharmacy) 1 each PRN DAILY PRN MC SEE COMMENTS Last administered on 09/15/18at 15:32; Start 09/12/18 at 11:00 Warfarin Sodium (Coumadin) 5 mg 1X WARF ONCE PO Last administered on at 16:02; Start 09/12/18 at 16:00; Stop 09/12/18 at 16:01; Status DC Warfarin Sodium (Coumadin) 7.5 mg 1X WARF ONCE PO Last administered on at 16:00; Start 09/13/18 at 16:00; Stop 09/13/18 at 16:01; Status DC Cyclobenzaprine HCl (Flexeril) 10 mg PRN Q6HRS PRN PO MUSCLE SPASMS Last administered on 09/16/18at 06:17; Start 09/13/18 at 18:15 Sodium Polystyrene Sulfonate (Kayexalate) 15 gm 1X ONCE PO Last administered on 09/14/18at 10:29; Start 09/14/18 at 10:00; Stop 09/14/18 at 10:01; Status DC Iohexol (Omnipaque 300 Mg/ml) 75 ml 1X ONCE IV Last administered on at 11:00; Start 09/14/18 at 11:00; Stop 09/14/18 at 11:01; Status DC Info (CONTRAST GIVEN -- Rx MONITORING) 1 each PRN DAILY PRN MC SEE COMMENTS; Start 09/14/18 at 11:00; Stop 09/16/18 at 10:59 Metformin HCl (Glucophage) 1,000 mg BIDWMEALS PO ; Start 09/16/18 at 17:00 Warfarin Sodium (Coumadin) 6 mg 1X WARF ONCE PO Last administered on at 16:52; Start 09/14/18 at 16:00; Stop 09/14/18 at 16:01; Status DC Warfarin Sodium (Coumadin) 5 mg 1X WARF ONCE PO ; Start 09/15/18 at 16:00; Stop 09/15/18 at 16:01; Status DC Active Scripts Active [place] 7.5-325 Tablet (Acetaminophen/Hydrocodone Bitart) 1 Each Tablet 1 Tab PO PRN Q6HRS PRN Reported Aleve (Naproxen Sodium) 220 Mg Tablet 220 Mg PO BID Tramadol Hcl 50 Mg Tablet 50 Mg PO Q6HRS PRN Glucosamine (Glucosamine Sulfate 2KCL) 1,000 Mg Tablet 1,000 Mg PO DAILY Multivitamins (Multivitamin) 1 Each Tablet 1 Tab PO DAILY Vitamin C (Ascorbic Acid) 100 Mg Tablet 1,000 Mg PO DAILY Hydrochlorothiazide Capsule (Hydrochlorothiazide) 12.5 Mg Capsule 1 Cap PO DAILY Benazepril Hcl 20 Mg Tablet 1 Tab PO DAILY Glimepiride 2 Mg Tablet 1 Tab PO DAILY Metformin Hcl 1,000 Mg Tablet 1,000 Mg PO BID Levothyroxine Sodium 100 Mcg Tablet 1 Tab PO DAILY Vitals/I & O Vital Sign - Last 24 Hours 09/15/18 09/15/18 09/15/18 09/15/18 08:00 09:05 09:35 10:58 O2 Delivery Room Air Room Air Room Air Room Air O2 Flow Rate 2.0 09/15/18 09/15/18 09/15/18 09/15/18 11:00 14:29 14:31 14:44 Temp 98.2 98.1 97.9 98.2 98.1 97.9 Pulse 86 100 99 Resp 18 B/P (MAP) 115/62 (79) 108/59 113/55 Pulse Ox 95 O2 Delivery Room Air Room Air 09/15/18 09/15/18 09/15/18 09/15/18 15:00 15:01 15:29 16:29 Temp 98.9 98.9 98.2 98.9 98.9 98.2 Pulse 101 101 96 Resp 20 20 B/P (MAP) 118/58 (78) 118/58 118/59 O2 Delivery Room Air Room Air 09/15/18 09/15/18 09/15/18 09/15/18 16:43 17:00 17:23 17:23 Temp 98.2 98.8 98.2 98.2 98.8 98.2 Pulse 101 99 101 Resp 20 20 B/P (MAP) 115/51 116/65 115/51 O2 Delivery Room Air 09/15/18 09/15/18 09/15/18 09/15/18 17:39 18:00 18:39 19:00 Temp 97.5 98.8 99.3 98.8 97.5 98.8 99.3 98.8 Pulse 104 99 101 99 Resp 20 18 B/P (MAP) 100/49 116/65 120/64 116/65 (82) Pulse Ox 94 O2 Delivery Room Air 09/15/18 09/15/18 09/15/18 09/15/18 19:23 19:32 20:06 20:06 Temp 98.8 97.9 97.8 98.8 97.9 97.8 Pulse 99 94 94 Resp 20 20 B/P (MAP) 116/65 112/62 112/62 O2 Delivery Room Air 09/15/18 09/15/18 09/15/18 09/15/18 21:06 22:06 22:53 22:53 Temp 98.1 97.7 97.5 97.5 98.1 97.7 97.5 97.5 Pulse 91 92 90 90 Resp 20 20 20 20 B/P (MAP) 115/61 122/62 118/53 118/53 09/15/18 09/15/18 09/16/18 09/16/18 23:00 23:15 00:00 00:39 Temp 97.5 98.4 97.5 98.4 Pulse 90 92 Resp 20 20 B/P (MAP) 118/53 (74) 114/62 Pulse Ox 94 O2 Delivery Room Air Room Air Room Air 09/16/18 09/16/18 09/16/18 09/16/18 01:05 02:00 03:00 03:00 Temp 98.4 97.7 98.0 98.0 98.4 97.7 98.0 98.0 Pulse 88 89 90 90 Resp 16 20 16 16 B/P (MAP) 137/62 138/66 140/74 140/74 (96) Pulse Ox 93 O2 Delivery Room Air Intake and Output 09/15/18 09/15/18 09/16/18 15:00 23:00 07:00 Intake Total 285 ml 340 ml 700 ml Output Total 350 ml 1125 ml Balance 285 ml -10 ml -425 ml KERLINE WHYTE MD Sep 16, 2018 07:57
[2018-09-16] MEDS: INSULIN LISPRO 300 UNITS/3 ML INSULN.PEN. SQ SCH ×6 (08:00→17:24)
[2018-09-16] MEDS: FERROUS SULFATE 325 MG TABLET. PO SCH ×2 (08:00→17:17)
[2018-09-16] MEDS: GLIMEPIRIDE 2 MG TABLET. PO SCH (08:17)
[2018-09-16] MEDS: CELECOXIB 100 MG CAPSULE. PO SCH ×2 (08:17→20:57)
[2018-09-16] MEDS: SENNOSIDES/DOCUSATE 8.6/50MG TABLET. PO SCH (08:17)
[2018-09-16] MEDS: ASCORBIC ACID 500 MG TABLET PO SCH (08:18)
[2018-09-16] MEDS: MULTIVITAMIN with MINERAL TABLET. PO SCH (08:18)
--- NOTE | 2018-09-16 08:29 | PDOC ---
Provider Note Provider Note Vascular S: pt complains of pain right hip and thigh, nurse in room administering some pain med, patient to go to IR soon O: vss, afebrile right thigh and calf soft Abdomen soft, mild tenderness, no distension, dressing intact to right hip INR 1.7m Hgb 8.7 CT: Large retroperitoneal hematoma due to coagulopathy; the iliac veins do not appear distended (no contrast) Imp: 1. DVT right femoral and popliteal veins, iliac vein does not appear involved. 2. right retroperitoneal hematoma 3. coagulopathy Rec: 1. Continue to hold warfarin and lovenox 2. IVC filter placement today INR is 1.7 per interventional radiology. Discussed the plan with the patient. He understands the issues and wishes to proceed. 3. Continue compression hose and leg elevation as tolerated and per Ortho regarding recent hip surgery 4. Continue to monitor H/H BONIFACIO CURTIS APRN Sep 16, 2018 08:29
[2018-09-16] MEDS ORDERED: IOHEXOL 240 MG/ML 100 ML VIAL. ONE (09:14)
[2018-09-16] MEDS ORDERED: LIDOCAINE WITH 8.4% SOD BICARB 3 ML DISP.SYRIN. ONE (09:14)
[2018-09-16] MEDS ORDERED: IOHEXOL 240 MG/ML 100 ML VIAL. IJ ONE (10:00)
[2018-09-16] MEDS ORDERED: LIDOCAINE WITH 8.4% SOD BICARB 3 ML DISP.SYRIN. IJ ONE (10:00)
--- NOTE | 2018-09-16 10:43 | RAD ---
09/16/2018 10:37 AM Procedures: 1. Inferior venacavogram 2. Placement of an IVC filter Clinical Indication: Placement of retrievable IVC filter The risks and benefits of the procedure were discussed the patient. Informed consent was obtained. The patient was brought to fluoroscopy suite placed supine position. A timeout procedure was performed. The right neck was prepped and draped using maximal sterile technique and one percent Xylocaine was used for local anesthesia. All elements of maximum sterile barrier technique was utilized. Ultrasound demonstrates patent right internal jugular vein. Under ultrasound guidance, a singlewall puncture was made into the right internal jugular vein followed by placement of a five [place] catheter into the distal IVC. An ultrasound image of the right neck was saved and sent to PACS. Filter delivery sheath was advanced into the IVC. A venacavogram was obtained. No thrombus is identified. Renal vein inflow identified. Under direct fluoroscopic guidance, a Bard Moca IVC filter was deployed in an infrarenal location. The filter is well seated. This is confirmed with a follow-up venogram. The sheath was removed and manual pressure held to achieve hemostasis. Sterile dressings were applied. Sedation: Conscious sedation was performed for 30 minutes. Sedation was carried out while the patient was continually monitored by a member of the Radiology nursing staff. Continual cardiopulmonary monitoring was carried out during the procedure. Fluoroscopy time: 3.7 minutes Dose area product: [id number] Impression: Successful placement of an infrarenal IVC filter
[2018-09-16] MEDS: oxyCODONE/APAP 7.5/325 1 TAB TABLET PO PRN ×2 (12:19→22:41)
--- NOTE | 2018-09-16 13:38 | PDOC ---
PROGRESS NOTES Subjective Subjective Problems overnight: Still has some right hip swelling back pain not quite as severe right leg still weak Objective Vital Signs Vital Signs Date Time Temp Pulse Resp B/P (MAP) Pulse Ox O2 Delivery O2 Flow Rate FiO2 09/16/18 12:19 Room Air 09/16/18 10:41 97.5 82 138/70 (92) 96 97.5 09/16/18 07:00 18 09/15/18 08:00 2.0 Physical Exam On exam he has a bit of maceration around his incision there is no redness or erythema however right hip area swollen compartments are soft in both the thigh and leg distal neurovascular status intact as he can wiggle ankle and toes up and down. Only sensory deficit is over the lateral thigh which is at baseline Labs Laboratory Tests Test 09/14/18 17:06 09/14/18 18:15 09/14/18 20:19 09/15/18 07:53 Glucose (Fingerstick) 149 mg/dL (70-99) 148 mg/dL (70-99) 75 mg/dL (70-99) White Blood Count 22.1 x10^3/uL (4.0-11.0) Red Blood Count 2.23 x10^6/uL (4.30-5.70) Hemoglobin 7.5 g/dL (13.0-17.5) Hematocrit 21.2 % (39.0-53.0) Mean Corpuscular Volume 95 fL (79-100) Mean Corpuscular Hemoglobin 33 pg (25-35) Mean Corpuscular Hemoglobin Concent 35 g/dL (31-37) Red Cell Distribution Width 15.4 % (11.5-14.5) Platelet Count 302 x10^3/uL (140-400) Neutrophils (%) (Auto) 73 % (31-73) Lymphocytes (%) (Auto) 20 % (24-48) Monocytes (%) (Auto) 6 % (0-9) Eosinophils (%) (Auto) 1 % (0-3) Basophils (%) (Auto) 0 % (0-3) Neutrophils # (Auto) 16.2 x10^3uL (1.8-7.7) Lymphocytes # (Auto) 4.3 x10^3/uL (1.0-4.8) Monocytes # (Auto) 1.3 x10^3/uL (0.0-1.1) Eosinophils # (Auto) 0.3 x10^3/uL (0.0-0.7) Basophils # (Auto) 0.0 x10^3/uL (0.0-0.2) Lactic Acid Level 1.4 mmol/L (0.4-2.0) Test 09/15/18 08:00 09/15/18 10:21 09/15/18 11:50 09/15/18 16:53 White Blood Count 16.6 x10^3/uL (4.0-11.0) Red Blood Count 2.07 x10^6/uL (4.30-5.70) Hemoglobin 7.1 g/dL (13.0-17.5) Hematocrit 19.5 % (39.0-53.0) Mean Corpuscular Volume 95 fL (79-100) Mean Corpuscular Hemoglobin 34 pg (25-35) Mean Corpuscular Hemoglobin Concent 36 g/dL (31-37) Red Cell Distribution Width 16.0 % (11.5-14.5) Platelet Count 306 x10^3/uL (140-400) Neutrophils (%) (Auto) 80 % (31-73) Lymphocytes (%) (Auto) 12 % (24-48) Monocytes (%) (Auto) 5 % (0-9) Eosinophils (%) (Auto) 3 % (0-3) Basophils (%) (Auto) 0 % (0-3) Neutrophils # (Auto) 13.2 x10^3uL (1.8-7.7) Lymphocytes # (Auto) 2.0 x10^3/uL (1.0-4.8) Monocytes # (Auto) 0.9 x10^3/uL (0.0-1.1) Eosinophils # (Auto) 0.4 x10^3/uL (0.0-0.7) Basophils # (Auto) 0.0 x10^3/uL (0.0-0.2) Prothrombin Time 26.1 SEC (11.7-14.0) Prothromb Time International Ratio 2.5 (0.8-1.1) Sodium Level 136 mmol/L (136-145) Potassium Level 4.2 mmol/L (3.5-5.1) Chloride Level 99 mmol/L (98-107) Carbon Dioxide Level 28 mmol/L (21-32) Anion Gap 9 (6-14) Blood Urea Nitrogen 35 mg/dL (8-26) Creatinine 1.1 mg/dL (0.7-1.3) Estimated GFR (Cockcroft-Gault) 66.6 Glucose Level 78 mg/dL (70-99) Calcium Level 8.8 mg/dL (8.5-10.1) Glucose (Fingerstick) 66 mg/dL (70-99) 102 mg/dL (70-99) 155 mg/dL (70-99) Test 09/15/18 20:36 09/16/18 04:07 09/16/18 08:02 09/16/18 11:36 Glucose (Fingerstick) 185 mg/dL (70-99) 149 mg/dL (70-99) 131 mg/dL (70-99) White Blood Count 12.7 x10^3/uL (4.0-11.0) Red Blood Count 2.66 x10^6/uL (4.30-5.70) Hemoglobin 8.7 g/dL (13.0-17.5) Hematocrit 24.3 % (39.0-53.0) Mean Corpuscular Volume 92 fL (79-100) Mean Corpuscular Hemoglobin 33 pg (25-35) Mean Corpuscular Hemoglobin Concent 36 g/dL (31-37) Red Cell Distribution Width 17.1 % (11.5-14.5) Platelet Count 275 x10^3/uL (140-400) Neutrophils (%) (Auto) 75 % (31-73) Lymphocytes (%) (Auto) 16 % (24-48) Monocytes (%) (Auto) 6 % (0-9) Eosinophils (%) (Auto) 2 % (0-3) Basophils (%) (Auto) 1 % (0-3) Neutrophils # (Auto) 9.6 x10^3uL (1.8-7.7) Lymphocytes # (Auto) 2.1 x10^3/uL (1.0-4.8) Monocytes # (Auto) 0.8 x10^3/uL (0.0-1.1) Eosinophils # (Auto) 0.3 x10^3/uL (0.0-0.7) Basophils # (Auto) 0.1 x10^3/uL (0.0-0.2) Prothrombin Time 19.7 SEC (11.7-14.0) Prothromb Time International Ratio 1.7 (0.8-1.1) Sodium Level 136 mmol/L (136-145) Potassium Level 4.3 mmol/L (3.5-5.1) Chloride Level 100 mmol/L (98-107) Carbon Dioxide Level 30 mmol/L (21-32) Anion Gap 6 (6-14) Blood Urea Nitrogen 27 mg/dL (8-26) Creatinine 1.2 mg/dL (0.7-1.3) Estimated GFR (Cockcroft-Gault) 60.2 Glucose Level 190 mg/dL (70-99) Calcium Level 8.9 mg/dL (8.5-10.1) Laboratory Tests Test 09/15/18 16:53 09/15/18 20:36 09/16/18 04:07 09/16/18 08:02 Glucose (Fingerstick) 155 mg/dL (70-99) 185 mg/dL (70-99) 149 mg/dL (70-99) White Blood Count 12.7 x10^3/uL (4.0-11.0) Red Blood Count 2.66 x10^6/uL (4.30-5.70) Hemoglobin 8.7 g/dL (13.0-17.5) Hematocrit 24.3 % (39.0-53.0) Mean Corpuscular Volume 92 fL (79-100) Mean Corpuscular Hemoglobin 33 pg (25-35) Mean Corpuscular Hemoglobin Concent 36 g/dL (31-37) Red Cell Distribution Width 17.1 % (11.5-14.5) Platelet Count 275 x10^3/uL (140-400) Neutrophils (%) (Auto) 75 % (31-73) Lymphocytes (%) (Auto) 16 % (24-48) Monocytes (%) (Auto) 6 % (0-9) Eosinophils (%) (Auto) 2 % (0-3) Basophils (%) (Auto) 1 % (0-3) Neutrophils # (Auto) 9.6 x10^3uL (1.8-7.7) Lymphocytes # (Auto) 2.1 x10^3/uL (1.0-4.8) Monocytes # (Auto) 0.8 x10^3/uL (0.0-1.1) Eosinophils # (Auto) 0.3 x10^3/uL (0.0-0.7) Basophils # (Auto) 0.1 x10^3/uL (0.0-0.2) Prothrombin Time 19.7 SEC (11.7-14.0) Prothromb Time International Ratio 1.7 (0.8-1.1) Sodium Level 136 mmol/L (136-145) Potassium Level 4.3 mmol/L (3.5-5.1) Chloride Level 100 mmol/L (98-107) Carbon Dioxide Level 30 mmol/L (21-32) Anion Gap 6 (6-14) Blood Urea Nitrogen 27 mg/dL (8-26) Creatinine 1.2 mg/dL (0.7-1.3) Estimated GFR (Cockcroft-Gault) 60.2 Glucose Level 190 mg/dL (70-99) Calcium Level 8.9 mg/dL (8.5-10.1) Test 09/16/18 11:36 Glucose (Fingerstick) 131 mg/dL (70-99) Assessment Assessment POD# [], S/P [right total hip arthroplasty] Plan Plan of Care Continue silver dressing with daily dressing changes right hip Removable inferior vena cava filter scheduled this morning as he was unable to have it previously due to elevated INR Continue monitor hemoglobin and hematocrit due to retroperitoneal bleed Holding anticoagulation due to bleed May continue to mobilize gently as tolerated with physical therapy weightbearing as tolerated no hip or cautions due to anterior approach Exploring the possibility of a rehabilitation placement when medically stable, case management to discuss with patient HERMINIO RICH MD Sep 16, 2018 13:38
[2018-09-16] MEDS ORDERED: WARFARIN 5 MG TABLET. PO ONE (16:00)
[2018-09-16] MEDS: INSULIN GLARGINE 300 UNITS/3 ML INSULN.PEN. SQ SCH (21:35)
[2018-09-16] MEDS: ZOLPIDEM 5 MG TABLET. PO PRN (22:41)
[2018-09-17 03:00] VITALS: BP 106/85
[2018-09-17 06:14] LABS: BASO % 0 % (0-3); EOS # 0.3 x10^3/uL (0.0-0.7); EOS % 2 % (0-3); HEMATOCRIT 25.9 % (39.0-53.0); LYMPH # 2.6 x10^3/uL (1.0-4.8); LYMPH % 21 % (24-48); MEAN CORPUSCULAR HEMOGLOBIN 33 pg (25-35); MEAN CORPUSCULAR HGB CONC 35 g/dL (31-37); MEAN CORPUSCULAR VOLUME 93 fL (79-100); MONO # 0.7 x10^3/uL (0.0-1.1); MONO % 6 % (0-9); NEUT # 8.6 x10^3uL (1.8-7.7); NEUT % 71 % (31-73); PLATELET COUNT 299 x10^3/uL (140-400); RED BLOOD COUNT 2.77 x10^6/uL (4.30-5.70); RED CELL DISTRIBUTION WIDTH 16.9 % (11.5-14.5); WHITE BLOOD COUNT 12.2 x10^3/uL (4.0-11.0)
[2018-09-17 06:18] LABS: PROTHROMBIN TIME PATIENT 18.6 SEC (11.7-14.0)
[2018-09-17 06:46] LABS: CALCIUM 8.8 mg/dL (8.5-10.1); CREATININE 0.9 mg/dL (0.7-1.3); GFR 83.9; POTASSIUM 3.9 mmol/L (3.5-5.1)
[2018-09-17] MEDS: LEVOTHYROXINE 100 MCG TABLET PO SCH (06:49)
[2018-09-17] MEDS: CYCLOBENZAPRINE 10 MG TABLET. PO PRN ×2 (06:50→17:10)
[2018-09-17 07:49] VITALS: BP 124/71
[2018-09-17] MEDS: INSULIN LISPRO 300 UNITS/3 ML INSULN.PEN. SQ SCH ×6 (08:00→17:17)
[2018-09-17] MEDS: ASCORBIC ACID 500 MG TABLET PO SCH (08:31)
[2018-09-17] MEDS: FERROUS SULFATE 325 MG TABLET. PO SCH ×2 (08:31→17:10)
[2018-09-17] MEDS: SENNOSIDES/DOCUSATE 8.6/50MG TABLET. PO SCH (08:31)
[2018-09-17] MEDS: CELECOXIB 100 MG CAPSULE. PO SCH ×2 (08:31→21:32)
[2018-09-17] MEDS: MULTIVITAMIN with MINERAL TABLET. PO SCH (08:32)
[2018-09-17] MEDS: GLIMEPIRIDE 2 MG TABLET. PO SCH (08:32)
[2018-09-17] MEDS: oxyCODONE/APAP 7.5/325 1 TAB TABLET PO PRN ×3 (08:42→21:32)
--- NOTE | 2018-09-17 08:45 | PDOC ---
PROGRESS NOTES Chief Complaint Chief Complaint Rt hip DJD S/p right hip arthroplasty 09/06 Extensive right leg DVT - confirmed 09/08 Leukocytosis likely 2/2 to intra-op steroids - resolved Hyponatremia - resolved H/o DM H/o HTN, hypotension H/o hypothyroid ACute anemia, post op hyperkalemia History of Present Illness History of Present Illness Pt seen and examined 09/14: c/o more pain last night. not complain to me today. however, hb 6.5 from 8.5, high wbc to 22, BP lower to 80s , INR 2.1. Transfused with Hb back to 7.1 from 6.5 Discussed w/RN Discussed w/PT rt thigh swelling slightly better today, now with scrotal edema as well rt thigh has a post op drain INR was >2 09/15/18 despite FFP, given 2u PRBC and FFP with INR to 1.7 09/16/18, s /p IVF filter Still cannot lift his left leg, this is bothering him more. pt able to walk a little bit with PTOT, wants rehab, states he can do well 1 day and poorly for 2 days after. Rt hip DJD S/p right hip arthroplasty 09/06 Extensive right leg DVT - confirmed 09/08 Leukocytosis likely 2/2 to intra-op steroids - resolved Hyponatremia - resolved H/o DM H/o HTN, hypotension H/o hypothyroid ACute anemia, post op hyperkalemia plan: fu with ortho, vascular no vascular sx plan for now currently on warfarin and lovenox bid for bridging, INR goal2-3. dc lovenox, will restart warfarin, inserted IVF filter fu with need rehab for dc pain control, flexeril added with ortho cont home meds for dm2 PTOT thanks for asking for consult Vitals Vitals Vital Signs Date Time Temp Pulse Resp B/P (MAP) Pulse Ox O2 Delivery O2 Flow Rate FiO2 09/17/18 08:42 20 Room Air 09/17/18 07:49 97.6 72 124/71 (88) 95 97.6 Physical Exam Physical Exam Neck: Supple, no JVD General: No acute distress, Other (Pt was asleep and appeared to be in NAD) Heart: Regular rate, No murmurs Lungs: Clear Abdomen: Soft, No tenderness Extremities: Other (rt thigh wound has a small drain, right thigh moderate swelling) Skin: No rashes Labs LABS Laboratory Tests Test 09/16/18 11:36 09/16/18 17:09 09/16/18 20:56 09/17/18 06:00 Glucose (Fingerstick) 131 mg/dL (70-99) 192 mg/dL (70-99) 172 mg/dL (70-99) White Blood Count 12.2 x10^3/uL (4.0-11.0) Red Blood Count 2.77 x10^6/uL (4.30-5.70) Hemoglobin 9.0 g/dL (13.0-17.5) Hematocrit 25.9 % (39.0-53.0) Mean Corpuscular Volume 93 fL (79-100) Mean Corpuscular Hemoglobin 33 pg (25-35) Mean Corpuscular Hemoglobin Concent 35 g/dL (31-37) Red Cell Distribution Width 16.9 % (11.5-14.5) Platelet Count 299 x10^3/uL (140-400) Neutrophils (%) (Auto) 71 % (31-73) Lymphocytes (%) (Auto) 21 % (24-48) Monocytes (%) (Auto) 6 % (0-9) Eosinophils (%) (Auto) 2 % (0-3) Basophils (%) (Auto) 0 % (0-3) Neutrophils # (Auto) 8.6 x10^3uL (1.8-7.7) Lymphocytes # (Auto) 2.6 x10^3/uL (1.0-4.8) Monocytes # (Auto) 0.7 x10^3/uL (0.0-1.1) Eosinophils # (Auto) 0.3 x10^3/uL (0.0-0.7) Basophils # (Auto) 0.0 x10^3/uL (0.0-0.2) Prothrombin Time 18.6 SEC (11.7-14.0) Prothromb Time International Ratio 1.6 (0.8-1.1) Sodium Level 137 mmol/L (136-145) Potassium Level 3.9 mmol/L (3.5-5.1) Chloride Level 101 mmol/L (98-107) Carbon Dioxide Level 28 mmol/L (21-32) Anion Gap 8 (6-14) Blood Urea Nitrogen 21 mg/dL (8-26) Creatinine 0.9 mg/dL (0.7-1.3) Estimated GFR (Cockcroft-Gault) 83.9 Glucose Level 116 mg/dL (70-99) Calcium Level 8.8 mg/dL (8.5-10.1) Test 09/17/18 07:34 Glucose (Fingerstick) 106 mg/dL (70-99) Comment Review of Relevant I have reviewed the following items digna (where applicable) has been applied. Labs Laboratory Tests Test 09/15/18 10:21 09/15/18 11:50 09/15/18 16:53 09/15/18 20:36 Glucose (Fingerstick) 66 mg/dL (70-99) 102 mg/dL (70-99) 155 mg/dL (70-99) 185 mg/dL (70-99) Test 09/16/18 04:07 09/16/18 08:02 09/16/18 11:36 09/16/18 17:09 White Blood Count 12.7 x10^3/uL (4.0-11.0) Red Blood Count 2.66 x10^6/uL (4.30-5.70) Hemoglobin 8.7 g/dL (13.0-17.5) Hematocrit 24.3 % (39.0-53.0) Mean Corpuscular Volume 92 fL (79-100) Mean Corpuscular Hemoglobin 33 pg (25-35) Mean Corpuscular Hemoglobin Concent 36 g/dL (31-37) Red Cell Distribution Width 17.1 % (11.5-14.5) Platelet Count 275 x10^3/uL (140-400) Neutrophils (%) (Auto) 75 % (31-73) Lymphocytes (%) (Auto) 16 % (24-48) Monocytes (%) (Auto) 6 % (0-9) Eosinophils (%) (Auto) 2 % (0-3) Basophils (%) (Auto) 1 % (0-3) Neutrophils # (Auto) 9.6 x10^3uL (1.8-7.7) Lymphocytes # (Auto) 2.1 x10^3/uL (1.0-4.8) Monocytes # (Auto) 0.8 x10^3/uL (0.0-1.1) Eosinophils # (Auto) 0.3 x10^3/uL (0.0-0.7) Basophils # (Auto) 0.1 x10^3/uL (0.0-0.2) Prothrombin Time 19.7 SEC (11.7-14.0) Prothromb Time International Ratio 1.7 (0.8-1.1) Sodium Level 136 mmol/L (136-145) Potassium Level 4.3 mmol/L (3.5-5.1) Chloride Level 100 mmol/L (98-107) Carbon Dioxide Level 30 mmol/L (21-32) Anion Gap 6 (6-14) Blood Urea Nitrogen 27 mg/dL (8-26) Creatinine 1.2 mg/dL (0.7-1.3) Estimated GFR (Cockcroft-Gault) 60.2 Glucose Level 190 mg/dL (70-99) Calcium Level 8.9 mg/dL (8.5-10.1) Glucose (Fingerstick) 149 mg/dL (70-99) 131 mg/dL (70-99) 192 mg/dL (70-99) Test 09/16/18 20:56 09/17/18 06:00 09/17/18 07:34 Glucose (Fingerstick) 172 mg/dL (70-99) 106 mg/dL (70-99) White Blood Count 12.2 x10^3/uL (4.0-11.0) Red Blood Count 2.77 x10^6/uL (4.30-5.70) Hemoglobin 9.0 g/dL (13.0-17.5) Hematocrit 25.9 % (39.0-53.0) Mean Corpuscular Volume 93 fL (79-100) Mean Corpuscular Hemoglobin 33 pg (25-35) Mean Corpuscular Hemoglobin Concent 35 g/dL (31-37) Red Cell Distribution Width 16.9 % (11.5-14.5) Platelet Count 299 x10^3/uL (140-400) Neutrophils (%) (Auto) 71 % (31-73) Lymphocytes (%) (Auto) 21 % (24-48) Monocytes (%) (Auto) 6 % (0-9) Eosinophils (%) (Auto) 2 % (0-3) Basophils (%) (Auto) 0 % (0-3) Neutrophils # (Auto) 8.6 x10^3uL (1.8-7.7) Lymphocytes # (Auto) 2.6 x10^3/uL (1.0-4.8) Monocytes # (Auto) 0.7 x10^3/uL (0.0-1.1) Eosinophils # (Auto) 0.3 x10^3/uL (0.0-0.7) Basophils # (Auto) 0.0 x10^3/uL (0.0-0.2) Prothrombin Time 18.6 SEC (11.7-14.0) Prothromb Time International Ratio 1.6 (0.8-1.1) Sodium Level 137 mmol/L (136-145) Potassium Level 3.9 mmol/L (3.5-5.1) Chloride Level 101 mmol/L (98-107) Carbon Dioxide Level 28 mmol/L (21-32) Anion Gap 8 (6-14) Blood Urea Nitrogen 21 mg/dL (8-26) Creatinine 0.9 mg/dL (0.7-1.3) Estimated GFR (Cockcroft-Gault) 83.9 Glucose Level 116 mg/dL (70-99) Calcium Level 8.8 mg/dL (8.5-10.1) Laboratory Tests Test 09/16/18 11:36 09/16/18 17:09 09/16/18 20:56 09/17/18 06:00 Glucose (Fingerstick) 131 mg/dL (70-99) 192 mg/dL (70-99) 172 mg/dL (70-99) White Blood Count 12.2 x10^3/uL (4.0-11.0) Red Blood Count 2.77 x10^6/uL (4.30-5.70) Hemoglobin 9.0 g/dL (13.0-17.5) Hematocrit 25.9 % (39.0-53.0) Mean Corpuscular Volume 93 fL (79-100) Mean Corpuscular Hemoglobin 33 pg (25-35) Mean Corpuscular Hemoglobin Concent 35 g/dL (31-37) Red Cell Distribution Width 16.9 % (11.5-14.5) Platelet Count 299 x10^3/uL (140-400) Neutrophils (%) (Auto) 71 % (31-73) Lymphocytes (%) (Auto) 21 % (24-48) Monocytes (%) (Auto) 6 % (0-9) Eosinophils (%) (Auto) 2 % (0-3) Basophils (%) (Auto) 0 % (0-3) Neutrophils # (Auto) 8.6 x10^3uL (1.8-7.7) Lymphocytes # (Auto) 2.6 x10^3/uL (1.0-4.8) Monocytes # (Auto) 0.7 x10^3/uL (0.0-1.1) Eosinophils # (Auto) 0.3 x10^3/uL (0.0-0.7) Basophils # (Auto) 0.0 x10^3/uL (0.0-0.2) Prothrombin Time 18.6 SEC (11.7-14.0) Prothromb Time International Ratio 1.6 (0.8-1.1) Sodium Level 137 mmol/L (136-145) Potassium Level 3.9 mmol/L (3.5-5.1) Chloride Level 101 mmol/L (98-107) Carbon Dioxide Level 28 mmol/L (21-32) Anion Gap 8 (6-14) Blood Urea Nitrogen 21 mg/dL (8-26) Creatinine 0.9 mg/dL (0.7-1.3) Estimated GFR (Cockcroft-Gault) 83.9 Glucose Level 116 mg/dL (70-99) Calcium Level 8.8 mg/dL (8.5-10.1) Test 09/17/18 07:34 Glucose (Fingerstick) 106 mg/dL (70-99) Medications Current Medications Morphine Sulfate 5 mg/Ketorolac Tromethamine 30 mg/Ropivacaine 60 ml/ Epinephrine HCl 0.5 mg/Sodium Chloride 100 ml @ 100 mls/hr 1X ONCE INT ART ; Start 09/06/18 at 06:00; Stop 09/06/18 at 07:00; Status DC Ondansetron HCl (Zofran) 4 mg PRN Q6HRS PRN IV NAUSEA/VOMITING; Start at 07:00; Stop 09/06/18 at 21:00; Status DC Fentanyl Citrate (Fentanyl 2ml Vial) 25 mcg PRN Q5MIN PRN IV MILD PAIN; Start 09/06/18 at 07:00; Stop 09/06/18 at 21:00; Status DC Fentanyl Citrate (Fentanyl 2ml Vial) 50 mcg PRN Q5MIN PRN IV MODERATE TO SEVERE PAIN Last administered on 09/06/18at 19:02; Start 09/06/18 at 07:00; Stop 09/06/18 at 21:00; Status DC Morphine Sulfate (Morphine Sulfate) 1 mg PRN Q10MIN PRN IV SEVERE PAIN; Start 09/06/18 at 07:00; Stop 09/06/18 at 21:00; Status DC Ringer's Solution 1,000 ml @ 30 mls/hr Q24H IV Last administered on at 09:45; Start 09/06/18 at 07:00; Stop 09/06/18 at 18:59; Status DC Lidocaine HCl (Xylocaine-Mpf 1% 2ml Vial) 2 ml PRN 1X PRN ID PRIOR TO IV START ; Start 09/06/18 at 07:00; Stop 09/06/18 at 21:00; Status DC Hydromorphone HCl (Dilaudid) 0.5 mg PRN Q10MIN PRN IV SEV PAIN, Second choice; Start 09/06/18 at 07:00; Stop 09/06/18 at 21:00; Status DC Prochlorperazine Edisylate (Compazine) 5 mg PACU PRN PRN IV NAUSEA, MRX1; Start 09/06/18 at 07:00; Stop 09/06/18 at 21:00; Status DC Acetaminophen/ Hydrocodone Bitart (Lortab 7.5/325) 2 tab 1X PREOP PRN PO PRIOR TO PROCEDURE Last administered on 09/06/18at 09:48; Start 09/06/18 at 06:00; Stop 09/06/18 at 18:00; Status DC Cefazolin Sodium/ Dextrose 50 ml @ 100 mls/hr 1X PREOP PRN IV PRIOR TO PROCEDURE Last administered on 09/06/18at 14:43; Start 09/06/18 at 06:00; Stop 09/06/18 at 18:00; Status DC Tranexamic Acid 1000 mg/Sodium Chloride 60 ml @ 60 mls/hr 1X PERIOP ONCE INJ Last administered on 09/06/18at 15:00; Start 09/06/18 at 06:00; Stop 09/06/18 at 07:00; Status DC Tranexamic Acid 1000 mg/Sodium Chloride 60 ml @ 60 mls/hr 1X PERIOP ONCE INJ Last administered on 09/06/18at 17:10; Start 09/06/18 at 08:00; Stop 09/06/18 at 08:59; Status DC Propofol 20 ml @ As Directed STK-MED ONCE IV ; Start 09/06/18 at 13:17; Stop 09/06/18 at 13:18; Status DC Dexamethasone Sodium Phosphate (Decadron) 20 mg STK-MED ONCE .ROUTE ; Start at 13:17; Stop 09/06/18 at 13:18; Status DC Famotidine (Pepcid Vial) 20 mg STK-MED ONCE .ROUTE ; Start 09/06/18 at 13:17; Stop 09/06/18 at 13:18; Status DC Lidocaine HCl (Lidocaine Pf 2% Vial) 5 ml STK-MED ONCE .ROUTE ; Start 09/06/18 at 13:17; Stop 09/06/18 at 13:18; Status DC Ondansetron HCl (Zofran) 4 mg STK-MED ONCE .ROUTE ; Start 09/06/18 at 13:17; Stop 09/06/18 at 13:18; Status DC Rocuronium Esparto (Zemuron) 50 mg STK-MED ONCE .ROUTE ; Start 09/06/18 at 13: 17; Stop 09/06/18 at 13:18; Status DC Fentanyl Citrate (Fentanyl 2ml Vial) 100 mcg STK-MED ONCE .ROUTE ; Start at 13:17; Stop 09/06/18 at 13:18; Status DC Midazolam HCl (Versed) 2 mg STK-MED ONCE .ROUTE ; Start 09/06/18 at 13:17; Stop 09/06/18 at 13:18; Status DC Morphine Sulfate 5 mg/Ketorolac Tromethamine 30 mg/Ropivacaine 32 ml/ Epinephrine HCl 0.5 mg/Sodium Chloride 100 ml @ 100 mls/hr 1X ONCE INT ART Last administered on 09/06/18at 15:21; Start 09/06/18 at 14:15; Stop 09/06/18 at 15:14; Status DC Acetaminophen/ Hydrocodone Bitart (Lortab 7.5/325) 1 tab PRN Q3HRS PRN PO MODERATE PAIN, 1st CHOICE Last administered on 09/10/18at 02:40; Start at 15:00; Stop 09/14/18 at 13:18; Status DC Acetaminophen/ Hydrocodone Bitart (Lortab 10/325) 1 tab PRN Q3HRS PRN PO MODERATE PAIN, 2nd CHOICE Last administered on 09/14/18at 06:32; Start at 15:00; Stop 09/14/18 at 13:18; Status DC Tramadol HCl (Ultram) 50 mg PRN QID PRN PO MODERATE PAIN, 3rd CHOICE; Start at 15:00 Oxycodone/ Acetaminophen (Percocet 5/325) 1 tab PRN Q3HRS PRN PO SEVERE PAIN, 1st CHOICE Last administered on 09/14/18at 20:15; Start 09/06/18 at 15:00 Oxycodone/ Acetaminophen (Percocet 7.5/ 325) 1 tab PRN Q3HRS PRN PO SEVERE PAIN , 2nd CHOICE Last administered on 09/17/18at 08:42; Start 09/06/18 at 15:00 Tramadol HCl (Ultram) 100 mg PRN Q3HRS PRN PO SEVERE PAIN, 3rd CHOICE Last administered on 09/13/18at 16:21; Start 09/06/18 at 15:00 Morphine Sulfate (Morphine Sulfate) 2 mg PRN Q1HR PRN IV PAIN Last administered on 09/16/18at 07:57; Start 09/06/18 at 15:00 Fentanyl Citrate (Fentanyl 2ml Vial) 25 mcg PRN Q1HR PRN IV PAIN, 2nd CHOICE; Start 09/06/18 at 15:00 Warfarin Sodium (Coumadin) 7.5 mg 1X ONCE PO Last administered on 09/06/18at 20:01; Start 09/06/18 at 16:00; Stop 09/06/18 at 16:01; Status DC Warfarin Sodium (Coumadin Per Pharmacy) 1 each PRN DAILY PRN MC SEE COMMENTS Last administered on 09/16/18at 12:38; Start 09/06/18 at 15:00 Multivitamins (Thera M Plus) 1 tab DAILY PO Last administered on 09/17/18 08: 32; Start 09/06/18 at 17:00 Senna/Docusate Sodium (Senna Plus) 1 tab DAILY PO Last administered on 08:31; Start 09/06/18 at 16:00 Ferrous Sulfate (Feosol) 325 mg BIDWMEALS PO Last administered on 09/17/18 08: 31; Start 09/06/18 at 17:00 Celecoxib (CeleBREX) 200 mg BID PO Last administered on 09/17/18 08:31; Start 09/06/18 at 21:00 Dextrose/Sodium Chloride 1,000 ml @ 100 mls/hr Q10H IV Last administered on 19:42; Start 09/06/18 at 14:50; Stop 09/07/18 at 17:57; Status DC Magnesium Hydroxide (Milk Of Magnesia) 2,400 mg 1X PRN PRN PO CONSTIPATION; Start 09/07/18 at 06:00; Stop 09/08/18 at 05:59; Status DC Bisacodyl (Dulcolax Supp) 10 mg 1X PRN PRN [place] CONSTIPATION; Start 09/07/18 at 16:00; Stop 09/08/18 at 15:59; Status DC Acetaminophen (Tylenol) 650 mg PRN Q4HRS PRN PO MILD PAIN / TEMP Last administered on 09/13/18 16:21; Start 09/06/18 at 15:00 Zolpidem Tartrate (Ambien) 5 mg PRN QHS PRN PO INSOMNIA, MAY REPEAT IN 1HR Last administered on 09/16/18at 22:41; Start 09/06/18 at 15:00 Calcium Carbonate/ Glycine (Tums) 500 mg PRN QID PRN PO INDIGESTION Last administered on 09/13/18 13:40; Start 09/06/18 at 15:00 Morphine Sulfate (Morphine Sulfate) 4 mg PRN Q1HR PRN IV PAIN Last administered on 09/15/18 14:31; Start 09/06/18 at 15:00 Ketorolac Tromethamine 30 mg/Bupivacaine HCl 20 ml/ Epinephrine HCl 0.5 mg/ Miscellaneous 43 ml @ 258 mls/hr Q12H INT ART Last administered on 09/07/18 11:59; Start 09/06/18 at 20:00; Stop 09/07/18 at 08:09; Status DC Sodium Chloride (Normal Saline Flush) 10 ml QSHIFT PRN IV AFTER MEDS AND BLOOD DRAWS; Start 09/06/18 at 15:00 Fentanyl Citrate (Fentanyl 2ml Vial) 50 mcg PRN Q1HR PRN IV PAIN, 2nd CHOICE Last administered on 09/13/18at 17:30; Start 09/06/18 at 15:00 Prochlorperazine Edisylate (Compazine) 10 mg PRN Q4HRS PRN IV NAUSEA/VOMITING Last administered on 09/09/18at 05:19; Start 09/06/18 at 15:00 Dextrose (Dextrose 50%-Water Syringe) 12.5 gm PRN Q15MIN PRN IV SEE COMMENTS; Start 09/06/18 at 15:00; Stop 09/10/18 at 11:39; Status DC Cefazolin Sodium/ Dextrose 50 ml @ 100 mls/hr Q6H IV Last administered on at 08:17; Start 09/06/18 at 21:00; Stop 09/07/18 at 09:29; Status DC Ephedrine Sulfate (ePHEDrine PF IN SALINE SYRINGE) 50 mg STK-MED ONCE IV ; Start 09/06/18 at 16:46; Stop 09/06/18 at 16:47; Status DC Desflurane (Suprane) 90 ml STK-MED ONCE IH ; Start 09/06/18 at 16:46; Stop at 16:47; Status DC Neostigmine Methylsulfate (Neostigmine Methylsulfate) 5 mg STK-MED ONCE .ROUTE ; Start 09/06/18 at 16:47; Stop 09/06/18 at 16:48; Status DC Glycopyrrolate (Robinul) 1 mg STK-MED ONCE .ROUTE ; Start 09/06/18 at 16:47; Stop 09/06/18 at 16:48; Status DC Fentanyl Citrate (Fentanyl 2ml Vial) 100 mcg STK-MED ONCE .ROUTE ; Start at 17:58; Stop 09/06/18 at 17:59; Status DC Insulin Human Lispro (HumaLOG) 0-5 UNITS TIDWMEALS SQ Last administered on at 08:16; Start 09/07/18 at 08:00; Stop 09/07/18 at 11:52; Status DC Glimepiride (Amaryl) 2 mg DAILY PO Last administered on 09/17/18at 08:32; Start 09/07/18 at 09:00 Levothyroxine Sodium (Synthroid) 100 mcg DAILY06 PO Last administered on at 06:49; Start 09/07/18 at 06:00 Ascorbic Acid (Vitamin C) 1,000 mg DAILY PO Last administered on 09/17/18at 08: 31; Start 09/07/18 at 09:00 Lisinopril (Prinivil) 20 mg DAILY PO Last administered on 09/13/18at 08:20; Start 09/07/18 at 09:00; Stop 09/14/18 at 13:18; Status DC Hydrochlorothiazide (Microzide) 12.5 mg DAILY PO Last administered on at 08:20; Start 09/07/18 at 09:00; Stop 09/14/18 at 09:23; Status DC Metformin HCl (Glucophage) 1,000 mg BIDWMEALS PO Last administered on at 08:49; Start 09/07/18 at 08:00; Stop 09/14/18 at 10:57; Status DC Influenza Virus Vaccine (Afluria Trivalent [id number] Syringe) 0.5 ml ONCE ONCE VAX IM Last administered on 09/12/18at 13:59; Start 09/07/18 at 09:00; Stop 09/07/18 at 09:01; Status DC Insulin Human Lispro (HumaLOG) 0-7 UNITS TIDWMEALS SQ Last administered on at 17:17; Start 09/07/18 at 12:00; Stop 09/07/18 at 17:57; Status DC Dextrose (Dextrose 50%-Water Syringe) 12.5 gm PRN Q15MIN PRN IV SEE COMMENTS; Start 09/07/18 at 12:00; Status UNV Warfarin Sodium (Coumadin) 5 mg 1X WARF ONCE PO Last administered on at 17:11; Start 09/07/18 at 16:00; Stop 09/07/18 at 16:01; Status DC Insulin Human Lispro (HumaLOG) 0-9 UNITS TIDWMEALS SQ Last administered on 09/16at 17:24; Start 09/08/18 at 08:00 Dextrose (Dextrose 50%-Water Syringe) 12.5 gm PRN Q15MIN PRN IV SEE COMMENTS; Start 09/07/18 at 18:00 Insulin Glargine (Lantus) 12 units QHS SQ Last administered on 09/16/18at 21:35 ; Start 09/07/18 at 21:00 Warfarin Sodium (Coumadin) 2 mg 1X WARF ONCE PO Last administered on at 16:00; Start 09/08/18 at 16:00; Stop 09/08/18 at 16:01; Status DC Enoxaparin Sodium (Lovenox 80mg Syringe) 80 mg 1X ONCE SQ Last administered on 09/08/18at 16:01; Start 09/08/18 at 16:00; Stop 09/08/18 at 16:01; Status DC Enoxaparin Sodium (Lovenox 80mg Syringe) 80 mg Q12HR SQ Last administered on at 08:51; Start 09/09/18 at 06:00; Stop 09/14/18 at 13:18; Status DC Warfarin Sodium (Coumadin) 2 mg 1X WARF ONCE PO Last administered on at 16:42; Start 09/09/18 at 16:00; Stop 09/09/18 at 16:01; Status DC Ondansetron HCl (Zofran) 4 mg PRN Q6HRS PRN IV NAUSEA/VOMITING; Start at 07:00; Stop 09/12/18 at 07:00; Status DC Fentanyl Citrate (Fentanyl 2ml Vial) 25 mcg PRN Q5MIN PRN IV MILD PAIN; Start 09/12/18 at 07:00; Stop 09/12/18 at 07:00; Status DC Fentanyl Citrate (Fentanyl 2ml Vial) 50 mcg PRN Q5MIN PRN IV MODERATE TO SEVERE PAIN; Start 09/12/18 at 07:00; Stop 09/12/18 at 07:00; Status DC Morphine Sulfate (Morphine Sulfate) 1 mg PRN Q10MIN PRN IV SEVERE PAIN; Start 09/12/18 at 07:00; Stop 09/12/18 at 07:00; Status DC Ringer's Solution 1,000 ml @ 30 mls/hr Q24H IV ; Start 09/12/18 at 07:00; Stop 09/12/18 at 18:59; Status DC Lidocaine HCl (Xylocaine-Mpf 1% 2ml Vial) 2 ml PRN 1X PRN ID PRIOR TO IV START ; Start 09/12/18 at 07:00; Stop 09/12/18 at 07:00; Status DC Hydromorphone HCl (Dilaudid) 0.5 mg PRN Q10MIN PRN IV SEV PAIN, Second choice; Start 09/12/18 at 07:00; Stop 09/12/18 at 07:00; Status DC Prochlorperazine Edisylate (Compazine) 5 mg PACU PRN PRN IV NAUSEA, MRX1; Start 09/12/18 at 07:00; Stop 09/12/18 at 07:00; Status DC Warfarin Sodium (Coumadin) 3 mg 1X WARF ONCE PO Last administered on at 18:14; Start 09/10/18 at 16:00; Stop 09/10/18 at 16:01; Status DC Sodium Chloride 1,000 ml @ 75 mls/hr [id number] IV Last administered on at 06:02; Start 09/10/18 at 12:45; Stop 09/12/18 at 09:54; Status DC Warfarin Sodium (Coumadin) 4 mg 1X WARF ONCE PO Last administered on at 17:43; Start 09/11/18 at 16:00; Stop 09/11/18 at 16:01; Status DC Info (Anti-Coagulation Monitoring By Pharmacy) 1 each PRN DAILY PRN MC SEE COMMENTS Last administered on 09/15/18at 15:32; Start 09/12/18 at 11:00 Warfarin Sodium (Coumadin) 5 mg 1X WARF ONCE PO Last administered on at 16:02; Start 09/12/18 at 16:00; Stop 09/12/18 at 16:01; Status DC Warfarin Sodium (Coumadin) 7.5 mg 1X WARF ONCE PO Last administered on at 16:00; Start 09/13/18 at 16:00; Stop 09/13/18 at 16:01; Status DC Cyclobenzaprine HCl (Flexeril) 10 mg PRN Q6HRS PRN PO MUSCLE SPASMS Last administered on 09/17/18at 06:50; Start 09/13/18 at 18:15 Sodium Polystyrene Sulfonate (Kayexalate) 15 gm 1X ONCE PO Last administered on 09/14/18at 10:29; Start 09/14/18 at 10:00; Stop 09/14/18 at 10:01; Status DC Iohexol (Omnipaque 300 Mg/ml) 75 ml 1X ONCE IV Last administered on at 11:00; Start 09/14/18 at 11:00; Stop 09/14/18 at 11:01; Status DC Info (CONTRAST GIVEN -- Rx MONITORING) 1 each PRN DAILY PRN MC SEE COMMENTS; Start 09/14/18 at 11:00; Stop 09/16/18 at 10:59; Status DC Metformin HCl (Glucophage) 1,000 mg BIDWMEALS PO ; Start 09/18/18 at 17:00 Warfarin Sodium (Coumadin) 6 mg 1X WARF ONCE PO Last administered on at 16:52; Start 09/14/18 at 16:00; Stop 09/14/18 at 16:01; Status DC Warfarin Sodium (Coumadin) 5 mg 1X WARF ONCE PO ; Start 09/15/18 at 16:00; Stop 09/15/18 at 16:01; Status DC Insulin Human Lispro (HumaLOG) 3 units TIDWMEALS SQ Last administered on at 08:38; Start 09/16/18 at 08:00 Iohexol (Omnipaque 240 Mg/ml) 100 ml STK-MED ONCE .ROUTE ; Start 09/16/18 at 09: 14; Stop 09/16/18 at 09:15; Status DC Lidocaine/Sodium Bicarbonate (Buffered Lidocaine 1%) 3 ml STK-MED ONCE .ROUTE ; Start 09/16/18 at 09:14; Stop 09/16/18 at 09:15; Status DC Heparin Sodium/ Sodium Chloride 500 ml @ As Directed STK-MED ONCE .ROUTE ; Start 09/16/18 at 09:15; Stop 09/16/18 at 09:16; Status DC Cefazolin Sodium 50 ml @ As Directed STK-MED ONCE IV ; Start 09/16/18 at 09:45; Stop 09/16/18 at 09:46; Status DC Cefazolin Sodium 50 ml @ 100 mls/hr 1X ONCE IV Last administered on at 10:00; Start 09/16/18 at 10:00; Stop 09/16/18 at 10:29; Status DC Heparin Sodium/ Sodium Chloride (HEPARIN for ARTERIAL LINE FLUSH) 1,000 unit 1X ONCE IART Last administered on 09/16/18at 10:10; Start 09/16/18 at 10:00; Stop 09/16/18 at 10:01; Status DC Lidocaine/Sodium Bicarbonate (Buffered Lidocaine 1%) 3 ml 1X ONCE IJ Last administered on 09/16/18at 10:10; Start 09/16/18 at 10:00; Stop 09/16/18 at 10:01 ; Status DC Iohexol (Omnipaque 240 Mg/ml) 100 ml 1X ONCE IJ Last administered on at 10:10; Start 09/16/18 at 10:00; Stop 09/16/18 at 10:01; Status DC Warfarin Sodium (Coumadin) 5 mg 1X WARF ONCE PO Last administered on at 17:18; Start 09/16/18 at 16:00; Stop 09/16/18 at 16:01; Status DC Active Scripts Active [place] 7.5-325 Tablet (Acetaminophen/Hydrocodone Bitart) 1 Each Tablet 1 Tab PO PRN Q6HRS PRN Reported Aleve (Naproxen Sodium) 220 Mg Tablet 220 Mg PO BID Tramadol Hcl 50 Mg Tablet 50 Mg PO Q6HRS PRN Glucosamine (Glucosamine Sulfate 2KCL) 1,000 Mg Tablet 1,000 Mg PO DAILY Multivitamins (Multivitamin) 1 Each Tablet 1 Tab PO DAILY Vitamin C (Ascorbic Acid) 100 Mg Tablet 1,000 Mg PO DAILY Hydrochlorothiazide Capsule (Hydrochlorothiazide) 12.5 Mg Capsule 1 Cap PO DAILY Benazepril Hcl 20 Mg Tablet 1 Tab PO DAILY Glimepiride 2 Mg Tablet 1 Tab PO DAILY Metformin Hcl 1,000 Mg Tablet 1,000 Mg PO BID Levothyroxine Sodium 100 Mcg Tablet 1 Tab PO DAILY Vitals/I & O Vital Sign - Last 24 Hours 09/16/18 09/16/18 09/16/18 09/16/18 10:41 12:19 15:00 19:00 Temp 97.5 97.4 98.3 97.5 97.4 98.3 Pulse 82 90 104 Resp 18 18 B/P (MAP) 138/70 (92) 116/72 (87) 137/68 (91) Pulse Ox 96 92 94 O2 Delivery Room Air Room Air Room Air Room Air 09/16/18 09/16/18 09/16/18 09/16/18 20:30 22:41 23:00 23:45 Temp 98.8 98.8 Pulse 93 Resp 16 B/P (MAP) 126/85 (99) Pulse Ox 95 O2 Delivery Room Air Room Air Room Air Room Air 09/17/18 09/17/18 09/17/18 03:00 07:49 08:42 Temp 97.8 97.6 97.8 97.6 Pulse 82 72 Resp 18 16 20 B/P (MAP) 106/85 (92) 124/71 (88) Pulse Ox 94 95 O2 Delivery Room Air Room Air Room Air Intake and Output 09/16/18 09/16/18 09/17/18 15:00 23:00 07:00 Intake Total 0 ml Output Total 350 ml Balance 0 ml -350 ml KERLINE WHYTE MD Sep 17, 2018 08:45
--- NOTE | 2018-09-17 08:59 | PDOC ---
ORTHO PROGRESS NOTES Subjective Pain ok, felxeril helping. C/o scrotal edema. No other complaints Vitals Vital Signs Date Time Temp Pulse Resp B/P (MAP) Pulse Ox O2 Delivery O2 Flow Rate FiO2 09/17/18 08:42 20 Room Air 09/17/18 07:49 97.6 72 124/71 (88) 95 97.6 Labs Laboratory Tests Test 09/15/18 10:21 09/15/18 11:50 09/15/18 16:53 09/15/18 20:36 Glucose (Fingerstick) 66 mg/dL (70-99) 102 mg/dL (70-99) 155 mg/dL (70-99) 185 mg/dL (70-99) Test 09/16/18 04:07 09/16/18 08:02 09/16/18 11:36 09/16/18 17:09 White Blood Count 12.7 x10^3/uL (4.0-11.0) Red Blood Count 2.66 x10^6/uL (4.30-5.70) Hemoglobin 8.7 g/dL (13.0-17.5) Hematocrit 24.3 % (39.0-53.0) Mean Corpuscular Volume 92 fL (79-100) Mean Corpuscular Hemoglobin 33 pg (25-35) Mean Corpuscular Hemoglobin Concent 36 g/dL (31-37) Red Cell Distribution Width 17.1 % (11.5-14.5) Platelet Count 275 x10^3/uL (140-400) Neutrophils (%) (Auto) 75 % (31-73) Lymphocytes (%) (Auto) 16 % (24-48) Monocytes (%) (Auto) 6 % (0-9) Eosinophils (%) (Auto) 2 % (0-3) Basophils (%) (Auto) 1 % (0-3) Neutrophils # (Auto) 9.6 x10^3uL (1.8-7.7) Lymphocytes # (Auto) 2.1 x10^3/uL (1.0-4.8) Monocytes # (Auto) 0.8 x10^3/uL (0.0-1.1) Eosinophils # (Auto) 0.3 x10^3/uL (0.0-0.7) Basophils # (Auto) 0.1 x10^3/uL (0.0-0.2) Prothrombin Time 19.7 SEC (11.7-14.0) Prothromb Time International Ratio 1.7 (0.8-1.1) Sodium Level 136 mmol/L (136-145) Potassium Level 4.3 mmol/L (3.5-5.1) Chloride Level 100 mmol/L (98-107) Carbon Dioxide Level 30 mmol/L (21-32) Anion Gap 6 (6-14) Blood Urea Nitrogen 27 mg/dL (8-26) Creatinine 1.2 mg/dL (0.7-1.3) Estimated GFR (Cockcroft-Gault) 60.2 Glucose Level 190 mg/dL (70-99) Calcium Level 8.9 mg/dL (8.5-10.1) Glucose (Fingerstick) 149 mg/dL (70-99) 131 mg/dL (70-99) 192 mg/dL (70-99) Test 09/16/18 20:56 09/17/18 06:00 09/17/18 07:34 Glucose (Fingerstick) 172 mg/dL (70-99) 106 mg/dL (70-99) White Blood Count 12.2 x10^3/uL (4.0-11.0) Red Blood Count 2.77 x10^6/uL (4.30-5.70) Hemoglobin 9.0 g/dL (13.0-17.5) Hematocrit 25.9 % (39.0-53.0) Mean Corpuscular Volume 93 fL (79-100) Mean Corpuscular Hemoglobin 33 pg (25-35) Mean Corpuscular Hemoglobin Concent 35 g/dL (31-37) Red Cell Distribution Width 16.9 % (11.5-14.5) Platelet Count 299 x10^3/uL (140-400) Neutrophils (%) (Auto) 71 % (31-73) Lymphocytes (%) (Auto) 21 % (24-48) Monocytes (%) (Auto) 6 % (0-9) Eosinophils (%) (Auto) 2 % (0-3) Basophils (%) (Auto) 0 % (0-3) Neutrophils # (Auto) 8.6 x10^3uL (1.8-7.7) Lymphocytes # (Auto) 2.6 x10^3/uL (1.0-4.8) Monocytes # (Auto) 0.7 x10^3/uL (0.0-1.1) Eosinophils # (Auto) 0.3 x10^3/uL (0.0-0.7) Basophils # (Auto) 0.0 x10^3/uL (0.0-0.2) Prothrombin Time 18.6 SEC (11.7-14.0) Prothromb Time International Ratio 1.6 (0.8-1.1) Sodium Level 137 mmol/L (136-145) Potassium Level 3.9 mmol/L (3.5-5.1) Chloride Level 101 mmol/L (98-107) Carbon Dioxide Level 28 mmol/L (21-32) Anion Gap 8 (6-14) Blood Urea Nitrogen 21 mg/dL (8-26) Creatinine 0.9 mg/dL (0.7-1.3) Estimated GFR (Cockcroft-Gault) 83.9 Glucose Level 116 mg/dL (70-99) Calcium Level 8.8 mg/dL (8.5-10.1) Laboratory Tests Test 09/16/18 11:36 09/16/18 17:09 09/16/18 20:56 09/17/18 06:00 Glucose (Fingerstick) 131 mg/dL (70-99) 192 mg/dL (70-99) 172 mg/dL (70-99) White Blood Count 12.2 x10^3/uL (4.0-11.0) Red Blood Count 2.77 x10^6/uL (4.30-5.70) Hemoglobin 9.0 g/dL (13.0-17.5) Hematocrit 25.9 % (39.0-53.0) Mean Corpuscular Volume 93 fL (79-100) Mean Corpuscular Hemoglobin 33 pg (25-35) Mean Corpuscular Hemoglobin Concent 35 g/dL (31-37) Red Cell Distribution Width 16.9 % (11.5-14.5) Platelet Count 299 x10^3/uL (140-400) Neutrophils (%) (Auto) 71 % (31-73) Lymphocytes (%) (Auto) 21 % (24-48) Monocytes (%) (Auto) 6 % (0-9) Eosinophils (%) (Auto) 2 % (0-3) Basophils (%) (Auto) 0 % (0-3) Neutrophils # (Auto) 8.6 x10^3uL (1.8-7.7) Lymphocytes # (Auto) 2.6 x10^3/uL (1.0-4.8) Monocytes # (Auto) 0.7 x10^3/uL (0.0-1.1) Eosinophils # (Auto) 0.3 x10^3/uL (0.0-0.7) Basophils # (Auto) 0.0 x10^3/uL (0.0-0.2) Prothrombin Time 18.6 SEC (11.7-14.0) Prothromb Time International Ratio 1.6 (0.8-1.1) Sodium Level 137 mmol/L (136-145) Potassium Level 3.9 mmol/L (3.5-5.1) Chloride Level 101 mmol/L (98-107) Carbon Dioxide Level 28 mmol/L (21-32) Anion Gap 8 (6-14) Blood Urea Nitrogen 21 mg/dL (8-26) Creatinine 0.9 mg/dL (0.7-1.3) Estimated GFR (Cockcroft-Gault) 83.9 Glucose Level 116 mg/dL (70-99) Calcium Level 8.8 mg/dL (8.5-10.1) Test 09/17/18 07:34 Glucose (Fingerstick) 106 mg/dL (70-99) Notes A and A in bed incision ok no edema, normal m/s distally at R foot decreased sensation anterolateral thigh, not new Assessment and Plan filter yesterday cont coumadin PT/OT LEXII SAUER II, MD Sep 17, 2018 08:59
[2018-09-17 11:00] VITALS: BP 126/64
[2018-09-17 15:00] VITALS: BP 127/74
[2018-09-17] MEDS ORDERED: WARFARIN 6 MG TABLET. PO ONE (16:00)
[2018-09-17 19:00] VITALS: BP 125/72
[2018-09-17] MEDS: ZOLPIDEM 5 MG TABLET. PO PRN (21:32)
[2018-09-17] MEDS: INSULIN GLARGINE 300 UNITS/3 ML INSULN.PEN. SQ SCH (21:39)
[2018-09-17 23:00] VITALS: BP 129/67
[2018-09-18 03:00] VITALS: BP 125/71
[2018-09-18] MEDS: LEVOTHYROXINE 100 MCG TABLET PO SCH (05:37)
[2018-09-18] MEDS: oxyCODONE/APAP 7.5/325 1 TAB TABLET PO PRN ×4 (05:37→21:22)
[2018-09-18 07:00] VITALS: BP 148/83
--- NOTE | 2018-09-18 07:08 | PDOC ---
PROGRESS NOTES Chief Complaint Chief Complaint Rt hip DJD S/p right hip arthroplasty 09/06 Extensive right leg DVT - confirmed 09/08 Leukocytosis likely 2/2 to intra-op steroids - resolved Hyponatremia - resolved H/o DM H/o HTN, hypotension H/o hypothyroid ACute anemia, post op hyperkalemia History of Present Illness History of Present Illness Pt seen and examined 09/14: c/o more pain last night. not complain to me today. however, hb 6.5 from 8.5, high wbc to 22, BP lower to 80s , INR 2.1. Transfused with Hb back to 7.1 from 6.5 Discussed w/RN Discussed w/PT rt thigh swelling slightly better today, now with scrotal edema as well rt thigh has a post op drain INR was >2 09/15/18 despite FFP, given 2u PRBC and FFP with INR to 1.7 09/16/18, s /p IVF filter Still cannot lift his left leg, this is bothering him more. Still with decreased sensation, swelling of left knee a little better today. pt able to walk a little bit with PTOT, wants rehab. Rt hip DJD S/p right hip arthroplasty 09/06 Extensive right leg DVT - confirmed 09/08 Leukocytosis likely 2/2 to intra-op steroids - resolved Hyponatremia - resolved H/o DM H/o HTN, hypotension H/o hypothyroid ACute anemia, post op hyperkalemia plan: fu with ortho, vascular no vascular sx plan for now currently on warfarin INR goal2-3. cont warfarin, inserted IVF filter fu with sw need rehab for dc pain control, flexeril added with ortho cont home meds for dm2 PTOT thanks for asking for consult Vitals Vitals Vital Signs Date Time Temp Pulse Resp B/P (MAP) Pulse Ox O2 Delivery O2 Flow Rate FiO2 09/18/18 03:00 97.6 76 18 125/71 (89) 96 Room Air 97.6 09/17/18 09:42 2.0 Physical Exam Physical Exam Neck: Supple, no JVD General: No acute distress, Other (Pt was asleep and appeared to be in NAD) Heart: Regular rate, No murmurs Lungs: Clear Abdomen: Soft, No tenderness Extremities: Other (rt thigh wound has a small drain, right thigh moderate swelling) Skin: No rashes Labs LABS Laboratory Tests Test 09/17/18 07:34 09/17/18 11:28 09/17/18 17:00 09/17/18 21:03 Glucose (Fingerstick) 106 mg/dL (70-99) 180 mg/dL (70-99) 224 mg/dL (70-99) 167 mg/dL (70-99) Comment Review of Relevant I have reviewed the following items digna (where applicable) has been applied. Labs Laboratory Tests Test 09/16/18 08:02 09/16/18 11:36 09/16/18 17:09 09/16/18 20:56 Glucose (Fingerstick) 149 mg/dL (70-99) 131 mg/dL (70-99) 192 mg/dL (70-99) 172 mg/dL (70-99) Test 09/17/18 06:00 09/17/18 07:34 09/17/18 11:28 09/17/18 17:00 White Blood Count 12.2 x10^3/uL (4.0-11.0) Red Blood Count 2.77 x10^6/uL (4.30-5.70) Hemoglobin 9.0 g/dL (13.0-17.5) Hematocrit 25.9 % (39.0-53.0) Mean Corpuscular Volume 93 fL (79-100) Mean Corpuscular Hemoglobin 33 pg (25-35) Mean Corpuscular Hemoglobin Concent 35 g/dL (31-37) Red Cell Distribution Width 16.9 % (11.5-14.5) Platelet Count 299 x10^3/uL (140-400) Neutrophils (%) (Auto) 71 % (31-73) Lymphocytes (%) (Auto) 21 % (24-48) Monocytes (%) (Auto) 6 % (0-9) Eosinophils (%) (Auto) 2 % (0-3) Basophils (%) (Auto) 0 % (0-3) Neutrophils # (Auto) 8.6 x10^3uL (1.8-7.7) Lymphocytes # (Auto) 2.6 x10^3/uL (1.0-4.8) Monocytes # (Auto) 0.7 x10^3/uL (0.0-1.1) Eosinophils # (Auto) 0.3 x10^3/uL (0.0-0.7) Basophils # (Auto) 0.0 x10^3/uL (0.0-0.2) Prothrombin Time 18.6 SEC (11.7-14.0) Prothromb Time International Ratio 1.6 (0.8-1.1) Sodium Level 137 mmol/L (136-145) Potassium Level 3.9 mmol/L (3.5-5.1) Chloride Level 101 mmol/L (98-107) Carbon Dioxide Level 28 mmol/L (21-32) Anion Gap 8 (6-14) Blood Urea Nitrogen 21 mg/dL (8-26) Creatinine 0.9 mg/dL (0.7-1.3) Estimated GFR (Cockcroft-Gault) 83.9 Glucose Level 116 mg/dL (70-99) Calcium Level 8.8 mg/dL (8.5-10.1) Glucose (Fingerstick) 106 mg/dL (70-99) 180 mg/dL (70-99) 224 mg/dL (70-99) Test 09/17/18 21:03 Glucose (Fingerstick) 167 mg/dL (70-99) Laboratory Tests Test 09/17/18 07:34 09/17/18 11:28 09/17/18 17:00 09/17/18 21:03 Glucose (Fingerstick) 106 mg/dL (70-99) 180 mg/dL (70-99) 224 mg/dL (70-99) 167 mg/dL (70-99) Medications Current Medications Morphine Sulfate 5 mg/Ketorolac Tromethamine 30 mg/Ropivacaine 60 ml/ Epinephrine HCl 0.5 mg/Sodium Chloride 100 ml @ 100 mls/hr 1X ONCE INT ART ; Start 09/06/18 at 06:00; Stop 09/06/18 at 07:00; Status DC Ondansetron HCl (Zofran) 4 mg PRN Q6HRS PRN IV NAUSEA/VOMITING; Start at 07:00; Stop 09/06/18 at 21:00; Status DC Fentanyl Citrate (Fentanyl 2ml Vial) 25 mcg PRN Q5MIN PRN IV MILD PAIN; Start 09/06/18 at 07:00; Stop 09/06/18 at 21:00; Status DC Fentanyl Citrate (Fentanyl 2ml Vial) 50 mcg PRN Q5MIN PRN IV MODERATE TO SEVERE PAIN Last administered on 09/06/18at 19:02; Start 09/06/18 at 07:00; Stop 09/06/18 at 21:00; Status DC Morphine Sulfate (Morphine Sulfate) 1 mg PRN Q10MIN PRN IV SEVERE PAIN; Start 09/06/18 at 07:00; Stop 09/06/18 at 21:00; Status DC Ringer's Solution 1,000 ml @ 30 mls/hr Q24H IV Last administered on at 09:45; Start 09/06/18 at 07:00; Stop 09/06/18 at 18:59; Status DC Lidocaine HCl (Xylocaine-Mpf 1% 2ml Vial) 2 ml PRN 1X PRN ID PRIOR TO IV START ; Start 09/06/18 at 07:00; Stop 09/06/18 at 21:00; Status DC Hydromorphone HCl (Dilaudid) 0.5 mg PRN Q10MIN PRN IV SEV PAIN, Second choice; Start 09/06/18 at 07:00; Stop 09/06/18 at 21:00; Status DC Prochlorperazine Edisylate (Compazine) 5 mg PACU PRN PRN IV NAUSEA, MRX1; Start 09/06/18 at 07:00; Stop 09/06/18 at 21:00; Status DC Acetaminophen/ Hydrocodone Bitart (Lortab 7.5/325) 2 tab 1X PREOP PRN PO PRIOR TO PROCEDURE Last administered on 09/06/18at 09:48; Start 09/06/18 at 06:00; Stop 09/06/18 at 18:00; Status DC Cefazolin Sodium/ Dextrose 50 ml @ 100 mls/hr 1X PREOP PRN IV PRIOR TO PROCEDURE Last administered on 09/06/18at 14:43; Start 09/06/18 at 06:00; Stop 09/06/18 at 18:00; Status DC Tranexamic Acid 1000 mg/Sodium Chloride 60 ml @ 60 mls/hr 1X PERIOP ONCE INJ Last administered on 09/06/18at 15:00; Start 09/06/18 at 06:00; Stop 09/06/18 at 07:00; Status DC Tranexamic Acid 1000 mg/Sodium Chloride 60 ml @ 60 mls/hr 1X PERIOP ONCE INJ Last administered on 09/06/18at 17:10; Start 09/06/18 at 08:00; Stop 09/06/18 at 08:59; Status DC Propofol 20 ml @ As Directed STK-MED ONCE IV ; Start 09/06/18 at 13:17; Stop 09/06/18 at 13:18; Status DC Dexamethasone Sodium Phosphate (Decadron) 20 mg STK-MED ONCE .ROUTE ; Start at 13:17; Stop 09/06/18 at 13:18; Status DC Famotidine (Pepcid Vial) 20 mg STK-MED ONCE .ROUTE ; Start 09/06/18 at 13:17; Stop 09/06/18 at 13:18; Status DC Lidocaine HCl (Lidocaine Pf 2% Vial) 5 ml STK-MED ONCE .ROUTE ; Start 09/06/18 at 13:17; Stop 09/06/18 at 13:18; Status DC Ondansetron HCl (Zofran) 4 mg STK-MED ONCE .ROUTE ; Start 09/06/18 at 13:17; Stop 09/06/18 at 13:18; Status DC Rocuronium Rapelje (Zemuron) 50 mg STK-MED ONCE .ROUTE ; Start 09/06/18 at 13: 17; Stop 09/06/18 at 13:18; Status DC Fentanyl Citrate (Fentanyl 2ml Vial) 100 mcg STK-MED ONCE .ROUTE ; Start at 13:17; Stop 09/06/18 at 13:18; Status DC Midazolam HCl (Versed) 2 mg STK-MED ONCE .ROUTE ; Start 09/06/18 at 13:17; Stop 09/06/18 at 13:18; Status DC Morphine Sulfate 5 mg/Ketorolac Tromethamine 30 mg/Ropivacaine 32 ml/ Epinephrine HCl 0.5 mg/Sodium Chloride 100 ml @ 100 mls/hr 1X ONCE INT ART Last administered on 09/06/18at 15:21; Start 09/06/18 at 14:15; Stop 09/06/18 at 15:14; Status DC Acetaminophen/ Hydrocodone Bitart (Lortab 7.5/325) 1 tab PRN Q3HRS PRN PO MODERATE PAIN, 1st CHOICE Last administered on 09/10/18at 02:40; Start at 15:00; Stop 09/14/18 at 13:18; Status DC Acetaminophen/ Hydrocodone Bitart (Lortab 10/325) 1 tab PRN Q3HRS PRN PO MODERATE PAIN, 2nd CHOICE Last administered on 09/14/18at 06:32; Start at 15:00; Stop 09/14/18 at 13:18; Status DC Tramadol HCl (Ultram) 50 mg PRN QID PRN PO MODERATE PAIN, 3rd CHOICE; Start at 15:00 Oxycodone/ Acetaminophen (Percocet 5/325) 1 tab PRN Q3HRS PRN PO SEVERE PAIN, 1st CHOICE Last administered on 09/14/18at 20:15; Start 09/06/18 at 15:00 Oxycodone/ Acetaminophen (Percocet 7.5/ 325) 1 tab PRN Q3HRS PRN PO SEVERE PAIN , 2nd CHOICE Last administered on 09/18/18at 05:37; Start 09/06/18 at 15:00 Tramadol HCl (Ultram) 100 mg PRN Q3HRS PRN PO SEVERE PAIN, 3rd CHOICE Last administered on 09/13/18at 16:21; Start 09/06/18 at 15:00 Morphine Sulfate (Morphine Sulfate) 2 mg PRN Q1HR PRN IV PAIN Last administered on 09/16/18at 07:57; Start 09/06/18 at 15:00 Fentanyl Citrate (Fentanyl 2ml Vial) 25 mcg PRN Q1HR PRN IV PAIN, 2nd CHOICE; Start 09/06/18 at 15:00 Warfarin Sodium (Coumadin) 7.5 mg 1X ONCE PO Last administered on 09/06/18at 20:01; Start 09/06/18 at 16:00; Stop 09/06/18 at 16:01; Status DC Warfarin Sodium (Coumadin Per Pharmacy) 1 each PRN DAILY PRN MC SEE COMMENTS Last administered on 09/17/18at 15:24; Start 09/06/18 at 15:00 Multivitamins (Thera M Plus) 1 tab DAILY PO Last administered on 09/17/18at 08: 32; Start 09/06/18 at 17:00 Senna/Docusate Sodium (Senna Plus) 1 tab DAILY PO Last administered on 08:31; Start 09/06/18 at 16:00 Ferrous Sulfate (Feosol) 325 mg BIDWMEALS PO Last administered on 09/17/18 17: 10; Start 09/06/18 at 17:00 Celecoxib (CeleBREX) 200 mg BID PO Last administered on 09/17/18 21:32; Start 09/06/18 at 21:00 Dextrose/Sodium Chloride 1,000 ml @ 100 mls/hr Q10H IV Last administered on 19:42; Start 09/06/18 at 14:50; Stop 09/07/18 at 17:57; Status DC Magnesium Hydroxide (Milk Of Magnesia) 2,400 mg 1X PRN PRN PO CONSTIPATION; Start 09/07/18 at 06:00; Stop 09/08/18 at 05:59; Status DC Bisacodyl (Dulcolax Supp) 10 mg 1X PRN PRN [place] CONSTIPATION; Start 09/07/18 at 16:00; Stop 09/08/18 at 15:59; Status DC Acetaminophen (Tylenol) 650 mg PRN Q4HRS PRN PO MILD PAIN / TEMP Last administered on 09/13/18 16:21; Start 09/06/18 at 15:00 Zolpidem Tartrate (Ambien) 5 mg PRN QHS PRN PO INSOMNIA, MAY REPEAT IN 1HR Last administered on 09/17/18 21:32; Start 09/06/18 at 15:00 Calcium Carbonate/ Glycine (Tums) 500 mg PRN QID PRN PO INDIGESTION Last administered on 09/13/18at 13:40; Start 09/06/18 at 15:00 Morphine Sulfate (Morphine Sulfate) 4 mg PRN Q1HR PRN IV PAIN Last administered on 09/15/18 14:31; Start 09/06/18 at 15:00 Ketorolac Tromethamine 30 mg/Bupivacaine HCl 20 ml/ Epinephrine HCl 0.5 mg/ Miscellaneous 43 ml @ 258 mls/hr Q12H INT ART Last administered on 09/07/18 11:59; Start 09/06/18 at 20:00; Stop 09/07/18 at 08:09; Status DC Sodium Chloride (Normal Saline Flush) 10 ml QSHIFT PRN IV AFTER MEDS AND BLOOD DRAWS; Start 09/06/18 at 15:00 Fentanyl Citrate (Fentanyl 2ml Vial) 50 mcg PRN Q1HR PRN IV PAIN, 2nd CHOICE Last administered on 09/13/18at 17:30; Start 09/06/18 at 15:00 Prochlorperazine Edisylate (Compazine) 10 mg PRN Q4HRS PRN IV NAUSEA/VOMITING Last administered on 09/09/18at 05:19; Start 09/06/18 at 15:00 Dextrose (Dextrose 50%-Water Syringe) 12.5 gm PRN Q15MIN PRN IV SEE COMMENTS; Start 09/06/18 at 15:00; Stop 09/10/18 at 11:39; Status DC Cefazolin Sodium/ Dextrose 50 ml @ 100 mls/hr Q6H IV Last administered on at 08:17; Start 09/06/18 at 21:00; Stop 09/07/18 at 09:29; Status DC Ephedrine Sulfate (ePHEDrine PF IN SALINE SYRINGE) 50 mg STK-MED ONCE IV ; Start 09/06/18 at 16:46; Stop 09/06/18 at 16:47; Status DC Desflurane (Suprane) 90 ml STK-MED ONCE IH ; Start 09/06/18 at 16:46; Stop at 16:47; Status DC Neostigmine Methylsulfate (Neostigmine Methylsulfate) 5 mg STK-MED ONCE .ROUTE ; Start 09/06/18 at 16:47; Stop 09/06/18 at 16:48; Status DC Glycopyrrolate (Robinul) 1 mg STK-MED ONCE .ROUTE ; Start 09/06/18 at 16:47; Stop 09/06/18 at 16:48; Status DC Fentanyl Citrate (Fentanyl 2ml Vial) 100 mcg STK-MED ONCE .ROUTE ; Start at 17:58; Stop 09/06/18 at 17:59; Status DC Insulin Human Lispro (HumaLOG) 0-5 UNITS TIDWMEALS SQ Last administered on at 08:16; Start 09/07/18 at 08:00; Stop 09/07/18 at 11:52; Status DC Glimepiride (Amaryl) 2 mg DAILY PO Last administered on 09/17/18at 08:32; Start 09/07/18 at 09:00 Levothyroxine Sodium (Synthroid) 100 mcg DAILY06 PO Last administered on at 05:37; Start 09/07/18 at 06:00 Ascorbic Acid (Vitamin C) 1,000 mg DAILY PO Last administered on 09/17/18at 08: 31; Start 09/07/18 at 09:00 Lisinopril (Prinivil) 20 mg DAILY PO Last administered on 09/13/18at 08:20; Start 09/07/18 at 09:00; Stop 09/14/18 at 13:18; Status DC Hydrochlorothiazide (Microzide) 12.5 mg DAILY PO Last administered on at 08:20; Start 09/07/18 at 09:00; Stop 09/14/18 at 09:23; Status DC Metformin HCl (Glucophage) 1,000 mg BIDWMEALS PO Last administered on at 08:49; Start 09/07/18 at 08:00; Stop 09/14/18 at 10:57; Status DC Influenza Virus Vaccine (Afluria Trivalent 3085-1549 Syringe) 0.5 ml ONCE ONCE VAX IM Last administered on 09/12/18at 13:59; Start 09/07/18 at 09:00; Stop 09/07/18 at 09:01; Status DC Insulin Human Lispro (HumaLOG) 0-7 UNITS TIDWMEALS SQ Last administered on at 17:17; Start 09/07/18 at 12:00; Stop 09/07/18 at 17:57; Status DC Dextrose (Dextrose 50%-Water Syringe) 12.5 gm PRN Q15MIN PRN IV SEE COMMENTS; Start 09/07/18 at 12:00; Status UNV Warfarin Sodium (Coumadin) 5 mg 1X WARF ONCE PO Last administered on at 17:11; Start 09/07/18 at 16:00; Stop 09/07/18 at 16:01; Status DC Insulin Human Lispro (HumaLOG) 0-9 UNITS TIDWMEALS SQ Last administered on 09/17at 17:17; Start 09/08/18 at 08:00 Dextrose (Dextrose 50%-Water Syringe) 12.5 gm PRN Q15MIN PRN IV SEE COMMENTS; Start 09/07/18 at 18:00 Insulin Glargine (Lantus) 12 units QHS SQ Last administered on 09/17/18at 21:39 ; Start 09/07/18 at 21:00 Warfarin Sodium (Coumadin) 2 mg 1X WARF ONCE PO Last administered on at 16:00; Start 09/08/18 at 16:00; Stop 09/08/18 at 16:01; Status DC Enoxaparin Sodium (Lovenox 80mg Syringe) 80 mg 1X ONCE SQ Last administered on 09/08/18at 16:01; Start 09/08/18 at 16:00; Stop 09/08/18 at 16:01; Status DC Enoxaparin Sodium (Lovenox 80mg Syringe) 80 mg Q12HR SQ Last administered on at 08:51; Start 09/09/18 at 06:00; Stop 09/14/18 at 13:18; Status DC Warfarin Sodium (Coumadin) 2 mg 1X WARF ONCE PO Last administered on at 16:42; Start 09/09/18 at 16:00; Stop 09/09/18 at 16:01; Status DC Ondansetron HCl (Zofran) 4 mg PRN Q6HRS PRN IV NAUSEA/VOMITING; Start at 07:00; Stop 09/12/18 at 07:00; Status DC Fentanyl Citrate (Fentanyl 2ml Vial) 25 mcg PRN Q5MIN PRN IV MILD PAIN; Start 09/12/18 at 07:00; Stop 09/12/18 at 07:00; Status DC Fentanyl Citrate (Fentanyl 2ml Vial) 50 mcg PRN Q5MIN PRN IV MODERATE TO SEVERE PAIN; Start 09/12/18 at 07:00; Stop 09/12/18 at 07:00; Status DC Morphine Sulfate (Morphine Sulfate) 1 mg PRN Q10MIN PRN IV SEVERE PAIN; Start 09/12/18 at 07:00; Stop 09/12/18 at 07:00; Status DC Ringer's Solution 1,000 ml @ 30 mls/hr Q24H IV ; Start 09/12/18 at 07:00; Stop 09/12/18 at 18:59; Status DC Lidocaine HCl (Xylocaine-Mpf 1% 2ml Vial) 2 ml PRN 1X PRN ID PRIOR TO IV START ; Start 09/12/18 at 07:00; Stop 09/12/18 at 07:00; Status DC Hydromorphone HCl (Dilaudid) 0.5 mg PRN Q10MIN PRN IV SEV PAIN, Second choice; Start 09/12/18 at 07:00; Stop 09/12/18 at 07:00; Status DC Prochlorperazine Edisylate (Compazine) 5 mg PACU PRN PRN IV NAUSEA, MRX1; Start 09/12/18 at 07:00; Stop 09/12/18 at 07:00; Status DC Warfarin Sodium (Coumadin) 3 mg 1X WARF ONCE PO Last administered on at 18:14; Start 09/10/18 at 16:00; Stop 09/10/18 at 16:01; Status DC Sodium Chloride 1,000 ml @ 75 mls/hr [id number] IV Last administered on at 06:02; Start 09/10/18 at 12:45; Stop 09/12/18 at 09:54; Status DC Warfarin Sodium (Coumadin) 4 mg 1X WARF ONCE PO Last administered on at 17:43; Start 09/11/18 at 16:00; Stop 09/11/18 at 16:01; Status DC Info (Anti-Coagulation Monitoring By Pharmacy) 1 each PRN DAILY PRN MC SEE COMMENTS Last administered on 09/15/18at 15:32; Start 09/12/18 at 11:00 Warfarin Sodium (Coumadin) 5 mg 1X WARF ONCE PO Last administered on at 16:02; Start 09/12/18 at 16:00; Stop 09/12/18 at 16:01; Status DC Warfarin Sodium (Coumadin) 7.5 mg 1X WARF ONCE PO Last administered on at 16:00; Start 09/13/18 at 16:00; Stop 09/13/18 at 16:01; Status DC Cyclobenzaprine HCl (Flexeril) 10 mg PRN Q6HRS PRN PO MUSCLE SPASMS Last administered on 09/17/18at 17:10; Start 09/13/18 at 18:15 Sodium Polystyrene Sulfonate (Kayexalate) 15 gm 1X ONCE PO Last administered on 09/14/18at 10:29; Start 09/14/18 at 10:00; Stop 09/14/18 at 10:01; Status DC Iohexol (Omnipaque 300 Mg/ml) 75 ml 1X ONCE IV Last administered on at 11:00; Start 09/14/18 at 11:00; Stop 09/14/18 at 11:01; Status DC Info (CONTRAST GIVEN -- Rx MONITORING) 1 each PRN DAILY PRN MC SEE COMMENTS; Start 09/14/18 at 11:00; Stop 09/16/18 at 10:59; Status DC Metformin HCl (Glucophage) 1,000 mg BIDWMEALS PO ; Start 09/18/18 at 17:00 Warfarin Sodium (Coumadin) 6 mg 1X WARF ONCE PO Last administered on at 16:52; Start 09/14/18 at 16:00; Stop 09/14/18 at 16:01; Status DC Warfarin Sodium (Coumadin) 5 mg 1X WARF ONCE PO ; Start 09/15/18 at 16:00; Stop 09/15/18 at 16:01; Status DC Insulin Human Lispro (HumaLOG) 3 units TIDWMEALS SQ Last administered on at 17:17; Start 09/16/18 at 08:00 Iohexol (Omnipaque 240 Mg/ml) 100 ml STK-MED ONCE .ROUTE ; Start 09/16/18 at 09: 14; Stop 09/16/18 at 09:15; Status DC Lidocaine/Sodium Bicarbonate (Buffered Lidocaine 1%) 3 ml STK-MED ONCE .ROUTE ; Start 09/16/18 at 09:14; Stop 09/16/18 at 09:15; Status DC Heparin Sodium/ Sodium Chloride 500 ml @ As Directed STK-MED ONCE .ROUTE ; Start 09/16/18 at 09:15; Stop 09/16/18 at 09:16; Status DC Cefazolin Sodium 50 ml @ As Directed STK-MED ONCE IV ; Start 09/16/18 at 09:45; Stop 09/16/18 at 09:46; Status DC Cefazolin Sodium 50 ml @ 100 mls/hr 1X ONCE IV Last administered on at 10:00; Start 09/16/18 at 10:00; Stop 09/16/18 at 10:29; Status DC Heparin Sodium/ Sodium Chloride (HEPARIN for ARTERIAL LINE FLUSH) 1,000 unit 1X ONCE IART Last administered on 09/16/18at 10:10; Start 09/16/18 at 10:00; Stop 09/16/18 at 10:01; Status DC Lidocaine/Sodium Bicarbonate (Buffered Lidocaine 1%) 3 ml 1X ONCE IJ Last administered on 09/16/18at 10:10; Start 09/16/18 at 10:00; Stop 09/16/18 at 10:01 ; Status DC Iohexol (Omnipaque 240 Mg/ml) 100 ml 1X ONCE IJ Last administered on at 10:10; Start 09/16/18 at 10:00; Stop 09/16/18 at 10:01; Status DC Warfarin Sodium (Coumadin) 5 mg 1X WARF ONCE PO Last administered on at 17:18; Start 09/16/18 at 16:00; Stop 09/16/18 at 16:01; Status DC Warfarin Sodium (Coumadin) 6 mg 1X WARF ONCE PO Last administered on at 17:11; Start 09/17/18 at 16:00; Stop 09/17/18 at 16:01; Status DC Active Scripts Active [place] 7.5-325 Tablet (Acetaminophen/Hydrocodone Bitart) 1 Each Tablet 1 Tab PO PRN Q6HRS PRN Reported Aleve (Naproxen Sodium) 220 Mg Tablet 220 Mg PO BID Tramadol Hcl 50 Mg Tablet 50 Mg PO Q6HRS PRN Glucosamine (Glucosamine Sulfate 2KCL) 1,000 Mg Tablet 1,000 Mg PO DAILY Multivitamins (Multivitamin) 1 Each Tablet 1 Tab PO DAILY Vitamin C (Ascorbic Acid) 100 Mg Tablet 1,000 Mg PO DAILY Hydrochlorothiazide Capsule (Hydrochlorothiazide) 12.5 Mg Capsule 1 Cap PO DAILY Benazepril Hcl 20 Mg Tablet 1 Tab PO DAILY Glimepiride 2 Mg Tablet 1 Tab PO DAILY Metformin Hcl 1,000 Mg Tablet 1,000 Mg PO BID Levothyroxine Sodium 100 Mcg Tablet 1 Tab PO DAILY Vitals/I & O Vital Sign - Last 24 Hours 11/3/18 11/3/18 11/3/18 11/3/18 07:49 08:00 08:42 09:42 Temp 97.6 97.6 Pulse 72 Resp 16 20 B/P (MAP) 124/71 (88) Pulse Ox 95 95 O2 Delivery Room Air Room Air Room Air O2 Flow Rate 2.0 09/17/18 09/17/18 09/17/18 09/17/18 11:00 15:00 17:10 18:10 Temp 97.5 97.9 97.5 97.9 Pulse 73 89 Resp 16 16 20 20 B/P (MAP) 126/64 (84) 127/74 (91) Pulse Ox 94 98 O2 Delivery Room Air Room Air Room Air Room Air 09/17/18 09/17/18 09/17/18 09/18/18 19:00 20:00 23:00 03:00 Temp 98.2 98.4 97.6 98.2 98.4 97.6 Pulse 73 79 76 Resp 18 18 18 B/P (MAP) 125/72 (89) 129/67 (87) 125/71 (89) Pulse Ox 95 95 96 O2 Delivery Room Air Room Air Room Air Room Air Intake and Output 09/17/18 09/17/18 09/18/18 15:00 23:00 07:00 Intake Total 800 ml 200 ml Balance 800 ml 200 ml KERLINE WHYTE MD Sep 18, 2018 07:08
[2018-09-18 07:53] LABS: PROTHROMBIN TIME PATIENT 18.4 SEC (11.7-14.0)
[2018-09-18] MEDS: SENNOSIDES/DOCUSATE 8.6/50MG TABLET. PO SCH (08:00)
[2018-09-18] MEDS: ASCORBIC ACID 500 MG TABLET PO SCH (08:00)
[2018-09-18] MEDS: MULTIVITAMIN with MINERAL TABLET. PO SCH (08:00)
[2018-09-18] MEDS: INSULIN LISPRO 300 UNITS/3 ML INSULN.PEN. SQ SCH ×6 (08:00→17:45)
[2018-09-18] MEDS: GLIMEPIRIDE 2 MG TABLET. PO SCH (08:00)
[2018-09-18] MEDS: FERROUS SULFATE 325 MG TABLET. PO SCH ×2 (08:00→17:41)
[2018-09-18] MEDS: CELECOXIB 100 MG CAPSULE. PO SCH ×2 (08:00→21:23)
[2018-09-18] MEDS: CYCLOBENZAPRINE 10 MG TABLET. PO PRN ×2 (08:56→16:16)
[2018-09-18 11:00] VITALS: BP 152/76
[2018-09-18 15:42] VITALS: BP 127/75
[2018-09-18] MEDS ORDERED: WARFARIN 3 MG TABLET. PO ONE (16:00)
[2018-09-18] MEDS: metFORMIN 500 MG TABLET PO SCH (17:41)
[2018-09-18 19:45] VITALS: BP 135/75
[2018-09-18] MEDS: INSULIN GLARGINE 300 UNITS/3 ML INSULN.PEN. SQ SCH (21:27)
[2018-09-18 23:27] VITALS: BP 137/60
[2018-09-19 03:50] VITALS: BP 142/75
[2018-09-19] MEDS: LEVOTHYROXINE 100 MCG TABLET PO SCH (05:53)
[2018-09-19 07:15] LABS: PROTHROMBIN TIME PATIENT 20.2 SEC (11.7-14.0)
[2018-09-19] MEDS: oxyCODONE/APAP 7.5/325 1 TAB TABLET PO PRN (07:30)
[2018-09-19] MEDS: FERROUS SULFATE 325 MG TABLET. PO SCH (07:30)
[2018-09-19] MEDS: metFORMIN 500 MG TABLET PO SCH (07:30)
[2018-09-19 07:58] VITALS: BP 138/84
[2018-09-19] MEDS: INSULIN LISPRO 300 UNITS/3 ML INSULN.PEN. SQ SCH ×3 (08:00→12:00)
[2018-09-19] MEDS: SENNOSIDES/DOCUSATE 8.6/50MG TABLET. PO SCH (08:34)
[2018-09-19] MEDS: CELECOXIB 100 MG CAPSULE. PO SCH (08:34)
[2018-09-19] MEDS: GLIMEPIRIDE 2 MG TABLET. PO SCH (08:34)
[2018-09-19] MEDS: MULTIVITAMIN with MINERAL TABLET. PO SCH (08:34)
[2018-09-19] MEDS: ASCORBIC ACID 500 MG TABLET PO SCH (08:34)
[2018-09-19] MEDS ORDERED: SENN-22 PO (08:39)
[2018-09-19] MEDS ORDERED: INSU100I13 SQ (08:39)
[2018-09-19] MEDS ORDERED: FERR325T72 PO (08:39)
[2018-09-19] MEDS ORDERED: HYDR-965 PO (08:39)
[2018-09-19] MEDS ORDERED: CYCL10TA2 PO (08:39)
--- NOTE | 2018-09-19 08:45 | DISCH ---
DISCHARGE DISCHARGE INFORMATION: CONDITION ON DISCHARGE: Stable CODE STATUS: Code Status: Full SENIOR LIVING: SNF STAY <30 DAYS: Yes HOSPICE: HOSPICE: No HOSPICE EVAL & TREAT: No LTAC: ADMIT TO LTAC: No POST DISCHARGE ORDERS: ACTIVITY ORDERS: Progressive ambulation, Other, see below WEIGHT BEARING STATUS: As tolerated DIET AFTER DISCHARGE: dm diet WOUND/INCISION CARE: Ice to area for comfort, Keep wound elevated, Change dressing CHECKS AFTER DISCHARGE: CHECKS AFTER DISCHARGE: Check blood press - daily, Check blood sugar, ac/hs TREATMENT/EQUIPMENT ORDERS: ADAPTIVE EQUIPMENT NEEDED: Four wheeled walker Physical Therapy For: Evalulation/Treatment Occupational Therapy For: Evaluation/Treatment DISCHARGE MEDICATIONS: Home Meds Active Scripts Insulin Glargine,Hum.rec.anlog (LANTUS SOLOSTAR) 100 Unit/1 Ml Insuln.pen, 12 UNITS SQ QHS for dm MDD 0 for 30 Days, EACH Prov:CRISTOFER LOZADA MD 09/19/18 Sennosides/Docusate Sodium (SENNA-TIME S TABLET) 1 Each Tablet, 1 TAB PO DAILY for constipatio MDD 0, #30 TAB Prov:CRISTOFER LOZADA MD 09/19/18 Ferrous Sulfate (FEOSOL) 325 Mg Tablet, 325 MG PO BIDWMEALS for anemia MDD 650 for 30 Days, #60 TAB Prov:CRISTOFER LOZADA MD 09/19/18 Cyclobenzaprine Hcl (CYCLOBENZAPRINE HCL) 10 Mg Tablet, 10 MG PO PRN Q6HRS PRN for MUSCLE SPASMS, #30 TAB Prov:CRISTOFER LOZADA MD 09/19/18 Hydrocodone/Apap 7.5-325 ([place] 7.5-325 TABLET) 1 Each Tablet, 1 TAB PO PRN Q6HRS PRN for PAIN, #30 TAB 0 Refills Prov:CRISTOFER LOZADA MD 09/19/18 Reported Medications Naproxen Sodium (ALEVE) 220 Mg Tablet, 220 MG PO BID, TAB 08/29/18 Tramadol Hcl (TRAMADOL HCL) 50 Mg Tablet, 50 MG PO Q6HRS PRN for PAIN, TAB 08/29/18 Glucosamine Sulfate 2KCL (GLUCOSAMINE) 1,000 Mg Tablet, 1000 MG PO DAILY, TAB 03/22/18 Multivitamin (MULTIVITAMINS) 1 Each Tablet, 1 TAB PO DAILY, #90 TAB 3 Refills 03/22/18 Ascorbic Acid (VITAMIN C) 100 Mg Tablet, 1000 MG PO DAILY, TAB 03/22/18 Hydrochlorothiazide (HYDROCHLOROTHIAZIDE CAPSULE ) 12.5 Mg Capsule, 1 CAP PO DAILY, #30 CAP 5 Refills 03/22/18 Benazepril Hcl (BENAZEPRIL HCL) 20 Mg Tablet, 1 TAB PO DAILY, #30 TAB 5 Refills 03/22/18 Glimepiride (GLIMEPIRIDE) 2 Mg Tablet, 1 TAB PO DAILY, #30 TAB 5 Refills 03/22/18 Metformin Hcl (METFORMIN HCL) 1,000 Mg Tablet, 1000 MG PO BID for ANTI-DIABETIC , TAB 0 Refills 03/22/18 Levothyroxine Sodium (LEVOTHYROXINE SODIUM) 100 Mcg Tablet, 1 TAB PO DAILY, #30 TAB 5 Refills 03/22/18 CRISTOFER LOZADA MD Sep 19, 2018 08:45
[2018-09-19] MEDS ORDERED: APIX2.5T PO (09:34)
[2018-09-19] MEDS ORDERED: APIX5TAB PO (09:34)
--- NOTE | 2018-09-19 09:53 | PDOC ---
SUBJECTIVE Subjective S: Doing okay, has only walked minimally, up a couple times, still has pain at the right hip, though hemoglobin appears stable, back on Coumadin with INR of 1.8 O: Physical exam: Gen.: Well-nourished and well-developed, resting in bed Lungs: Breathing comfortably with no evidence of respiratory distress Extremities: Right lower extremity still swollen Skin: Warm and dry Psychiatric: Pleasant mood and affect Labs: White count 12.2, hemoglobin 9.0, platelets 299 Rads: 09/[address] right hip hematoma extending to right iliopsoas and presacral area Lower extremity ultrasound on 09/13 of the right showed extensive DVT persistent but improved Assessment and Plan: He is a 68-year-old male with right hip replacement and symptoms of right lower extremity DVT noted on postop day 1, improved on anticoagulation with Coumadin however unfortunately he developed a postop hematoma, required 4 units of FFP and 3 units of red blood cells between 14 September and 15 September. It seems that his hemoglobin is relatively stable, back on Coumadin with an INR of 1.8. Renal function is normal. He is not obese, he probably would be a reasonable candidate for novel anticoagulant at a low dose, IVC filter was placed on 16 September, until we can ensure that the hematoma will not worsen and he is back up and moving around. Likely moving to rehabilitation today. RLE DVT: He has stockings, will likely proceed to low-dose 2.5 mg by mouth twice a day apixaban with plans to increase to 5 mg by mouth twice a day as soon as he is ambulating and there is no concern for worsened hematoma, will consider hypercoagulable workup after anticoagulation is complete and removal of IVC filter at about the 12 week digna Osteoarthritis: Status post right hip replacement, would hold Celebrex at the moment with recent postop hematoma Other comorbidities: Deferred to primary for diabetes and others including mild renal insufficiency which has improved to a creatinine of 0.9 Disposition: To rehabilitation, we can arrange follow-up in our clinic Thank you kindly, and please don't hesitate to call with any further questions. OBJECTIVE Vital Signs Vital Signs Date Time Temp Pulse Resp B/P (MAP) Pulse Ox O2 Delivery O2 Flow Rate FiO2 09/19/18 08:34 16 Room Air 09/19/18 07:58 97.5 80 16 138/84 (102) 97 Room Air 97.5 09/19/18 07:30 18 Room Air 09/19/18 03:50 98.0 84 18 142/75 (97) 96 Room Air 98.0 09/18/18 23:27 98.2 87 18 137/60 (85) 97 Room Air 98.2 09/18/18 20:00 Room Air 2.0 09/18/18 19:45 97.5 90 18 135/75 (95) 95 Room Air 97.5 09/18/18 16:15 Room Air 09/18/18 15:42 97.7 86 16 127/75 (92) 95 Room Air 97.7 09/18/18 11:00 97.7 72 16 152/76 (101) 99 Room Air 97.7 I & O Intake and Output 09/19/18 07:00 Intake Total 450 ml Output Total 2200 ml Balance -1750 ml Intake Oral 450 ml Output Urine Total 2200 ml COMMENT Lab Laboratory Tests Test 09/18/18 11:36 09/18/18 17:05 09/18/18 20:43 09/19/18 06:40 Glucose (Fingerstick) 148 mg/dL (70-99) 133 mg/dL (70-99) 221 mg/dL (70-99) Prothrombin Time 20.2 SEC (11.7-14.0) Prothromb Time International Ratio 1.8 (0.8-1.1) Test 09/19/18 07:41 Glucose (Fingerstick) 84 mg/dL (70-99) MARCI FONSECA MD Sep 19, 2018 09:53
--- NOTE | 2018-09-19 10:27 | PDOC3 ---
Discharge Summary Visit Information Date of Admission: Sep 06, 2018 Date of Discharge: Sep 19, 2018 Admitting Diagnosis Comment: Rt hip DJD S/p right hip arthroplasty 09/06 Extensive right leg DVT - confirmed 09/08 s/p IVC filter LArge retroperitoneal bleed, hgb stable Leukocytosis likely 2/2 to intra-op steroids - resolved Hyponatremia - resolved H/o DM H/o HTN, hypotension H/o hypothyroid ACute anemia, post op hyperkalemia resolved Final Diagnosis His is a 68-year-old male who had a right hip arthroplasty on 09/06 and developed an extensive right leg DVT. Comanage with heme onc. He was getting anti-coagulation and NSAIDs along with this then developed a large retroperitoneal bleed. Hence IVC filter was placed on 09/08. Now hemodynamically stable. Still significant needs for PT, can't bear weight or significant pain on that right leg. Back pain or abdominal pain seems to be not an issue. Discussed with heme onc, recommend apixaban 2.5 twice a day for couple weeks then to inc to to 5mg by mouth twice a day. Recommend heme onc follow-up maybe about 1-2 months time. I have Rx'd all these prescriptions on file. Discussed with multiple staff members including RN, drug abuse social worker, case management, and Dr. Brandy Quan Procedures performed IR DVT/IVC filter placement on 09/08 Right hip arthroplasty by orthopedics 09/06 DC time 35 minutes Brief Hospital Course Allergies Allergies Coded Allergies Type Severity Reaction Last Updated Verified No Known Drug Allergies 09/06/18 No Vital Signs Vital Signs Date Time Temp Pulse Resp B/P (MAP) Pulse Ox O2 Delivery O2 Flow Rate FiO2 09/19/18 08:34 16 Room Air 09/19/18 07:58 97.5 80 138/84 (102) 97 97.5 09/18/18 20:00 2.0 Lab Results Laboratory Tests Test 09/17/18 11:28 09/17/18 17:00 09/17/18 21:03 09/18/18 06:35 Glucose (Fingerstick) 180 mg/dL (70-99) 224 mg/dL (70-99) 167 mg/dL (70-99) Prothrombin Time 18.4 SEC (11.7-14.0) Prothromb Time International Ratio 1.6 (0.8-1.1) Test 09/18/18 07:56 09/18/18 11:36 09/18/18 17:05 09/18/18 20:43 Glucose (Fingerstick) 94 mg/dL (70-99) 148 mg/dL (70-99) 133 mg/dL (70-99) 221 mg/dL (70-99) Test 09/19/18 06:40 09/19/18 07:41 Prothrombin Time 20.2 SEC (11.7-14.0) Prothromb Time International Ratio 1.8 (0.8-1.1) Glucose (Fingerstick) 84 mg/dL (70-99) Laboratory Tests Test 09/18/18 11:36 09/18/18 17:05 09/18/18 20:43 09/19/18 06:40 Glucose (Fingerstick) 148 mg/dL (70-99) 133 mg/dL (70-99) 221 mg/dL (70-99) Prothrombin Time 20.2 SEC (11.7-14.0) Prothromb Time International Ratio 1.8 (0.8-1.1) Test 09/19/18 07:41 Glucose (Fingerstick) 84 mg/dL (70-99) Brief Hospital Course Mr. Padilla is a 68 old [sex] who presented with [ ] Discharge Information Condition at Discharge: Improved, Stable Disposition/Orders: Other (snu) Scheduled Apixaban (Eliquis) 2.5 Mg Tablet, 2.5 MG PO BID for DVT for 14 Days, #28 Prescribed by: CRISTOFER LOZADA on 09/19/18 0934 Apixaban (Eliquis) 5 Mg Tablet, 5 MG PO BID for DVT for 90 Days, #180 Prescribed by: CRISTOFER LOZADA on 09/19/18 0934 Ascorbic Acid (Vitamin C) 100 Mg Tablet, 1,000 MG PO DAILY, (Reported) Entered as Reported by: ALICJA HANSEN on 03/22/18751 Last Taken: Unknown Dose on 09/05/18 Last Action: Converted on 09/06/182132 by KAITLIN LOWRY Benazepril Hcl (Benazepril Hcl) 20 Mg Tablet, 1 TAB PO DAILY, #30 Ref 5 ( Reported) Entered as Reported by: ALICJA HANSEN on 5/8/18 0750 Last Taken: Unknown Dose on 09/05/18 Last Action: Converted on 09/06/182132 by KAITLIN LOWRY Ferrous Sulfate (Feosol) 325 Mg Tablet, 325 MG PO BIDWMEALS for anemia MDD 650 for 30 Days, #60 Prescribed by: CRISTOFER LOZADA on 09/19/18 0839 Glimepiride (Glimepiride) 2 Mg Tablet, 1 TAB PO DAILY, #30 Ref 5 (Reported) Entered as Reported by: ALICJA HANSEN on 03/22/18 0749 Last Taken: Unknown Dose on 09/05/18 Last Action: Continued on 09/06/182132 by KAITLIN LOWRY Glucosamine Sulfate 2KCL (Glucosamine) 1,000 Mg Tablet, 1,000 MG PO DAILY, ( Reported) Entered as Reported by: ALICJA HANSEN on 03/22/18752 Last Taken: Unknown Dose on 09/05/18 Last Action: Reviewed on 09/06/18941 by FERDINAND PENNINGTON Hydrochlorothiazide (Hydrochlorothiazide Capsule ) 12.5 Mg Capsule, 1 CAP PO DAILY, #30 Ref 5 (Reported) Entered as Reported by: ALICJA HANSEN on 03/22/18 0750 Last Taken: Unknown Dose on 09/05/18 Last Action: Converted on 09/06/182132 by KAITLIN LOWRY Insulin Glargine,Hum.rec.anlog (Lantus Solostar) 100 Unit/1 Ml Insuln.pen, 12 UNITS SQ QHS for dm MDD 0 for 30 Days Prescribed by: CRISTOFER LOZADA on 09/19/18 0839 Levothyroxine Sodium (Levothyroxine Sodium) 100 Mcg Tablet, 1 TAB PO DAILY, #30 Ref 5 (Reported) Entered as Reported by: ALICJA HANSEN on 03/22/18 0748 Last Taken: Unknown Dose on 09/05/18 Last Action: Continued on 09/06/182132 by KAITLIN LOWRY Metformin Hcl (Metformin Hcl) 1,000 Mg Tablet, 1,000 MG PO BID for ANTI-DIABETIC , Ref 0 (Reported) Entered as Reported by: ALICJA HANSEN on 03/22/1849 Last Taken: Unknown Dose on 09/05/18 Last Action: Converted on 09/06/182132 by KAITLIN LOWRY Multivitamin (Multivitamins) 1 Each Tablet, 1 TAB PO DAILY, #90 Ref 3 (Reported) Entered as Reported by: ALICJA HANSEN on 03/22/18751 Last Taken: Unknown Dose on 09/01/18 Last Action: Reviewed on 09/06/18941 by FERDINAND PENNINGTON Naproxen Sodium (Aleve) 220 Mg Tablet, 220 MG PO BID, (Reported) Entered as Reported by: LUANN NG on 08/29/18803 Last Taken: Unknown Dose on 09/05/18 Last Action: Reviewed on 09/06/18941 by FERDINAND PENNINGTON Sennosides/Docusate Sodium (Senna-Time S Tablet) 1 Each Tablet, 1 TAB PO DAILY for constipatio MDD 0, #30 Prescribed by: CRISTOFER LOZADA on 09/19/18 0839 Scheduled PRN Cyclobenzaprine Hcl (Cyclobenzaprine Hcl) 10 Mg Tablet, 10 MG PO PRN Q6HRS PRN for MUSCLE SPASMS, #30 Prescribed by: CRISTOFER LOZADA on 09/19/18 0839 Hydrocodone/Apap 7.5-325 ([place] 7.5-325 Tablet) 1 Each Tablet, 1 TAB PO PRN Q6HRS PRN for PAIN, #30 Ref 0 Prescribed by: CRISTOFER LOZADA on 09/19/18 0839 Tramadol Hcl (Tramadol Hcl) 50 Mg Tablet, 50 MG PO Q6HRS PRN for PAIN, (Reported ) Entered as Reported by: LUANN NG on 08/29/18803 Last Taken: Unknown Dose on 09/05/18 Last Action: Reviewed on 09/06/18941 by CRISTOFER ESPARZA MD Sep 19, 2018 10:26
[2018-09-19 11:26] VITALS: BP 125/83
[2018-09-19] MEDS ORDERED: POLYETHYLENE GLYCOL 3350 17 GM PACKET. PO PRN (12:15)
[2018-09-19] MEDS ORDERED: POLYETHYLENE GLYCOL 3350 17 GM PACKET. PO ONE (12:15)
[2018-09-19] MEDS ORDERED: MAGNESIUM HYDROXIDE 2,400 MG/30 ML ORAL.SUSP. PO ONE (12:15)
[2018-09-19] MEDS ORDERED: MAGNESIUM HYDROXIDE 2,400 MG/30 ML ORAL.SUSP. PO PRN (12:15)
[2018-09-19] MEDS: ANTI-COAG MONITOR BY PHARMACY. MC PRN (14:07)
--- NOTE | 2018-09-19 17:34 | PDOC ---
PROGRESS NOTES Subjective Subjective Problems overnight: Right leg swelling and back pain have decreased. He says the right leg used to be much stronger the first couple of days after surgery but ever since the swelling has occurred he has some persistent numbness to the inner thigh area and the right leg just feels more week and rubbery as he is trying to get up and around on it not so much the pain that he had been having Objective Vital Signs Vital Signs Date Time Temp Pulse Resp B/P (MAP) Pulse Ox O2 Delivery O2 Flow Rate FiO2 09/19/18 11:26 98.0 83 16 125/83 (97) 98 Room Air 98.0 09/18/18 20:00 2.0 Physical Exam On exam compartments are soft he really does not have sensation up in the thigh either lateral which was the case immediately after surgery and is expected or medial on the thigh which had come about after his extreme swelling associated with the blood clot. Distal sensation is all intact over medial lateral calf medial lateral foot dorsum and plantar aspect of his foot and his dorsiflexion and plantarflexion and extensor hallucis longus all intact motor cortez. His incision does have some slight maceration over its lateral aspect no surrounding redness or erythema and was redressed with silver dressing and 4 x 4 's Labs Laboratory Tests Test 09/17/18 21:03 09/18/18 06:35 09/18/18 07:56 09/18/18 11:36 Glucose (Fingerstick) 167 mg/dL (70-99) 94 mg/dL (70-99) 148 mg/dL (70-99) Prothrombin Time 18.4 SEC (11.7-14.0) Prothromb Time International Ratio 1.6 (0.8-1.1) Test 09/18/18 17:05 09/18/18 20:43 09/19/18 06:40 09/19/18 07:41 Glucose (Fingerstick) 133 mg/dL (70-99) 221 mg/dL (70-99) 84 mg/dL (70-99) Prothrombin Time 20.2 SEC (11.7-14.0) Prothromb Time International Ratio 1.8 (0.8-1.1) Test 09/19/18 11:44 Glucose (Fingerstick) 134 mg/dL (70-99) Laboratory Tests Test 11/4/18 20:43 09/19/18 06:40 09/19/18 07:41 09/19/18 11:44 Glucose (Fingerstick) 221 mg/dL (70-99) 84 mg/dL (70-99) 134 mg/dL (70-99) Prothrombin Time 20.2 SEC (11.7-14.0) Prothromb Time International Ratio 1.8 (0.8-1.1) Assessment Assessment POD# [], S/P [right total hip arthroplasty] Plan Plan of Care I went over with him the thigh numbness laterally is due to just expected nerve endings in the area of the incision and stretching of the lateral femoral cutaneous nerve. The medial thigh however is a different issue as it came on after his swelling and is likely due to the pressure on the nerve due to swelling in that is causing some of the weakness and rubbery feeling in the leg as he tries to ambulate. I told him this early in EMG or other electrodiagnostic test is not going to be useful before about 3 weeks and I would recommend observation of the ongoing numbness and its resolution. If it is not resolving as expected particularly in about 2 weeks' time frame we could try to obtain an EMG as a baseline at that time. In the interim I appreciate the vascular and hematology consultations and the recommendation to now start Elliquis. He has the removable inferior vena cava filter to guard against propagation of blood clot as well. We'll continue to monitor for swelling and resolution of his numbness and weakness as above. Continue daily dressing changes with silver dressing and 4 x 4's reporting any redness erythema and increased drainage Follow-up Dr. Peoples approximately 1 week or call earlier if there are other concerns regarding his incision swelling or other problems Weightbearing as tolerated no hip precautions indicated due to anterior approach in the interim HERMINIO PEOPLES MD Sep 19, 2018 17:34
[2018-09-19] MEDS ORDERED: APIXABAN 2.5 MG TABLET. PO SCH (21:00)
--- NOTE | 2018-09-20 17:56 | RAD ---
EXAM: Right hip, 6 views. HISTORY: Arthroplasty COMPARISON: None. FINDINGS: 6 fluoroscopic images of the right hip are obtained during arthroplasty placement. The final image demonstrates a right hip arthroplasty in expected position. The total fluoroscopy time is 2.24 minutes. IMPRESSION: Right hip arthroplasty in expected position. Electronically signed by: Layla Malik MD (09/20/2018 5:53 PM) [facility]
== END 2018-09-19 15:15 | DRG 469 ==
LOC: OPSVCIP 08:45 → 4 SOUTHEST 19:21 → 4 NORTH 09-09 17:30
PROVIDERS: ADMIT Orthopaedic Surgery; ATTEND Orthopaedic Surgery
PROC: 0SR906Z Replacement of Right Hip Joint with Oxidized Zirconium on Polyethylene Synthetic Substitute, Open Approach (ICD-10-PCS; principal; 2018-09-06 12:55)
PROC: 30233L1 Transfusion of Nonautologous Fresh Plasma into Peripheral Vein, Percutaneous Approach (ICD-10-PCS; 2018-09-15)
PROC: 30233N1 Transfusion of Nonautologous Red Blood Cells into Peripheral Vein, Percutaneous Approach (ICD-10-PCS; 2018-09-15)
PROC: 30233K1 Transfusion of Nonautologous Frozen Plasma into Peripheral Vein, Percutaneous Approach (ICD-10-PCS; 2018-09-15)
PROC: 06H03DZ Insertion of Intraluminal Device into Inferior Vena Cava, Percutaneous Approach (ICD-10-PCS; 2018-09-16)
DX: M16.11 Unilateral primary osteoarthritis, right hip (principal); E43 Unspecified severe protein-calorie malnutrition; E87.1 Hypo-osmolality and hyponatremia; I82.401 Acute embolism and thrombosis of unspecified deep veins of right lower extremity; I10 Essential (primary) hypertension; E11.9 Type 2 diabetes mellitus without complications; E03.9 Hypothyroidism, unspecified; F17.290 Nicotine dependence, other tobacco product, uncomplicated; N28.9 Disorder of kidney and ureter, unspecified; D64.9 Anemia, unspecified; D72.829 Elevated white blood cell count, unspecified; E87.5 Hyperkalemia; F32.9 Major depressive disorder, single episode, unspecified; I95.9 Hypotension, unspecified; Z79.01 Long term (current) use of anticoagulants; Z87.442 Personal history of urinary calculi; Z82.5 Family history of asthma and other chronic lower respiratory diseases; Z82.3 Family history of stroke; Z79.84 Long term (current) use of oral hypoglycemic drugs; Z82.49 Family history of ischemic heart disease and other diseases of the circulatory system; Z68.25 Body mass index [BMI] 25.0-25.9, adult
CPT/HCPCS: 36415; 37191; 72170; 73701; 74177; 76000; 76937; 80048; 80053; 82962; 83036; 83605; 85007; 85014; 85018; 85025; 85610; 85651; 85730; 86850; 86900; 86901; 86920; 86927; 88304; 88311; 90471; 90756; 93971; A7015; C1713; C1769; C1887; C1892; J0171; J0690; J0780; J1100; J1644; J1650; J1815; J1885; J2001; J2250; J2270; J2405; J2704; J2710; J2795; J3010; J3490; J7030; J7120; P9016; P9017; Q9966; Q9967; 97110; 97116; 97150; 97530; 97535; Q2035

== ENCOUNTER 2018-10-28 09:09 | Outpatient (CLI) | payer MEDICARE ==
[~2018-10-28] VITALS: Ht 175.3 cm; Wt 79.4 kg
[~2018-10-28 09:09] MED LIST changes: +APIX2.5T PO; +APIX5TAB PO; +CYCL10TA2 PO; +FERR325T72 PO; +HYDR-3165 PO; -HYDR-965 PO; -HYDR12.53 PO; +HYDR12.575 PO; -HYDROcodone/APAP 7.5/325MG 1 TAB TABLET PO PRN; -HYDROmorphone 2 MG/ML VIAL IV PRN; +INSU100I13 SQ; -IV RINGERS,LACTATED 1000ML 1,000 ML IV SCH; -LIDOCAINE 1% PF 2 ML VIAL. ID PRN; -MORPHINE SULFATE 2 MG/ML VIAL. IV PRN; -MORPHINE SULFATE 5 MG, KETOROLAC 30MG VIAL 30 MG, ROPIVacaine 0.5% PF 60 ML, EPINEPHrin... INT ART ONE; -ONDANSETRON PF 4 MG/2 ML VIAL. IV PRN; -PROCHLORPERAZINE 10 MG/2 ML VIAL. IV PRN; +SENN-22 PO; -TRANEXAMIC ACID 1,000 MG in IV NS 50ML -- 1ST BAG INJ ONE; -TRANEXAMIC ACID 1,000 MG in IV NS 50ML -- 2ND BAG INJ ONE; -fentaNYL PF VIAL 100 MCG/2 ML VIAL IV PRN
[2018-10-28] MEDS ORDERED: RIVA20TA2 PO (09:39)
[2018-10-28] MEDS ORDERED: INSU100I32 SQ ×2 (09:39)
[2018-10-28] MEDS ORDERED: HYDR-2145 PO (09:39)
[2018-10-28] MEDS ORDERED: TIZA2CAP PO (09:39)
[2018-10-28 09:44] VITALS: BP 142/70
[2018-10-28] MEDS ORDERED: LIDOCAINE WITH 8.4% SOD BICARB 3 ML DISP.SYRIN. ONE (09:46)
[2018-10-28] MEDS ORDERED: IOHEXOL 240 MG/ML 50ML VIAL. ONE (09:47)
[2018-10-28] MEDS ORDERED: IOHEXOL 240 MG/ML 50ML VIAL. IV ONE (10:30)
[2018-10-28] MEDS ORDERED: LIDOCAINE WITH 8.4% SOD BICARB 3 ML DISP.SYRIN. INJ ONE (10:30)
[2018-10-28] MEDS ORDERED: CONTRAST GIVEN. MC PRN (10:30)
[2018-10-28 10:45] VITALS: BP 131/66
[2018-10-28 10:54] VITALS: BP 142/70
--- NOTE | 2018-10-28 11:08 | RAD ---
10/28/2018 10:47 AM Procedures: 1. Inferior venacavogram 2. Removal of an IVC filter Clinical Indication: Patient now a candidate for chronic anticoagulation. History of DVT. The procedure, risks, and complications were explained to the patient's family members and they understood and wished to proceed. Consent form signed. Ultrasound guided access: Ultrasound evaluation showed a patent right internal jugular vein. The right neck was prepped and draped using maximal sterile technique and one percent Xylocaine was used for local anesthesia. All elements of maximum sterile barrier technique was utilized. Under ultrasound guidance, a singlewall puncture was made into the right internal jugular vein followed by placement of a micropuncture sheath. This exchanged for an IVC retrievable sheath. An ultrasound image of the right neck was saved and sent to PACS. An inferior venacavogram was performed demonstrating no filter thrombosis or thrombosis within the visualized cava. This near was used to grasp the filter. The filter was retrieved through the sheath. Repeat venacavogram demonstrates an unremarkable appearance of the IVC. The sheath was removed. Manual pressure was held to achieve hemostasis. Fluoroscopy time: 3.5 minutes Dose area product: 28 gycm2 Impression: Successful retrieval of an infrarenal IVC filter
[2018-10-28 11:25] VITALS: BP 149/77
[2018-10-28 11:51] VITALS: BP 160/89
== END 2018-10-28 12:19 ==
LOC: INTRAD 09:09
PROVIDERS: ATTEND Surgery
DX: Z45.89 Encounter for adjustment and management of other implanted devices (principal); Z86.718 Personal history of other venous thrombosis and embolism; Z79.01 Long term (current) use of anticoagulants
CPT/HCPCS: 37193; C1769; C1880; C1892; C1894; Q9966; 76937

== ENCOUNTER → 2021-06-09 | Outpatient (CLI) | payer MEDICARE ==
[~2021-06-09] MED LIST changes: -GLIM2TAB2 PO; +GLIM2TAB7 PO; +HYDR-2145 PO; +INSU100I32 SQ; +MULT-445 PO; -MULT1TAB52 PO; +RIVA20TA2 PO; +TIZA2CAP PO
--- NOTE | 2021-06-10 18:50 | CARD ---
MR#: [id number] Date of Study: 06/09/2021 Ordering Physician: KVNG HITCHCOCK, Referring Physician: KVNG HITCHCOCK, Tech: Jayna Curryschuyler, [facility] APPROVED REPORT EXAM: Two-dimensional and M-mode echocardiogram with Doppler and color Doppler. Other Information Quality : AverageHR: 57bpm INDICATION Murmur RISK FACTORS Hypertension Diabetes 2D DIMENSIONS Left Atrium(2D)3.7 (1.6-4.0cm)IVSd1.0 (0.7-1.1cm) Aortic Root(2D)3.3 (2.0-3.7cm)LVDd5.3 (3.9-5.9cm) LVOT Diameter2.1 (1.8-2.4cm)PWd1.0 (0.7-1.1cm) LVDs2.7 (2.5-4.0cm)FS (%) 49.9 % SV111.7 ml Aortic Valve AoV Peak Douglas.208.9cm/sAoV VTI46.7cm AO Peak GR.17.5mmHgLVOT Peak Douglas.107.1cm/s LVOT VTI 28.50cmAO Mean GR.9mmHg FLORECITA (VMAX)1.74df8ZBO (VTI)2.05cm2 Mitral Valve MV E Tmqkbrid69.1cm/sMV DECEL ROXN744vb MV A Qqmgxwtf29.7cm/sMV STF97lh E/A Ratio1.2MVA (PHT)3.21cm2 TDI E/Lateral E'9.9E/Medial E'11.5 Pulmonary Valve PV Peak Xlupstps69.8cm/sPV Peak Grad.3mmHg Tricuspid Valve TR P. Hmuevnbn783yo/sRAP [id number] TR Peak Gr.89jjLlWXDQ93yfAv Pulmonary Vein S1 Ocwccsfr77.8cm/sD2 Vgxfvkqr52.7cm/s PVa [id number] LEFT VENTRICLE The left ventricle is normal size. There is normal left ventricular wall thickness. The left ventricu lar systolic function is normal and the ejection fraction is within normal range. The Ejection Fracti on is 55-60%. There is normal LV segmental wall motion. Transmitral Doppler flow pattern is Grade II- pseudonormal filling dynamics. RIGHT VENTRICLE The right ventricle is normal size. There is normal right ventricular wall thickness. The right ventr icular systolic function is normal. ATRIA The left atrium size is normal. The right atrium size is normal. The interatrial septum is intact wit h no evidence for an atrial septal defect or patent foramen ovale as noted on 2-D or Doppler imaging. AORTIC VALVE The aortic valve is thickened but opens well. Doppler and Color Flow revealed no significant aortic r egurgitation. There is no significant aortic valvular stenosis. Calculated aortic valve area is 1.59 cm2 with maximum pressure gradient of 23 mmHg and mean pressure gradient of 11 mmHg. MITRAL VALVE The mitral valve is normal in structure and function. There is no evidence of mitral valve prolapse. There is no mitral valve stenosis. Doppler and Color-flow revealed trace mitral regurgitation. TRICUSPID VALVE The tricuspid valve is normal in structure and function. Doppler and Color Flow revealed trace tricus pid regurgitation with an estimated PAP of 42 mmHg. There is no tricuspid valve stenosis. PULMONIC VALVE The pulmonic valve is not well visualized. Doppler and Color Flow revealed trace pulmonic valvular re gurgitation. GREAT VESSELS The aortic root is normal in size. The ascending aorta is mildly dilated measuring 3.8 cm. The IVC is dilated. PERICARDIAL EFFUSION There is no evidence of significant pericardial effusion. Critical Notification Critical Value: No <Conclusion> The left ventricle is normal size. The left ventricular systolic function is normal and the ejection fraction is within normal range. The Ejection Fraction is 55-60%. Doppler and Color Flow revealed no significant aortic regurgitation. There is no significant aortic valvular stenosis. Doppler and Color-flow revealed trace mitral regurgitation. Doppler and Color Flow revealed trace tricuspid regurgitation with an estimated PAP of 42 mmHg. The ascending aorta is mildly dilated measuring 3.8 cm. Signed by : Phil Colon MD Electronically Approved : 06/10/2021 18:50:01
== END ==
LOC: ECHO 09:41
PROVIDERS: ATTEND Physician Assistant
DX: I77.810 Thoracic aortic ectasia (principal)
CPT/HCPCS: 93306